=== PATIENT | male | born 1970 | race Caucasian/White ===

== ENCOUNTER → 2017-11-02 11:09 | Outpatient (REF) | payer BC, SELFPAY ==
[2017-11-02 13:27] LABS: Basophils % 0.7 % (0.1-2.0); Eosinophils # 0.2 K/mm3 (0.0-0.4); Eosinophils % 3.4 % (0.1-12.0); Hematocrit 48.2 % (42.0-52.0); Hemoglobin 15.6 g/dL (14.1-18.0); Lymphocytes # 1.2 K/mm3 (0.7-4.5); Lymphocytes % 21.3 K/mm3 (10-50); Mean Corpuscular HGB Conc 32.3 g/dL (31.8-35.4); Mean Corpuscular Hemoglobin 28.6 pg (27.0-31.2); Mean Corpuscular Volume 88.6 fl (80-94); Mean Platelet Volume 7.1 fl (7.4-10.4); Monocytes # 0.3 K/mm3 (0.1-1.0); Neutrophils # 3.8 K/mm3 (1.8-7.8); Neutrophils % 69.7 % (37.0-80.0); Platelet Count 207 K/mm3 (142-424); Red Blood Count 5.44 M/mm3 (4.60-6.20); Red Cell Distribution Width 12.2 % (11.5-17.5); White Blood Count 5.4 K/mm3 (4.8-10.8)
[2017-11-02 15:10] LABS: Alanine Aminotransferase 20 U/L (12-78); Albumin Level 4.2 gm/dL (3.4-5.0); Albumin/Globulin Ratio 1.4 (1.1-1.8); Alkaline Phosphatase 82 U/L (46-116); Anion Gap 12.8 mEq/L (5-15); Aspartate Amino Transferase 10 U/L (15-37); Bilirubin,Total 0.4 mg/dL (0.2-1.0); Blood Urea Nitrogen 10 mg/dL (7-18); Calcium 9.3 mg/dL (8.5-10.1); Carbon Dioxide 28 mmol/L (21.0-32.0); Chloride 103 mmol/L (98-107); Chol/HDL Ratio 4.2 (1-3.5); Cholesterol 148 mg/dL (140-200); Creatinine,Serum 0.87 mg/dL (0.70-1.30); Estimated Glomerular Filt Rate 94 ml/min (>60); GFR (African American) 114 ML/MIN (>60); Globulin 2.9 gm/dl (1.3-3.2); Glucose 79 mg/dL (74-106); HDL Cholesterol 35 mg/dL (27-67); LDL Cholesterol 96 mg/dL (0-130); Potassium 4.8 mmoL/L (3.5-5.1); Sodium 139 mmol/L (136-145); Thyroid Stimulating Hormone 0.91 uIU/ml (0.358-3.740); Total Protein,Serum 7.1 gm/dL (6.4-8.2); Triglycerides 85 mg/dL (30-200); VLDL Cholesterol 17 mg/dL (0-40)
== END ==
LOC: LAB 11:09
PROVIDERS: Visit Provider Emergency Medicine
DX: R53.83 Other fatigue (principal); Z79.899 Other long term (current) drug therapy
CPT/HCPCS: 80053; 80061; 84439; 84443; 85025

== ENCOUNTER 2018-05-30 13:30 | Observation (INO) ==
--- NOTE | 2018-05-30 13:34 | Emergency Department Note ---
ED Disposition Clinical Impression: Syncope and collapse Ribs, multiple fractures Qualifiers: Encounter type: initial encounter Fracture type: closed Laterality: left Qualified Code(s): S22.42XA - Multiple fractures of ribs, left side, initial encounter for closed fracture Chest pain Qualifiers: Chest pain type: unspecified Qualified Code(s): R07.9 - Chest pain, unspecified Disposition: Still a Patient Condition on Discharge: Fair - Critical Care Critical Care Time: No Attestation: On , the high probability of a clinically significant, sudden or life threatening deterioration of the following system(s) required my full and direct attention, intervention and personal management. The time I documented below is in addition to time spent performing reported procedures but includes the following listed in this critical care notation. Medical Decision Making - Torres Inquiry Pt receiving controlled substance: Yes Torres was queried for this patient: Yes Reference #:: [id number] Risks and benefits of using a controlled substance: were not discussed with pt by me (On pain medication at home) Comment: 24 rxs. 90 lortab 7.5mg on 04/28/18 Vital Signs: 05/30/18 13:31 05/30/18 13:52 05/30/18 13:59 Temperature 97.9 F Temperature Source Oral Pulse Rate [Right Brachial] 75 75 77 Respiratory Rate 17 Blood Pressure [Right Arm] 137/87 137/87 156/86 H Blood Pressure Mean [Right Arm] 103 103 109 Blood Pressure Source [Right Arm] Automatic Cuff Automatic Cuff Blood Pressure Position [Right Arm] Sitting Supine 02 Sat by Pulse Oximetry 99 99 99 Oxygen Delivery Method Nasal Cannula Nasal Cannula Oxygen Flow Rate (LPM) 2 2 05/30/18 14:01 05/30/18 14:58 05/30/18 15:00 Temperature Temperature Source Pulse Rate [Right Brachial] 75 Respiratory Rate Blood Pressure [Right Arm] 155/87 H 124/99 H 154/99 H Blood Pressure Mean [Right Arm] 109 107 117 Blood Pressure Source [Right Arm] Automatic Cuff Blood Pressure Position [Right Arm] Supine 02 Sat by Pulse Oximetry 100 Oxygen Delivery Method Oxygen Flow Rate (LPM) 05/30/18 15:35 05/30/18 16:20 05/30/18 17:25 Temperature Temperature Source Pulse Rate [Right Brachial] 77 78 78 Respiratory Rate Blood Pressure [Right Arm] 144/104 H 137/92 H 124/81 Blood Pressure Mean [Right Arm] 117 107 95 Blood Pressure Source [Right Arm] Automatic Cuff Automatic Cuff Automatic Cuff Blood Pressure Position [Right Arm] Supine Supine Sitting 02 Sat by Pulse Oximetry 99 100 98 Oxygen Delivery Method Nasal Cannula Nasal Cannula Room Air Oxygen Flow Rate (LPM) 2 2 - Lab Data Lab Results 05/30/18 13:43: WBC 10.5, RBC 4.98, Hgb 14.5, Hct 45.2, MCV 90.7, MCH 29.1, MCHC 32.0, RDW 12.4, Plt Count 232, MPV 7.1 L, Neut % (Auto) 86.4 H, Lymph % (Auto) 8.6 L, [place] % (Auto) 3.7, Eos % (Auto) 1.0, Baso % (Auto) 0.2, Neut # (Auto) 9.1 H, Lymph # (Auto) 0.9, [place] # (Auto) 0.4, Eos # (Auto) 0.1, Baso # (Auto) 0.0, Total Counted 100, Neutrophils % (Manual) 78 H, Band Neutrophils % 1.0, Lymphocytes % (Manual) 13, Atypical Lymphs % 6.0, Monocytes % (Manual) 2, Platelet Estimate Normal, RBC Morphology Normal 05/30/18 13:43: Sodium 142, Potassium 4.2, Chloride 104, Carbon Dioxide 31, Anion Gap 11.2, BUN 10, Creatinine 0.86, Estimated Creat Clear 133, Estimated GFR 95, Est GFR ( Amer) 115, Glucose 108 H, Calcium 8.9, Troponin I < 0.02 Result diagrams: 05/30/18 13:43 05/30/18 13:43 Orders (Tests/Meds): ED MEDICATIONS Generic Name Dose Route Start Last Admin Trade Name Freq PRN Reason Stop Dose Admin Hydrocodone Bitart/Acetaminophen 1 tab 05/30/18 16:49 [place] 7.5/325mg Tablet PO 06/29/18 16:48 Q6H LM Bupropion HCl 75 mg 05/30/18 21:00 Wellbutrin 75mg Tablet PO 06/29/18 20:59 BID LM Famotidine 20 mg 05/30/18 21:00 Pepcid 20mg Tablet PO 06/29/18 20:59 BID LM Morphine Sulfate 4 mg 05/30/18 16:49 Morphine 2mg/Ml Syringe IV 06/29/18 16:48 Q4HP PRN Severe Pain Non-Formulary Medication 80 mg 05/30/18 16:49 Atorvastatin Calcium [Lipitor 80mg Tablet] PO 06/29/18 16:48 QDAY LM Non-Formulary Medication 800 mg 05/30/18 21:00 Gabapentin [Neurontin 800mg Tab] PO 06/29/18 20:59 TID LM Ondansetron HCl 4 mg 05/30/18 17:16 Zofran 4mg/2ml Vial IV 06/29/18 17:15 Q6HP PRN Nausea Pantoprazole Sodium 40 mg 05/30/18 16:49 Protonix 40mg Tablet PO 06/29/18 16:48 QAM ML Prasugrel 10 mg 05/31/18 09:00 Effient 10mg Tablet PO 06/30/18 08:59 DAILY LM Sodium Chloride 10 ml 05/30/18 16:49 Saline Flush 10ml Syringe IV 06/29/18 13:58 NEEDED PRN Maintain IV Site Discontinued Medications Generic Name Dose Route Start Last Admin Trade Name Freq PRN Reason Stop Dose Admin Hydromorphone HCl 1 mg 05/30/18 16:32 05/30/18 16:48 Dilaudid 2mg/Ml Syringe IV 05/30/18 16:33 1 mg ONCE ONE Administration Iopamidol 75 ml 05/30/18 14:58 05/30/18 15:00 [id number]; 75ml Vial IV 05/30/18 14:59 75 ml ONCE ONE Administration Protocol Morphine Sulfate 4 mg 05/30/18 13:45 05/30/18 13:59 Morphine 4mg/Ml Syringe IV 05/30/18 13:46 4 mg ONCE ONE Administration Ondansetron HCl 4 mg 05/30/18 13:45 05/30/18 13:59 Zofran 4mg/2ml Vial IV 05/30/18 13:46 4 mg ONCE ONE Administration Sodium Chloride 10 ml 05/30/18 13:59 Saline Flush 10ml Syringe IV 06/29/18 13:58 NEEDED PRN Maintain IV Site Sodium Chloride 10 ml 05/30/18 14:58 05/30/18 15:00 Rad-Saline Flush 10ml Syringe IV 05/30/18 14:59 10 ml ONCE ONE Administration Sodium Chloride 50 ml 05/30/18 14:58 05/30/18 15:00 Rad-Ns 50ml Vial IV 05/30/18 14:59 50 ml ONCE ONE Administration ORDERS Category Date Time Status Pelvis XR 1-2 views [XR pelvis 1-2V] Stat Exams 05/30/18 13:36 Taken XR chest portable Stat Exams 05/30/18 13:36 Taken Troponin I Q3H Lab 05/30/18 19:45 Ordered Troponin I Q3H Lab 05/30/18 22:45 Ordered - Radiology Data #1 Image(s): Chest, Shoulder, Pelvis Image Reviewed: Yes I reviewed the patient's radiology image X-rays interpreted by Klaus Weinstein MD.: Chest: no pneumothorax or hemothorax, no visible rib fractures, normal mediastinum Pelvis: no fracture or dislocation Shoulder: No fracture or dislocation - CT Data CT Scan: Head, C-Spine, Abdomen, Pelvis, Chest, T-Spine, L-Spine Time Received: 15:[address] Reviewed: Yes: I have viewed the radiologist's interpretation Findings Narrative: Head: No acute intracranial process CTA chest: IMPRESSION: 1. Fracture of the Left Fourth and Fifth ribs. No pneumothorax no acute findings otherwise . Moderate displacement at the Left Fourth Rib Fracture. One half bone width offset with mild distraction on axial images. 2.No acute mediastinal or pulmonary findings Aorta appears normal.Pulmonary arteries unremarkable No infiltrate or pneumothorax. No pleural effusion Dictated By: Travon Zamudio Signed By: <Electronically signed by Travon Zamudio in [place]> 05/30/18 1548 Thoracic spine: IMPRESSION:......... 1. No acute findings in the thoracic spine T-spine intact and stable. Mild degenerative facet changes lower T-spine . 2. Acute fracture LEFT lateral Fourth Rib and hairline fracture lateral left Fifth Rib again noted .Old healed fractures posterior right fifth and sixth rib again noted 3 Pulmonary emphysematous changes with early bleb formation most evident towards apices. Mild apical pleural parenchymal scarring bilaterally. No acute pulmonary findings Dictated By: Travon Zamudio Signed By: <Electronically signed by Travon Zamudio in [place]> 05/30/18 1608 Abdomen/Pelvis: IMPRESSION: . Liver spleen pancreas and kidneys appear satisfactory. No posttraumatic findings at major organs There is nonspecific mild gaseous dilatation of proximal small bowel here the upper abdomen with scattered air-fluid levels here. Suspect localized ileus.... No bowel wall thickening nor mesenteric edema otherwise seen.. Distal small bowel unremarkable. No free fluid no free air in the abdomen or pelvis No subcutaneous or soft tissue abdomen contusion evident either. On the generous caliber common duct most likely reflects postcholecystectomy changes but does warrant correlation with bilirubin/ LFTs Diverticulosis most evident sigmoid colon. No diverticulitis. Appendix normal. Dictated By: Travon Zamudio Signed By: <Electronically signed by Travon Zamudio in [place]> 05/30/18 1617 Cervical Spine: IMPRESSION...... . 1.. . No acute fracture nor subluxation at Cervical Spine 2. Degenerative disc changes & spondylosis C-spine, most pronounced at the C6/7 level. Marked disc space narrowing C6/7 with. Mild to moderate posterior hypertrophic ridging yielding Borderline-Mild central canal stenosis. Well. Also mild bilateral foraminal encroachment due to spurring 3. Tonsils appear enlarged bilaterally particularly for this age patient.. Warrant clinical correlation. Dictated By: Travon Zamudio Signed By: <Electronically signed by Travon Zamudio in [place]> 05/30/18 1558 Lumbar Spine: IMPRESSION: No acute findings at the lumbar spine No acute fracture nor subluxation L-spine Developing Multilevel degenerative disc bulges & posterior element hypertrophy superimposed upon modest volume osseous spinal canal. This does yield spinal stenosis at the lumbar spine most evident at L4/5 with there is mild to moderate spinal stenosis. Suggestion of borderline-mild spinal stenosis L2/3 & L3/4. Borderline such canal stenosis L5/S1. Facet hypertrophy L-spine most evident L5/S1 L4/5. There is also some degenerative developing degenerative facet changes lower T-spine Dictated By: Travon Zamudio Signed By: <Electronically signed by Travon Zamudio in [place]> 05/30/18 1622 - ECG Data Tracing #1 EKG interpreted by Klaus Weinstein MD: Rhythm: sinus Rate: 84 [place]: normal Ectopy: none Conduction: normal ST Segment Changes: none T Wave Changes: none Q Waves: none No evidence of acute ischemia or injury Baseline artifact and wander present, but I consider the EKG adequate for accurate interpretation. - Physician Consults Physician Consulted: Rajendra Nguyen Time: 16:40 Reason -: Admission Comment/Response: Agrees to admit the patient to the hospital. We discussed the patient's clinical information, including history, exam, laboratory and radiology results and ED course. Per hospital procedure, I will write temporary bridge inpatient orders on the patient. Specific orders requested by the admitting physician: Continue home pain medication, morphine for breakthrough pain, serial cardiac enzymes Medical Decision Narrative: Prior left heart cath and stenting report: ANGIOGRAPHIC RESULTS: 1. The left main artery is a short vessel and normal 2. The left anterior descending artery is a large caliber vessel with a proximal 20% stenosis that extends proximal to the first septal sergeant missile crewman and then tapers to a 30% stenosis throughout the mid segment. Distally the vessel is widely patent. Proximally there is a small first diagonal artery which is patent followed by a medium sized 2.25 mm diagonal artery that has an ostial 40% stenosis. 3. The circumflex artery is a dominant vessel and angiographically normal 4. The right coronary artery is nondominant yet still a large vessel that has an ostial 10-20% stenosis followed by a proximal hazy 40-50% diameter stenosis and followed by an additional 50% hazy concentric stenosis immediately proximal to a large RV marginal branch. At the beginning of the angiogram KYLE II flow was present. Following stenting of the RCA, KYLE III flow was present afterward. 5. The [place] ventriculogram reveals normal 65% 6. The left ventricular end-diastolic pressure 10 mmHg IMPRESSION: 1. 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 All LAD diagonal lesions are nonflow limiting 2. Angiographically indeterminate stenosis in the proximal to mid nondominant yet still large right coronary artery which produced an initial KYLE II flow and a significant ischemic response to adenosine with an FFR index of 0.79. 3. Successful stenting of an angiographically indeterminate yet hemodynamically severe proximal to mid right coronary artery with 2 drug-eluting stents causing in angiographic improvement and flow improvement down the vessel following revascularization 4. Normal ejection fraction 5. Normal left ventricular end-diastolic pressure PLAN: 1. Effient and aspirin 2. LDL less than 70 with high dose Lipitor Crestor 3. Ongoing medical management 4. Avoidance of tobacco products 5. Aggressive risk factor modification <Electronically signed by Jensen Wray MD in [place]> 07/20/16 1458 JAMIE / ANATOLY AT 1319 AT 1433 General Adult HPI - General Chief complaint: Syncope Stated complaint: syncope with fall Time Seen by Provider: 05/30/18 13:37 - History of Present Illness HPI narrative: Patient is a poor historian. He is brought in by ambulance. He says that he was hunting in a deer stand. He began experiencing chest pain, numbness down the back of his left arm and his left leg. The next thing he knows he woke up on the ground. [place] stand was 5 feet high. He suspects that he passed out, uncertain whether it occurred before or after the fall. States the chest pain was already present prior to the fall. Walked a short distance, then had to be carried by companions to house. His neck is bothering him only from the cervical collar he says. He has chronic back pain but he says that he has incr eased back pain in his entire back, thoracic and lumbar. He says that he has had similar symptoms in the past and had to have a cardiac stent done at this facility by Dr. Wray. He said he had this done 5 years ago. Denies abdominal pain or vomiting. Denies headache. - Related Data Home Medications Medication Instructions Recorded Confirmed atorvastatin 80 mg tablet 80 mg PO QDAY 06/06/17 05/30/18 hydrocodone 7.5 mg-acetaminophen 1 tab PO Q6H 06/06/17 05/30/18 325 mg tablet pantoprazole 40 mg tablet,delayed 40 mg PO QAM 06/06/17 05/30/18 release prasugrel 10 mg tablet 10 mg PO QDAY 06/06/17 05/30/18 bupropion HCl 75 mg tablet 75 mg PO BID tab 11/02/17 05/30/18 Famotidine [Acid Mail Room Clerk] 20 mg PO BID 05/26/18 05/30/18 Gabapentin [Neurontin 800mg Tab] 800 mg PO TID 05/26/18 05/30/18 Sildenafil Citrate [Revatio] 20 mg PO DIRECTED 05/26/18 05/30/18 Previous Rx's Medication Instructions Recorded nitroglycerin 0.4 mg sublingual 0.4 mg SUBLINGUAL Q5M PRN #25 tab 11/28/17 tablet Tramadol HCl [Tramadol 50mg 50 mg PO TID PRN #9 tab 05/26/18 Tab] Allergies Allergy/AdvReac Type Severity Reaction Status Date / Time codeine [CODEINE] Allergy Mild Verified 05/03/18 09:53 meloxicam [From MOBIC] Allergy Mild Verified 05/03/18 09:53 ibuprofen [IBUPROFEN] Allergy Unknown Verified 05/03/18 09:53 [facility] History - Hepatitis A Screen Attestation statement:: This patient has been screened for Hepatitis A risk factors. I have reviewed the patient's past medical history: Yes Medical History: Reports:: Anxiety, Chronic Obstructive Pulmonary Disease (COPD), Depression, Gastroesophageal Reflux Disease(GERD), Hiatal Hernia, Hyperlipidemia, Hypertension Denies:: Diabetes Mellitus Type 1, Diabetes Mellitus Type 2 Laterality Cases: Bilateral: Tonsillectomy Other Surgeries: Yes: Hernia Repair, Other Amputation: No Fractures: No - Social History Smoking Status: Current every day smoker Tobacco Type: cigarettes # Packs/Day (cigarettes): 30 Alcohol Intake: never Substance Use Type: denies use Occupational Status: employed Housing: house Household Members: spouse - Psychiatric History Pschychiatric History:: Reports:: Anxiety, Depression Family Hx:: Diabetes, Heart Attack, Coronary Artery Disease, Thyroid Disorder, Hypertension ROS Obtained: Yes All systems reviewed & no additional complaints - Constitutional Constitutional: Denies fever(s) - Eyes Eyes: Denies change in vision - Cardiovascular Cardiovascular: Reports chest pain - Respiratory Respiratory: No dyspnea - Gastrointestinal Gastrointestingal: Denies: abdominal pain, vomiting - Musculoskeletal Musculoskeletal: Reports back pain, Reports neck pain - Neurologic Neurologic: Denies headache(s), Reports numbness, Denies weakness Physical Exam - General General appearance: other Comment: Constantly moaning. - Head Head exam: atraumatic, normocephalic - Eye Eye exam: Present: normal appearance, PERRL, EOMI - ENT ENT exam: Present: mucous membranes moist - Neck Neck exam: Present: other (cervical collar) - Chest Chest inspection: Present: normal inspection, symmetric chest wall rise. Absent: tenderness - Respiratory Respiratory exam: Present: normal lung sounds bilaterally. Absent: respiratory distress - Cardiovascular Cardiovascular exam: Present: regular rate, normal rhythm, normal heart sounds, other (hall monitor shows sinus rhythm) - Abdominal Exam Abdominal exam: Present: soft. Absent: distention, tenderness - Extremities Exam Extremities exam: Present: normal inspection, full ROM - Neurological Exam Neurological exam: Present: alert, oriented X3, CN II-XII intact. Absent: motor sensory deficit - Psychiatric Psychiatric exam: Present: anxious - Other Other exam information: His left shoulder without deformity. Complains of pain with movement. Tenderness left hip without deformity. Complains of pain with movement. Vascular status intact all 4 extremities with good pulses throughout.
[2018-05-30 14:00] LABS: Basophils % 0.2 % (0.1-2.0); Eosinophils # 0.1 K/mm3 (0.0-0.4); Hematocrit 45.2 % (42.0-52.0); Hemoglobin 14.5 g/dL (14.1-18.0); Lymphocytes # 0.9 K/mm3 (0.7-4.5); Lymphocytes % 8.6 % (10-50); Mean Corpuscular Hemoglobin 29.1 pg (27.0-31.2); Mean Corpuscular Volume 90.7 fl (80-94); Mean Platelet Volume 7.1 fl (7.4-10.4); Monocytes # 0.4 K/mm3 (0.1-1.0); Monocytes % 3.7 % (1.7-9.3); Neutrophils # 9.1 K/mm3 (1.8-7.8); Neutrophils % 86.4 % (37.0-80.0); Platelet Count 232 K/mm3 (142-424); Red Blood Count 4.98 M/mm3 (4.60-6.20); Red Cell Distribution Width 12.4 % (11.5-17.5); White Blood Count 10.5 K/mm3 (4.8-10.8)
[2018-05-30 14:12] LABS: Anion Gap 11.2 mEq/L (5-15); Blood Urea Nitrogen 10 mg/dL (7-18); Calcium 8.9 mg/dL (8.5-10.1); Carbon Dioxide 31 mmol/L (21.0-32.0); Chloride 104 mmol/L (98-107); Glucose 108 mg/dL (74-106); Potassium 4.2 mmoL/L (3.5-5.1); Sodium 142 mmol/L (136-145)
[2018-05-30 14:41] LABS: Lymphocytes % 13 % (10-50); Monocytes % 2 % (2-9); Neutrophils % 78 % (42-76); Total Cells Counted 100
[2018-05-30 14:42] LABS: RBC Morphology Normal
--- NOTE | 2018-05-30 18:03 | History & Physical Report ---
*Admission Date: 05/30/18 *Chief complaint: Chest pain and loss of consciousness *History of present illness: 48-year-old male presented to the emergency department with chest pain and an episode of syncope. Patient was in a tree stand hunting deer. He estimates the tree stand was about 5 feet off the ground. Patient developed some chest pain that is in the left lower chest that radiated down the left side of the abdomen with simultaneous onset of a burning sensation in the left shoulder and arm. Patient admits he has been having this pain since yesterday evening. However while in the tree stand with an episode of pain he ultimately lost consciousness and awoke laying on the ground. He does not know how long he was unconscious. He is clear that he was unconscious before he fell out of the tree stand. Once he became alert he tried to ambulate but because of pain in the left side of the chest he was unable to and required assistance. He was brought to the emergency department. In the ER a rather extensive workup was performed. Abnormal findings included a fourth and fifth left rib fracture. Initial labs which did include a set of cardiac enzymes were negative. EKG was performed but is currently not available for review. Patient was admitted to telemetry for further cardiac monitoring, serial cardiac enzymes, pain control. Patient has a history of coronary artery disease with stenting of the right coronary artery [place] [address] Wray. Patient tells me the symptoms he had today are not similar to what he experienced prior to his stenting in 2017. The ER record may indicate otherwise. At the time of my interview with the patient he had received several doses of morphine as well as Dilaudid and was somewhat sedated. At the time of interview he only endorsed left-sided chest pain. [facility] History I have reviewed the patient's past medical history: Yes Medical History: Reports:: Anxiety, Chronic Obstructive Pulmonary Disease (COPD), Depression, Gastroesophageal Reflux Disease(GERD), Hiatal Hernia, Hy perlipidemia, Hypertension, Myocardial Infarction Denies:: Cancer, Diabetes Mellitus Type 1, Diabetes Mellitus Type 2 Comment: Chronic back pain Laterality Cases: Bilateral: Tonsillectomy Other Surgeries: Yes: Hernia Repair, Other Amputation: No Fractures: No - *Social History Educational Level: Attended High School Smoking Status: Current every day smoker Tobacco Type: cigarettes, smokeless tobacco # Packs/Day (cigarettes): 1 #Yrs smoked (if former smoker): 15 Alcohol Intake: never Substance Use Type: denies use Occupational Status: employed Housing: house Household Members: spouse, other - Psychiatric History Expresses thoughts of harming self/others: None Suicide Plan Description: No Plan Pschychiatric History:: Reports:: Anxiety, Depression *Family Hx:: Diabetes, Heart Attack, Coronary Artery Disease, Thyroid Disorder, Hypertension Review of Systems - Review of Systems Review of systems:: pertinent systems reviewed and negative unless documented below - Constitutional Denies body ache(s), Denies chills, Denies daytime sleepiness, Denies excessive sweating, Denies fatigue, Denies fever(s) - *Cardiovascular Reports chest pain, Denies excessive sweating, Denies shortness of breath, Denies shortness of breath when lying down - *Respiratory Denies change in phlegm color, Denies chest congestion, Denies cough - *Gastrointestinal Denies abdominal pain, Denies belching, Denies bloating, Denies change in bowel habits - *Musculoskeletal Reports joint pain - *Neurologic Reports numbness, Denies headache(s), Denies weakness - Endocrine Denies excessive sweating, Denies flushing Meds Home Medications Medication Instructions Recorded Confirmed Type atorvastatin 80 mg tablet 80 mg PO QDAY 06/06/17 05/30/18 History hydrocodone 7.5 mg-acetaminophen 1 tab PO Q6H 06/06/17 05/30/18 History 325 mg tablet pantoprazole 40 mg tablet,delayed 40 mg PO QAM 06/06/17 05/30/18 History release prasugrel 10 mg tablet 10 mg PO QDAY 06/06/17 05/30/18 History bupropion HCl 75 mg tablet 75 mg PO BID tab 11/02/17 05/30/18 History nitroglycerin 0.4 mg sublingual 0.4 mg SUBLINGUAL Q5M PRN #25 tab 11/28/17 05/30/18 Rx tablet Famotidine [Acid Analysis Analyst] 20 mg PO BID 05/26/18 05/30/18 History Gabapentin [Neurontin 800mg Tab] 800 mg PO TID 05/26/18 05/30/18 History Sildenafil Citrate [Revatio] 20 mg PO DIRECTED 05/26/18 05/30/18 History Tramadol HCl [Tramadol 50mg 50 mg PO TID PRN #9 tab 05/26/18 05/30/18 Rx Tab] Allergies Allergy/AdvReac Type Severity Reaction Status Date / Time codeine [CODEINE] Allergy Mild Verified 05/03/18 09:53 meloxicam [From MOBIC] Allergy Mild Verified 05/03/18 09:53 ibuprofen [IBUPROFEN] Allergy Unknown Verified 05/03/18 09:53 Exam Vital signs and Labs for Last 24 Hours: Temp Pulse Resp BP Pulse Ox 98.6 F 85 22 146/91 H 99 05/30/18 17:48 05/30/18 17:48 05/30/18 17:48 05/30/18 17:48 05/30/18 17:48 Laboratory Results - last 24 hr 05/30/18 13:43: WBC 10.5, RBC 4.98, Hgb 14.5, Hct 45.2, MCV 90.7, MCH 29.1, MCHC 32.0, RDW 12.4, Plt Count 232, MPV 7.1 L, Neut % (Auto) 86.4 H, Lymph % (Auto) 8.6 L, [place] % (Auto) 3.7, Eos % (Auto) 1.0, Baso % (Auto) 0.2, Neut # (Auto) 9.1 H, Lymph # (Auto) 0.9, [place] # (Auto) 0.4, Eos # (Auto) 0.1, Baso # (Auto) 0.0, Total Counted 100, Neutrophils % (Manual) 78 H, Band Neutrophils % 1.0, Lymphocytes % (Manual) 13, Atypical Lymphs % 6.0, Monocytes % (Manual) 2, Platelet Estimate Normal, RBC Morphology Normal 05/30/18 13:43: Sodium 142, Potassium 4.2, Chloride 104, Carbon Dioxide 31, Anion Gap 11.2, BUN 10, Creatinine 0.86, Estimated Creat Clear 133, Estimated GFR 95, Est GFR ( Amer) 115, Glucose 108 H, Calcium 8.9, Troponin I < 0.02 I & O for Last 24 hours: Intake & Output 05/28/18 05/29/18 05/30/18 05/31/18 11:59 11:59 11:59 11:59 Intake Total 1000 / 1000 Output Total 450 / 450 Balance 550 / 550 Weight 185 lb 5 oz Narrative: Patient is laying in bed and appears uncomfortable. He is somewhat restless despite being mildly sedated. Eyes: Pupils equal round react to light. Ears: Normal external ears. Oropharynx is moist. Neck is without lymphadenopathy or carotid bruits. Lungs have faint wheezes primarily on the right. Heart has a regular rate and rhythm. Abdomen is soft. He does have some mild tenderness along the left lower costal margin. He is moving all of his extremities and has no motor or sensory deficit at this time. Skin of the chest is without bruising Assessment and Plan (1) Atypical chest pain Current visit: Yes Status: Acute Category: Medical Code(s): R07.89 - Other chest pain (2) Ribs, multiple fractures Current visit: Yes Status: Acute Qualifiers: Encounter type: initial encounter Fracture type: closed Laterality: left Qualified Code(s): S22.42XA - Multiple fractures of ribs, left side, initial encounter for closed fracture Category: Medical Code(s): S22.49XA - Multiple fractures of ribs, unspecified side, initial encounter for closed fracture (3) Syncope and collapse Current visit: Yes Status: Acute Category: Medical Code(s): R55 - Syncope and collapse (4) CAD (coronary artery disease) Current visit: No Status: Acute Category: Medical Code(s): I25.10 - Atherosclerotic heart disease of [place] coronary artery without angina pectoris (5) COPD (chronic obstructive pulmonary disease) Current visit: No Status: Acute Category: Medical Code(s): J44.9 - Chronic obstructive pulmonary disease, unspecified - Assessment and plan all Dx Assessment and Plan for all problems:: 1. Admit to telemetry with serial enzymes and echocardiogram in the morning 2. Continue home [place] dosing and morphine 4 mg every 4 hours has been ordered for breakthrough pain. 3. I am going to start Solu-Medrol and duo nebs as patient is developing some mild wheezing. 4. Continue essential home medicines
--- NOTE | 2018-05-31 07:23 | Progress Note ---
Internal Medicine - PN: Subj *Date: 05/31/18 *Time: 07:21 Interval history: Patient complains of left-sided chest pain from his rib fractures as well as pain along the left collarbone at the clavicular sternal junction. He has been medicated with intravenous morphine throughout the night. Nursing staff reports patient's been awake all night long watching television and using his smart phone. On extension service advisor patient had a brief run of what appears to either be flutter or just prominent U waves. Echocardiogram is been performed this morning Exam Vital signs and Labs for Last 24 Hours: Temp Pulse Resp BP Pulse Ox 97.8 F 79 18 134/79 96 05/31/18 04:00 05/31/18 06:08 05/31/18 04:00 05/31/18 04:00 05/31/18 06:08 Laboratory Results - last 24 hr 05/30/18 13:43: WBC 10.5, RBC 4.98, Hgb 14.5, Hct 45.2, MCV 90.7, MCH 29.1, MCHC 32.0, RDW 12.4, Plt Count 232, MPV 7.1 L, Neut % (Auto) 86.4 H, Lymph % (Auto) 8.6 L, [place] % (Auto) 3.7, Eos % (Auto) 1.0, Baso % (Auto) 0.2, Neut # (Auto) 9.1 H, Lymph # (Auto) 0.9, [place] # (Auto) 0.4, Eos # (Auto) 0.1, Baso # (Auto) 0.0, Total Counted 100, Neutrophils % (Manual) 78 H, Band Neutrophils % 1.0, Lymphocytes % (Manual) 13, Atypical Lymphs % 6.0, Monocytes % (Manual) 2, Platelet Estimate Normal, RBC Morphology Normal 05/30/18 13:43: Sodium 142, Potassium 4.2, Chloride 104, Carbon Dioxide 31, Anion Gap 11.2, BUN 10, Creatinine 0.86, Estimated Creat Clear 133, Estimated GFR 95, Est GFR ( Amer) 115, Glucose 108 H, Calcium 8.9, Troponin I < 0.02 05/30/18 19:50: Troponin I < 0.02 05/30/18 22:35: Troponin I < 0.02 I & O for Last 24 hours: Intake & Output 05/28/18 05/29/18 05/30/18 05/31/18 11:59 11:59 11:59 11:59 Intake Total 2140 / 2140 Output Total 450 / 450 Balance 1690 / 1690 Weight 185 lb 5 oz Narrative: He is awake and alert. He appears uncomfortable with any movements including deep breathing. Heart has a regular rate and rhythm. Lungs are distant but clear and I do not hear any wheezes this morning. Abdomen is soft. Muscular total exam is significant for tenderness at the left medial clavicle and sternum Assessment and Plan (1) Syncope and collapse Current visit: Yes Status: Acute Category: Medical Code(s): R55 - Syncope and collapse (2) Atypical chest pain Current visit: Yes Status: Acute Category: Medical Code(s): R07.89 - Other chest pain (3) Ribs, multiple fractures Current visit: Yes Status: Acute Qualifiers: Encounter type: initial encounter Fracture type: closed Laterality: left Qualified Code(s): S22.42XA - Multiple fractures of ribs, left side, initial encounter for closed fracture Category: Medical Code(s): S22.49XA - Multiple fractures of ribs, unspecified side, initial encounter for closed fracture (4) CAD (coronary artery disease) Current visit: No Status: Acute Category: Medical Code(s): I25.10 - Atherosclerotic heart disease of [place] coronary artery without angina pectoris (5) COPD (chronic obstructive pulmonary disease) Current visit: No Status: Acute Category: Medical Code(s): J44.9 - Chronic obstructive pulmonary disease, unspecified - Assessment and plan all Dx Assessment and Plan for all problems:: 1. Consult cardiology this morning due to the patient's syncope questionable arrhythmia. Echocardiogram is pending
--- NOTE | 2018-05-31 07:52 | Pharmacy Consult Notes ---
[facility] Pharmacy VTE Monitoring - Patient Demographics Admission date: 05/30/18 Report Date: 05/31/18 Time: 07:51 Allergies/Adverse Reactions: Patient Allergies codeine [CODEINE] Allergy (Mild, Verified 05/03/18 09:53) meloxicam [From MOBIC] Allergy (Mild, Verified 05/03/18 09:53) ibuprofen [IBUPROFEN] Allergy (Unknown, Verified 05/03/18 09:53) Height: 1.83 m Weight: 84.056 kg Patient Problems: Current Active Problems Ribs, multiple fractures (Acute) Syncope and collapse (Acute) Chest pain (Acute) Atypical chest pain (Acute) - VTE Risk Labs: VTE Related Lab Results Hgb 14.5 g/dL (14.1-18.0) 05/30/18 13:43 Hct 45.2 % (42.0-52.0) 05/30/18 13:43 Plt Count 232 K/mm3 (142-424) 05/30/18 13:43 BUN 10 mg/dL (7-18) 05/30/18 13:43 Creatinine 0.86 mg/dL (0.70-1.30) 05/30/18 13:43 Estimated Creat Clear 133 mL/min (50-200) 05/30/18 13:43 Was VTE Risk Assessment Performed: Yes VTE Score: 5 VTE Risk Level: Low Risk - Prophylaxis VTE Prophylaxis Ordered?: Yes Types of VTE Prophylaxis: TEDS Knee High Location of Applied Device: Bilateral Lower Extremeties - VTE Diagnosis Confirmed Treatment or plan recommended: Continue Current Treatment
--- NOTE | 2018-05-31 14:39 | Consult Report ---
History of Present Illness Consult date: 05/31/18 Requesting physician: Malvin Nguyen Consult reason: chest pain Chief complaint: chest pain History of present illness: This is a 48 year old white who presented to the emergency department with complaints of chest pain followed by an episode of syncope. the patient reports that he was in a tree stand while deer hunting when he had sudden onset of severe chest pain in the center of his chest. This radiated to the L arm and shoulder. He states he also had pain in the L side of his abdomen. he reports this was a burning, aching, pressure sensation. he was SOB and clammy when this occurred. this was a severe 10/10 pain and felt the same as his previous angina when he needed stents in the past. He does report that the pain also occurred the day before but did not last long and resolved with rest. Yesterday the pain was worse and lasted longer. he states he is unsure how long it really lasted. He he ultimately lost consciousness and woke up on the ground which was about 5 feet down. He called his friend for help, who ended up calling EMS. He does have fractured ribs from the fall. Today he is still complaining on the same chest pain as well as pain in the left rib area and L clavicular area from the fall. denies fever, chills, N/V/D, PND or orthopnea. [facility] History Medical History: Reports:: Anxiety, Atherosclerotic Heart Disease, Chronic Obstructive Pulmonary Disease (COPD), Depression, Gastroesophageal Reflux Disease(GERD), Hiatal Hernia, Hyperlipidemia, Hypertension, Myocardial Infarction Denies:: Cancer, Diabetes Mellitus Type 1, Diabetes Mellitus Type 2 Laterality Cases: Bilateral: Tonsillectomy Other Surgeries: Yes: Cardiac Catheterization (with stenting to RCA), Hernia R epair, Other Amputation: No Fractures: No - *Social History Educational Level: Attended High School Smoking Status: Current every day smoker Tobacco Type: cigarettes, smokeless tobacco # Packs/Day (cigarettes): 1 #Yrs smoked (if former smoker): 15 Alcohol Intake: never Substance Use Type: denies use Occupational Status: employed Housing: house Household Members: spouse, other - Psychiatric History Expresses thoughts of harming self/others: None Suicide Plan Description: No Plan Pschychiatric History:: Reports:: Anxiety, Depression *Family Hx:: Diabetes, Heart Attack, Coronary Artery Disease, Thyroid Disorder, Hypertension Meds Home Medications Medication Instructions Recorded Confirmed Type atorvastatin 80 mg tablet 80 mg PO DAILY 06/06/17 05/31/18 History hydrocodone 7.5 mg-acetaminophen 1 tab PO TIDP PRN 06/06/17 05/31/18 History 325 mg tablet pantoprazole 40 mg tablet,delayed 40 mg PO DAILY 06/06/17 05/31/18 History release prasugrel 10 mg tablet 10 mg PO DAILY 06/06/17 05/31/18 History nitroglycerin 0.4 mg sublingual 0.4 mg SUBLINGUAL Q5M PRN #25 tab 11/28/17 05/30/18 Rx tablet Famotidine [Acid Structural Test Engineer] 20 mg PO BID 05/26/18 05/30/18 History Gabapentin [Neurontin 800mg Tab] 800 mg PO TID 05/26/18 05/30/18 History Sildenafil Citrate [Revatio] 20 mg PO DIRECTED 05/26/18 05/30/18 History Tramadol HCl [Tramadol 50mg 50 mg PO TID PRN #9 tab 05/26/18 05/30/18 Rx Tab] Tizanidine HCl [Zanaflex 4mg 4 mg PO TIDP PRN 05/31/18 05/31/18 History tablet] buPROPion HCl [Bupropion HCl Sr] 100 mg PO BID 05/31/18 05/31/18 History Allergies Allergy/AdvReac Type Severity Reaction Status Date / Time codeine [CODEINE] Allergy Mild Verified 05/03/18 09:53 meloxicam [From MOBIC] Allergy Mild Verified 05/03/18 09:53 ibuprofen [IBUPROFEN] Allergy Unknown Verified 05/03/18 09:53 Review of Systems - Review of Systems Review of systems:: pertinent systems reviewed and negative unless documented below - *Cardiovascular Reports chest pain, Reports chest pain at rest, Reports chest pain with activity, Reports shortness of breath, Reports shortness of breath with activity - *Neurologic Reports numbness (left arm ), Reports other (syncope), Denies headache(s), Denies weakness Exam Vital signs and Labs for Last 24 Hours: Temp Pulse Resp BP Pulse Ox 99.8 F H 86 18 132/90 93 L 05/31/18 12:00 05/31/18 12:00 05/31/18 12:00 05/31/18 12:00 05/31/18 12:00 Laboratory Results - last 24 hr 05/30/18 13:43: Total Counted 100, Neutrophils % (Manual) 78 H, Band Neutrophils % 1.0, Lymphocytes % (Manual) 13, Atypical Lymphs % 6.0, Monocytes % (Manual) 2, Platelet Estimate Normal, RBC Morphology Normal 05/30/18 19:50: Troponin I < 0.02 05/30/18 22:35: Troponin I < 0.02 I & O for Last 24 hours: Intake & Output 05/28/18 05/29/18 05/30/18 05/31/18 23:59 23:59 23:59 23:59 Intake Total 1480 / 1480 1140 / 1140 Output Total 450 / 450 Balance 1030 / 1030 1140 / 1140 Weight 185 lb 5 oz 185 lb 5 oz Radiology Reports for the Last 24 Hours: EKG is SR with a rate of 84. Tele shows SR with a rate of 90. - Constitutional no acute distress, average body habitus - *Routine HEENT Exam Head: Present: normocephalic Eye: Present: EOMI, PERRL ENT: Present: mucous membranes moist - *Routine Neck Exam Present: supple, full ROM. Absent: JVD, lymphadenopathy - *Routine Respiratory Exam Present: CTA bilaterally - *Routine Cardiovascular Exam Present: RRR, Normal S1, Normal S2, tachycardia. Absent: murmur, gallop - *Routine Abdominal Exam Present: soft, normoactive bowel sounds. Absent: tenderness, distended, rebound - *Routine Extremities Exam Present: full ROM, pulses intact, normal capillary refill. Absent: cyanosis, clubbing, edema - *Routine Skin Exam Present: warm. Absent: cyanosis, rash - *Routine Neurological Exam Present: alert, oriented X3, CN II-XII intact, sensory deficit, motor deficit - Routine Psychiatric Exam Present: normal thought process. Absent: suicidal ideation Assessment and Plan (1) Typical angina Current visit: Yes Status: Acute Category: Medical Code(s): I20.9 - Angina pectoris, unspecified (2) CAD (coronary artery disease) Current visit: No Status: Acute Category: Medical Code(s): I25.10 - Atherosclerotic heart disease of [place] coronary artery without angina pectoris (3) Syncope and collapse Current visit: Yes Status: Acute Category: Medical Code(s): R55 - Syncope and collapse (4) Ribs, multiple fractures Current visit: Yes Status: Acute Qualifiers: Encounter type: initial encounter Fracture type: closed Laterality: left Qualified Code(s): S22.42XA - Multiple fractures of ribs, left side, initial encounter for closed fracture Category: Medical Code(s): S22.49XA - Multiple fractures of ribs, unspecified side, initial encounter for closed fracture (5) COPD (chronic obstructive pulmonary disease) Current visit: No Status: Acute Category: Medical Code(s): J44.9 - Chronic obstructive pulmonary disease, unspecified (6) HTN (hypertension) Current visit: Yes Status: Acute Category: Medical Code(s): I10 - Essential (primary) hypertension (7) HLD (hyperlipidemia) Current visit: Yes Status: Acute Category: Medical Code(s): E78.5 - Hyperlipidemia, unspecified (8) Tachycardia Current visit: Yes Status: Acute Category: Medical Code(s): R00.0 - Tachycardia, unspecified (9) Tobacco dependence Current visit: No Status: Acute Category: Medical Code(s): F17.200 - Nicotine dependence, unspecified, uncomplicated - Assessment and plan all Dx Assessment and Plan for all problems:: Plan: 1. Pt admitted with chest pain and syncope. Pt with typical angina, class IV angina. known CAD and new onset of angina. High risk for CAD progression. 2. Clinical evaluation and indication for diagnostic coronary angiography includes: Known CAD is present. New Onset Angina <= 2 months Syncope Patient is describing chest pain symptom as typical angina. Clinical risk factors of CAD, HTN, HLD and tobacco use. Medication therapy including beta blockers. 3. Will plan to proceed with LHC/Coronary angiography with R groin access. The patient has been educated on the risks, benefits and alternatives of proceeding with LHC/Coronary angiography with R groin access. The patient verbalizes understanding and is agreeable in proceeding with the procedure. 4. BP is acceptable. 5. HR too high at 90-102. Start Bisoprolol 10 mg daily for better HR control. 6. Repeat EKG today. 7. liver and lipid panel today. 8. tobacco cessation is advised and counseled. 9. echo is pending. 10. further recommendations will be made pending the patient's response to treatment. Thank you for the opportunity to help participate in the care of this patient.
--- NOTE | 2018-06-01 07:07 | Carotid Imaging Report ---
"Cerebrovascular Exam Indications: 780.2 Syncope and collapse. IMPRESSIONS 1. The bilateral vertebral arteries are patent with normal antegrade flow. 2. Study suggests less than 20% stenosis involving the right internal carotid artery and the left internal carotid artery. Carotid duplex study. Complete study and Doppler flow study including spectral analysis, color and hughes scale imaging. Height: Height: 182.9cm. Height: 72in. Weight: Weight: 83.9kg. Weight: 184.6lb. Body mass index: BMI: 25.1kg/m^2. Body surface area: BSA: 2.07m^2. Location: Bedside. Patient status: Inpatient. Tables: Arterial flow: + +--------+--------+ |Location |V sys |V ed | + +--------+--------+ |Right CCA - proximal|140cm/s |28.7cm/s| + +--------+--------+ |Right CCA - distal |112cm/s |19.7cm/s| + +--------+--------+ |Right ECA |81cm/s |--------| + +--------+--------+ |Right ICA - proximal|50.1cm/s|22.6cm/s| + +--------+--------+ |Right ICA - mid |49.1cm/s|24cm/s | + +--------+--------+ |Right ICA - distal |55.8cm/s|27.5cm/s| + +--------+--------+ |Right vertebral |43.7cm/s|--------| + +--------+--------+ |Left CCA - proximal |155cm/s |29.1cm/s| + +--------+--------+ |Left CCA - distal |112cm/s |22.8cm/s| + +--------+--------+ |Left ECA |89.9cm/s|--------| + +--------+--------+ |Left ICA - proximal |70.7cm/s|16.6cm/s| + +--------+--------+ |Left ICA - mid |55.9cm/s|24.9cm/s| + +--------+--------+ |Left ICA - distal |55cm/s |20.1cm/s| + +--------+--------+ |Left vertebral |51.6cm/s|--------| + +--------+--------+ Velocity ratios: + + + + + + | |Right, V sys|Right, V ed|Left, V sys|Left, V ed| + + + + + + |Max ICA/dist CCA|0.5 |1.4 |0.63 |1.09 | + + + + + + (Report amended ) Electronically signed by: Wero Calero [id number]"
[2018-06-01 07:41] LABS: Basophils % 0.1 % (0.1-2.0); Eosinophils % 0.1 % (0.1-12.0); Hematocrit 43.3 % (42.0-52.0); Hemoglobin 13.6 g/dL (14.1-18.0); Lymphocytes # 0.8 K/mm3 (0.7-4.5); Lymphocytes % 4.8 % (10-50); Mean Corpuscular HGB Conc 31.3 g/dL (31.8-35.4); Mean Corpuscular Hemoglobin 29.1 pg (27.0-31.2); Mean Platelet Volume 7.3 fl (7.4-10.4); Monocytes # 0.3 K/mm3 (0.1-1.0); Monocytes % 1.9 % (1.7-9.3); Neutrophils # 14.7 K/mm3 (1.8-7.8); Platelet Count 200 K/mm3 (142-424); Red Blood Count 4.65 M/mm3 (4.60-6.20); Red Cell Distribution Width 12.6 % (11.5-17.5); White Blood Count 15.8 K/mm3 (4.8-10.8)
[2018-06-01 07:48] LABS: Albumin Level 3.4 gm/dL (3.4-5.0); Bilirubin,Direct 0.1 mg/dL (0.0-0.2); Bilirubin,Indirect 0.2 mg/dL (0.0-0.9); Bilirubin,Total 0.3 mg/dL (0.2-1.0); Total Protein,Serum 6.6 gm/dL (6.4-8.2)
[2018-06-01 08:09] LABS: Calcium 8.7 mg/dL (8.5-10.1)
[2018-06-01 08:32] LABS: Lymphocytes % 6 % (10-50); Monocytes % 2 % (2-9); Neutrophils % 92 % (42-76); RBC Morphology Normal; Total Cells Counted 100
--- NOTE | 2018-06-01 11:17 | Progress Note ---
Subjective Date: 06/01/18 Time: 09:30 Principal diagnosis: chest pain Interval history: The patient was admitted with chest pain and a syncopal episode while he was deer hunting in a tree stand. The patient did sustain rib fractures and had an injury to his left clavicle area. The patient was also experiencing chest pain and angina prior to his syncopal episode. The patient was felt to be having class IV angina/typical angina. He underwent left cardiac catheterization yesterday which showed mild amount of the disease and a normal ejection fraction. Dr. Danielle recommended a carotid ultrasound which was completed yesterday and showed mild carotid artery stenosis bilaterally. Patient was also recommended to have an event monitor placed before discharge home. Today he is still complaining of soreness in the left side and the left shoulder area. He states that his chest pain is improved. He is still complaining of shortness of breath. He states he short of breath all the time with exertion. It does improve with rest. No other associated symptoms. He states that this is gone on for quite some time but attributed to his COPD. He denies any edema. No fever chills nausea vomiting diarrhea PND orthopnea. Exam Vital signs and Labs for Last 24 Hours: Temp Pulse Resp BP Pulse Ox 99.1 F 91 H 20 123/68 95 06/01/18 08:00 06/01/18 08:00 06/01/18 08:00 06/01/18 08:00 06/01/18 08:00 Laboratory Results - last 24 hr 06/01/18 07:15: WBC 15.8 H D, RBC 4.65, Hgb 13.6 L, Hct 43.3, MCV 93.0, MCH 29.1, MCHC 31.3 L, RDW 12.6, Plt Count 200, MPV 7.3 L, Neut % (Auto) 93.0 H, Lymph % (Auto) 4.8 L, [place]ley % (Auto) 1.9, Eos % (Auto) 0.1, Baso % (Auto) 0.1, Neut # (Auto) 14.7 H, Lymph # (Auto) 0.8, Donley # (Auto) 0.3, Eos # (Auto) 0.0, Baso # (Auto) 0.0, Total Counted 100, Neutrophils % (Manual) 92 H, Lymphocytes % (Manual) 6 L, Monocytes % (Manual) 2, Platelet Estimate Normal, RBC Morphology Normal 06/01/18 07:15: Sodium 140, Potassium 5.0, Chloride 105, Carbon Dioxide 28, Anion Gap 12.0, BUN 15 D, Creatinine 0.91, Estimated Creat Clear 118, Estimated GFR 89, Est GFR ( Amer) 108, Glucose 146 H, Calcium 8.7 06/01/18 07:15: Total Bilirubin 0.3, Direct Bilirubin 0.1, Indirect Bilirubin 0.2, AST 18, ALT 21, Alkaline Phosphatase 68, Total Protein 6.6, Albumin 3.4, Triglycerides 70, Cholesterol 150, LDL Cholesterol 86, VLDL Cholesterol 14, HDL Cholesterol 50, Cholesterol/HDL Ratio 3.0 I & O for Last 24 hours: Intake & Output 05/29/18 05/30/18 05/31/18 06/01/18 23:59 23:59 23:59 23:59 Intake Total 1480 / 1480 1620 / 1620 480 / 480 Output Total 450 / 450 Balance 1030 / 1030 1620 / 1620 480 / 480 Weight 185 lb 5 oz 185 lb 5 oz Radiology Reports for the Last 24 Hours: His echocardiogram preliminary report showed that the right-sided chambers were enlarged. The patient had abnormal septal wall motion. Telemetry strip shows sinus rhythm with a rate of 85. - *Routine HEENT Exam Head: Present: normocephalic, atraumatic Eye: Present: EOMI, PERRL ENT: Present: mucous membranes moist - *Routine Neck Exam Present: supple, full ROM. Absent: JVD, carotid bruit, lymphadenopathy - *Routine Respiratory Exam Present: decreased breath sounds, CTA bilaterally - *Routine Abdominal Exam Present: soft, normoactive bowel sounds. Absent: tenderness - *Routine Extremities Exam Present: full ROM, pulses intact. Absent: cyanosis, clubbing, edema - *Routine Skin Exam Present: intact, warm. Absent: rash - *Routine Neurological Exam Present: alert, oriented X3, CN II-XII intact, sensory deficit, motor deficit Progress Note: A&P (1) Typical angina Status: Resolved Current Visit: Yes (2) CAD (coronary artery disease) Status: Chronic Current Visit: No (3) Syncope and collapse Status: Acute Current Visit: Yes (4) Ribs, multiple fractures Status: Acute Current Visit: Yes (5) COPD (chronic obstructive pulmonary disease) Status: Chronic Current Visit: No (6) HTN (hypertension) Status: Chronic Current Visit: Yes (7) HLD (hyperlipidemia) Status: Chronic Current Visit: Yes (8) Tachycardia Status: Resolved Current Visit: Yes (9) Tobacco dependence Status: Chronic Current Visit: No (10) SOB (shortness of breath) Status: Acute Current Visit: Yes Assessment and Plan for All Diagnoses:: Plan: 1. The patient was admitted to the hospital with chest pain and a syncopal episode. The patient was felt to be having typical angina/class IV angina. The patient underwent left cardiac catheterization yesterday which showed mild nonocclusive coronary artery disease and patent stents. His ejection fraction was normal. 2. Given the patient's syncope a carotid ultrasound was completed and this showed mild carotid artery stenosis bilaterally. 3. The patient had a syncopal episode where he woke up on the ground after falling from a 5 foot tree stand. He did sustain some rib fractures, this is being managed per his primary care provider. 4. The patient will need to go home with a 30-day event monitor to rule out any cardiac arrhythmias. 5. The patient did have an abnormal echocardiogram which showed an enlarged right-sided chambers and an abnormal septal wall motion. CT of the chest with PE protocol is recommended. He does have shortness of breath and a history of COPD as well. 6. His coronary artery disease is stable 7. His blood pressure is well controlled. 8. His LDL goal is less than 55. His LDL is currently 86. 9. Tobacco cessation is highly advised and counseled. 10. The patient will need to follow-up in 1 week on an outpatient basis. Further recommendations will be made pending the patient's response to treatment and the results of his CT scan of his chest later today. Thank you for the opportunity to help her to spend care of this patient.
--- NOTE | 2018-06-01 12:37 | Discharge Summary ---
General - General Admission date:: 05/30/18 Discharge date: 06/01/18 HPI HPI: 48-year-old male presented to the emergency department with chest pain and an episode of syncope. Patient was in a tree stand hunting deer. He estimates the tree stand was about 5 feet off the ground. Patient developed some chest pain that is in the left lower chest that radiated down the left side of the abdomen with simultaneous onset of a burning sensation in the left shoulder and arm. Patient admits he has been having this pain since yesterday evening. However while in the tree stand with an episode of pain he ultimately lost consciousness and awoke laying on the ground. He does not know how long he was unconscious. He is clear that he was unconscious before he fell out of the tree stand. Once he became alert he tried to ambulate but because of pain in the left side of the chest he was unable to and required assistance. He was brought to the emergency department. In the ER a rather extensive workup was performed. Abnormal findings included a fourth and fifth left rib fracture. Initial labs which did include a set of cardiac enzymes were negative. EKG was performed but is currently not available for review. Patient was admitted to telemetry for further cardiac monitoring, serial cardiac enzymes, pain control. Patient has a history of coronary artery disease with stenting of the right coronary artery [place] [address] Wray. Patient tells me the symptoms he had today are not similar to what he experienced prior to his stenting in 2017. The ER record may indicate otherwise. At the time of my interview with the patient he had received several doses of morphine as well as Dilaudid and was somewhat sedated. At the time of interview he only endorsed left-sided chest pain. Hospital Course Hospital Course: ANGIOGRAPHIC RESULTS: 1. The left main artery normal 2. The left anterior descending artery 20-30% smooth diffuse mid stenosis with normal flow into the distal vessel 3. The circumflex artery smooth 20% proximal stenosis. This is a large codominant vessel 4. The right coronary artery moderate in size and codominant. Angiographically normal 5. The [place] ventriculogram reveals normal left ventricular function at 60% 6. The left ventricular end-diastolic pressure 14 IMPRESSION: 1. Mild diffuse coronary artery disease . 2. Normal left ventricular systolic function 3. Normal left ventricular end-diastolic pressure PLAN: 1. Medical management carotid doppler:1. The bilateral vertebral arteries are patent with normal antegrade flow. 2. Study suggests less than 20% stenosis involving the right internal carotid artery and the left internal carotid artery. shoulder x ray neg ct thorasic spine:IMPRESSION:......... 1. No acute findings in the thoracic spine T-spine intact and stable. Mild degenerative facet changes lower T-spine . 2. Acute fracture LEFT lateral Fourth Rib and hairline fracture lateral left Fifth Rib again noted .Old healed fractures posterior right fifth and sixth rib again noted 3 Pulmonary emphysematous changes with early bleb formation most evident towards apices. Mild apical pleural parenchymal scarring bilaterally. No acute pulmonary findings ct pe proticol:no PE Objective Vital signs: Temp Pulse Resp BP Pulse Ox 98.8 F 70 20 133/78 96 06/01/18 11:46 06/01/18 11:46 06/01/18 11:46 06/01/18 11:46 06/01/18 11:46 no acute distress - *Routine HEENT Exam Head: Present: normocephalic Eye: Present: PERRL ENT: Present: mucous membranes moist - *Routine Neck Exam Present: supple, full ROM - *Routine Respiratory Exam Present: CTA bilaterally - *Routine Cardiovascular Exam Present: RRR - *Routine Abdominal Exam Present: soft, normoactive bowel sounds. Absent: tenderness, distended - *Routine Extremities Exam Present: full ROM - Routine Back/Spine/Pelvis Exam Back/Spine: Present: full ROM - *Routine Skin Exam Present: intact - *Routine Neurological Exam Present: alert, oriented X3 - Routine Psychiatric Exam Present: normal affect Results Labs on day of discharge: Labs from last 24 hours 06/01/18 06/01/18 06/01/18 07:15 07:15 07:15 WBC 15.8 H D RBC 4.65 Hgb 13.6 L Hct 43.3 MCV 93.0 MCH 29.1 MCHC 31.3 L RDW 12.6 Plt Count 200 MPV 7.3 L Neut % (Auto) 93.0 H Lymph % (Auto) 4.8 L [place] % (Auto) 1.9 Eos % (Auto) 0.1 Baso % (Auto) 0.1 Neut # (Auto) 14.7 H Lymph # (Auto) 0.8 [place] # (Auto) 0.3 Eos # (Auto) 0.0 Baso # (Auto) 0.0 Total Counted 100 Neutrophils % (Manual) 92 H Lymphocytes % (Manual) 6 L Monocytes % (Manual) 2 Platelet Estimate Normal RBC Morphology Normal Sodium 140 Potassium 5.0 Chloride 105 Carbon Dioxide 28 Anion Gap 12.0 BUN 15 D Creatinine 0.91 Estimated Creat Clear 118 Estimated GFR 89 Est GFR ( Amer) 108 Glucose 146 H Calcium 8.7 Total Bilirubin 0.3 Direct Bilirubin 0.1 Indirect Bilirubin 0.2 AST 18 ALT 21 Alkaline Phosphatase 68 Total Protein 6.6 Albumin 3.4 Triglycerides 70 Cholesterol 150 LDL Cholesterol 86 VLDL Cholesterol 14 HDL Cholesterol 50 Cholesterol/HDL Ratio 3.0 - Additional Comments discussed with joe all orders per joe pt needs to talk to pain clinic regarding pain control DS: Diagnosis - Discharge Diagnosis (1) Typical angina Status: Resolved (2) CAD (coronary artery disease) Status: Chronic (3) Syncope and collapse Status: Acute (4) Ribs, multiple fractures Status: Acute (5) COPD (chronic obstructive pulmonary disease) Status: Chronic (6) HTN (hypertension) Status: Chronic (7) HLD (hyperlipidemia) Status: Chronic (8) Tachycardia Status: Resolved (9) Tobacco dependence Status: Chronic (10) SOB (shortness of breath) Status: Acute Discharge Plan - Patient Discharge Instructions ACTIVITY: Continue current activity DIET: continue same diet Patient Instructions: DI for Syncope in Adults (Fainting), DI for Rib Fracture, DI for Chest Pain, How to Quit Smoking, Smoking May Drag Out Fracture Healing - Follow up Plan Follow up with: Malvin Nguyen MD [Primary Care Provider] - 1 week Jensen Wray MD [Staff Physician] - 1 week Disposition: Home, Self-Alf Medications: Home Medications Medication Instructions Recorded Confirmed Type hydrocodone 7.5 mg-acetaminophen 1 tab PO TIDP PRN 06/06/17 05/31/18 History 325 mg tablet nitroglycerin 0.4 mg sublingual 0.4 mg SUBLINGUAL Q5M PRN #25 tab 11/28/17 05/30/18 Rx tablet RX: Famotidine [Acid [employer]creation [employer]ilities Supervisor] 20 mg PO BID 05/26/18 05/30/18 History RX: Gabapentin [Neurontin 800mg 800 mg PO TID 05/26/18 05/30/18 History Tab] RX: Tizanidine HCl [Zanaflex 4mg 4 mg PO BID 05/31/18 06/01/18 History tablet] RX: buPROPion HCl [Bupropion HCl 100 mg PO BID 05/31/18 05/31/18 History Sr] RX: Aspirin [Aspirin 81mg EC 81 mg PO DAILY 06/01/18 06/01/18 History Tab] RX: Aspirin [Aspirin 81mg EC 81 mg PO DAILY tablet. 06/01/18 Rx Tab] RX: Atorvastatin Calcium [Lipitor 80 mg PO HS tablet 06/01/18 Rx 40mg Tablet] RX: Bisoprolol Fumarate [Zebeta 10 mg PO DAILY tablet 06/01/18 Rx 5mg tablet] RX: Ipratropium/Albuterol Sulfate 3 ml IH QIDRT ampul.neb 06/01/18 Rx [Duoneb 3mL neb] RX: Nicotine [Nicoderm 21mg/24hr 21 mg TD DAILYP PRN patch.td24 06/01/18 Rx patch] RX: Prasugrel HCl [Effient 10mg 10 mg PO HS tablet 06/01/18 Rx tablet] RX: buPROPion HCl [Wellbutrin 75mg 75 mg PO BID tablet 06/01/18 Rx Tablet] Prescriptions/Medication Reconciliation: New RX: Aspirin [Aspirin 81mg EC Tab] 81 mg PO DAILY tablet. RX: Atorvastatin Calcium [Lipitor 40mg Tablet] 80 mg PO HS tablet RX: Bisoprolol Fumarate [Zebeta 5mg tablet] 10 mg PO DAILY tablet RX: buPROPion HCl [Wellbutrin 75mg Tablet] 75 mg PO BID tablet RX: Ipratropium/Albuterol Sulfate [Duoneb 3mL neb] 3 ml IH QIDRT ampul.neb RX: Nicotine [Nicoderm 21mg/24hr patch] 21 mg TD DAILYP PRN patch.td24 PRN Reason: Nicotine Cravings RX: Prasugrel HCl [Effient 10mg tablet] 10 mg PO HS tablet Continue hydrocodone 7.5 mg-acetaminophen 325 mg tablet 1 tab PO TIDP PRN PRN Reason: PAIN nitroglycerin 0.4 mg sublingual tablet 0.4 mg SUBLINGUAL Q5M PRN #25 tab PRN Reason: chest pain RX: Gabapentin [Neurontin 800mg Tab] 800 mg PO TID RX: Famotidine [Acid [employer]ilities Supervisor] 20 mg PO BID RX: Tizanidine HCl [Zanaflex 4mg tablet] 4 mg PO BID RX: buPROPion HCl [Bupropion HCl Sr] 100 mg PO BID RX: Aspirin [Aspirin 81mg EC Tab] 81 mg PO DAILY
--- NOTE | 2018-06-02 10:00 | Cardiology Report ---
PROCEDURE: 2-D M-mode and color Doppler study INDICATIONS FOR THE TEST: Chest pain + COPD+ Heart Murmur Tobacco Smoking+ Palpitations Fatigue Syncope+ Edema Hypertension+Diabetes Mellitus Rheumatic Fever SOB [place] Obesity Hyperlipidemia+ Family History HD Additional History STENT 2017, OLD VT, TDE PT HAS L RIB FXS UNABLE TO ROLL, FLAT ON BACK, VERY TENDER TO TOUCH PATIENT INFORMATION HEIGHT: 72 WEIGHT:185 GENDER: Male B/P:146/91 2-D/M-MODE INTERPRETATION: 2-D MEASUREMENTS OBSERVED VALUES IN CMS Right Ventricular Dimension (RVDd) 2.8 Interventricular Septum (Thickness)(IVsd) 1.5 Left Ventricular Internal Dimensions(LVIDd) 4.8 Left Ventricular Posterior Wall (Thickness)(LVPWd) 1.1 Aortic Root 3.5 Aortic Cusp Separation 2.0 Left Atrial Dimensions (LAD) 3.4 2D 1. Left atrium is mildly enlarged, left ventricle is normal size, mild concentric left ventricular hypertrophy, visually estimated ejection fraction of 55% with no regional wall motion abnormality. There is marked abnormal septal motion. 2. The right atrium and right ventricle are mildly enlarged with normal contractility. 3. The aortic valve is minimally thickened and fibrosed. 4. The mitral and tricuspid valve are grossly normal. 5. The pulmonic valve is poorly present. 6. No significant pericardial effusion noted. DOPPLER INTERROGATION: Doppler interrogation of the aortic, mitral and tricuspid valvular presence of mild mitral and tricuspid regurgitation, tricuspid regurgitation jet velocity is inadequate for calculation of the right ventricular systolic pressure, diastolic parameters are inconclusive. CONCLUSION: 1. Technically difficult study because of the patient's factor and poor acoustic windows 2. Mildly enlarged left atrium, normal left ventricular size, mild concentric left ventricular hypertrophy, visually estimated ejection fraction 55% with no regional wall motion abnormality, there is marked abnormal septal motion. 3. Mildly enlarged right atrium and right ventricle, contractility of the right ventricle is normal. 4. Mild mitral and tricuspid regurgitation, tricuspid regurgitation jet velocity is inadequate for calculation of the right ventricular systolic pressure. 5. No significant pericardial effusion.
== END 2018-06-01 13:16 | disposition home or self-care (01) ==
LOC: 2ND 13:30 → ER 13:30 → 2ND 17:36
PROVIDERS: ADMIT Internal Medicine Adolescent Medicine; ATTEND Emergency Medicine
CPT/HCPCS: 36415; 70450; 71010; 71045; 71275; 72125; 72128; 72131; 72170; 73030; 74177; 80048; 80061; 80076; 82962; 84484; 85007; 85025; 93005; 93306; 93458; 93880; 94640; 94760; 94761; 96365; 96375; 96376; 99152; 99284; C1725; C1769; G0378; J1644; J2405; Q9967

== ENCOUNTER → 2018-10-31 14:14 | Outpatient (CLI) | payer MEDICAID, SELFPAY ==
--- NOTE | 2018-10-31 14:18 | XR_ITS ---
XR chest 2V HISTORY: ITS.REASON: COPD ORDERING PHYSICIAN: Malvin Nguyen MD PATIENT AGE: 48 years COMPARISON: 05/30/2018 FINDINGS: The cardiomediastinal silhouette and pulmonary vascularity are within normal limits. The lungs are clear without infiltrates, suspicious nodules, or pleural effusions. No acute bony abnormalities. There are old right fifth and sixth rib fractures IMPRESSION: No acute finding
== END ==
PROVIDERS: PCP Emergency Medicine; Visit Provider Emergency Medicine
DX: J44.9 Chronic obstructive pulmonary disease, unspecified (principal)
CPT/HCPCS: 71046; 94060; 94640

== ENCOUNTER → 2019-01-19 17:20 | Outpatient (CLI) | payer MEDICAID, SELFPAY ==
[2019-01-19 18:34] LABS: Amphetamine/Metha Screen,Urine Negative ng/mL (<1000); Barbiturates Screen,Urine Negative ng/mL (<200); Benzodiazepines Screen,Urine Negative ng/mL (<200); Cannabinoid Screen,Urine Negative ng/mL (<50); Cocaine Screen,Urine Negative ng/mL (<300); Methadone Screen,Urine Negative ng/mL (<300); Opiate Screen,Urine Positive ng/mL (<300); Phencyclidine Screen,Urine Negative ng/mL (<25)
== END ==
PROVIDERS: Visit Provider Emergency Medicine
DX: M54.9 Dorsalgia, unspecified (principal)
CPT/HCPCS: 80305

== ENCOUNTER → 2019-03-16 13:17 | Outpatient (CLI) | payer MEDICAID, SELFPAY ==
[2019-03-16 15:06] LABS: Amphetamine/Metha Screen,Urine Negative ng/mL (<1000); Barbiturates Screen,Urine Negative ng/mL (<200); Benzodiazepines Screen,Urine Negative ng/mL (<200); Cannabinoid Screen,Urine Negative ng/mL (<50); Cocaine Screen,Urine Negative ng/mL (<300); Methadone Screen,Urine Negative ng/mL (<300); Opiate Screen,Urine Positive ng/mL (<300); Phencyclidine Screen,Urine Negative ng/mL (<25)
== END ==
PROVIDERS: Visit Provider Emergency Medicine
DX: Z79.899 Other long term (current) drug therapy (principal)
CPT/HCPCS: 80305

== ENCOUNTER → 2019-05-15 16:48 | Outpatient (CLI) | payer MEDICAID, SELFPAY ==
[2019-05-15 18:20] LABS: Amphetamine/Metha Screen,Urine Negative ng/mL (<1000); Barbiturates Screen,Urine Negative ng/mL (<200); Benzodiazepines Screen,Urine Negative ng/mL (<200); Cannabinoid Screen,Urine Negative ng/mL (<50); Cocaine Screen,Urine Negative ng/mL (<300); Methadone Screen,Urine Negative ng/mL (<300); Opiate Screen,Urine Positive ng/mL (<300); Phencyclidine Screen,Urine Negative ng/mL (<25)
== END ==
PROVIDERS: Visit Provider Emergency Medicine
DX: Z79.899 Other long term (current) drug therapy (principal)
CPT/HCPCS: 80305

== ENCOUNTER → 2019-07-13 17:22 | Outpatient (CLI) | payer MEDICAID, SELFPAY ==
[2019-07-13 18:29] LABS: Amphetamine/Metha Screen,Urine Negative ng/mL (<1000); Barbiturates Screen,Urine Negative ng/mL (<200); Benzodiazepines Screen,Urine Negative ng/mL (<200); Cannabinoid Screen,Urine Negative ng/mL (<50); Cocaine Screen,Urine Negative ng/mL (<300); Methadone Screen,Urine Negative ng/mL (<300); Opiate Screen,Urine Positive ng/mL (<300); Phencyclidine Screen,Urine Negative ng/mL (<25)
== END ==
PROVIDERS: Visit Provider Emergency Medicine
DX: Z79.899 Other long term (current) drug therapy (principal)
CPT/HCPCS: 80305

== ENCOUNTER → 2019-11-08 07:43 | Outpatient (CLI) | payer MEDICAID, SELFPAY ==
--- NOTE | 2019-11-08 07:48 | MR_ITS ---
PROCEDURE: MR LUMBAR SPINE WO CON CLINICAL INDICATION: RADICULOPATHY Bilateral low back pain, bilateral leg pain with numbness and tingling COMPARISON: No exams were available for comparison TECHNIQUE: Standard multiplanar multiecho sequences are performed without contrast. 3-D MIP and myelographic images are also rendered and reviewed FINDINGS: Normal alignment. The spinal cord ends at the L1 level. Mild multilevel lumbar spondylosis is present. T11-T12: Mild degenerative disc disease with endplate irregularity and minimal bulging disc. T12-L1: Mild endplate irregularity with mild facet and ligamentum hypertrophy with mild right lateral recess narrowing. L1-L2: Mild degenerative disc disease with endplate irregularity and minimal bulging disc with small annular fissure centrally with facet and ligamentum hypertrophy. L2-L3: Degenerate disc disease with bulging disc with facet and ligamentum hypertrophy and mild bilateral foraminal narrowing. L3-L4: Mild concentric bulging disc with facet and ligamentum hypertrophy with bilateral lateral recess and foraminal narrowing and borderline narrowing of the canal. L4-5: Degenerative disc disease with bulging disc along with facet and ligamentum hypertrophy with canal stenosis and severe bilateral lateral recess and foraminal narrowing slightly greater on the right. There is a small central disc protrusion also at this level. L5-S1: Facet and ligamentum hypertrophy with mild bilateral foraminal narrowing. No extruded herniated disc evident. IMPRESSION: There is multilevel lumbar spondylosis with multilevel degenerative disc disease and facet and ligamentum hypertrophy with bulging discs with lateral recess and foraminal narrowing. Please see above for detailed description at each level. Degenerative disc disease at L4-5 with bulging disc along with facet and ligamentum hypertrophy with canal stenosis and severe bilateral lateral recess and foraminal narrowing slightly greater on the right. There is a small central disc protrusion also at this level Dictated by: Wero Calero MD 11/09/2019 10:09 Electronically signed by Wero Calero MD in [place] 11/09/2019 10:09
== END ==
PROVIDERS: PCP Emergency Medicine; Visit Provider Anesthesiology Pain Medicine
DX: M54.16 Radiculopathy, lumbar region (principal)
CPT/HCPCS: 72148; 76376

== ENCOUNTER → 2020-05-27 06:59 | Outpatient (CLI) | payer MEDICAID, SELFPAY ==
--- NOTE | 2020-05-27 06:59 | CA_ITS ---
APPROVED REPORT Exam: Pharmacologic Technologist: Adele Boswell Ht: 6 ft 0 in Wt: 189 lbs BSA: 2.08 m2 HR: 68 bpm BP: 127/81 mmHg Indications: Chest pain, Shortness of Air Medical History Medications: Gabapentin,,,,, Albuterol,,,,, Hydrocodone-Acetaminophen,,,,, INCrUSE Ellipta,,,,, FluTICASONE-Vilanterol,,,,, Stress Test Details Test: LEXISCAN HR Resting HR: 69 bpm Max Heart Rate (APMHR): 170 bpm Max HR Achieved: 106 bpm Target HR (85% APMHR): 144 bpm % of APMHR: 62 Recovery HR: 83 bpm BP Resting BP: 127.0/81.0 mmHg Max BP: 145.0/87.0 mmHg Recovery BP: 123.0/84.0 mmHg ECG Resting ECG: Normal sinus rhythm, rightward axis Clinical Exercise duration: 04:00 min Highest Stage Achieved: Exercise capacity: 1.0 METs Stress ECG Conclusion Symptoms: Shortness of air, sharp chest pain, stomach discomfort, malaise. Arrhythmias/Ectopy: None ST-T Changes: T wave inversion in the anterior leads. Conclusion: Non-diagnostic Lexiscan stress. Myoview images reported separately. Electronically signed by : Ruben Victoria, 05/28/2020 06:07:39
--- NOTE | 2020-05-27 06:59 | NM_ITS ---
APPROVED REPORT Exam: Nuclear Stress Test Indication: Chest pain, SOB, Fatigue, HTN, CAD, Tobacco use, Family history Patient Location: Outpatient Stress Tech: Adele Boswell NH Tech:Carlita Weiss, ARRT, RT (R)(N) Ht: 6 ft 0 in Wt: 189 lbs HR: 68 bpm BP: 127/81 mmHg BSA: 2.08 m2 History: Chest pain, SOB, Fatigue, HTN, CAD, Tobacco use, Family history Procedure: Patient received a 0.4 mg of intravenous Lexiscan, resting heart rate 68 bpm, resting blood pressure 127/81 mmHg, with Lexiscan maximum heart rate achived was 103 bpm which is Less than 85 % of the maximum predicted heart rate and blood pressure was 135/88 mmHg. Electrocardiogram Resting electrocardiogram showed sinus rhythm nonspecific ST-T changes, with Lexiscan there is less than 1.[address] segment depression noted from the baseline EKG. The EKG portion of the Lexiscan is nondiagnostic. Cardiac Stress and Resting SPECT Images: Cardiac Stress and Resting SPECT images were obtained using technetium 99m Myoview 32.7 mCi stress and 10.59 mCi at rest. Gated SPECT for analysis of segmental wall motion and calculation of the ejection fraction also done. Cardiac stress and rest SPECT images show uniform myocardial activity without segmental perfusion abnormality, computer derived ejection fraction is 55% with no regional wall motion abnormality, right ventricle is mildly enlarged with normal contractility. Conclusion: 1. The EKG portion of the Lexiscan Myoview is nondiagnostic. 2. No scintigraphic evidence of reversible ischemia seen, computer derived ejection fraction is 55% with no regional wall motion abnormality, right ventricle is mildly enlarged with normal contractility. 3. Normal Lexiscan Myoview study. Electronically signed by : Ruben Victoria, 05/28/2020 06:16:01
--- NOTE | 2020-05-27 06:59 | CA_ITS ---
APPROVED REPORT Radiator Mechanic: FREDA Laterality: Bilateral Indications: left arm numbness Risk Factors Hypertension: Hyperlipidemia Smoking Doppler Spectral Velocity Analysis ECA (R) 120.40/36.60 cm/s ECA (L) 69.30/18.00 cm/s dICA (R) 71.90/29.50 cm/s dICA (L) 87.60/43.30 cm/s Otto (R) 79.60/34.70 cm/s Otto (L) 70.60/36.60 cm/s pICA (R) 66.80/30.20 cm/s pICA (L) 63.60/22.50 cm/s dCCA (R) 85.50/24.60 cm/s dCCA (L) 95.40/28.90 cm/s pCCA (R) 114.40/25.70 cm/s pCCA (L) 140.90/35.90 cm/s Vert (R) 36.60/14.10 cm/s Vert (L) 50.10/20.50 cm/s ICA/CCA 0.93 ICA/CCA 0.92 Findings Duplex evaluation demonstrates stenosis of the right proximal internal carotid artery <20% with PSV <140 cm/sec, EDV <100 cm/sec, and IC/CC Ratio <4.0. Duplex evaluation demonstrates stenosis of the left proximal internal carotid artery <20% with PSV <140 cm/sec, EDV <100 cm/sec, and IC/CC Ratio <4.0. Electronically signed by : Clark Zamudio MD 05/27/2020 19:58:49
--- NOTE | 2020-05-27 06:59 | CA_ITS ---
APPROVED REPORT EXAM: Comprehensive 2D, Doppler, and color-flow Echocardiogram Medical Records Tech: Rubia Tran CRT Ht: 6 ft 0 in Wt: 184lbs BSA: 2.06 BP: 162/90 mmHg Indications: CP, COPD, Smoker, SOB, HTN, hyperlipidemia, CAD, stent, ERIN, GERD 2D Dimensions LVOT 2.09 cm (M/F) 1.5-2.5 M-Mode Dimensions RVDd 3.17 cm (0.9-2.6) LA Diam 3.71 cm (1.9-4.0) LVDd 5.17 cm (3.5-5.7) Ao Diam 4.44 cm (2.0-3.7) LVDs 3.03 cm (3.5-5.7) IVSd 0.64 cm (0.6-1.1) PWd 0.64 cm (0.6-1.1) EF (Teich) 71.90% FS 41.40% EDV (Teich) 127.80 mL ESV (Teich) 35.90 mL LV Diastology MED E' 9.30 (< 7 cm/sec) LAT E' 13.20 (<10 cm/sec) Aortic Valve AO Peak GR. 4.60 mmHg Pulmonary Valve PV Peak Velocity 68.00 (50-150 cm/s) Tricuspid Valve TR P. Velocity 190.00 cm/s RAP Estimate 10.00 mmHg RVSP 24.40 mmHg Left Ventricle Technically difficult study because of the patient factors and poor acoustic windows. Left atrium is normal size, left ventricle is normal size, there is no concentric left ventricular hypertrophy, visually estimated ejection fraction 55% with no regional wall motion abnormality, diastolic parameters are within normal range. Right Ventricle Right atrium is normal size, right ventricle is qualitatively mildly enlarged with normal contractility. Aortic Valve Aortic valve is grossly normal, there is no aortic stenosis or aortic insufficiency. Mitral Valve Mitral valve is grossly normal, there is mild mitral regurgitation. Tricuspid Valve Tricuspid valve is grossly normal, there is mild tricuspid regurgitation, tricuspid regurgitation jet velocity is inadequate for calculation of the right ventricular systolic pressure. Pulmonic Valve Pulmonic valve is poorly visualized. Great Vessels Aortic root is normal size. Pericardium No significant pericardial effusion noted. Conclusion 1. Normal left ventricular size, preserved left ventricular systolic function, visually estimated ejection fraction 55% with no regional wall motion abnormality, diastolic parameters are within normal range. 2. Qualitatively mildly enlarged right ventricle with normal contractility. 3. Mild mitral and tricuspid regurgitation. 4. No significant pericardial effusion noted. Electronically signed by : Ruben Victoria, 05/28/2020 05:55:51
--- NOTE | 2020-05-27 08:12 | HMH.ITSHM ---
Current Home Medications as stated by this patient Syed Hoffmann or call center support representative. []LISINOPRIL HYDROCODONE GABAPENTIN ASA FLUTICASONE ALBUTEROL
== END ==
PROVIDERS: PCP Emergency Medicine; Visit Provider Urology
DX: I20.9 Angina pectoris, unspecified (principal); R06.02 Shortness of breath; E78.5 Hyperlipidemia, unspecified; I10 Essential (primary) hypertension; R20.0 Anesthesia of skin; G47.30 Sleep apnea, unspecified; R40.0 Somnolence; E78.2 Mixed hyperlipidemia; F17.200 Nicotine dependence, unspecified, uncomplicated; I65.23 Occlusion and stenosis of bilateral carotid arteries; Z95.5 Presence of coronary angioplasty implant and graft
CPT/HCPCS: 78452; 93017; 93306; 93880; A9502; G0399; J2785

== ENCOUNTER → 2020-06-23 08:36 | Outpatient (CLI) | payer MEDICAID, SELFPAY ==
[2020-06-23 09:49] LABS: Coronavirus 19 IgG Antibody Negative (Negative); Coronavirus 19 IgM Antibody Negative (Negative)
== END ==
PROVIDERS: Visit Provider Specialist
DX: G47.33 Obstructive sleep apnea (adult) (pediatric) (principal); I10 Essential (primary) hypertension; R06.83 Snoring; Z20.822 Contact with and (suspected) exposure to COVID-19
CPT/HCPCS: 36415; 86328

== ENCOUNTER → 2020-06-25 20:10 | Outpatient (CLI) | payer MEDICAID, SELFPAY | PROVIDERS: PCP Emergency Medicine; Visit Provider Specialist | DX: G47.33 Obstructive sleep apnea (adult) (pediatric) (principal); I10 Essential (primary) hypertension; R06.83 Snoring | CPT/HCPCS: 95811 ==

== ENCOUNTER 2020-06-26 21:26 | Emergency (ER) | payer MEDICAID, SELFPAY ==
[2020-06-26 21:44] VITALS: BP 114/85; PULSE 90; RESP 16; TEMP 37.3; O2SAT 96; BMI 25.6
--- NOTE | 2020-06-26 21:50 | HMH.EDGENADL ---
ED Disposition Clinical Impression: Back pain Qualifiers: Back pain location: low back pain Chronicity: chronic Back pain laterality: unspecified Sciatica presence: without sciatica Qualified Code(s): M54.5 - Low back pain; G89.29 - Other chronic pain Disposition: Left Against Medical Advice Condition on Discharge: Fair Referrals: Malvin Nguyen MD [Primary Care Provider] - - Critical Care Critical Care Time: No Attestation: On 06/26/20, the high probability of a clinically significant, sudden or life threatening deterioration of the following system(s) required my full and direct attention, intervention and personal management. The time I documented below is in addition to time spent performing reported procedures but includes the following listed in this critical care notation. Medical Decision Making - Medical Records Medical records reviewed: Yes: I reviewed the patient's medical records. - Torres Inquiry Pt receiving controlled substance: No Vital Signs: 06/26/20 21:44 Temperature 99.1 F Temperature Source Oral Pulse Rate [Right] 90 Respiratory Rate 16 Blood Pressure [Right Arm] 114/85 Blood Pressure Mean [Right Arm] 94 Blood Pressure Source [Right Arm] Automatic Cuff Blood Pressure Position [Right Arm] Sitting 02 Sat by Pulse Oximetry 96 Oxygen Delivery Method Room Air Medical Decision Narrative: This emergency department acute on chronic back pain. No trauma. No neurologic symptoms. Full range of motion of back. Differential diagnosis does include soft tissue injury muscular strain versus sprain. At this time, he does take Percocet so will be difficult to control his pain. I offered a prescription for Flexeril. After that, patient shortly got up and walked out of the emergency department without difficulty. I was unable to go over the risk of leaving prior to discharge. Assessment: Acute on chronic back pain Disposition: Left AGAINST MEDICAL ADVICE General Adult HPI - General Stated complaint: Pain in lower back Time Seen by Provider: 06/26/20 21:56 - History of Present Illness HPI narrative: Patient 50-year-old male history of chronic back pain on Percocet presenting with back pain. Patient states earlier today he had an acute exacerbation of his back pain. No history of trauma. No neurologic symptoms. No saddle anesthesia. No weakness. No urinary incontinence/retention. He has been taking his Percocet as prescribed. No decreased range of motion. - Related Data Previous Rx's Medication Instructions Recorded albuterol sulfate 90 mcg/actuation 2 puff INHALATION Q4-6H PRN #8 g 11/14/18 aerosol inhaler fluticasone furoate 100 1 inh INHALATION DAILY #60 each 07/13/19 mcg-vilanterol 25 mcg/dose inhalation powder gabapentin 800 mg tablet 800 mg PO TID #90 tab 09/05/19 hydrocodone 7.5 mg-acetaminophen 1 tab PO TID PRN #90 tab 09/05/19 325 mg tablet umeclidinium 62.5 mcg/actuation See Rx Instructions .ROUTE 04/07/20 blister powder for inhalation .COMPLEX #30 disk aspirin 81 mg tablet,delayed 81 mg PO DAILY #30 tab 05/19/20 release lisinopril 20 mg tablet 20 mg PO DAILY #90 tab 05/19/20 zolpidem 5 mg tablet 5 mg PO HS PRN #2 tab 06/04/20 Allergies Allergy/AdvReac Type Severity Reaction Status Date / Time codeine [CODEINE] Allergy Mild Verified 06/04/20 09:05 meloxicam [From MOBIC] Allergy Mild Verified 06/04/20 09:05 ibuprofen [IBUPROFEN] Allergy Unknown Verified 06/04/20 09:05 [facility] History - Hepatitis A Screen Attestation statement:: This patient has been screened for Hepatitis A risk factors. Medical History: Reports:: Anxiety, Atherosclerotic Heart Disease, Chronic Obstructive Pulmonary Disease (COPD), Coronary Artery Disease, Depression, Gastroesophageal Reflux Disease(GERD), Hiatal Hernia, Hyperlipidemia, Hypertension, Myocardial Infarction Denies:: Cancer, Diabetes Mellitus Type 1, Diabetes Mellitus Type 2 Other Medical History: Reports
[2020-06-26 21:56] VITALS: BP 000/00; PULSE 0; RESP 0; TEMP -17.7; TEMP 0; O2SAT 0
--- NOTE | 2020-06-26 21:58 | PC.NURSE ---
Pt got angry and used fowl language at physician when he wouldn't prescribe narcotics. Pt States I should have fucking never come here and stood up rapidly with no apparent pain and left swiftly.
--- NOTE | 2020-06-26 22:01 | PC.NURSE ---
Pt refused DC VS and refused to sign AMA
== END 2020-06-26 22:00 | disposition left against medical advice (07) ==
PROVIDERS: Emergency Provider Emergency Medicine; PCP Emergency Medicine
DX: M54.5 Low back pain (principal); G89.29 Other chronic pain; I25.10 Atherosclerotic heart disease of native coronary artery without angina pectoris; J44.9 Chronic obstructive pulmonary disease, unspecified; F41.8 Other specified anxiety disorders; E78.5 Hyperlipidemia, unspecified; I10 Essential (primary) hypertension; I25.2 Old myocardial infarction; F17.210 Nicotine dependence, cigarettes, uncomplicated; Z79.899 Other long term (current) drug therapy
CPT/HCPCS: 99281

== ENCOUNTER 2020-10-26 17:31 | Observation (INO) | payer MEDICAID, SELFPAY ==
[2020-10-26 17:31] VITALS: BP 136/88; PULSE 69; RESP 16; TEMP 36.8; O2SAT 98; BMI 25.7
--- NOTE | 2020-10-26 17:32 | XR_ITS ---
PROCEDURE INFORMATION: Exam: XR Chest Exam date and time: 10/26/2020 5:32 PM Age: 50 years old Clinical indication: Sternal or substernal pain and left-sided; Prior surgery; Patient HX: Mid chest pain , smoker; Additional info: Cp TECHNIQUE: Imaging protocol: XR of the chest. Views: 2 views. COMPARISON: CR [id number] XR ribs LT min 3V w CXR1V 07/19/2018 8:44 PM FINDINGS: Airway: The airways are patent. Lungs: No acute interstitial or airspace disease. Pleural spaces: There are no pleural effusions present. There is no evidence of pneumothorax. Heart/Mediastinum: Heart is of normal size and morphology. Bones/joints: No acute skeletal abnormality or aggressive osseous lesion. IMPRESSION: Negative for acute thoracic pathology.
--- NOTE | 2020-10-26 17:32 | ECG_ITS ---
APPROVED REPORT Exam: Resting ECG HR:80 bpm ECG Measurements Heart Rate 80 AXES NV 134 P 7 QRSd 94 QRS 90 QT 400 T 72 QTc 461 Conclusion Normal sinus rhythm Rightward axis Borderline ECG Electronically signed by : Christoph Bonilla, 10/27/2020 07:11:42
[2020-10-26 17:35] VITALS: BMI 25.7
--- NOTE | 2020-10-26 17:41 | PC.NURSE ---
Pt to rad.
--- NOTE | 2020-10-26 17:45 | PC.NURSE ---
Pt returned from rad.
[2020-10-26 17:47] LABS: Basophils % 0.5 % (0.1-2.0); Eosinophils # 0.1 K/mm3 (0.0-0.4); Eosinophils % 1.5 % (0.1-12.0); Hematocrit 41.5 % (42.0-52.0); Hemoglobin 14.1 g/dL (14.1-18.0); Lymphocytes # 2.1 K/mm3 (0.7-4.5); Lymphocytes % 24.3 % (10-50); Mean Corpuscular HGB Conc 33.9 g/dL (31.8-35.4); Mean Corpuscular Hemoglobin 30.1 pg (27.0-31.2); Mean Corpuscular Volume 88.9 fl (80-94); Mean Platelet Volume 7.1 fl (7.4-10.4); Monocytes # 0.3 K/mm3 (0.1-1.0); Monocytes % 3.7 % (1.7-9.3); Platelet Count 253 K/mm3 (142-424); Red Blood Count 4.67 M/mm3 (4.60-6.20); Red Cell Distribution Width 12.8 % (11.5-17.5); White Blood Count 8.6 K/mm3 (4.8-10.8)
[2020-10-26 17:58] LABS: Blood Urea Nitrogen 7 mg/dl (9-20); Calcium 8.5 mg/dl (8.4-10.2); Carbon Dioxide 31 mmol/L (22.0-30.0); Chloride 106 mmol/L (98-107); Creatinine Clearance Estimated 135 mL/min (50-200); Estimated Glomerular Filt Rate 102 ml/min (>60); GFR (African American) 124 ML/MIN (>60); Glucose 103 mg/dl (74-100); Sodium 139 mmol/L (136-145)
--- NOTE | 2020-10-26 17:58 | HMH.EDGENADL ---
ED Disposition Clinical Impression: Chest pain Qualifiers: Chest pain type: other chest pain Qualified Code(s): R07.89 - Other chest pain Syncope Qualifiers: Syncope type: unspecified Qualified Code(s): R55 - Syncope and collapse Disposition: Admitted as Observation Condition on Discharge: Fair Time of Disposition: 20:10 - Critical Care Critical Care Time: No Attestation: On 10/26/20, the high probability of a clinically significant, sudden or life threatening deterioration of the following system(s) required my full and direct attention, intervention and personal management. The time I documented below is in addition to time spent performing reported procedures but includes the following listed in this critical care notation. Medical Decision Making - Medical Records Medical records reviewed: Yes: I reviewed the patient's medical records. - Torres Inquiry Pt receiving controlled substance: No Vital Signs: 10/26/20 17:31 10/26/20 18:00 10/26/20 18:30 Temperature 98.2 F Temperature Source Oral Pulse Rate 61 Pulse Rate [Right] 69 Respiratory Rate 16 12 12 Blood Pressure 136/88 129/87 Blood Pressure [Right Arm] 136/88 Blood Pressure Mean 102 101 Blood Pressure Mean [Right Arm] 104 02 Sat by Pulse Oximetry 98 97 10/26/20 21:05 Temperature 98.1 F Temperature Source Oral Pulse Rate 67 Pulse Rate [Right] Respiratory Rate 16 Blood Pressure 129/87 Blood Pressure [Right Arm] Blood Pressure Mean Blood Pressure Mean [Right Arm] 02 Sat by Pulse Oximetry - Lab Data Lab Results 10/26/20 17:34: WBC 8.6, RBC 4.67, Hgb 14.1, Hct 41.5 L, MCV 88.9, MCH 30.1, MCHC 33.9, RDW 12.8, Plt Count 253, MPV 7.1 L, Neut % (Auto) 70.0, Lymph % (Auto) 24.3, [place] % (Auto) 3.7, Eos % (Auto) 1.5, Baso % (Auto) 0.5, Neut # (Auto) 6.0, Lymph # (Auto) 2.1, [place] # (Auto) 0.3, Eos # (Auto) 0.1, Baso # (Auto) 0.0 10/26/20 17:34: Sodium 139, Potassium 4.0, Chloride 106, Carbon Dioxide 31 H, Anion Gap 6.0, BUN 7 L, Creatinine 0.80, Estimated Creat Clear 135, Estimated GFR 102, Est GFR ( Amer) 124, Glucose 103 H, Calcium 8.5, Troponin I < 0.01 10/26/20 18:16: D-Dimer 0.39 10/26/20 18:17: Chlamy pneumoniae PCR Not detected, Adenovirus (PCR) Not detected, B. pertussis DNA (PCR) Not detected, Coronavirus OC43 (PCR) Not detected, Coronavirus HKU1 (PCR) Not detected, Coronavirus 229E (PCR) Not detected, SARS-CoV-2 (PCR) Not detected, Coronavirus NL63 (PCR) Not detected, Human Metapneumovir PCR Not detected, Influenza A (H1) PCR Not detected, Influ A (H1N1/09) PCR Not detected, Influenza A (H3) PCR Not detected, Influenza Type A (PCR) Not detected, Influenza Type B (PCR) Not detected, M. pneumoniae (PCR) Not detected, Parainfluenza 1 (PCR) Not detected, Parainfluenza 2 (PCR) Not detected, Parainfluenza 3 (PCR) Not detected, Parainfluenza 4 (PCR) Not detected, RSV (PCR) Not detected, Entero/Rhino (PCR) Not detected 10/26/20 21:00: Troponin I < 0.01 Result diagrams: 10/27/20 06:54 10/27/20 06:54 Orders (Tests/Meds): ED MEDICATIONS Generic Name Dose Route Start Last Admin Trade Name Freq PRN Reason Stop Dose Admin Acetaminophen 650 mg 10/26/20 21:02 Acetaminophen 325mg Tab PO 11/25/20 21:01 Q4HP PRN Fever or Mild Pain Sodium Chloride 1,000 mls @ 150 mls/hr 10/26/20 21:02 10/26/20 22:50 Sod Chlor 0.9% 1000ml Bag IV 11/25/20 21:01 150 mls/hr .Q6H40M LM Administration Nicotine 21 mg 10/26/20 21:02 Nicotine 21mg/24hr Patch TD 11/25/20 21:01 DAILYP PRN Nicotine Cravings Non-Formulary Medication 800 mg 10/26/20 21:02 10/26/20 22:48 Gabapentin PO 11/25/20 21:01 800 mg TID LM Administration Ondansetron HCl 4 mg 10/26/20 21:02 Ondansetron 4mg/2ml Vial IV 11/25/20 21:01 Q8HP PRN Nausea Oxycodone/Acetaminophen 1 each 10/27/20 22:11 10/26/20 22:49 Oxycodone 7.5mg W/Apap 325mg Tablet PO 11/26/20 22:10 1 each TID LM Administration Pant
[2020-10-26 18:00] VITALS: BP 136/88; PULSE 61; RESP 12; O2SAT 97
[2020-10-26 18:11] LABS: Troponin I < 0.01 ng/ml (0.00-0.034)
[2020-10-26 18:29] LABS: Adenovirus,PCR Not Detected (NotDetected); Bordetella Pertussis Not Detected (NotDetected); Chlamydophila Pneumoniae, PCR Not Detected (NotDetected); Coronavirus 19, PCR Not Detected (NotDetected); Coronavirus 229E Not Detected (NotDetected); Coronavirus NL63 Not Detected (NotDetected); Coronavirus OC43 Not Detected (NotDetected); Coronovirus HKU1,PCR Not Detected (NotDetected); Human Metapneumovirus Not Detected (NotDetected); Influenza A, PCR Not Detected (NotDetected); Influenza AH1, 2009 Not Detected (NotDetected); Influenza AH1, PCR Not Detected (NotDetected); Influenza AH3,PCR Not Detected (NotDetected); Influenza B, PCR Not Detected (NotDetected); Mycoplasma Pneumoniae, PCR Not Detected (NotDetected); Parainfluenza 1, PCR Not Detected (NotDetected); Parainfluenza 2, PCR Not Detected (NotDetected); Parainfluenza 3, PCR Not Detected (NotDetected); Parainfluenza 4, PCR Not Detected (NotDetected); Respiratory Syncytial Virus Not Detected (NotDetected); Rhinovirus/Enterovirus Not Detected (NotDetected)
[2020-10-26 18:30] VITALS: BP 129/87; RESP 12
[2020-10-26 18:38] LABS: D-Dimer 0.39 ug/mL (0.0-0.5)
[2020-10-26 21:05] VITALS: BP 129/87; PULSE 67; RESP 16; TEMP 36.7; O2SAT 97
[2020-10-26 21:08] VITALS: BP 147/80; PULSE 64; RESP 18; TEMP 36.6; O2SAT 97; BMI 25.9
--- NOTE | 2020-10-26 21:08 | PC.NURSE ---
patient up to floor via wheelchair.
[2020-10-26 21:23] VITALS: PULSE 65
[2020-10-26 22:55] LABS: Troponin I < 0.01 ng/ml (0.00-0.034)
[2020-10-27] VITALS: BP 126/61; PULSE 65; PULSE 73; RESP 20; TEMP 36.6; O2SAT 98
[2020-10-27 03:00] LABS: Troponin I < 0.01 ng/ml (0.00-0.034)
[2020-10-27 04:00] VITALS: BP 122/59; PULSE 76; PULSE 80; RESP 24; TEMP 36.5; O2SAT 97
[2020-10-27 05:00] VITALS: BMI 25.9
[2020-10-27 07:24] LABS: Basophils % 0.3 % (0.1-2.0); Eosinophils # 0.2 K/mm3 (0.0-0.4); Eosinophils % 2.4 % (0.1-12.0); Hematocrit 38.7 % (42.0-52.0); Hemoglobin 12.7 g/dL (14.1-18.0); Lymphocytes # 1.9 K/mm3 (0.7-4.5); Lymphocytes % 27.5 % (10-50); Mean Corpuscular HGB Conc 32.9 g/dL (31.8-35.4); Mean Corpuscular Hemoglobin 29.5 pg (27.0-31.2); Mean Corpuscular Volume 89.6 fl (80-94); Mean Platelet Volume 7.2 fl (7.4-10.4); Monocytes # 0.3 K/mm3 (0.1-1.0); Monocytes % 3.7 % (1.7-9.3); Neutrophils # 4.7 K/mm3 (1.8-7.8); Neutrophils % 66.1 % (37.0-80.0); Platelet Count 201 K/mm3 (142-424); Red Blood Count 4.32 M/mm3 (4.60-6.20); Red Cell Distribution Width 12.7 % (11.5-17.5); White Blood Count 7.1 K/mm3 (4.8-10.8)
[2020-10-27 07:34] LABS: Blood Urea Nitrogen 7 mg/dl (9-20); Calcium 7.7 mg/dl (8.4-10.2); Carbon Dioxide 27 mmol/L (22.0-30.0); Chloride 109 mmol/L (98-107); Creatinine Clearance Estimated 156 mL/min (50-200); Estimated Glomerular Filt Rate 119 ml/min (>60); GFR (African American) 144 ML/MIN (>60); Glucose 96 mg/dl (74-100); Sodium 139 mmol/L (136-145)
[2020-10-27 08:00] VITALS: BP 141/73; PULSE 60; PULSE 66; RESP 18; TEMP 36.6; O2SAT 98
--- NOTE | 2020-10-27 10:08 | PC.NURSE ---
PT BECAME ERRATIC REGARDING COURSE OF TREATMENT AND DEMANDED TO BE RELEASED FROM THE HOSPITAL AMA, DR ABBASI AND OTHER STAFF AT BEDSIDE AND PATIENT WAS EDUCATED REGARDING RISKS OF LEAVING AMA, PT DEMANDED TO GO AND SIGNED AMA FORM AND LEFT THE FLOOR
--- NOTE | 2020-10-27 11:31 | HMH.HPDC ---
General - General Admission date:: 10/26/20 Discharge date: 10/27/20 *Admission Date: 10/26/20 *Chief complaint: chest pain *History of present illness: 50 yr old male presnets to ed with c/o of cp. pt states he was laying in bed was the last thing he remembers, when he woke up he was laying on the floor and his states he passed out. pt states pain in left chest and radiates into shoulder. pt states he just felt funny yesterday. pt states pain is still there and feels the same as when he came into ed. pt admitted for cardiac workup and cardiology consult [facility] History I have reviewed the patient's past medical history: Yes Medical History: Reports:: Anxiety, Atherosclerotic Heart Disease, Chronic Obstructive Pulmonary Disease (COPD), Coronary Artery Disease, Depression, Gastroesophageal Reflux Disease(GERD), Hiatal Hernia, Hyperlipidemia, Hypertension, Myocardial Infarction Denies:: Cancer, Diabetes Mellitus Type 1, Diabetes Mellitus Type 2 *Have you ever received a pneumonia vaccine?: No *Have you received a flu vaccine this season?: No Other Medical History: Reports: Arthritis Laterality Cases: Bilateral: Tonsillectomy Other Surgeries: Yes: No Previous Surgery, Cardiac Catheterization, Cholecystectomy, Coronary Stent, Hernia Repair, Other Amputation: No Fractures: No - *Social History Last grade of school completed: 9th or 10th Smoking Status: Current every day smoker Tobacco Type: cigarettes # Packs/Day (cigarettes): 2 #Yrs smoked (if former smoker): 15 Alcohol Intake: never Substance Use Type: denies use *Occupational Status:: employed Housing: house Household Members: spouse, children *Travel in the last 8 weeks: None - Psychiatric History Pschychiatric History:: Reports:: Anxiety, Depression Family Hx:: Heart Attack Review of Systems - Review of Systems Review of systems:: pertinent systems reviewed and negative unless documented below - Constitutional Denies fatigue, Denies fever(s) - Eyes Denies change in vision - ENT Denies bleeding gums - *Cardiovascular Reports chest pain, Reports chest pain at rest, Reports chest pain with activity, Denies leg sores - *Respiratory Denies chest congestion, Denies wheezing - *Gastrointestinal Denies belching - *Genitourinary Denies difficulty urinating - *Musculoskeletal Denies joint pain, Denies radiating pain into limb - Integumentary/Breasts Denies bleeding lesions, Denies rash - *Neurologic Reports fainting, Denies headache(s), Denies loss of vision, Denies numbness, Denies tingling, Denies weakness - Psychiatric Denies lack of enjoyment - Endocrine Denies excessive sweating - Hematologic/Lymphatic Denies easy bruising - Allergic/Immunologic Denies itchy eyes Exam Vital signs and Labs for Last 24 Hours: Temp Pulse Resp BP Pulse Ox 97.8 F 66 18 141/73 H 98 10/27/20 08:00 10/27/20 08:00 10/27/20 08:00 10/27/20 08:00 10/27/20 08:00 Laboratory Results - last 24 hr 10/26/20 17:34: WBC 8.6, RBC 4.67, Hgb 14.1, Hct 41.5 L, MCV 88.9, MCH 30.1, MCHC 33.9, RDW 12.8, Plt Count 253, MPV 7.1 L, Neut % (Auto) 70.0, Lymph % (Auto) 24.3, [place] % (Auto) 3.7, Eos % (Auto) 1.5, Baso % (Auto) 0.5, Neut # (Auto) 6.0, Lymph # (Auto) 2.1, [place] # (Auto) 0.3, Eos # (Auto) 0.1, Baso # (Auto) 0.0 10/26/20 17:34: Sodium 139, Potassium 4.0, Chloride 106, Carbon Dioxide 31 H, Anion Gap 6.0, BUN 7 L, Creatinine 0.80, Estimated Creat Clear 135, Estimated GFR 102, Est GFR ( Amer) 124, Glucose 103 H, Calcium 8.5, Troponin I < 0.01 10/26/20 18:16: D-Dimer 0.39 10/26/20 18:17: Chlamy pneumoniae PCR Not detected, Adenovirus (PCR) Not detected, B. pertussis DNA (PCR) Not detected, Coronavirus OC43 (PCR) Not detected, Coronavirus HKU1 (PCR) Not detected, Coronavirus 229E (PCR) Not detected, SARS-CoV-2 (PCR) Not detected, Coronavirus NL63 (PCR) Not detected, Human Metapneumovir PCR Not detected, Influenza A (H1) PCR Not detected, Influ A (H1N1/09) PCR N
== END 2020-10-27 10:05 | disposition left against medical advice (07) ==
LOC: ER 17:53 → 2ND 20:09
PROVIDERS: Admitting Provider Emergency Medicine; Emergency Provider Emergency Medicine; PCP Emergency Medicine; Visit Provider Emergency Medicine
DX: R07.9 Chest pain, unspecified (principal); I25.10 Atherosclerotic heart disease of native coronary artery without angina pectoris; I10 Essential (primary) hypertension; I25.2 Old myocardial infarction; Z95.5 Presence of coronary angioplasty implant and graft; F17.210 Nicotine dependence, cigarettes, uncomplicated; R55 Syncope and collapse
CPT/HCPCS: 36415; 71046; 80048; 84484; 85025; 85378; 87581; 87633; 87798; 93005; 99284; G0378

== ENCOUNTER 2021-01-04 00:44 | Emergency (ER) | payer MEDICAID, SELFPAY ==
--- NOTE | 2021-01-04 00:59 | XR_ITS ---
PROCEDURE INFORMATION: Exam: XR Left Elbow Exam date and time: 01/04/2021 12:59 AM Age: 50 years old Clinical indication: Injury or trauma; Fall; Blunt trauma (contusions or hematomas); Injury date: Two weeks ago; Injury details: Fell onto left elbow and now pain and swelling; Additional info: Fall with swelling TECHNIQUE: Imaging protocol: XR Left elbow. Views: 3 or more views. COMPARISON: CR [id number] XR shoulder LT min 2V 05/30/2018 2:49 PM FINDINGS: Bones/joints: There is a 0.2 cm osseous structure adjacent to olecranon posteriorly, may be tiny fracture fragments. No evidence of significant joint effusion. Soft tissues: Focal soft tissue swelling over the olecranon. IMPRESSION: 0.2 cm osseous structure adjacent to olecranon posteriorly, may be tiny fracture fragments.
[2021-01-04 01:01] VITALS: BP 128/98; PULSE 76; RESP 22; TEMP 36.9; O2SAT 98; BMI 25.4
--- NOTE | 2021-01-04 01:07 | HMH.EDGENADL ---
ED Disposition Clinical Impression: Olecranon bursitis Qualifiers: Laterality: left Qualified Code(s): M70.22 - Olecranon bursitis, left elbow Otitis externa Qualifiers: Otitis externa type: unspecified type Chronicity: unspecified Laterality: left Qualified Code(s): H60.92 - Unspecified otitis externa, left ear Olecranon fracture Qualifiers: Encounter type: initial encounter Fracture type: closed Laterality: left Qualified Code(s): S52.022A - Displaced fracture of olecranon process without intraarticular extension of left ulna, initial encounter for closed fracture Disposition: Home, Self-Care Condition on Discharge: Good Additional Instructions: Follow-up with your primary care doctor as scheduled on Tuesday. Use rest, ice, elevation, compression, and ibuprofen as we discussed. Follow-up with orthopedic surgery next week. Use ofloxacin drops as prescribed. Return to the emergency department for any new or worsening symptoms. Prescriptions: Ofloxacin 10 ml OP DAILY 5 Days #50 drops Transmission Status: Pending to [facility]/pharmacy #[id number] Referrals: Malvin Nguyen MD [Primary Care Provider] - - Critical Care Critical Care Time: No Attestation: On 01/04/21, the high probability of a clinically significant, sudden or life threatening deterioration of the following system(s) required my full and direct attention, intervention and personal management. The time I documented below is in addition to time spent performing reported procedures but includes the following listed in this critical care notation. Medical Decision Making - Torres Inquiry Pt receiving controlled substance: No Vital Signs: 01/04/21 01:01 Temperature 98.4 F Temperature Source Oral Pulse Rate [Right] 76 Respiratory Rate 22 Blood Pressure [Right Arm] 128/98 H Blood Pressure Mean [Right Arm] 108 Blood Pressure Source [Right Arm] Automatic Cuff Blood Pressure Position [Right Arm] Sitting 02 Sat by Pulse Oximetry 98 Oxygen Delivery Method Room Air Medical Decision Narrative: The patient is a 50-year-old male who presents to the emergency department with left elbow swelling after a fall 2 weeks ago. Differential diagnosis includes olecranon bursitis, septic bursitis, fracture, dislocation. Given this plan to obtain x-rays and then reassess. X-ray revealed a small fracture off of the olecranon. The patient's exam is consistent with olecranon bursitis and I have no concern for infection as the area is nontender, not warm to touch, not erythematous, and the patient has no systemic infectious symptoms. He also voices concerns about his left ear. On exam he has no evidence of otitis media but does have wax. His ear was irrigated and he did have some erythema of the ear canal that was very tender so will be treated with antibiotic drops. He was encouraged to take Tylenol and ibuprofen at home. We discussed rest, ice, compression, elevation, and NSAIDs. He was given a sling and will follow up with orthopedic surgery next week. He will follow-up with his primary care doctor on Tuesday as well.. General Adult HPI - General Stated complaint: Pain and swelling in Left Elbow;fell last week Time Seen by Provider: 01/04/21 01:00 Mode of Arrival: Ambulatory Source of Information: Patient Limitations: No Limitations - History of Present Illness HPI narrative: This is a 50-year-old male who presents to the emergency department with left elbow pain. He reports about 2 weeks ago he fell coming down from his attic and landed on both of his elbows. He denies hitting his head or loss of consciousness and has no other injuries. He reports that he has since developed swelling of his left elbow and tonight was unable to sleep. He has an appointment with his primary care doctor on Tuesday. He has not been taking medication for his pain. He denies any fever, chills, nausea or vomiting or changes in p.o. intake. He has no overlying skin changes. He
[2021-01-04 03:14] VITALS: BP 132/88; PULSE 78; RESP 18; TEMP 36.9; O2SAT 97
--- NOTE | 2021-01-04 03:16 | PC.NURSE ---
Pt placed in sling and given Dr Cortezs information for f/u
== END 2021-01-04 03:16 | disposition home or self-care (01) ==
PROVIDERS: Emergency Provider Emergency Medicine; PCP Emergency Medicine
DX: S52.025A Nondisplaced fracture of olecranon process without intraarticular extension of left ulna, initial encounter for closed fracture (principal); W10.9XXA Fall (on) (from) unspecified stairs and steps, initial encounter; Y92.019 Unspecified place in single-family (private) house as the place of occurrence of the external cause; H60.92 Unspecified otitis externa, left ear; E78.5 Hyperlipidemia, unspecified; I10 Essential (primary) hypertension; J44.9 Chronic obstructive pulmonary disease, unspecified; I25.10 Atherosclerotic heart disease of native coronary artery without angina pectoris; I25.2 Old myocardial infarction; K21.9 Gastro-esophageal reflux disease without esophagitis; F17.210 Nicotine dependence, cigarettes, uncomplicated; Z79.899 Other long term (current) drug therapy
CPT/HCPCS: 73080; 99282

== ENCOUNTER → 2021-01-07 18:18 | Outpatient (CLI) | payer MEDICAID, SELFPAY ==
[2021-01-07 19:10] LABS: Amphetamine/Metha Screen,Urine Negative ng/ml (<1000)
[2021-01-07 19:11] LABS: Barbiturates Screen,Urine Negative ng/ml (<200); Benzodiazepines Screen,Urine Negative ng/ml (<200)
[2021-01-07 19:12] LABS: Cannabinoid Screen,Urine Negative ng/ml (<50)
[2021-01-07 19:13] LABS: Cocaine Screen,Urine Negative ng/ml (<300); Methadone Screen,Urine Negative ng/ml (<300)
[2021-01-07 19:14] LABS: Opiate Screen,Urine Negative ng/ml (<300)
[2021-01-07 19:15] LABS: Phencyclidine Screen,Urine Negative ng/ml (<25)
== END ==
PROVIDERS: Visit Provider Emergency Medicine
DX: Z79.899 Other long term (current) drug therapy (principal)
CPT/HCPCS: 80305

== ENCOUNTER → 2021-03-06 18:26 | Outpatient (CLI) | payer MEDICAID, SELFPAY ==
[2021-03-06 19:04] LABS: Amphetamine/Metha Screen,Urine Negative ng/ml (<1000)
[2021-03-06 19:05] LABS: Barbiturates Screen,Urine Negative ng/ml (<200)
[2021-03-06 19:06] LABS: Benzodiazepines Screen,Urine Negative ng/ml (<200); Cannabinoid Screen,Urine Positive ng/ml (<50)
[2021-03-06 19:07] LABS: Cocaine Screen,Urine Negative ng/ml (<300); Methadone Screen,Urine Negative ng/ml (<300)
[2021-03-06 19:08] LABS: Opiate Screen,Urine Positive ng/ml (<300)
[2021-03-06 19:09] LABS: Phencyclidine Screen,Urine Negative ng/ml (<25)
== END ==
PROVIDERS: Visit Provider Emergency Medicine
DX: Z79.899 Other long term (current) drug therapy (principal)
CPT/HCPCS: 80305

== ENCOUNTER → 2021-03-31 10:11 | Outpatient (CLI) | payer MEDICAID, SELFPAY ==
--- NOTE | 2021-03-31 10:11 | MR_ITS ---
PROCEDURE: MR LUMBAR SPINE WO CON CLINICAL INDICATION: back pain Low back pain, bilateral leg pain numbness and tingling COMPARISON: MR MR LUMBAR SPINE WO CON from 11/08/2019 TECHNIQUE: Standard multiplanar multiecho sequences are performed without contrast. 3-D MIP and myelographic images are also rendered and reviewed FINDINGS: Normal alignment. The spinal cord ends at the upper L1 level. T11-T12: Degenerative disc disease with mild facet and ligamentum hypertrophic change. Borderline canal stenosis. Mild left lateral recess narrowing. T12-L1: Endplate irregularity with Schmorl's node along the inferior endplate of T12 unchanged. L1-L2: Degenerative disc disease. There is a small central/right paracentral disc protrusion which has developed in the interval impinging upon the anterior right aspect of the cauda equina as well as the right L2 nerve root. Facet and ligamentum hypertrophic changes are present with moderate to severe right-sided lateral recess narrowing with canal stenosis. L2-L3: Degenerative disc disease. Bulging disc is present with a small central disc protrusion. Facet and ligamentum hypertrophy with canal stenosis and severe bilateral lateral recess narrowing right greater than left. The lateral recess narrowing facet hypertrophy and a small central disc protrusion all appears somewhat more prominent compared to the previous exam with worsening canal stenosis and right lateral recess narrowing. L3-L4: Degenerative disc disease with bulging disc with facet and ligamentum hypertrophic change with bilateral lateral recess and foraminal narrowing left greater than right not significantly changed. Schmorl's node along the superior endplate of L4 with type 1 endplate changes L4-5: Degenerative disc disease with bulging disc and small central disc protrusion with facet and ligamentum hypertrophy with severe canal stenosis, bilateral lateral recess narrowing, and bilateral foraminal narrowing right greater than left. Not significantly changed. L5-S1: Facet hypertrophic change with bilateral foraminal narrowing IMPRESSION: 1. L1-L2: Degenerative disc disease. There is a small central/right paracentral disc protrusion which has developed in the interval impinging upon the anterior right aspect of the cauda equina as well as the right L2 nerve root. Facet and ligamentum hypertrophic changes are present with moderate to severe right-sided lateral recess narrowing with canal stenosis. 2. L2-L3: Degenerative disc disease. Bulging disc is present with a small central disc protrusion. Facet and ligamentum hypertrophy with canal stenosis and severe bilateral lateral recess narrowing right greater than left. The lateral recess narrowing facet hypertrophy and a small central disc protrusion all appears somewhat more prominent compared to the previous exam with worsening canal stenosis and right lateral recess narrowing. 3. L3-L4: Degenerative disc disease with bulging disc with facet and ligamentum hypertrophic change with bilateral lateral recess and foraminal narrowing left greater than right not significantly changed. Schmorl's node along the superior endplate of L4 with type 1 endplate changes 4. The L4-5: Degenerative disc disease with bulging disc and small central disc protrusion with facet and ligamentum hypertrophy with severe canal stenosis, bilateral lateral recess narrowing, and bilateral foraminal narrowing right greater than left. Not significantly changed. Dictated by: Wero Calero MD 04/01/2021 09:21 Wero Calero MD in [place] 04/01/2021 09:21
== END ==
PROVIDERS: PCP Emergency Medicine; Visit Provider Emergency Medicine
DX: M54.9 Dorsalgia, unspecified (principal); G89.29 Other chronic pain; M54.50 Low back pain, unspecified
CPT/HCPCS: 72148; 76376

== ENCOUNTER → 2021-05-06 18:19 | Outpatient (CLI) | payer MEDICAID, SELFPAY ==
[2021-05-07 05:22] LABS: Amphetamine/Metha Screen,Urine Negative ng/ml (<1000); Barbiturates Screen,Urine Negative ng/ml (<200); Benzodiazepines Screen,Urine Negative ng/ml (<200); Cannabinoid Screen,Urine Negative ng/ml (<50); Cocaine Screen,Urine Negative ng/ml (<300); Methadone Screen,Urine Negative ng/ml (<300); Opiate Screen,Urine Positive ng/ml (<300); Phencyclidine Screen,Urine Negative ng/ml (<25)
== END ==
PROVIDERS: Visit Provider Emergency Medicine
DX: Z79.899 Other long term (current) drug therapy (principal)
CPT/HCPCS: 80305

== ENCOUNTER → 2021-07-06 16:00 | Outpatient (CLI) | payer MEDICAID, SELFPAY ==
[2021-07-06 18:22] LABS: Amphetamine/Metha Screen,Urine Negative ng/ml (<1000)
[2021-07-06 18:23] LABS: Barbiturates Screen,Urine Negative ng/ml (<200)
[2021-07-06 18:24] LABS: Benzodiazepines Screen,Urine Negative ng/ml (<200)
[2021-07-06 18:25] LABS: Cannabinoid Screen,Urine Negative ng/ml (<50)
[2021-07-06 18:26] LABS: Cocaine Screen,Urine Negative ng/ml (<300); Methadone Screen,Urine Negative ng/ml (<300)
[2021-07-06 18:27] LABS: Opiate Screen,Urine Negative ng/ml (<300)
[2021-07-06 18:28] LABS: Phencyclidine Screen,Urine Negative ng/ml (<25)
== END ==
PROVIDERS: Visit Provider Emergency Medicine
DX: Z79.899 Other long term (current) drug therapy (principal)
CPT/HCPCS: 80305

== ENCOUNTER → 2021-08-13 07:48 | Outpatient (CLI) | payer MEDICAID, SELFPAY ==
--- NOTE | 2021-08-13 07:48 | CT_ITS ---
FINAL REPORT TECHNIQUE: Thin section axial CT images were obtained through the neck after intravenous contrast administration. Coronal and sagittal reformats were also obtained. This study was performed with techniques to keep radiation doses as low as reasonably achievable (ALARA). Individualized dose reduction techniques using automated exposure control or adjustment of mA and/or kV according to the patient's size were employed. CLINICAL HISTORY: left eustacian tube dysfunction FINDINGS: The oropharynx, hypopharynx and larynx are unremarkable. There are multiple small bilateral neck lymph nodes without evidence of adenopathy. The thyroid gland is unremarkable. There is opacification of multiple left mastoid air cells. There is prominent nasopharyngeal soft tissue, left greater than right. There is low-attenuation in the left nasopharynx in the region of the torus tubarius that measures approximately 13 mm. This is of uncertain significance but a mass is not excluded. There is a retention cyst or polyp in the right maxillary sinus measuring about 19 mm. There is moderate mucosal thickening in the left maxillary sinus. There are mild degenerative changes in the cervical spine. There is emphysema in the lung apices with mild scarring. There is a small, 5 mm nodule in the right lung apex. IMPRESSION: Prominent nasopharyngeal soft tissue, left greater than right. Low-attenuation in the left nasopharynx in the region of the torus tubarius of uncertain significance but a mass is not excluded. Sinusitis as described. Reviewed, Interpreted and Dictated by Yaniv Argueta III, MD Transcribed by Mary Chiang Authenticated by Yaniv Argueta III, MD on 08/13/2021 09:27:50 AM [facility]
== END ==
PROVIDERS: PCP Emergency Medicine; Visit Provider Student in an Organized Health Care Education/Training Program
DX: H65.92 Unspecified nonsuppurative otitis media, left ear (principal)
CPT/HCPCS: 70491; Q9967

== ENCOUNTER → 2021-08-24 16:45 | Outpatient (CLI) | payer MEDICAID, SELFPAY ==
[2021-08-24 18:04] LABS: Basophils % 0.3 % (0.1-2.0); Eosinophils # 0.1 K/mm3 (0.0-0.4); Eosinophils % 1.4 % (0.1-12.0); Hematocrit 43.5 % (42.0-52.0); Hemoglobin 14.3 g/dL (14.1-18.0); Lymphocytes # 2.1 K/mm3 (0.7-4.5); Lymphocytes % 23.2 % (10-50); Mean Corpuscular HGB Conc 32.8 g/dL (31.8-35.4); Mean Corpuscular Hemoglobin 30.6 pg (27.0-31.2); Mean Corpuscular Volume 93.1 fl (80-94); Mean Platelet Volume 8.1 fl (7.4-10.4); Monocytes # 0.4 K/mm3 (0.1-1.0); Monocytes % 4.4 % (1.7-9.3); Neutrophils # 6.4 K/mm3 (1.8-7.8); Neutrophils % 70.6 % (37.0-80.0); Platelet Count 244 K/mm3 (142-424); Red Blood Count 4.68 M/mm3 (4.60-6.20); Red Cell Distribution Width 13.4 % (11.5-17.5)
[2021-08-24 18:06] LABS: Chloride 105 mmol/L (98-107); Potassium 4.3 mmoL/L (3.5-5.1); Sodium 137 mmol/L (136-145)
[2021-08-24 18:09] LABS: Anion Gap 7.3 mEq/L (5-15); Blood Urea Nitrogen 12 mg/dl (9-20); Carbon Dioxide 29 mmol/L (22.0-30.0); Estimated Glomerular Filt Rate 119 ml/min (>60); GFR (African American) 144 ML/MIN (>60)
[2021-08-24 18:10] LABS: Calcium 8.1 mg/dl (8.4-10.2); Glucose 83 mg/dl (74-100)
== END ==
PROVIDERS: PCP Emergency Medicine; Visit Provider Student in an Organized Health Care Education/Training Program
DX: Z01.812 Encounter for preprocedural laboratory examination (principal); Z11.52 Encounter for screening for COVID-19
CPT/HCPCS: 36415; 80048; 85025; C9803; U0003; U0005

== ENCOUNTER 2021-08-26 06:59 | Day surgery (SDC) | payer MEDICAID, SELFPAY ==
[2021-08-24 10:30] VITALS: BMI 24.9
[2021-08-26] VITALS (8 sets, daily range): BP systolic 122–159; BP diastolic 78–98; PULSE 72–93; RESP 16–19; TEMP 36.4–36.7; O2SAT 93–98
--- NOTE | 2021-08-26 07:29 | ECG_ITS ---
APPROVED REPORT Exam: Resting ECG HR:76 bpm ECG Measurements Heart Rate 76 AXES WI 158 P 46 QRSd 94 QRS 88 QT 380 T 69 QTc 410 Conclusion SINUS RHYTHM NORMAL ECG UNCONFIRMED REPORT Electronically signed by : Christoph Bonilla MD 08/27/2021 16:02:33
--- NOTE | 2021-08-26 08:42 | HMH.ANESCL ---
[facility] Anesthesia Checklist - Structural Data Admitted From: Home Planned Operative Procedure/s: endoscopic sinus, bmt Consent for Planned Operative Procedure(s) Verified: Yes - Additional verifications Anesthesia Reactions: No Hx Blood Transfusions: No Blood Transfusion Reaction: No - Airway Assessment C-Spine Mobility Assessed: Yes TMJ Mobility Assessed: Yes Dentition: Dentures-good fit - Neurological Assessment Level of Consciousness: Awake, Alert, Appropriate - Anesthesia Plan Anesthesia Risk discussed: Yes Anesthesia Plan: Verified ASA Class: II Anesthesia Type: General [facility] History I have reviewed the patient's past medical history: Yes Medical History: Reports:: Anxiety, Atherosclerotic Heart Disease, Chronic Obstructive Pulmonary Disease (COPD), Coronary Artery Disease, Depression, Gastroesophageal Reflux Disease(GERD), Hiatal Hernia, Hyperlipidemia, Hypertension, Myocardial Infarction Denies:: Cancer, Diabetes Mellitus Type 1, Diabetes Mellitus Type 2, Internal Pacemaker, MRSA, Seizures *Have you ever received a pneumonia vaccine?: No *Have you received a flu vaccine this season?: No Other Medical History: Reports: Arthritis. Denies: Blood Transfusion Reaction Anesthesia experience/problems:: none Laterality Cases: Bilateral: Tonsillectomy Other Surgeries: Yes: No Previous Surgery, Cardiac Catheterization, Cholecystectomy, Colonoscopy, Coronary Stent, Hernia Repair, Other. No: Pacemaker Amputation: No Fractures: Yes (R ARM) - *Social History Last grade of school completed: 9th or 10th Smoking Status: Heavy tobacco smoker Tobacco Type: cigarettes, smokeless tobacco # Packs/Day (cigarettes): 1 #Yrs smoked (if former smoker): 15 Alcohol Intake: never Substance Use Type: denies use *Occupational Status:: unemployed Housing: house Household Members: spouse, family *Travel in the last 8 weeks: None - Psychiatric History Pschychiatric History:: Reports:: Anxiety, Depression Family Hx:: Heart Attack
--- NOTE | 2021-08-26 09:54 | P.OP_ITS ---
Date of procedure: 08/26/21 Pre-op Diagnosis:: left serous chronic otitis media left nasopharyngeal mass Post-op Diagnosis:: same Procedure performed:: left myringotomy with tube insertion, nasal endoscopy, biopsy, left eustachian tube balloon dilation Surgeon:: Lucio Hooks MD INSULATION INSTALLER:: oRbert Peraza Anesthesia: GETA Estimated blood loss (mL): 5 Clinical Note:: Patient presents for above noted procedure. In clinic was found to have a left serous otitis media, and asymmetric swelling around his left ET in the setting of chronic tobacco abuse. This was also demonstrated on pre-op CT scan (left mastoid effusion, swelling around left ET). On AM of surgery patient reports his hearing is still muffled in the left ear. He, despite multiple attempts to arrange, failed to complete an audiogram pre op. 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 I discussed with him prior to surgery this morning that without a pre-op audiogram I have no way of knowing if he has additional nerve hearing loss, how much of a loss he has from the fluid, if he has pre-existing asymmetric nerve hearing loss, etc. He understands this and is adamant that he still wishes to proceed with the operation including placing the ear tube. Will continue to try and get him to obtain an audiogram post op. Operative findings:: left retracted tympanic membrane with serous effusion left nasopharyngeal swelling around ET, with mucoid cyst contents expressed on biopsy Operative note:: Patient was brought to OR, laid supine position, general anesthesia induced. Patient was prepped and draped in usual fashion. First with the left ear, patient was noted to have a retracted TM and serous effusion. Myringotomy was made in anterior inferior quadrant, effusion suctioned out, and than a Nuno tube was placed. Ciprodex otic ggt instilled into ear. Than performed the NE. No abnormalities seen in right nasal passage or nasopharynx. On the left, there was swelling posterior to the ET. This was biopsied and sent for both permanant path as well as fresh for flow. On taking the biopsies a mucoid discharged was expressed and suctioned out. Suction cautery then used for hemostasis. Finally I inserted the ET balloon catheter into the ET. It was then dilated for two minutes, then removed. Nose and mouth then suctioned out. Turned back over to anesthesia to be awoken. Condition: stable Disposition: PACU Specimens:: nasopharyngeal biopsy both fresh for flow and permanent Complications:: none
--- NOTE | 2021-08-26 09:59 | P.PN_ITS ---
[facility] Anesthesia Record Part I Intake, IV Amount: 1,000 Estimated blood loss (mL): 5 Urine output (mL): 0 Blood Pressure: 159/95 SaO2: 95 Pulse Rate: 93 Respiratory Rate: 16 Temperature: 98.1 F Patient is:: Drowsy, Stable Stable to PACU at:: 09:55
--- NOTE | 2021-08-27 06:22 | HMH.ANESII ---
[facility] Anesthesia Record Part II Discharge Time: 10:15 Destination: Home PACU nurse assessment reviewed?: Yes Patient Condition:: Good Anesthesia Complications:: None none Swallowing reflex intact?: Yes Cyanosis?: No Blood Pressure: 143/96 Pulse Rate: 75 Temperature: 98 F Mental Status: Alert & Oriented Pain level:: 0 Nausea and/or vomitting:: None Intake, IV Amount: 0
[2021-08-27 06:23] VITALS: BP 143/96; PULSE 75; TEMP 36.6
== END 2021-08-26 10:57 | disposition home or self-care (01) ==
LOC: OR 07:00
PROVIDERS: PCP Emergency Medicine; Visit Provider Student in an Organized Health Care Education/Training Program
PROC: (CPT 30520; principal; 2021-08-26 08:45)
DX: H65.22 Chronic serous otitis media, left ear (principal); R59.0 Localized enlarged lymph nodes; Z72.0 Tobacco use; F41.9 Anxiety disorder, unspecified; I25.10 Atherosclerotic heart disease of native coronary artery without angina pectoris; J44.9 Chronic obstructive pulmonary disease, unspecified; F32.A Depression, unspecified; K21.9 Gastro-esophageal reflux disease without esophagitis; E78.5 Hyperlipidemia, unspecified; I10 Essential (primary) hypertension; I25.2 Old myocardial infarction; M19.90 Unspecified osteoarthritis, unspecified site
CPT/HCPCS: 69436; 69705; 93005; J2405; J2710

== ENCOUNTER → 2021-08-31 19:06 | Outpatient (CLI) | payer MEDICAID, SELFPAY ==
[2021-08-31 18:12] LABS: Amphetamine/Metha Screen,Urine Negative ng/ml (<1000)
[2021-08-31 18:13] LABS: Barbiturates Screen,Urine Negative ng/ml (<200)
[2021-08-31 18:15] LABS: Benzodiazepines Screen,Urine Negative ng/ml (<200); Cannabinoid Screen,Urine Negative ng/ml (<50)
[2021-08-31 18:16] LABS: Cocaine Screen,Urine Negative ng/ml (<300)
[2021-08-31 18:17] LABS: Methadone Screen,Urine Negative ng/ml (<300); Opiate Screen,Urine Positive ng/ml (<300)
[2021-08-31 18:18] LABS: Phencyclidine Screen,Urine Negative ng/ml (<25)
== END ==
PROVIDERS: Visit Provider Emergency Medicine
DX: Z79.899 Other long term (current) drug therapy (principal)
CPT/HCPCS: 80305

== ENCOUNTER 2021-09-01 21:19 | Emergency (ER) | payer MEDICAID, SELFPAY ==
[2021-09-01 21:21] VITALS: BP 141/86; PULSE 86; RESP 18; TEMP 37; O2SAT 98; BMI 26.8
--- NOTE | 2021-09-01 21:45 | XR_ITS ---
PROCEDURE INFORMATION: Exam: XR Pelvis Exam date and time: 09/01/2021 9:58 PM Age: 51 years old Clinical indication: Pelvic pain; Additional info: Left hip pain TECHNIQUE: Imaging protocol: XR pelvis. Views: 1 or 2 view. COMPARISON: ABDPELW CT abdomen pelvis w con 05/30/2018 2:38 PM FINDINGS: Bones/joints: Intact. No acute fractures or dislocations identified. There are no lytic or blastic lesions. The joints are preserved. Soft tissues: Unremarkable. IMPRESSION: No acute findings.
--- NOTE | 2021-09-01 21:45 | CT_ITS ---
PROCEDURE INFORMATION: Exam: CT Lumbar Spine Without Contrast Exam date and time: 09/01/2021 9:53 PM Age: 51 years old Clinical indication: Low back pain TECHNIQUE: Imaging protocol: Computed tomography images of the lumbar spine without contrast. Radiation optimization: All CT scans at this facility use at least one of these dose optimization techniques: automated exposure control; mA and/or kV adjustment per patient size (includes targeted exams where dose is matched to clinical indication); or iterative reconstruction. COMPARISON: MR LUMBAR SPINE WO CON 03/31/2021 10:28 AM FINDINGS: Vertebrae: No acute fracture. Normal alignment. L1-L2: No significant disc protrusion. No severe spinal canal stenosis. No significant neural foraminal narrowing. L2-L3: Small central disc protrusion, facet and ligamentum hypertrophy changes superimposed on a congenitally small spinal canal, causing mild central canal narrowing. No significant neural foraminal narrowing. L3-L4: Small central disc protrusion, facet and ligamentum hypertrophy changes superimposed on a congenitally small spinal canal, causing mild central canal narrowing. L4-L5: Moderate disc protrusion, facet and ligamentum hypertrophy changes superimposed on a congenitally small spinal canal, causing moderate to severe central canal narrowing. No significant neural foraminal narrowing. L5-S1: No significant disc protrusion. No severe spinal canal stenosis. No significant neural foraminal narrowing. Soft tissues: Unremarkable. IMPRESSION: 1. No acute fractures or listhesis. 2. L2-L3 Small central disc protrusion, facet and ligamentum hypertrophy changes superimposed on a congenitally small spinal canal, causing mild central canal narrowing. 3. L3-L4 Small central disc protrusion, facet and ligamentum hypertrophy changes superimposed on a congenitally small spinal canal, causing mild central canal narrowing. 4. L4-L5 moderate disc protrusion, facet and ligamentum hypertrophy changes superimposed on a congenitally small spinal canal, causing moderate to severe central canal narrowing and bilateral foraminal narrowing. Findings are similar when compared to the prior MRI 03/31/2021.
--- NOTE | 2021-09-01 21:45 | CT_ITS ---
PROCEDURE INFORMATION: Exam: CT Thoracic Spine Without Contrast Exam date and time: 09/01/2021 9:50 PM Age: 51 years old Clinical indication: Pain in thoracic spine; Other: Woke up with back pain, no known injury TECHNIQUE: Imaging protocol: Computed tomography images of the thoracic spine without contrast. Radiation optimization: All CT scans at this facility use at least one of these dose optimization techniques: automated exposure control; mA and/or kV adjustment per patient size (includes targeted exams where dose is matched to clinical indication); or iterative reconstruction. COMPARISON: [facility] CT thoracic spine wo con 05/30/2018 2:28 PM FINDINGS: Vertebrae: No acute fracture. Normal alignment. Discs/Spinal canal/Neural foramina: No significant disc protrusion. No severe spinal canal stenosis. No significant neural foraminal narrowing. Soft tissues: Unremarkable. Lungs: Bilateral emphysematous changes. IMPRESSION: No acute findings.
--- NOTE | 2021-09-01 21:56 | PC.NURSE ---
MEDICATIONS GIVEN ORDERED. PT UPDATED WITH LENGTH OF TIME FOR MEDICATION TO WORK AND EXPECTED LENGTH OF STAY AFTER RADIOLOGY IS PERFORMED. NO ACUTE DISTRESS NOTED.
--- NOTE | 2021-09-01 22:02 | HMH.EDGENADL ---
ED Disposition Clinical Impression: Lumbar radicular pain, Foraminal stenosis of lumbar region Lumbar canal stenosis Qualifiers: Neurogenic claudication status: with neurogenic claudication Qualified Code(s): M48.062 - Spinal stenosis, lumbar region with neurogenic claudication Disposition: Home, Self-Care Condition on Discharge: Good Instructions: DI for Lumbar Radiculopathy Additional Instructions: see pcp next week Prescriptions: predniSONE [Prednisone 20mg Tab] 20 mg PO BID #10 tab Transmission Status: Pending to [facility]/pharmacy #[id number] Referrals: Malvin Nguyen MD [Primary Care Provider] - - Critical Care Critical Care Time: No Attestation: On 09/01/21, the high probability of a clinically significant, sudden or life threatening deterioration of the following system(s) required my full and direct attention, intervention and personal management. The time I documented below is in addition to time spent performing reported procedures but includes the following listed in this critical care notation. Medical Decision Making - Medical Records Medical records reviewed: Yes: I reviewed the patient's medical records. - Torres Inquiry Pt receiving controlled substance: No Vital Signs: 09/01/21 21:21 Temperature 98.6 F Temperature Source Oral Pulse Rate [Right Radial] 86 Respiratory Rate 18 Blood Pressure [Right Arm] 141/86 H Blood Pressure Mean [Right Arm] 104 Blood Pressure Source [Right Arm] Automatic Cuff Blood Pressure Position [Right Arm] Sitting 02 Sat by Pulse Oximetry 98 Oxygen Delivery Method Room Air - Lab Data Lab results reviewed: Yes: I reviewed the patient's lab results. Orders (Tests/Meds): ED MEDICATIONS Discontinued Medications Generic Name Dose Route Start Last Admin Trade Name Cara PRN Reason Stop Dose Admin Ketorolac Tromethamine 60 mg 09/01/21 21:45 09/01/21 21:47 Ketorolac 60mg/2ml Vial IM 09/01/21 21:46 60 mg ONCE ONE Administration Methylprednisolone Sodium Succinate 125 mg 09/01/21 21:45 09/01/21 21:46 Methylprednisolone Sod Succ 125mg Vial IM 09/01/21 21:46 125 mg ONCE ONE Administration ORDERS Category Date Time Status CT lumbar spine wo con Stat Cat Scan 09/01/21 21:45 Taken - CT Data CT Scan: T-Spine, L-Spine Time Received: 22:[address] Reviewed: Yes: I have viewed the radiologist's interpretation Preliminary Findings: Abnormal (see report ) Medical Decision Narrative: has finding and hx consistent with lumbar radicular pain General Adult HPI - General Chief complaint: PAIN Stated complaint: left hip and back pain Time Seen by Provider: 09/01/21 22:03 Mode of Arrival: Ambulatory Source of Information: Patient, Medical Record Limitations: No Limitations Description of Symptoms (Recalled from ER Triage Doc. by RN): Pt reports waking this morning with left hip and lower back pain. He went to work today and thought it would get better but it has not. He says pain radiates into his left leg. He denies N/V/D. Denies urinary or bowel issues. Pt denies any injury. - History of Present Illness HPI narrative: atraumatic lt hip pain with rad to lt lower leg from back x 1 day - no rash or fever Onset (ago): hour(s) Location: back Severity: moderate Quality: burning Consistency: intermittent Associated symptoms: denies other symptoms - Related Data Home Medications Medication Instructions Recorded Confirmed Azelastine HCl 1 spray INTRANASAL HS 08/24/21 08/31/21 Fluticasone Propionate 1 spray INTRANASAL BID 08/24/21 08/31/21 Lidocaine [Lidocaine 5% patch] 1 patch TOPICAL DAILY 08/24/21 08/31/21 Loratadine [Allergy Relief] 10 mg PO DAILY 08/24/21 08/31/21 Omeprazole 40 mg PO DAILY 08/24/21 08/31/21 isosorbide mononitrate 30 mg 30 mg PO tab 08/31/21 08/31/21 tablet,extended release 24 hr lisinopril 20 mg tablet 20 mg PO DAILY tab 08/31/21 08/31/21 Previous Rx's Medication Instructions Recorded ond
[2021-09-01 22:53] VITALS: BP 141/86; PULSE 86; RESP 18; TEMP 37; O2SAT 98
== END 2021-09-01 22:56 | disposition home or self-care (01) ==
PROVIDERS: Emergency Provider Emergency Medicine; PCP Emergency Medicine
DX: M54.16 Radiculopathy, lumbar region (principal); M48.062 Spinal stenosis, lumbar region with neurogenic claudication; F41.8 Other specified anxiety disorders; K21.9 Gastro-esophageal reflux disease without esophagitis; E78.5 Hyperlipidemia, unspecified; I10 Essential (primary) hypertension; J44.9 Chronic obstructive pulmonary disease, unspecified; F17.210 Nicotine dependence, cigarettes, uncomplicated; Z79.899 Other long term (current) drug therapy
CPT/HCPCS: 72128; 72131; 72170; 96372; 99284

== ENCOUNTER 2021-10-22 22:59 | Emergency (ER) | payer MEDICAID, SELFPAY ==
[2021-10-22 23:00] VITALS: BP 144/83; PULSE 84; RESP 16; TEMP 36.9; O2SAT 98; BMI 25.6
[2021-10-22 23:10] VITALS: BMI 25.6
--- NOTE | 2021-10-22 23:10 | XR_ITS ---
PROCEDURE INFORMATION: Exam: XR Right Knee Exam date and time: 10/22/2021 11:23 PM Age: 51 years old Clinical indication: Pain; Patient HX: PT states burning sensation right knee, lower leg; Additional info: Knee pain TECHNIQUE: Imaging protocol: XR Right knee. Views: 3 views. COMPARISON: No relevant prior studies available. FINDINGS: Bones/joints: There is no evidence of acute fracture. There is no evidence of joint malalignment or dislocation. Soft tissues: No focal soft tissue swelling. IMPRESSION: 1. No evidence of acute fracture. 2. No evidence of acute dislocation.
--- NOTE | 2021-10-22 23:10 | XR_ITS ---
PROCEDURE INFORMATION: Exam: XR Right Tibia and Fibula Exam date and time: 10/22/2021 11:24 PM Age: 51 years old Clinical indication: Pain; Lower leg; Patient HX: PT states burning sensation right knee/ lower leg; Additional info: Knee pain TECHNIQUE: Imaging protocol: XR Right tibia and fibula. Views: 2 views. COMPARISON: CR XR KNEE RT 3V 10/22/2021 11:23 PM FINDINGS: Bones/joints: There is no evidence of acute fracture. There is no evidence of joint malalignment or dislocation. Soft tissues: No focal soft tissue swelling. IMPRESSION: 1. No evidence of acute fracture. 2. No evidence of acute dislocation.
--- NOTE | 2021-10-23 00:42 | HMH.EDLOEX ---
ED Disposition Clinical Impression: Lower extremity pain, right Disposition: Home, Self-Care Condition on Discharge: Good Instructions: DI for Acute Pain -- Adult Additional Instructions: call pcp in am Referrals: Malvin Nguyen MD [Primary Care Provider] - - Critical Care Critical Care Time: No Attestation: On 10/22/21, the high probability of a clinically significant, sudden or life threatening deterioration of the following system(s) required my full and direct attention, intervention and personal management. The time I documented below is in addition to time spent performing reported procedures but includes the following listed in this critical care notation. Medical Decision Making - Medical Records Medical records reviewed: Yes: I reviewed the patient's medical records. - Torres Inquiry Pt receiving controlled substance: No Vital Signs: 10/22/21 23:00 Temperature 98.4 F Temperature Source Oral Pulse Rate [Left Radial] 84 Respiratory Rate 16 Blood Pressure [Right Arm] 144/83 H Blood Pressure Mean [Right Arm] 103 Blood Pressure Source [Right Arm] Automatic Cuff Blood Pressure Position [Right Arm] Sitting 02 Sat by Pulse Oximetry 98 Oxygen Delivery Method Room Air - Lab Data Lab results reviewed: Yes: I reviewed the patient's lab results. Orders (Tests/Meds): ORDERS Category Date Time Status C-Reactive Protein Stat Lab 10/23/21 00:43 Ordered Complete Blood Count Auto Diff Stat Lab 10/23/21 00:43 Ordered Comprehensive Metabolic Panel Stat Lab 10/23/21 00:43 Ordered Erythrocyte Sedimentation Rate Stat Lab 10/23/21 00:43 Ordered Free T4 (Free Thyroxine) Stat Lab 10/23/21 00:43 Ordered Procalcitonin Stat Lab 10/23/21 00:43 Ordered Thyroid Stimulating Hormone Stat Lab 10/23/21 00:43 Ordered - Radiology Data #1 Image(s): Knee, Tib/Fib Image Reviewed: Yes I have reviewed radiologist's interpretation Preliminary Findings: No Fracture Seen Medical Decision Narrative: will do venous doppler in am - doubt compartment syn and possible referred pain Lower Extremity Injury HPI - General Chief Complaint: Extremity Problem,Nontraumatic Stated Complaint: pain in right leg, knot on girard, feels hot Time Seen by Provider: 10/23/21 00:42 Mode of Arrival: Ambulatory Source of Information: Patient, Spouse, Medical Record Limitations: No Limitations Description of Symptoms (Recalled from ER Triage Doc. 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 PT REPORTS RIGHT KNEE PAIN FOR 2-3 WEEKS WITHOUT RELIEF. PT DENIES INJURY. - History of Present Illness HPI Narrative: pt with pain rt lower leg over the last days - worse with certain positions - no rash and no other c/o MD complaint: other (leg pain) Onset (ago): day(s) Type of Injury: unknown Place: home Severity: moderate Other symptoms: none - Related Data Home Medications Medication Instructions Recorded Confirmed Azelastine HCl 1 spray INTRANASAL HS 08/24/21 08/31/21 Fluticasone Propionate 1 spray INTRANASAL BID 08/24/21 08/31/21 Loratadine [Allergy Relief] 10 mg PO DAILY 08/24/21 08/31/21 Omeprazole 40 mg PO DAILY 08/24/21 08/31/21 isosorbide mononitrate 30 mg 30 mg PO tab 08/31/21 08/31/21 tablet,extended release 24 hr lisinopril 20 mg tablet 20 mg PO DAILY tab 08/31/21 08/31/21 Previous Rx's Medication Instructions Recorded ondansetron HCL [Ondansetron 4mg 4 mg PO TIDP PRN #10 tab 08/26/21 tab*] aspirin 81 mg tablet,delayed See Rx Instructions .ROUTE 08/31/21 release .COMPLEX #30 tab citalopram 20 mg tablet 20 mg PO DAILY #30 tab 08/31/21 gabapentin 800 mg tablet 800 mg PO TID #90 tab 08/31/21 oxycodone-acetaminophen 10 mg-325 1 tab PO TID PRN #90 tab 08/31/21 mg tablet predniSONE [Prednisone 20mg 20 mg PO BID #10 tab 09/01/21 Tab] tamsulosin 0.4 mg capsule See Rx Instructions .ROUTE 09/01/21 .COMPLEX #30 capsule lidocaine 5 % topical patch See Rx Instructions .ROUTE 0
[2021-10-23 00:57] LABS: Basophils # 0.2 K/mm3 (0-0.2); Eosinophils # 0.3 K/mm3 (0.0-0.4); Eosinophils % 3.3 % (0.1-12.0); Hematocrit 39.3 % (42.0-52.0); Hemoglobin 13.4 g/dL (14.1-18.0); Lymphocytes % 23.5 % (10-50); Mean Corpuscular Hemoglobin 31.1 pg (27.0-31.2); Mean Corpuscular Volume 91.4 fl (80-94); Mean Platelet Volume 7.5 fl (7.4-10.4); Monocytes # 0.4 K/mm3 (0.1-1.0); Monocytes % 4.3 % (1.7-9.3); Neutrophils # 5.6 K/mm3 (1.8-7.8); Platelet Count 232 K/mm3 (142-424); Red Cell Distribution Width 13.1 % (11.5-17.5); White Blood Count 8.3 K/mm3 (4.8-10.8)
[2021-10-23 01:00] VITALS: BP 126/83; PULSE 76; RESP 18; TEMP 36.8; O2SAT 97
[2021-10-23 01:06] LABS: Chloride 106 mmol/L (98-107); Potassium 3.6 mmoL/L (3.5-5.1); Sodium 137 mmol/L (136-145)
[2021-10-23 01:08] LABS: Alanine Aminotransferase 17 U/L (12-78); Aspartate Amino Transferase 24 U/L (17-59); Blood Urea Nitrogen 10 mg/dl (9-20); Creatinine Clearance Estimated 132 mL/min (50-200); Estimated Glomerular Filt Rate 102 ml/min (>60); GFR (African American) 123 ML/MIN (>60)
[2021-10-23 01:09] LABS: Albumin/Globulin Ratio 1.7 (1.1-1.8); Alkaline Phosphatase 69 U/L (38-126); Anion Gap 8.6 mEq/L (5-15); Bilirubin,Total 0.2 mg/dl (0.2-1.3); Calcium 8.6 mg/dl (8.4-10.2); Carbon Dioxide 26 mmol/L (22.0-30.0); Globulin 2.4 g/dL (1.3-3.2); Glucose 121 mg/dl (74-100); Total Protein,Serum 6.4 g/dl (6.3-8.2)
[2021-10-23 01:15] LABS: C-Reactive Protein 2.3 mg/L (0-4)
[2021-10-23 01:24] LABS: Erythrocyte Sedimentation Rate 11 mm/hr (0-20)
[2021-10-23 01:31] LABS: Free T4 (Free Thyroxine) 1.32 ng/dl (0.78-2.19); Procalcitonin 0.048 ng/mL (0.0-2.0)
[2021-10-23 01:42] LABS: Thyroid Stimulating Hormone 1.68 uIU/mL (0.465-4.68)
== END 2021-10-23 01:05 | disposition home or self-care (01) ==
PROVIDERS: Emergency Provider Emergency Medicine; PCP Emergency Medicine
DX: M25.561 Pain in right knee (principal); I10 Essential (primary) hypertension; I25.10 Atherosclerotic heart disease of native coronary artery without angina pectoris; I25.2 Old myocardial infarction; K21.9 Gastro-esophageal reflux disease without esophagitis; E78.5 Hyperlipidemia, unspecified; K44.9 Diaphragmatic hernia without obstruction or gangrene; G47.33 Obstructive sleep apnea (adult) (pediatric); M19.90 Unspecified osteoarthritis, unspecified site; J44.9 Chronic obstructive pulmonary disease, unspecified; F32.A Depression, unspecified; F41.9 Anxiety disorder, unspecified; F17.210 Nicotine dependence, cigarettes, uncomplicated; Z79.82 Long term (current) use of aspirin; Z79.899 Other long term (current) drug therapy; Z88.5 Allergy status to narcotic agent; Z88.6 Allergy status to analgesic agent; Z88.8 Allergy status to other drugs, medicaments and biological substances; Z82.49 Family history of ischemic heart disease and other diseases of the circulatory system
CPT/HCPCS: 73562; 73590; 80053; 84145; 84439; 84443; 85025; 85651; 86140; 99284

== ENCOUNTER → 2021-10-23 13:00 | Outpatient (CLI) | payer MEDICAID, SELFPAY ==
--- NOTE | 2021-10-23 13:03 | CA_ITS ---
FINAL REPORT CLINICAL HISTORY: PAIN/BURNING RT PROXIMAL TIB/FIB,NKI FINDINGS: DUPLEX VENOUS SONOGRAPHY OF THE RIGHT LOWER EXTREMITY Multiple transverse and longitudinal scans were performed of the femoropopliteal deep venous system, with augmentation and compression maneuvers. Normal phasic flow was noted in the visualized deep venous system. No intraluminal increased echogenicity is noted to suggest thrombus. There is normal compression and augmentation of the venous structures. No abnormal venous collaterals are seen. IMPRESSION: No evidence of deep venous thrombosis of the right lower extremity. Reviewed, Interpreted and Dictated by Tasha Pereyra MD Transcribed by Mary Chiang Authenticated by Tasha Pereyra MD on 10/23/2021 02:05:59 PM [facility]
== END ==
PROVIDERS: PCP Emergency Medicine; Visit Provider Emergency Medicine
DX: M79.661 Pain in right lower leg (principal)
CPT/HCPCS: 93971

== ENCOUNTER → 2021-10-28 15:40 | Outpatient (CLI) | payer MEDICAID, SELFPAY ==
[2021-10-28 15:50] LABS: Amphetamine/Metha Screen,Urine Negative ng/ml (<1000)
[2021-10-28 15:51] LABS: Barbiturates Screen,Urine Negative ng/ml (<200); Benzodiazepines Screen,Urine Negative ng/ml (<200)
[2021-10-28 15:52] LABS: Cannabinoid Screen,Urine Negative ng/ml (<50); Cocaine Screen,Urine Negative ng/ml (<300)
[2021-10-28 15:53] LABS: Methadone Screen,Urine Negative ng/ml (<300)
[2021-10-28 15:54] LABS: Opiate Screen,Urine Positive ng/ml (<300)
[2021-10-28 15:55] LABS: Phencyclidine Screen,Urine Negative ng/ml (<25)
[2021-10-28 16:09] LABS: Hemoglobin A1C 5.3 % (4.0-6.0)
== END ==
PROVIDERS: PCP Emergency Medicine; Visit Provider Emergency Medicine
DX: Z79.899 Other long term (current) drug therapy (principal); R73.09 Other abnormal glucose
CPT/HCPCS: 80305; 83036

== ENCOUNTER → 2021-12-23 06:21 | Outpatient (CLI) | payer MEDICAID, SELFPAY ==
[2021-12-22 18:52] LABS: Basophils % 0.6 % (0.1-2.0); Eosinophils # 0.3 K/mm3 (0.0-0.4); Eosinophils % 4.4 % (0.1-12.0); Hematocrit 39.1 % (42.0-52.0); Hemoglobin 13.4 g/dL (14.1-18.0); Lymphocytes # 1.5 K/mm3 (0.7-4.5); Lymphocytes % 24.9 % (10-50); Mean Corpuscular HGB Conc 34.2 g/dL (31.8-35.4); Mean Corpuscular Hemoglobin 30.4 pg (27.0-31.2); Mean Corpuscular Volume 88.8 fl (80-94); Mean Platelet Volume 8.1 fl (7.4-10.4); Monocytes # 0.3 K/mm3 (0.1-1.0); Monocytes % 5.4 % (1.7-9.3); Neutrophils % 64.5 % (37.0-80.0); Platelet Count 221 K/mm3 (142-424); Red Blood Count 4.41 M/mm3 (4.60-6.20); Red Cell Distribution Width 12.6 % (11.5-17.5); White Blood Count 6.2 K/mm3 (4.8-10.8)
[2021-12-22 19:10] LABS: Alanine Aminotransferase 12 U/L (12-78); Albumin Level 3.7 g/dl (3.5-5.0); Albumin/Globulin Ratio 1.6 (1.1-1.8); Alkaline Phosphatase 85 U/L (38-126); Anion Gap 9.2 mEq/L (5-15); Aspartate Amino Transferase 23 U/L (17-59); Blood Urea Nitrogen 10 mg/dl (9-20); Calcium 8.4 mg/dl (8.4-10.2); Carbon Dioxide 27 mmol/L (22.0-30.0); Chloride 106 mmol/L (98-107); Chol/HDL Ratio 4.7 (1-3.5); Cholesterol 131 mg/dl (140-200); Estimated Glomerular Filt Rate 102 ml/min (>60); GFR (African American) 123 ML/MIN (>60); Globulin 2.3 g/dL (1.3-3.2); Glucose 103 mg/dl (74-100); HDL Cholesterol 28 mg/dl (40-60); Potassium 4.2 mmoL/L (3.5-5.1); Sodium 138 mmol/L (136-145); Triglycerides 320 mg/dl (30-150); VLDL Cholesterol 64 mg/dL (0-40)
[2021-12-22 19:22] LABS: Direct LDL Cholesterol 66.48 mg/dL (100-129)
[2021-12-22 19:28] LABS: 25-OH Vitamin D, Total 21.1 ng/mL (30-100)
[2021-12-22 19:29] LABS: Free T4 (Free Thyroxine) 1.37 ng/dl (0.78-2.19)
[2021-12-22 19:35] LABS: Bilirubin,Total < 0.1 mg/dl (0.2-1.3)
[2021-12-22 19:41] LABS: Thyroid Stimulating Hormone 0.86 uIU/mL (0.465-4.68)
== END ==
PROVIDERS: PCP Emergency Medicine; Visit Provider Emergency Medicine
DX: R06.02 Shortness of breath (principal); I10 Essential (primary) hypertension; E78.5 Hyperlipidemia, unspecified; E55.9 Vitamin D deficiency, unspecified
CPT/HCPCS: 80053; 80061; 82306; 84439; 84443; 85025

== ENCOUNTER → 2022-01-13 12:57 | Outpatient (CLI) | payer MEDICAID, SELFPAY ==
--- NOTE | 2022-01-13 13:04 | MR_ITS ---
FINAL REPORT CLINICAL HISTORY: lower back pain with tingling and numbness down right leg x years no recent injury /trauma FINDINGS: Multiplanar MR imaging of the lumbar spine was performed without contrast. On the sagittal T2-weighted images, disc degeneration is seen at multiple levels. There are multiple Schmorl's nodes. Is mild rightward curvature. There is no evidence of fracture. No bony mass is identified. The conus has an unremarkable appearance. T11-12: An annular disc bulge is present. There is no significant canal stenosis or neural foraminal narrowing. T12-L1: An annular disc bulge is present. There is no significant canal stenosis or neural foraminal narrowing. L1-2: An annular disc bulge is present. There is no significant canal stenosis. There is mild right neural foraminal narrowing. L2-3: There is an annular disc bulge with facet arthropathy and vertebral osteophytes. There is a posterior midline annular tear. There is broad-based central disc protrusion. There is moderate bilateral neural foraminal narrowing. There is posterior displacement of the right L3 nerve root. L3-4: There is an annular disc bulge with facet arthropathy. There is a small central disc protrusion. There is mild bilateral neural foraminal narrowing. L4-5: There is an annular disc bulge with facet arthropathy. There is a small central disc protrusion. There is moderate bilateral neural foraminal narrowing. L5-S1: There is an annular disc bulge with facet arthropathy. There is a small central disc protrusion. IMPRESSION: Multilevel degenerative disc disease with areas of neural foraminal narrowing as described. Posterior midline annular tear at L2-3. Disc protrusion at L2-3. Reviewed, Interpreted and Dictated by Yaniv Argueta III, MD Transcribed by Christine Knott Authenticated and [facility]
== END ==
PROVIDERS: PCP Emergency Medicine; Visit Provider Emergency Medicine
DX: M54.16 Radiculopathy, lumbar region (principal)
CPT/HCPCS: 72148; 76376

== ENCOUNTER 2022-01-23 22:18 | Emergency (ER) | payer MEDICAID, SELFPAY ==
[2022-01-23 22:19] VITALS: BP 148/85; PULSE 87; RESP 19; TEMP 36.8; O2SAT 98; BMI 25.6
--- NOTE | 2022-01-23 23:11 | HMH.EDGENADL ---
Discharge Plan Disposition Patient Disposition: Home, Self-Care Chief Complaint: PAIN Prescriptions Prescriptions: New prednisone [prednisone] 20 mg tablet 20 mg PO BID Qty: 10 0RF No Action gabapentin 800 mg tablet 800 mg PO TID Qty: 90 1RF oxycodone-acetaminophen [Percocet] 10-325 mg tablet 1 tab PO TID PRN (Reason: pain) Qty: 90 0RF ondansetron HCl 4 MG tablet 4 mg PO TIDP PRN (Reason: Nausea) Qty: 10 0RF aspirin 81 MG tablet,delayed release (DR/EC) See Rx Instructions .Route .COMPLEX Rx Instructions: TAKE 1 TABLET BY MOUTH EVERY DAY FOR HEART DISEASE lisinopril 20 mg tablet See Rx Instructions .ROUTE .COMPLEX Rx Instructions: TAKE 1 TABLET BY MOUTH EVERY DAY isosorbide mononitrate 30 mg tablet extended release 24 hr 30 mg PO DAILY omeprazole 40 mg capsule,delayed release(DR/EC) See Rx Instructions .ROUTE .COMPLEX Rx Instructions: TAKE 1 TABLET BY MOUTH DAILY citalopram 20 mg tablet See Rx Instructions .ROUTE .COMPLEX Rx Instructions: TAKE 1 TABLET BY MOUTH EVERY DAY tamsulosin 0.4 mg capsule See Rx Instructions .ROUTE .COMPLEX Rx Instructions: TAKE 1 CAPSULE BY MOUTH EVERY DAY lidocaine 5 % adhesive patch,medicated See Rx Instructions .ROUTE .COMPLEX Rx Instructions: APPLY 1 PATCH TOPICALLY TO MOST PAINFUL AREA DAILY. LEAVE ON FOR UP TO 12 HOURS cholecalciferol (vitamin D3) 50 mcg (2,000 unit) capsule 50 mcg PO DAILY Referrals Follow up/Referrals: Malvin Nguyen MD [Primary Care Provider] - See instructions Clinical Impressions Clinical Impression: Lumbar radicular pain Instructions Patient Instructions: DI for Acute Pain -- Adult Discharge ED Provider: Malvin Nguyen General Adult [facility] General Chief complaint: PAIN Stated complaint: back pain down R Leg Time Seen by Provider: 01/23/22 23:11 Mode of Arrival: Family Vehicle Source of Information: Patient and Medical Record Limitations: No Limitations Description of Symptoms (Recalled from ER Triage Doc. by RN): Pt c/o increase on chronic back pain. States he has been working harder and more than usual which is causing him to take more of his percocet 10mg. He reports it is ordered as every 8 hr but is needed to take them every 3 d/t the increase pain. Pt took 1 tab 3 hrs ago without good relief. He is also taking Gabapentin as perscribed without relief. States he is supposed to get an appt with pain management but missed their call because I had to work . History of Present Illness HPI narrative: pt with acute exacerbation of ongoing back pain which is daily and interferes with adl - pt is on chronic meds - pt with recent lumbar mri which was reviewed - Onset (ago): day(s) Location: back Radiation: extremity Severity: moderate Associated symptoms: denies other symptoms Treatments prior to arrival: other (pain med) Related Data Home Medications Medication Instructions Recorded Confirmed aspirin 81 mg tablet,delayed See Rx Instructions .Route 10/23/21 01/23/22 release .COMPLEX Blood thinner cholecalciferol (vitamin D3) 50 50 mcg PO DAILY supp 01/23/22 01/23/22 mcg (2,000 unit) capsule citalopram 20 mg tablet See Rx Instructions .Route 01/23/22 01/23/22 .COMPLEX Depression isosorbide mononitrate 30 mg 30 mg PO DAILY Chest pain 01/23/22 01/23/22 tablet,extended release 24 hr lidocaine 5 % topical patch See Rx Instructions .Route 01/23/22 01/23/22 .COMPLEX pain relief lisinopril 20 mg tablet See Rx Instructions .Route 01/23/22 01/23/22 .COMPLEX High blood pressure omeprazole 40 mg capsule,delayed See Rx Instructions .Route 01/23/22 01/23/22 release .COMPLEX GERD tamsulosin 0.4 mg capsule See Rx Instructions .Route 01/23/22 01/23/22 .COMPLEX overactive bladder Previous Rx's Medication Instructions Recorded ondansetron HCl 4 mg tablet 4 mg PO TIDP PRN Nausea #10 tabs 08/26/21 gabapentin 800 mg tablet
[2022-01-23 23:43] VITALS: BP 145/82; PULSE 78; RESP 18; TEMP 36.6; O2SAT 99
== END 2022-01-23 23:45 | disposition home or self-care (01) ==
PROVIDERS: Emergency Provider Emergency Medicine; PCP Emergency Medicine
DX: M54.16 Radiculopathy, lumbar region (principal); Z79.82 Long term (current) use of aspirin; Z79.899 Other long term (current) drug therapy; Z87.438 Personal history of other diseases of male genital organs; F32.A Depression, unspecified; K21.9 Gastro-esophageal reflux disease without esophagitis; Z88.6 Allergy status to analgesic agent; G47.33 Obstructive sleep apnea (adult) (pediatric); Z72.0 Tobacco use; M79.604 Pain in right leg
CPT/HCPCS: 96372; 96374; 99284

== ENCOUNTER → 2022-02-03 09:54 | Outpatient (POV) | payer MEDICAID, SELFPAY ==
--- NOTE | 2022-02-03 10:27 | EXP.PAIN.OV ---
HPI Data of Consult Patient: new to practice Consult date: 02/03/22 Requesting Physician: Zeina Stevenson APRN Primary Care Provider: Malvin Nguyen MD Consult Narrative Reason for consult: Low back pain, right leg pain History of present illness: Mr. Hoffmann is a 51 year old male who presents today as a new patient. He is a referral from Dr. Malvin Nguyen's office. Today the patient rates his pain a 9 out of 10 and states it is all in his low back that radiates into his right leg down to his foot. He states this is a throbbing sensation that is constant and worsens with increased activity. Patient denies any specific trauma or injury to the area. 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 Patient states he was a previous patient of ours years ago and he did have injective therapy that provided some improvement of his symptoms however over time they were not as effective. Patient also stated that he did have a stimulator that did help dull his pain sensations. Patient has tried [id number] Tylenol and ibuprofen with no improvement of his symptoms. He has also tried heat and ice with no relief of his symptoms. Patient states that he occasionally will use IcyHot's however he does not notice a significant difference. Patient also states he has seen physical therapy years ago and they provided no improvement of his symptoms but aggravated them. Patient is currently prescribed gabapentin 800 mg 3 times a day and Percocet 10 mg 3 times a day by Dr. Nguyen's office. Patient denies any side effects from these medications. He states these medications are adequately helping manage his pain. His Torres is [id number]. It has been reviewed and appropriate. CC: Zeina Stevenson APRN [facility] Medical History (Updated 02/03/22 @ 10:35 by Zeina Stevenson APRN) Daytime somnolence RABIA (obstructive sleep apnea) Social History (Updated 01/23/22 @ 23:21 by Malvin Nguyen MD) Smoking Status: Current every day smoker tobacco type: cigarettes packs per day: 2 alcohol intake: never substance use type: denies use current occupational status: employed Travel in the last 8 weeks: None household members: spouse and children housing: house current occupation: [employer] current occupational exposures/hazards: No caffeine: Yes Review of Systems Review of Systems Review of systems:: pertinent systems reviewed and negative unless documented below Review of systems (narrative): Review of Systems: General: No recent weight changes, no fever, no sleep disturbances Respiratory: No cough, no shortness of air, no recurring pulmonary infections Cardiovascular/peripheral vascular: No chest pain, no palpitations, no edema, no shortness of breath Gastrointestinal: No new onset incontinence, normal bowel movements reported Genitourinary: No new onset incontinence Musculoskeletal: Low back pain, right leg pain Psychiatric: [Normal mood/affect] Neurological: [Denies weakness in extremities], [denies balance issues] Meds Home Medications and Allergies Home Medications Medication Instructions Recorded Confirmed Type ondansetron HCl 4 mg tablet 4 mg PO TIDP PRN Nausea #10 tabs 08/26/21 01/23/22 Rx aspirin 81 mg tablet,delayed See Rx Instructions .Route 10/23/21 01/23/22 History release .COMPLEX Blood thinner gabapentin 800 mg tablet 800 mg PO TID Pain #90 tabs 12/22/21 01/23/22 Rx oxycodone-acetaminophen 10 mg-325 1 tab PO TID PRN pain #90 tabs 12/22/21 01/23/22 Rx mg tablet (Percocet) cholecalciferol (vitamin D3) 50 50 mcg PO DAILY supp 01/23/22 01/23/22 History mcg (2,000 unit) capsule citalopram 20 mg tablet See Rx Instructions .Route 01/23/22 01/23/22 History .COMPLEX Depression isosorbide mononitrate 30 mg 30 mg PO DAILY Chest pain 01/23/22 01/23/22 History tablet,extended release 24 hr lidocaine 5 % topical patch See Rx Instructions .Route
[2022-02-03 10:52] VITALS: BP 144/86; PULSE 106; RESP 18; TEMP 36.1; O2SAT 96; BMI 25.6
== END ==
PROVIDERS: PCP Emergency Medicine; Visit Provider Nurse Practitioner Family
DX: M51.16 Intervertebral disc disorders with radiculopathy, lumbar region (principal); M48.061 Spinal stenosis, lumbar region without neurogenic claudication; M47.26 Other spondylosis with radiculopathy, lumbar region
CPT/HCPCS: 99202; G0463

== ENCOUNTER 2022-02-12 21:48 | Emergency (ER) | payer MEDICAID, SELFPAY ==
--- NOTE | 2022-02-12 21:43 | ECG_ITS ---
APPROVED REPORT Exam: Resting ECG HR:97 bpm ECG Measurements Heart Rate 97 AXES PA 136 P -5 QRSd 103 QRS 87 QT 321 T 48 QTc 376 Conclusion SINUS RHYTHM NORMAL ECG INTERPRETATION BASED ON A DEFAULT AGE OF 40 YEARS UNCONFIRMED REPORT Electronically signed by : Christoph Bonilla MD 02/13/2022 09:50:08
[2022-02-12 21:49] VITALS: BP 157/85; PULSE 98; RESP 22; TEMP 39.4; O2SAT 100; BMI 25.6
--- NOTE | 2022-02-12 21:52 | XR_ITS ---
PROCEDURE INFORMATION: Exam: XR Chest Exam date and time: 02/12/2022 9:54 PM Age: 51 years old Clinical indication: Pain; Chest pressure; Additional info: Cp TECHNIQUE: Imaging protocol: Radiologic exam of the chest. Views: 2 views. COMPARISON: CR XR CHEST 2V 10/26/2020 5:34 PM FINDINGS: Lungs: Mild interstitial coarsening which is unchanged. No lobar consolidation. Pleural spaces: No pneumothorax. Heart/Mediastinum: No cardiomegaly. Bones/joints: No acute fracture. IMPRESSION: No acute findings.
[2022-02-12 22:19] LABS: Basophils % 0.5 % (0.1-2.0); Eosinophils # 0.1 K/mm3 (0.0-0.4); Eosinophils % 1.3 % (0.1-12.0); Hematocrit 37.6 % (42.0-52.0); Hemoglobin 12.6 g/dL (14.1-18.0); Lymphocytes # 0.2 K/mm3 (0.7-4.5); Lymphocytes % 4.6 % (10-50); Mean Corpuscular HGB Conc 33.6 g/dL (31.8-35.4); Mean Corpuscular Hemoglobin 30.3 pg (27.0-31.2); Mean Corpuscular Volume 90.2 fl (80-94); Mean Platelet Volume 7.2 fl (7.4-10.4); Monocytes # 0.3 K/mm3 (0.1-1.0); Monocytes % 6.2 % (1.7-9.3); Neutrophils # 4.3 K/mm3 (1.8-7.8); Neutrophils % 87.3 % (37.0-80.0); Platelet Count 171 K/mm3 (142-424); Red Blood Count 4.16 M/mm3 (4.60-6.20); Red Cell Distribution Width 13.2 % (11.5-17.5)
[2022-02-12 22:21] LABS: MANUAL DIFFERENTIAL MANUAL DIFFERENTIAL (MANUAL DIFF)
[2022-02-12 22:30] VITALS: BP 131/75; PULSE 98; O2SAT 95
[2022-02-12 22:34] LABS: Anion Gap 12.2 mEq/L (5-15); Blood Urea Nitrogen 14 mg/dl (9-20); Calcium 8.2 mg/dl (8.4-10.2); Carbon Dioxide 29 mmol/L (22.0-30.0); Chloride 99 mmol/L (98-107); Creatinine Clearance Estimated 118 mL/min (50-200); Estimated Glomerular Filt Rate 89 ml/min (>60); GFR (African American) 108 ML/MIN (>60); Glucose 83 mg/dl (74-100); Potassium 4.2 mmoL/L (3.5-5.1); Sodium 136 mmol/L (136-145)
[2022-02-12 22:36] LABS: Lymphocytes % 6 % (10-50); Monocytes % 3 % (2-9); Neutrophils % 81 % (42-76); Platelet Estimate Normal; RBC Morphology Normal; Total Cells Counted 100
--- NOTE | 2022-02-12 22:40 | HMH.EDCP ---
Discharge Plan Disposition Patient Disposition: Home, Self-Care Chief Complaint: Chest Pain Prescriptions Prescriptions: No Action gabapentin 800 mg tablet 800 mg PO TID Qty: 90 1RF oxycodone-acetaminophen [Percocet] 10-325 mg tablet 1 tab PO TID PRN (Reason: pain) Qty: 90 0RF ondansetron HCl 4 MG tablet 4 mg PO TIDP PRN (Reason: Nausea) Qty: 10 0RF aspirin 81 MG tablet,delayed release (DR/EC) See Rx Instructions .Route .COMPLEX Rx Instructions: TAKE 1 TABLET BY MOUTH EVERY DAY FOR HEART DISEASE lisinopril 20 mg tablet See Rx Instructions .ROUTE .COMPLEX Rx Instructions: TAKE 1 TABLET BY MOUTH EVERY DAY isosorbide mononitrate 30 mg tablet extended release 24 hr 30 mg PO DAILY omeprazole 40 mg capsule,delayed release(DR/EC) See Rx Instructions .ROUTE .COMPLEX Rx Instructions: TAKE 1 TABLET BY MOUTH DAILY citalopram 20 mg tablet See Rx Instructions .ROUTE .COMPLEX Rx Instructions: TAKE 1 TABLET BY MOUTH EVERY DAY tamsulosin 0.4 mg capsule See Rx Instructions .ROUTE .COMPLEX Rx Instructions: TAKE 1 CAPSULE BY MOUTH EVERY DAY lidocaine 5 % adhesive patch,medicated See Rx Instructions .ROUTE .COMPLEX Rx Instructions: APPLY 1 PATCH TOPICALLY TO MOST PAINFUL AREA DAILY. LEAVE ON FOR UP TO 12 HOURS cholecalciferol (vitamin D3) 50 mcg (2,000 unit) capsule 50 mcg PO DAILY prednisone [prednisone] 20 mg tablet 20 mg PO BID Referrals Follow up/Referrals: Malvin Nguyen MD [Primary Care Provider] - See instructions Clinical Impressions Clinical Impression: COVID-19 Instructions Patient Instructions: DI for COVID-19 (Suspected or Confirmed ) Discharge ED Provider: Malvin Nguyen Chest Pain HPI General Chief Complaint: Chest Pain Stated Complaint: CP Time Seen by Provider: 02/12/22 22:41 Mode of Arrival: Ambulatory Source of Information: Patient and Medical Record Limitations: No Limitations Description of Symptoms (Recalled from ER Triage Doc. by RN): pt c/o midsternal chest pain that raidates to back and down lt arm since this morning @ 9:30 History of Present Illness HPI narrative: chest pain assoc with fever since this am complaint: chest pain Onset (ago): hour(s) EDENILSON Score for Non-Stemi Age of Patient: 50-59 years old Heart Rate: 70-89 bpm Systolic Blood Pressure: 100-119 mmHg Serum Creatinine: 0.80-1.19 mg/dl CHF [place] Class: I-No CHF Other Risk Factors: None Non-Stemi Risk Score: 100 Related Data Home Medications Medication Instructions Recorded Confirmed aspirin 81 mg tablet,delayed See Rx Instructions .Route 10/23/21 02/03/22 release .COMPLEX Blood thinner cholecalciferol (vitamin D3) 50 50 mcg PO DAILY supp 01/23/22 02/03/22 mcg (2,000 unit) capsule citalopram 20 mg tablet See Rx Instructions .Route 01/23/22 02/03/22 .COMPLEX Depression isosorbide mononitrate 30 mg 30 mg PO DAILY Chest pain 01/23/22 02/03/22 tablet,extended release 24 hr lidocaine 5 % topical patch See Rx Instructions .Route 01/23/22 02/03/22 .COMPLEX pain relief lisinopril 20 mg tablet See Rx Instructions .Route 01/23/22 02/03/22 .COMPLEX High blood pressure omeprazole 40 mg capsule,delayed See Rx Instructions .Route 01/23/22 02/03/22 release .COMPLEX GERD tamsulosin 0.4 mg capsule See Rx Instructions .Route 01/23/22 02/03/22 .COMPLEX overactive bladder prednisone 20 mg tablet 20 mg PO BID Pain 02/03/22 02/03/22 Previous Rx's Medication Instructions Recorded ondansetron HCl 4 mg tablet 4 mg PO TIDP PRN Nausea #10 tabs 08/26/21 gabapentin 800 mg tablet 800 mg PO TID Pain #90 tabs 12/22/21 oxycodone-acetaminophen 10 mg-325 1 tab PO TID PRN pain #90 tabs 12/22/21 mg tablet (Percocet) Allergies Allergy/AdvReac Type Severity Reaction Status Date / Time codeine [CODEINE] Allergy Mild Verified 12/22/21 13:15 meloxicam [From MOBIC] Allergy Mild Verified 12/22/21 13:15 ibu
[2022-02-12 22:50] LABS: Troponin I < 0.01 ng/ml (0.00-0.034)
[2022-02-12 22:56] LABS: Alanine Aminotransferase 12 U/L (12-78); Albumin Level 3.7 g/dl (3.5-5.0); Alkaline Phosphatase 72 U/L (38-126); Aspartate Amino Transferase 21 U/L (17-59); Total Protein,Serum 5.8 g/dl (6.3-8.2)
[2022-02-12 22:57] LABS: Lactic Acid 1.7 mmol/L (0.7-2.1)
[2022-02-12 22:59] LABS: Bilirubin,Total < 0.1 mg/dl (0.2-1.3)
[2022-02-12 23:00] VITALS: BP 129/73; PULSE 93; O2SAT 95
[2022-02-12 23:23] LABS: Bilirubin,Direct < 0.1 mg/dl (0.0-0.4)
[2022-02-12 23:30] VITALS: BP 111/76; PULSE 99; O2SAT 95
[2022-02-12 23:38] VITALS: BP 106/71; PULSE 94; O2SAT 100
[2022-02-13 00:30] VITALS: BP 123/76; PULSE 92; O2SAT 100
[2022-02-13 00:54] VITALS: TEMP 38.2
--- NOTE | 2022-02-13 00:59 | PC.NURSE ---
Covid swab and UA collected and sent to lab
[2022-02-13 01:08] LABS: Microscopic, Urine URINE MICROSCOPIC (MICROSCOPIC)
[2022-02-13 01:12] LABS: Appearance,Urine CLEAR (Clear); Bilirubin,Urine Negative (Negative); Blood, Urine Negative (Negative); Color,Urine YELLOW (Yellow); Glucose,Urine (UA) Negative (Negative); Ketones,Urine Negative (Negative); Leukocyte Esterase,Urine Negative (Negative); Nitrate,Urine Negative (Negative); Protein,Urine Negative (Negative)
[2022-02-13 01:16] LABS: Amorphous Sediment,Urine Trace /lpf
[2022-02-13 01:18] LABS: Influenza A, PCR Not Detected (NotDetected); Influenza B, PCR Not Detected (NotDetected)
[2022-02-13 01:46] LABS: Coronavirus 19, PCR Detected (NotDetected)
--- NOTE | 2022-02-13 01:59 | PC.NURSE ---
notified of positive covid result
[2022-02-13 02:09] VITALS: BP 121/71; PULSE 88; RESP 18; TEMP 37.5; O2SAT 99
== END 2022-02-13 02:12 | disposition home or self-care (01) ==
PROVIDERS: Emergency Provider Emergency Medicine; PCP Emergency Medicine
DX: U07.1 COVID-19 (principal); F17.210 Nicotine dependence, cigarettes, uncomplicated; R07.9 Chest pain, unspecified
CPT/HCPCS: 71046; 80048; 80076; 81001; 83605; 84484; 85007; 85025; 87040; 93005; 96374; C9803; U0003; U0005

== ENCOUNTER → 2022-02-19 07:18 | Outpatient (CLI) | payer MEDICAID, SELFPAY ==
[2022-02-19 19:01] LABS: Amphetamine/Metha Screen,Urine Negative ng/ml (<1000)
[2022-02-19 19:02] LABS: Barbiturates Screen,Urine Negative ng/ml (<200)
[2022-02-19 19:03] LABS: Benzodiazepines Screen,Urine Negative ng/ml (<200); Cannabinoid Screen,Urine Negative ng/ml (<50)
[2022-02-19 19:04] LABS: Cocaine Screen,Urine Negative ng/ml (<300); Methadone Screen,Urine Negative ng/ml (<300)
[2022-02-19 19:05] LABS: Opiate Screen,Urine Negative ng/ml (<300)
[2022-02-19 19:06] LABS: Phencyclidine Screen,Urine Negative ng/ml (<25)
== END ==
PROVIDERS: PCP Emergency Medicine; Visit Provider Emergency Medicine
DX: Z79.899 Other long term (current) drug therapy (principal)
CPT/HCPCS: 80305

== ENCOUNTER 2022-02-24 19:11 | Emergency (ER) | payer MEDICAID, SELFPAY ==
--- NOTE | 2022-02-24 19:27 | EXP.UTC ---
Discharge Plan Disposition Patient Disposition: Home, Self-Care Prescriptions Prescriptions: New prednisone [prednisone] 20 mg tablet 20 mg PO BID Qty: 10 0RF cephalexin [cephalexin] 500 mg capsule 500 mg PO TID Qty: 30 0RF No Action prednisone 20 mg tablet See Rx Instructions .Route .COMPLEX Qty: 20 0RF Rx Instructions: Take 1 tablet twice daily albuterol sulfate [Ventolin HFA] 90 mcg/actuation HFA aerosol inhaler 2 puff inhalation Q4-6H PRN (Reason: shortness of breath or wheezing) Qty: 8.5 2RF ipratropium-albuterol 0.5 mg-3 mg(2.5 mg base)/3 mL solution for nebulization 3 ml inhalation QID PRN (Reason: shortness of breath or wheezing) Qty: 180 0RF gabapentin 800 mg tablet 800 mg PO TID Qty: 90 1RF oxycodone-acetaminophen [Percocet] 10-325 mg tablet 1 tab PO TID PRN (Reason: pain) Qty: 90 0RF aspirin 81 mg tablet,delayed release (DR/EC) 81 mg PO DAILY Qty: 90 3RF tamsulosin 0.4 mg capsule See Rx Instructions .ROUTE .COMPLEX Qty: 30 2RF Dose Instruction: TAKE 1 CAPSULE BY MOUTH EVERY DAY Rx Instructions: TAKE 1 CAPSULE BY MOUTH EVERY DAY citalopram 20 mg tablet See Rx Instructions .ROUTE .COMPLEX Qty: 30 2RF Dose Instruction: TAKE 1 TABLET BY MOUTH EVERY DAY Rx Instructions: TAKE 1 TABLET BY MOUTH EVERY DAY ondansetron HCl 4 MG tablet 4 mg PO TIDP PRN (Reason: Nausea) Qty: 10 0RF lisinopril 20 mg tablet See Rx Instructions .ROUTE .COMPLEX Rx Instructions: TAKE 1 TABLET BY MOUTH EVERY DAY isosorbide mononitrate 30 mg tablet extended release 24 hr 30 mg PO DAILY omeprazole 40 mg capsule,delayed release(DR/EC) See Rx Instructions .ROUTE .COMPLEX Rx Instructions: TAKE 1 TABLET BY MOUTH DAILY lidocaine 5 % adhesive patch,medicated See Rx Instructions .ROUTE .COMPLEX Rx Instructions: APPLY 1 PATCH TOPICALLY TO MOST PAINFUL AREA DAILY. LEAVE ON FOR UP TO 12 HOURS cholecalciferol (vitamin D3) 50 mcg (2,000 unit) capsule 50 mcg PO DAILY Referrals Follow up/Referrals: Malvin Nguyen MD [Primary Care Provider] - See instructions Clinical Impressions Clinical Impression: Pharyngitis Instructions Patient Instructions: Sore Throat Discharge ED Provider: Bernardo De La Cruz [facility] [place] HPI General Chief complaint: Weakness Stated complaint: sore throat, lightheaded Time Seen by Provider: 02/24/22 19:27 History of Present Illness Provider Complaint: HE states that since earlier today he has had dizziness, light headedness, trouble getting some words to come out and a head ache. Related Data Home Medications Medication Instructions Recorded Confirmed cholecalciferol (vitamin D3) 50 50 mcg PO DAILY supp 01/23/22 02/19/22 mcg (2,000 unit) capsule isosorbide mononitrate 30 mg 30 mg PO DAILY Chest pain 01/23/22 02/19/22 tablet,extended release 24 hr lidocaine 5 % topical patch See Rx Instructions .Route 01/23/22 02/19/22 .COMPLEX pain relief lisinopril 20 mg tablet See Rx Instructions .Route 01/23/22 02/19/22 .COMPLEX High blood pressure omeprazole 40 mg capsule,delayed See Rx Instructions .Route 01/23/22 02/19/22 release .COMPLEX GERD Previous Rx's Medication Instructions Recorded ondansetron HCl 4 mg tablet 4 mg PO TIDP PRN Nausea #10 tabs 08/26/21 aspirin 81 mg tablet,delayed 81 mg PO DAILY Blood thinner #90 02/15/22 release tabs citalopram 20 mg tablet See Rx Instructions .Route 02/15/22 .COMPLEX #30 tabs tamsulosin 0.4 mg capsule See Rx Instructions .Route 02/15/22 .COMPLEX #30 caps albuterol sulfate 90 mcg/actuation 2 puff inhalation Q4-6H PRN 02/19/22 aerosol inhaler (Ventolin HFA) shortness of breath or wheezing #8.5 grams gabapentin 800 mg tablet 800 mg PO TID Pain #90 tabs 02/19/22 ipratropium 0.5 mg-albuterol 3 mg 3 ml inhalation QID PRN shortness 02/19/22 (2.5 mg base)/3 mL nebulization of breath or wheezing #180 mL soln oxycodone-maurisio
[2022-02-24 19:36] VITALS: BP 115/77; PULSE 96; RESP 18; TEMP 37.4; O2SAT 95; BMI 25.6
--- NOTE | 2022-02-24 20:22 | PC.NURSE ---
Pt sent to ED for further eval
[2022-02-24 20:50] VITALS: BP 115/77; PULSE 94; RESP 16; TEMP 37.4; O2SAT 97; BMI 25.6
[2022-02-24 21:12] LABS: Microscopic, Urine URINE MICROSCOPIC (MICROSCOPIC)
[2022-02-24 21:14] LABS: Basophils % 0.3 % (0.1-2.0); Eosinophils # 0.1 K/mm3 (0.0-0.4); Eosinophils % 0.4 % (0.1-12.0); Hemoglobin 12.8 g/dL (14.1-18.0); Lymphocytes # 0.8 K/mm3 (0.7-4.5); Lymphocytes % 6.2 % (10-50); Mean Corpuscular HGB Conc 33.8 g/dL (31.8-35.4); Mean Corpuscular Hemoglobin 30.2 pg (27.0-31.2); Mean Corpuscular Volume 89.5 fl (80-94); Mean Platelet Volume 7.5 fl (7.4-10.4); Monocytes # 0.5 K/mm3 (0.1-1.0); Monocytes % 4.2 % (1.7-9.3); Neutrophils # 11.4 K/mm3 (1.8-7.8); Neutrophils % 88.8 % (37.0-80.0); Platelet Count 367 K/mm3 (142-424); Red Blood Count 4.24 M/mm3 (4.60-6.20); Red Cell Distribution Width 13.5 % (11.5-17.5); White Blood Count 12.9 K/mm3 (4.8-10.8)
[2022-02-24 21:14] LABS: Appearance,Urine CLEAR (Clear); Bilirubin,Urine Negative (Negative); Blood, Urine Negative (Negative); Color,Urine YELLOW (Yellow); Glucose,Urine (UA) Negative (Negative); Ketones,Urine Negative (Negative); Leukocyte Esterase,Urine Negative (Negative); Nitrate,Urine Negative (Negative); PH,Urine 7.5 (5.0-8.5); Protein,Urine Negative (Negative)
[2022-02-24 21:15] LABS: Chloride 95 mmol/L (98-107); Potassium 4.3 mmoL/L (3.5-5.1); Sodium 138 mmol/L (136-145)
[2022-02-24 21:16] LABS: MANUAL DIFFERENTIAL MANUAL DIFFERENTIAL (MANUAL DIFF)
[2022-02-24 21:17] LABS: Blood Urea Nitrogen 14 mg/dl (9-20); Creatinine Clearance Estimated 151 mL/min (50-200); Estimated Glomerular Filt Rate 119 ml/min (>60); GFR (African American) 144 ML/MIN (>60)
[2022-02-24 21:18] LABS: Alanine Aminotransferase 25 U/L (12-78); Albumin/Globulin Ratio 1.6 (1.1-1.8); Alkaline Phosphatase 87 U/L (38-126); Anion Gap 11.3 mEq/L (5-15); Aspartate Amino Transferase 29 U/L (17-59); Bilirubin,Total 0.2 mg/dl (0.2-1.3); Calcium 8.3 mg/dl (8.4-10.2); Carbon Dioxide 36 mmol/L (22.0-30.0); Globulin 2.5 g/dL (1.3-3.2); Glucose 103 mg/dl (74-100); Total Protein,Serum 6.5 g/dl (6.3-8.2)
[2022-02-24 21:21] LABS: Strep Scrn Group A (Rapid) Negative (Negative)
[2022-02-24 21:24] LABS: Bacteria,Urine Trace /lpf; Squamous Epithelial Cell,Urine Occasional #/hpf (0-5)
[2022-02-24 21:26] LABS: Benzodiazepines Screen,Urine Negative ng/ml (<200)
[2022-02-24 21:27] LABS: Amphetamine/Metha Screen,Urine Negative ng/ml (<1000)
[2022-02-24 21:28] LABS: Barbiturates Screen,Urine Negative ng/ml (<200); Cannabinoid Screen,Urine Negative ng/ml (<50)
[2022-02-24 21:29] LABS: Cocaine Screen,Urine Negative ng/ml (<300); Methadone Screen,Urine Negative ng/ml (<300)
[2022-02-24 21:30] LABS: Opiate Screen,Urine Negative ng/ml (<300)
[2022-02-24 21:31] LABS: Phencyclidine Screen,Urine Negative ng/ml (<25)
[2022-02-24 21:32] LABS: Troponin I < 0.01 ng/ml (0.00-0.034)
[2022-02-24 21:52] LABS: Eosinophils % 1 % (0-3); Lymphocytes % 12 % (10-50); Monocytes % 2 % (2-9); Neutrophils % 85 % (42-76); Platelet Estimate Normal; Stomatocytes 1+; Total Cells Counted 100
[2022-02-24 22:01] VITALS: BP 143/95; PULSE 84; O2SAT 95
[2022-02-24 22:31] VITALS: BP 131/89; PULSE 82; O2SAT 95
[2022-02-24 23:00] VITALS: BP 149/101; PULSE 69; O2SAT 96
--- NOTE | 2022-02-24 23:33 | HMH.EDWEAK ---
Discharge Plan Disposition Patient Disposition: Home, Self-Care Prescriptions Prescriptions: New prednisone [prednisone] 20 mg tablet 20 mg PO BID Qty: 10 0RF cephalexin [cephalexin] 500 mg capsule 500 mg PO TID Qty: 30 0RF No Action prednisone 20 mg tablet See Rx Instructions .Route .COMPLEX Qty: 20 0RF Rx Instructions: Take 1 tablet twice daily albuterol sulfate [Ventolin HFA] 90 mcg/actuation HFA aerosol inhaler 2 puff inhalation Q4-6H PRN (Reason: shortness of breath or wheezing) Qty: 8.5 2RF ipratropium-albuterol 0.5 mg-3 mg(2.5 mg base)/3 mL solution for nebulization 3 ml inhalation QID PRN (Reason: shortness of breath or wheezing) Qty: 180 0RF gabapentin 800 mg tablet 800 mg PO TID Qty: 90 1RF oxycodone-acetaminophen [Percocet] 10-325 mg tablet 1 tab PO TID PRN (Reason: pain) Qty: 90 0RF aspirin 81 mg tablet,delayed release (DR/EC) 81 mg PO DAILY Qty: 90 3RF tamsulosin 0.4 mg capsule See Rx Instructions .ROUTE .COMPLEX Qty: 30 2RF Dose Instruction: TAKE 1 CAPSULE BY MOUTH EVERY DAY Rx Instructions: TAKE 1 CAPSULE BY MOUTH EVERY DAY citalopram 20 mg tablet See Rx Instructions .ROUTE .COMPLEX Qty: 30 2RF Dose Instruction: TAKE 1 TABLET BY MOUTH EVERY DAY Rx Instructions: TAKE 1 TABLET BY MOUTH EVERY DAY ondansetron HCl 4 MG tablet 4 mg PO TIDP PRN (Reason: Nausea) Qty: 10 0RF lisinopril 20 mg tablet See Rx Instructions .ROUTE .COMPLEX Rx Instructions: TAKE 1 TABLET BY MOUTH EVERY DAY isosorbide mononitrate 30 mg tablet extended release 24 hr 30 mg PO DAILY omeprazole 40 mg capsule,delayed release(DR/EC) See Rx Instructions .ROUTE .COMPLEX Rx Instructions: TAKE 1 TABLET BY MOUTH DAILY lidocaine 5 % adhesive patch,medicated See Rx Instructions .ROUTE .COMPLEX Rx Instructions: APPLY 1 PATCH TOPICALLY TO MOST PAINFUL AREA DAILY. LEAVE ON FOR UP TO 12 HOURS cholecalciferol (vitamin D3) 50 mcg (2,000 unit) capsule 50 mcg PO DAILY Referrals Follow up/Referrals: Malvin Nguyen MD [Primary Care Provider] - See instructions Clinical Impressions Clinical Impression: Pharyngitis Instructions Patient Instructions: Sore Throat Discharge ED Provider: Bernardo De La Cruz Weakness HPI General Chief complaint: Weakness Stated complaint: sore throat, lightheaded Time Seen by Provider: 02/24/22 19:27 Mode of Arrival: Ambulatory Source of Information: Patient and Medical Record Limitations: No Limitations Description of Symptoms (Recalled from ER Triage Doc. by RN): pt reports weakness and light headedness and sore throat History of Present Illness HPI Narrative: progressive sore throat wirh feeling weakness - no rash or cough MD Complaint: generalized weakness Onset (ago): hour(s) Duration: intermittent Location: generalized Migration: none Severity: moderate Associated symptoms: denies other symptoms Related Data Home Medications Medication Instructions Recorded Confirmed cholecalciferol (vitamin D3) 50 50 mcg PO DAILY supp 01/23/22 02/19/22 mcg (2,000 unit) capsule isosorbide mononitrate 30 mg 30 mg PO DAILY Chest pain 01/23/22 02/19/22 tablet,extended release 24 hr lidocaine 5 % topical patch See Rx Instructions .Route 01/23/22 02/19/22 .COMPLEX pain relief lisinopril 20 mg tablet See Rx Instructions .Route 01/23/22 02/19/22 .COMPLEX High blood pressure omeprazole 40 mg capsule,delayed See Rx Instructions .Route 01/23/22 02/19/22 release .COMPLEX GERD Previous Rx's Medication Instructions Recorded ondansetron HCl 4 mg tablet 4 mg PO TIDP PRN Nausea #10 tabs 08/26/21 aspirin 81 mg tablet,delayed 81 mg PO DAILY Blood thinner #90 02/15/22 release tabs citalopram 20 mg tablet See Rx Instructions .Route 02/15/22 .COMPLEX #30 tabs tamsulosin 0.4 mg capsule See Rx Instructions .Route 02/15/22 .COMPLEX #30 caps albuterol sulfate 90 mcg/actua
[2022-02-25 00:07] VITALS: BP 131/81; PULSE 86; RESP 18; TEMP 37.2; O2SAT 96
== END 2022-02-24 23:50 | disposition home or self-care (01) ==
LOC: UTC 19:24 → ER 20:18
PROVIDERS: Emergency Provider Nurse Practitioner Family; PCP Emergency Medicine
DX: J02.9 Acute pharyngitis, unspecified (principal); Z79.899 Other long term (current) drug therapy; Z88.6 Allergy status to analgesic agent; Z88.8 Allergy status to other drugs, medicaments and biological substances; I25.10 Atherosclerotic heart disease of native coronary artery without angina pectoris; G47.33 Obstructive sleep apnea (adult) (pediatric); E78.5 Hyperlipidemia, unspecified; I10 Essential (primary) hypertension; Z95.5 Presence of coronary angioplasty implant and graft; Z72.0 Tobacco use
CPT/HCPCS: 80053; 80305; 81001; 84484; 85007; 85025; 87430; 96365; 96366; 96367; 96375; 99284; J0696

== ENCOUNTER → 2022-04-19 14:45 | Outpatient (CLI) | payer MEDICAID, SELFPAY ==
[2022-04-19 20:33] LABS: Amphetamine/Metha Screen,Urine Negative ng/ml (<1000)
[2022-04-19 20:34] LABS: Barbiturates Screen,Urine Negative ng/ml (<200); Benzodiazepines Screen,Urine Negative ng/ml (<200)
[2022-04-19 20:36] LABS: Cannabinoid Screen,Urine Negative ng/ml (<50); Cocaine Screen,Urine Negative ng/ml (<300)
[2022-04-19 20:37] LABS: Methadone Screen,Urine Negative ng/ml (<300); Opiate Screen,Urine Negative ng/ml (<300)
[2022-04-19 20:38] LABS: Phencyclidine Screen,Urine Negative ng/ml (<25)
== END ==
PROVIDERS: PCP Emergency Medicine; Visit Provider Emergency Medicine
DX: Z79.899 Other long term (current) drug therapy (principal)
CPT/HCPCS: 80305

== ENCOUNTER → 2022-06-16 14:40 | Outpatient (CLI) | payer MEDICAID, SELFPAY ==
[2022-06-16 20:01] LABS: Amphetamine/Metha Screen,Urine Negative ng/ml (<1000)
[2022-06-16 20:05] LABS: Barbiturates Screen,Urine Negative ng/ml (<200); Benzodiazepines Screen,Urine Negative ng/ml (<200)
[2022-06-16 20:06] LABS: Cannabinoid Screen,Urine Negative ng/ml (<50); Cocaine Screen,Urine Negative ng/ml (<300)
[2022-06-16 20:07] LABS: Methadone Screen,Urine Negative ng/ml (<300)
[2022-06-16 20:08] LABS: Opiate Screen,Urine Positive ng/ml (<300); Phencyclidine Screen,Urine Negative ng/ml (<25)
== END ==
PROVIDERS: PCP Emergency Medicine; Visit Provider Emergency Medicine
DX: Z79.899 Other long term (current) drug therapy (principal)
CPT/HCPCS: 80305

== ENCOUNTER 2022-07-12 22:43 | Emergency (ER) | payer MEDICAID, SELFPAY ==
[2022-07-12 22:45] VITALS: BP 129/92; RESP 18; TEMP 37.1; O2SAT 100; BMI 25.6
[2022-07-12 22:55] VITALS: BMI 24.9
--- NOTE | 2022-07-12 22:55 | CT_ITS ---
PROCEDURE INFORMATION: Exam: CT Abdomen And Pelvis With Contrast Exam date and time: 07/12/2022 11:28 PM Age: 52 years old Clinical indication: Injury or trauma; Puncture; Foreign body involvement not specified; Abdominal wall; Injury details: PT states nail gun accident, pulled nail out of abdomen above belly button. C/O abd pain. Prior surgery; Surgery type: Cholecystectomy; Additional info: Nail in abd TECHNIQUE: Imaging protocol: Computed tomography of the abdomen and pelvis with contrast. Radiation optimization: All CT scans at this facility use at least one of these dose optimization techniques: automated exposure control; mA and/or kV adjustment per patient size (includes targeted exams where dose is matched to clinical indication); or iterative reconstruction. Contrast material: ISOVUE; Contrast volume: 75 ml; Contrast route: IV; Other protocol: This patient has received 3 known CTs and 0 known cardiac nuclear medicine studies in the 12 months prior to the current study. COMPARISON: ABDPELW CT abdomen pelvis w con 05/30/2018 2:38 PM FINDINGS: Liver: Normal. No mass. Gallbladder and bile ducts: The gallbladder is surgically absent. Pancreas: Normal. No ductal dilation. Spleen: Normal. No splenomegaly. Adrenal glands: Normal. No mass. Kidneys and ureters: Normal. No hydronephrosis. Stomach and bowel: Unremarkable. No obstruction. No mucosal thickening. Appendix: No evidence of appendicitis. Intraperitoneal space: Unremarkable. No free air. No significant fluid collection. Vasculature: Mild scattered atherosclerotic calcification is present. No evidence of aortic aneurysm or dissection. Lymph nodes: Unremarkable. No enlarged lymph nodes. Urinary bladder: Unremarkable as visualized. Reproductive: Unremarkable as visualized. Bones/joints: Moderate degenerative changes are noted throughout the lower spine. No acute fracture evident. Soft tissues: Unremarkable. IMPRESSION: No acute abnormality evident in the abdomen or pelvis. Chronic osseous and atherosclerotic changes noted.
[2022-07-12 23:00] VITALS: BP 121/88; PULSE 77; O2SAT 97
[2022-07-12 23:03] LABS: Basophils # 0.1 K/mm3 (0-0.2); Basophils % 1.2 % (0.1-2.0); Eosinophils # 0.4 K/mm3 (0.0-0.4); Hematocrit 40.6 % (42.0-52.0); Hemoglobin 13.3 g/dL (14.1-18.0); Mean Corpuscular HGB Conc 32.9 g/dL (31.8-35.4); Mean Corpuscular Volume 91.4 fl (80-94); Mean Platelet Volume 7.2 fl (7.4-10.4); Monocytes # 0.4 K/mm3 (0.1-1.0); Monocytes % 4.1 % (1.7-9.3); Neutrophils # 7.6 K/mm3 (1.8-7.8); Neutrophils % 71.6 % (37.0-80.0); Platelet Count 262 K/mm3 (142-424); Red Blood Count 4.44 M/mm3 (4.60-6.20); Red Cell Distribution Width 13.2 % (11.5-17.5); White Blood Count 10.7 K/mm3 (4.8-10.8)
[2022-07-12 23:08] LABS: Chloride 105 mmol/L (98-107); Potassium 4.1 mmoL/L (3.5-5.1); Sodium 137 mmol/L (136-145)
[2022-07-12 23:11] LABS: Alanine Aminotransferase 16 U/L (12-78); Albumin/Globulin Ratio 1.7 (1.1-1.8); Alkaline Phosphatase 62 U/L (38-126); Anion Gap 7.1 mEq/L (5-15); Aspartate Amino Transferase 24 U/L (17-59); Blood Urea Nitrogen 13 mg/dl (9-20); Carbon Dioxide 29 mmol/L (22.0-30.0); Creatinine Clearance Estimated 131 mL/min (50-200); Estimated Glomerular Filt Rate 102 ml/min (>60); GFR (African American) 123 ML/MIN (>60); Globulin 2.3 g/dL (1.3-3.2); Total Protein,Serum 6.3 g/dl (6.3-8.2)
[2022-07-12 23:12] LABS: Bilirubin,Total 0.1 mg/dl (0.2-1.3); Calcium 8.2 mg/dl (8.4-10.2); Glucose 106 mg/dl (74-100)
--- NOTE | 2022-07-12 23:22 | PC.NURSE ---
pt out of room to CT @ this time.
--- NOTE | 2022-07-12 23:23 | HMH.EDWNDL ---
Discharge Plan Disposition Patient Disposition: Home, Self-Care Prescriptions Prescriptions: New sulfamethoxazole-trimethoprim [Bactrim DS] 800-160 mg Tablet 1 tab PO Q12H Qty: 14 0RF cephalexin [cephalexin] 500 mg capsule 500 mg PO TID Qty: 30 0RF No Action albuterol sulfate [Ventolin HFA] 90 mcg/actuation HFA aerosol inhaler 2 puff inhalation Q4-6H PRN (Reason: shortness of breath or wheezing) Qty: 8.5 2RF gabapentin 800 mg tablet 800 mg PO TID Qty: 90 1RF oxycodone-acetaminophen [Percocet] 10-325 mg tablet 1 tab PO TID PRN (Reason: pain) Qty: 90 0RF aspirin 81 mg tablet,delayed release (DR/EC) 81 mg PO DAILY Qty: 90 3RF omeprazole 40 mg capsule,delayed release(DR/EC) See Rx Instructions .ROUTE .COMPLEX Qty: 30 4RF Rx Instructions: TAKE 1 TABLET BY MOUTH DAILY cholecalciferol (vitamin D3) 50 mcg (2,000 unit) capsule 50 mcg PO DAILY Qty: 90 0RF isosorbide mononitrate 30 mg tablet extended release 24 hr 30 mg PO DAILY lidocaine 5 % adhesive patch,medicated See Rx Instructions .ROUTE .COMPLEX PRN (Reason: Pain) Rx Instructions: APPLY 1 PATCH TOPICALLY TO MOST PAINFUL AREA DAILY. LEAVE ON FOR UP TO 12 HOURS ipratropium-albuterol 0.5 mg-3 mg(2.5 mg base)/3 mL solution for nebulization See Rx Instructions .ROUTE .COMPLEX PRN (Reason: Wheezing) Rx Instructions: INHALE 1 VIAL FOUR TIMES A DAY NEEDED FOR SHORTNESS OF BREATH OR WHEEZING amlodipine [Norvasc] 5 mg tablet 5 mg PO DAILY citalopram 20 mg tablet See Rx Instructions .ROUTE .COMPLEX Rx Instructions: TAKE 1 TABLET BY MOUTH EVERY DAY tamsulosin 0.4 mg capsule See Rx Instructions .ROUTE .COMPLEX Rx Instructions: TAKE 1 CAPSULE BY MOUTH EVERY DAY Referrals Follow up/Referrals: Malvin Nguyen MD [Primary Care Provider] - See instructions Clinical Impressions Clinical Impression: Puncture wound of abdominal wall Instructions Patient Instructions: DI for Puncture Wound Discharge ED Provider: Patrick (ED)Malvin Wound/Laceration HPI General Chief Complaint: Wound/Laceration Stated Complaint: AO 07/12@1400 shot self with nail gun stomach Time Seen by Provider: 07/12/22 23:23 Mode of Arrival: Ambulatory Source of Information: Patient and Medical Record Limitations: No Limitations Description of Symptoms (Recalled from ER Triage Doc. by RN): pt c\o abdominal pain from nail gun wound at 1400. pt states to have had a nail gun go off and a 2 1/2in nail into his abdoman above the belly button. the pt states that there is pain in the abdomen middle lower to upper a shooting burning pain History of Present Illness HPI narrative: puncture wd- nail gun into abd about 1400 and has tenderness and rt sided abd pain but no vomiting and no fever Onset (ago): hour(s) Location: abdomen Place: home Patient tetanus UTD: No Context: accidental Associated symptoms: pain Related Data Home Medications Medication Instructions Recorded Confirmed isosorbide mononitrate 30 mg 30 mg PO DAILY Chest pain 01/23/22 07/12/22 tablet,extended release 24 hr lidocaine 5 % topical patch See Rx Instructions .Route 01/23/22 07/12/22 .COMPLEX PRN Pain amlodipine 5 mg tablet (Norvasc) 5 mg PO DAILY High blood pressure 07/12/22 07/12/22 citalopram 20 mg tablet See Rx Instructions .Route 07/12/22 07/12/22 .COMPLEX Anxiety ipratropium 0.5 mg-albuterol 3 mg See Rx Instructions .Route 07/12/22 07/12/22 (2.5 mg base)/3 mL nebulization .COMPLEX PRN Wheezing soln tamsulosin 0.4 mg capsule See Rx Instructions .Route 07/12/22 07/12/22 .COMPLEX Kidney stones Previous Rx's Medication Instructions Recorded aspirin 81 mg tablet,delayed 81 mg PO DAILY Blood thinner #90 02/15/22 release tabs albuterol sulfate 90 mcg/actuation 2 puff inhalation Q4-6H PRN 02/19/22 aerosol inhaler (Ventolin HFA) shortness of breath or wheezing #8.5 grams omeprazole 40 mg capsule,
--- NOTE | 2022-07-12 23:33 | PC.NURSE ---
pt back in room @ this time.
[2022-07-12 23:42] VITALS: BP 126/85; PULSE 74; O2SAT 96
[2022-07-13] VITALS: BP 118/79; PULSE 75; O2SAT 96
[2022-07-13 00:28] VITALS: BP 129/70; PULSE 68; RESP 18; TEMP 37.1; O2SAT 98
== END 2022-07-13 01:01 | disposition home or self-care (01) ==
PROVIDERS: Emergency Provider Emergency Medicine; PCP Emergency Medicine
DX: S31.149A Puncture wound of abdominal wall with foreign body, unspecified quadrant without penetration into peritoneal cavity, initial encounter (principal); W45.0XXA Nail entering through skin, initial encounter; I25.10 Atherosclerotic heart disease of native coronary artery without angina pectoris; I10 Essential (primary) hypertension; E78.5 Hyperlipidemia, unspecified; F17.210 Nicotine dependence, cigarettes, uncomplicated; Z23 Encounter for immunization
CPT/HCPCS: 74177; 80053; 85025; 90471; 90715; 96361; 96374; 96375; 99285; J0696; Q9967

== ENCOUNTER → 2022-08-10 23:54 | Outpatient (CLI) | payer MEDICAID, SELFPAY ==
[2022-08-10 19:18] LABS: Phencyclidine Screen,Urine Negative ng/ml (<25)
[2022-08-10 19:21] LABS: Amphetamine/Metha Screen,Urine Negative ng/ml (<1000)
[2022-08-10 19:23] LABS: Barbiturates Screen,Urine Negative ng/ml (<200)
[2022-08-10 19:24] LABS: Benzodiazepines Screen,Urine Negative ng/ml (<200); Cannabinoid Screen,Urine Negative ng/ml (<50)
[2022-08-10 19:25] LABS: Cocaine Screen,Urine Negative ng/ml (<300); Opiate Screen,Urine Negative ng/ml (<300)
[2022-08-10 19:26] LABS: Methadone Screen,Urine Negative ng/ml (<300)
== END ==
PROVIDERS: PCP Emergency Medicine; Visit Provider Emergency Medicine
DX: Z79.899 Other long term (current) drug therapy (principal)
CPT/HCPCS: 80305

== ENCOUNTER 2022-08-22 13:29 | Emergency (ER) | payer MEDICAID, SELFPAY ==
[2022-08-22 13:30] VITALS: BP 133/98; PULSE 86; RESP 17; TEMP 36.8; O2SAT 97; BMI 25.3
[2022-08-22 14:00] VITALS: BP 133/98; PULSE 86; RESP 17; TEMP 36.8; O2SAT 97; BMI 25.3
--- NOTE | 2022-08-22 14:03 | EXP.UTC ---
Discharge Plan Disposition Patient Disposition: Home, Self-Care Condition: Good Prescriptions Prescriptions: New sulfamethoxazole-trimethoprim [Bactrim DS] 800-160 mg Tablet 1 tab PO BID Qty: 20 0RF cephalexin 500 mg capsule 500 mg PO QID Qty: 40 0RF mupirocin 2 % ointment 1 applic topical TID 7 Days Qty: 15 0RF No Action albuterol sulfate [Ventolin HFA] 90 mcg/actuation HFA aerosol inhaler 2 puff inhalation Q4-6H PRN (Reason: shortness of breath or wheezing) Qty: 8.5 2RF gabapentin 800 mg tablet 800 mg PO TID Qty: 90 1RF oxycodone-acetaminophen [Percocet] 10-325 mg tablet 1 tab PO TID PRN (Reason: pain) Qty: 90 0RF aspirin 81 mg tablet,delayed release (DR/EC) 81 mg PO DAILY Qty: 90 3RF omeprazole 40 mg capsule,delayed release(DR/EC) See Rx Instructions .ROUTE .COMPLEX Qty: 30 4RF Rx Instructions: TAKE 1 TABLET BY MOUTH DAILY cholecalciferol (vitamin D3) 50 mcg (2,000 unit) capsule 50 mcg PO DAILY Qty: 90 0RF isosorbide mononitrate 30 mg tablet extended release 24 hr 30 mg PO DAILY Qty: 90 3RF amlodipine 5 mg tablet See Rx Instructions .ROUTE .COMPLEX Qty: 30 2RF Dose Instruction: TAKE 1 TABLET BY MOUTH EVERY DAY Rx Instructions: TAKE 1 TABLET BY MOUTH EVERY DAY azithromycin [Zithromax Z-Marcos] 250 mg tablet See Rx Instructions PO .COMPLEX Qty: 6 0RF Rx Instructions: For 250 mg dose pack: take 500 mg today (day 1), then 250 mg for 4 days (days 2-5) PO methylprednisolone [Medrol (Marcos)] 4 mg tablets,dose pack See Rx Instructions PO PER PKG DIR Qty: 21 0RF Rx Instructions: PO PER PKG DIR tamsulosin 0.4 mg capsule See Rx Instructions .ROUTE .COMPLEX Qty: 30 2RF Dose Instruction: TAKE 1 CAPSULE BY MOUTH EVERY DAY Rx Instructions: TAKE 1 CAPSULE BY MOUTH EVERY DAY citalopram 20 mg tablet See Rx Instructions .ROUTE .COMPLEX Qty: 30 2RF Dose Instruction: TAKE 1 TABLET BY MOUTH EVERY DAY Rx Instructions: TAKE 1 TABLET BY MOUTH EVERY DAY lidocaine 5 % adhesive patch,medicated See Rx Instructions .ROUTE .COMPLEX PRN (Reason: Pain) Rx Instructions: APPLY 1 PATCH TOPICALLY TO MOST PAINFUL AREA DAILY. LEAVE ON FOR UP TO 12 HOURS ipratropium-albuterol 0.5 mg-3 mg(2.5 mg base)/3 mL solution for nebulization See Rx Instructions .ROUTE .COMPLEX PRN (Reason: Wheezing) Rx Instructions: INHALE 1 VIAL FOUR TIMES A DAY NEEDED FOR SHORTNESS OF BREATH OR WHEEZING sulfamethoxazole-trimethoprim [Bactrim DS] 800-160 mg Tablet 1 tab PO Q12H Qty: 14 0RF cephalexin [cephalexin] 500 mg capsule 500 mg PO TID Qty: 30 0RF Referrals Follow up/Referrals: Malvin Nguyen MD [Primary Care Provider] - See instructions Activity Restrictions/Add. Instructions Additional Instructions/Restrictions: Keep the wound clean and dry. Follow up with your regular doctor in 48 hours for a wound recheck. Make sure you follow up. Take the antibiotics as directed and apply the topical antibiotics as directed. Watch the wound for signs of worsening infection, such as worsening redness, drainage, swelling, etc. GO TO THE ER FOR ANY WORSENING SYMPTOMS Clinical Impressions Clinical Impression: Cutaneous abscess of right foot, Cellulitis of foot, right Stand Alone Forms Stand Alone Forms: Work/School Release Instructions Patient Instructions: Cellulitis Discharge ED Provider: Bernardo De La Cruz [facility] [place] [place] HPI General Stated complaint: right foot pain, unknown origin Mode of Arrival: Ambulatory Source of Information: Patient Limitations: Physical Limitations Time Seen by Provider: 08/22/22 14:03 History of Present Illness Provider Complaint: pt reports right foot pain x 3 days without injury. 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 pt able to ambulate independently at this time Related Data Home Medications
[2022-08-22 14:42] VITALS: BP 133/98; PULSE 86; RESP 17; TEMP 36.8; O2SAT 97
== END 2022-08-22 14:55 | disposition home or self-care (01) ==
PROVIDERS: Emergency Provider Nurse Practitioner Family; PCP Emergency Medicine
DX: L02.611 Cutaneous abscess of right foot (principal); L03.115 Cellulitis of right lower limb; B95.7 Other staphylococcus as the cause of diseases classified elsewhere; F17.210 Nicotine dependence, cigarettes, uncomplicated
CPT/HCPCS: 96372; 87070; 87077; 87186; 87205; 99212; 99214; G0463; J0696

== ENCOUNTER → 2022-08-24 10:00 | Outpatient (CLI) | payer MEDICAID, SELFPAY | PROVIDERS: PCP Emergency Medicine; Visit Provider Emergency Medicine | DX: L02.611 Cutaneous abscess of right foot (principal); L03.115 Cellulitis of right lower limb | CPT/HCPCS: 87070; 87205 ==

== ENCOUNTER 2022-09-13 12:11 | Emergency (ER) | payer MEDICAID, SELFPAY ==
[2022-09-13 12:11] VITALS: BP 132/93; PULSE 75; RESP 17; TEMP 36.8; O2SAT 98; BMI 25.6
--- NOTE | 2022-09-13 12:11 | ECG_ITS ---
APPROVED REPORT Exam: Resting ECG HR:73 bpm ECG Measurements Heart Rate 73 AXES CO 149 P -4 QRSd 107 QRS 78 QT 394 T 60 QTc 420 Conclusion SINUS RHYTHM NORMAL ECG UNCONFIRMED REPORT Electronically signed by : Christoph Bonilla MD 09/13/2022 20:29:44
--- NOTE | 2022-09-13 12:16 | CT_ITS ---
FINAL REPORT CLINICAL HISTORY: headache, dizziness COMPARISON: May 30, 2018 FINDINGS: Axial images of the head were obtained without contrast. Coronal reformatted images were also obtained.This study was performed with techniques to keep radiation doses as low as reasonably achievable (ALARA). Individualized dose reduction techniques using automated exposure control or adjustment of mA and/or kV according to the patient's size were employed. There is no evidence of intracranial hemorrhage or mass. The ventricular size is within normal limits. There is no evidence of shift of the midline structures. No abnormal extra axial fluid collection is identified. No skull abnormality is seen on the bone window images. There is mucosal thickening in multiple sinuses. IMPRESSION: No acute intracranial abnormality. Reviewed, Interpreted and Dictated by Yaniv Argueta III, MD Transcribed by Jayy Serra Authenticated and [facility]
[2022-09-13 12:17] VITALS: PULSE 84
--- NOTE | 2022-09-13 12:17 | XR_ITS ---
FINAL REPORT CLINICAL HISTORY: cp COMPARISON: 02/12/2022 FINDINGS: Two views of the chest were obtained. The heart size and pulmonary vascularity are within normal limits. The mediastinum is normal. There is bronchial wall thickening which may represent bronchitis. There is no pneumothorax. The bony thorax is intact. IMPRESSION: Bronchial wall thickening may represent bronchitis. Reviewed, Interpreted and Dictated by Yaniv Argueta III, MD Transcribed by Mary Chiang Authenticated and . [facility]
--- NOTE | 2022-09-13 12:18 | HMH.EDCP ---
Discharge Plan Disposition Patient Disposition: Home, Self-Care Condition: Good Prescriptions Prescriptions: New azithromycin [Zithromax] 250 mg tablet See Rx Instructions .ROUTE .COMPLEX Qty: 18 0RF Rx Instructions: For 250 mg dose pack: take 500 mg today (day 1), then 250 mg for 4 days (days 2-5) No Action ipratropium-albuterol 0.5 mg-3 mg(2.5 mg base)/3 mL solution for nebulization 3 ml INHALATION QID PRN (Reason: Breathing Problems) Label Comments: INHALE 1 VIAL FOUR TIMES A DAY NEEDED FOR SHORTNESS OF BREATH OR WHEEZING lisinopril 20 mg tablet 20 mg PO DAILY Label Comments: FOR HIGH BLOOD PRESSURE TAKE 1 TABLET BY MOUTH EVERY DAY isosorbide mononitrate 30 mg tablet extended release 24 hr 30 mg PO DAILY Label Comments: TAKE 1 TABLET BY MOUTH EVERY DAY FOR CHEST PAIN amlodipine 5 mg tablet 5 mg PO DAILY Label Comments: TAKE 1 TABLET BY MOUTH EVERY DAY omeprazole 40 mg capsule,delayed release(DR/EC) 40 mg PO DAILY Label Comments: TAKE 1 CAPSULE BY MOUTH EVERY DAY FOR GERD aspirin 81 mg tablet,delayed release (DR/EC) 81 mg PO DAILY Label Comments: TAKE 1 TABLET BY MOUTH EVERY DAY citalopram 20 mg tablet 20 mg PO DAILY Label Comments: TAKE 1 TABLET BY MOUTH EVERY DAY oxycodone-acetaminophen 10-325 mg tablet 1 tab PO TID Label Comments: TAKE 1 TABLET BY MOUTH THREE TIMES A DAY NEEDED FOR PAIN tamsulosin 0.4 mg capsule 0.4 mg PO PM Label Comments: TAKE 1 CAPSULE BY MOUTH EVERY DAY gabapentin 800 mg tablet 800 mg PO TID Label Comments: TAKE 1 TABLET BY MOUTH THREE TIMES A DAY FOR PAIN cholecalciferol (vitamin D3) 1,250 mcg (50,000 unit) capsule 1,250 mcg PO WEEKLY Label Comments: TAKE 1 CAPSULE BY MOUTH EVERY WEEK Referrals Follow up/Referrals: Malvin Nguyen MD [Primary Care Provider] - See instructions Activity Restrictions/Add. Instructions Additional Instructions/Restrictions: Follow up with Dr. Wray in his office tomorrow at 10am Clinical Impressions Clinical Impression: Chest pain, Bronchitis Instructions Patient Instructions: DI for Atypical Chest Pain Discharge ED Provider: Lisa Roblero Chest Pain HPI General Chief Complaint: Chest Pain Stated Complaint: CP Time Seen by Provider: 09/13/22 12:15 Mode of Arrival: Ambulatory Source of Information: Patient Limitations: No Limitations Description of Symptoms (Recalled from ER Triage Doc. by RN): 52 M presents from home after leaving work this AM c/o mid-sternal chest pain that radiates to his left shoulder blade. Patient reports history of cardiac stenting a few years ago, and he takes 81mg ASA daily for this. Patient reports feeling dizzy and light headed like he was going to pass out, but never did. NAD on arrival. Attending at bedside History of Present Illness HPI narrative: Patient is 52yo white male who is here for chest pain dull in nature and radiates to left arm while driving. Patient also had headache and dizzyness while driving but no syncope. Patient also has cough and sore throat which started this am. Patient is dull pressure on the left-sided chest radiating down his left arm. 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 MD complaint: chest pain indicative of cardiac Onset (ago): minute(s) Duration: constant Activity at onset: during rest Pain location: substernal Severity scale (1-10): 4 Quality: aching and dull Pain radiation: LUE Relieving factors: nothing Exacerbating factors: nothing Associated symptoms: dyspnea Risk Factors for CAD: Smoking Treatments prior to or on arrival for Cardiac Chest Pain: aspirin EDENILSON Score for Non-Stemi Age of Patient: 50-59 years old Heart Rate: 70-89 bpm CHF Killip Class: I-No CHF Related Data Home Medications Medication Instructions Recorded Confirmed amlodip
--- NOTE | 2022-09-13 12:35 | PC.NURSE ---
pt return from CT
[2022-09-13 12:36] LABS: Alanine Aminotransferase 19 U/L (12-78); Albumin Level 3.8 g/dl (3.5-5.0); Albumin/Globulin Ratio 1.7 (1.1-1.8); Alkaline Phosphatase 70 U/L (38-126); Anion Gap 4.6 mEq/L (5-15); Aspartate Amino Transferase 28 U/L (17-59); Basophils % 0.6 % (0.1-2.0); Bilirubin,Total 0.3 mg/dl (0.2-1.3); Blood Urea Nitrogen 11 mg/dl (9-20); Carbon Dioxide 32 mmol/L (22.0-30.0); Chloride 99 mmol/L (98-107); Creatinine Clearance Estimated 150 mL/min (50-200); Eosinophils # 0.3 K/mm3 (0.0-0.4); Eosinophils % 4.3 % (0.1-12.0); Estimated Glomerular Filt Rate 118 ml/min (>60); GFR (African American) 143 ML/MIN (>60); Globulin 2.3 g/dL (1.3-3.2); Glucose 84 mg/dl (74-100); Hematocrit 41.2 % (42.0-52.0); Hemoglobin 13.2 g/dL (14.1-18.0); Lymphocytes # 1.4 K/mm3 (0.7-4.5); Mean Corpuscular HGB Conc 32.1 g/dL (31.8-35.4); Mean Corpuscular Hemoglobin 29.7 pg (27.0-31.2); Mean Corpuscular Volume 92.3 fl (80-94); Mean Platelet Volume 7.5 fl (7.4-10.4); Monocytes # 0.3 K/mm3 (0.1-1.0); Monocytes % 4.3 % (1.7-9.3); Neutrophils # 4.7 K/mm3 (1.8-7.8); Neutrophils % 69.7 % (37.0-80.0); Platelet Count 231 K/mm3 (142-424); Potassium 3.6 mmoL/L (3.5-5.1); Red Blood Count 4.46 M/mm3 (4.60-6.20); Red Cell Distribution Width 13.4 % (11.5-17.5); Sodium 132 mmol/L (136-145); Total Protein,Serum 6.1 g/dl (6.3-8.2); White Blood Count 6.8 K/mm3 (4.8-10.8)
[2022-09-13 12:43] LABS: Activated Partial Thrombo Time 30.9 seconds (22.8-30.6); INR 0.92 (0.9-1.1)
[2022-09-13 12:49] LABS: Troponin I < 0.01 ng/ml (0.00-0.034)
--- NOTE | 2022-09-13 14:16 | PC.NURSE ---
PATIENT ASSISTED TO BATHROOM
--- NOTE | 2022-09-13 14:23 | EXP.CARD.CON ---
History of Present Illness History of Present Illness Consult date: 09/13/22 Requesting physician: Lisa Roblero Consult reason: chest pain Chief complaint: chest pain, headache, dizziness History of present illness: 52 year-old white male significant past medical history for hypertension and coronary artery disease presented to emergency department today with complaints of chest pain, dizziness, headache. Patient reports that he developed dull midsternal chest pain radiating to left arm while driving that was associated with headache and dizziness but no syncope. Patient reports has also had a generalized cough and sore throat which started this morning. Chest pain is worse with cough. Denies shortness of breath, nausea, vomiting. Upon presentation to emergency department EG shows sinus rhythm with a rate of 73 and no acute ischemic changes noted. Labs as follow: BBC 6.8, hemoglobin 13.2, sodium 132, creatinine 0.70, BUN 11, troponin was negative. Chest x-ray impression: Bronchial wall thickening may represent bronchitis. CT of head was negative for acute intracranial abnormality. Patient currently denies any chest pain reports still has headache and dizziness. [facility] Disclaimer: The information contained in this section may have been updated after the patient was seen, as this information can be updated by other users. Medical History CAD (coronary artery disease) Daytime somnolence History of left heart catheterization HLD (hyperlipidemia) HTN (hypertension) RABIA (obstructive sleep apnea) Surgical History History of surgery on arm Hx of tympanostomy tubes Stented coronary artery Social History Smoking Status: Current every day smoker tobacco type: cigarettes packs per day: 2 alcohol intake: never substance use type: denies use current occupational status: employed Travel in the last 8 weeks: None household members: spouse and children housing: house current occupation: [employer] current occupational exposures/hazards: No caffeine: Yes Review of Systems Constitutional Constitutional: Reports headache(s) ENT Ears, Nose, Mouth, and Throat: Reports dizziness and Reports headache(s) *Neurologic Neurologic: Reports dizziness and Reports headache(s) Exam Data for Last 24 hours Vital signs and Labs for Last 24 Hours: Temp Pulse Resp BP Pulse Ox 98.2 F 84 17 132/93 H 98 09/13/22 12:11 09/13/22 12:17 09/13/22 12:11 09/13/22 12:11 09/13/22 12:11 Laboratory Results - last 24 hr 09/13/22 12:18: PT 10.0 L, INR 0.92, APTT 30.9 H 09/13/22 12:18: Sodium 132 L, Potassium 3.6, Chloride 99, Carbon Dioxide 32 H, Anion Gap 4.6 L, BUN 11, Creatinine 0.70, Estimated Creat Clear 150, Estimated GFR 118, Est GFR ( Amer) 143, Glucose 84, Calcium 8.0 L, Total Bilirubin 0.3, AST 28, ALT 19, Alkaline Phosphatase 70, Troponin I < 0.01, Total Protein 6.1 L, Albumin 3.8, Globulin 2.3, Albumin/Globulin Ratio 1.7 09/13/22 12:18: WBC 6.8, RBC 4.46 L, Hgb 13.2 L, Hct 41.2 L, MCV 92.3, MCH 29.7, MCHC 32.1, RDW 13.4, Plt Count 231, MPV 7.5, Neut % (Auto) 69.7, Lymph % (Auto) 21.0, Arroyo % (Auto) 4.3, Eos % (Auto) 4.3, Baso % (Auto) 0.6, Neut # (Auto) 4.7, Lymph # (Auto) 1.4, Arroyo # (Auto) 0.3, Eos # (Auto) 0.3, Baso # (Auto) 0.0 I & O for Last 24 hours: Intake & Output 09/10/22 09/11/22 09/12/22 09/13/22 23:59 23:59 23:59 23:59 Weight 189 lb Constitutional Constitutional: no acute distress *Routine Respiratory Exam Respiratory: Present CTA bilaterally and symmetric chest movement *Routine Cardiovascular Exam Cardiovascular: Present RRR, Normal S1 and Normal S2 *Routine Abdominal Exam Abdominal: Present soft and normoactive bowel sounds; Absent tenderness *Routine Extremities Exam Extremities: Present full ROM and normal capillary refill; A
[2022-09-13 14:49] LABS: Chol/HDL Ratio 3.2 (1-3.5); Cholesterol 110 mg/dl (140-200); HDL Cholesterol 34 mg/dl (40-60); Triglycerides 133 mg/dl (30-150); VLDL Cholesterol 27 mg/dL (0-40)
[2022-09-13 15:00] LABS: Direct LDL Cholesterol 60.46 mg/dL (100-129)
[2022-09-13 15:09] LABS: T4 (Thyroxine) 9.7 ug/dl (5.53-11.0)
--- NOTE | 2022-09-13 15:16 | PC.NURSE ---
notified lab staff blood sent to lab for troponin, per ER MD wanting a 2 hr troponin, spoke with marlena
[2022-09-13 15:22] LABS: Thyroid Stimulating Hormone 0.82 uIU/mL (0.465-4.68)
[2022-09-13 15:41] LABS: Troponin I < 0.01 ng/ml (0.00-0.034)
[2022-09-13 15:46] LABS: Hemoglobin A1C 5.1 % (4.0-6.0)
[2022-09-13 16:05] VITALS: BP 138/87; PULSE 74; RESP 16; TEMP 36.8; O2SAT 97
== END 2022-09-13 16:07 | disposition home or self-care (01) ==
PROVIDERS: Emergency Provider Emergency Medicine; PCP Emergency Medicine
DX: R07.89 Other chest pain (principal); J40 Bronchitis, not specified as acute or chronic; F17.210 Nicotine dependence, cigarettes, uncomplicated
CPT/HCPCS: 70450; 71046; 80053; 80061; 83036; 84436; 84443; 84484; 85025; 85610; 85730; 93005; 99285

== ENCOUNTER → 2022-11-26 09:07 | Outpatient (CLI) | payer MEDICAID, SELFPAY ==
[2022-11-26 19:40] LABS: Alanine Aminotransferase 16 U/L (12-78); Albumin Level 3.7 g/dl (3.5-5.0); Aspartate Amino Transferase 24 U/L (17-59); Bilirubin,Total 0.3 mg/dl (0.2-1.3); Blood Urea Nitrogen 13 mg/dl (9-20); Calcium 8.5 mg/dl (8.4-10.2); Carbon Dioxide 29 mmol/L (22.0-30.0); Chloride 102 mmol/L (98-107); Estimated Glomerular Filt Rate 118 ml/min (>60); GFR (African American) 143 ML/MIN (>60); Glucose 104 mg/dl (74-100); Sodium 140 mmol/L (136-145)
[2022-11-26 19:41] LABS: Albumin/Globulin Ratio 1.6 (1.1-1.8); Alkaline Phosphatase 78 U/L (38-126); Globulin 2.3 g/dL (1.3-3.2)
[2022-11-26 19:55] LABS: Free T4 (Free Thyroxine) 1.17 ng/dl (0.78-2.19)
[2022-11-26 20:09] LABS: Thyroid Stimulating Hormone 1.21 uIU/mL (0.465-4.68)
[2022-12-03 17:13] LABS: Free Testosterone (Direct) 1.9 pg/mL (7.2-24.0); Testosterone, Total, LC/MS 289.3 ng/dL (264.0-916.0)
== END ==
PROVIDERS: PCP Emergency Medicine; Visit Provider Emergency Medicine
DX: R53.83 Other fatigue (principal)
CPT/HCPCS: 80053; 84439; 84443

== ENCOUNTER 2022-12-28 00:01 | Emergency (ER) | payer MEDICAID, SELFPAY ==
[2022-12-28 00:11] VITALS: BP 109/72; PULSE 71; RESP 15; TEMP 36.6; O2SAT 98; BMI 25.3
--- NOTE | 2022-12-28 00:24 | HMH.EDGENADL ---
Discharge Plan Disposition Patient Disposition: Home, Self-Care Condition: Good Prescriptions Prescriptions: No Action gabapentin 800 mg tablet 800 mg PO TID Qty: 90 1RF tramadol 50 mg tablet 50 mg PO BID Qty: 60 0RF oxycodone-acetaminophen 10-325 mg tablet 1 tab PO TID Qty: 90 0RF ranolazine 500 mg tablet extended release 12 hr 500 mg PO BID Qty: 60 3RF rosuvastatin [Crestor] 10 mg tablet 10 mg PO DAILY Qty: 30 3RF tamsulosin 0.4 mg capsule See Rx Instructions .ROUTE .COMPLEX Qty: 30 2RF Dose Instruction: TAKE 1 CAPSULE BY MOUTH EVERY DAY Rx Instructions: TAKE 1 CAPSULE BY MOUTH EVERY DAY citalopram [Celexa] 40 mg tablet 40 mg PO DAILY Qty: 30 2RF aspirin 81 mg tablet,delayed release (DR/EC) 81 mg PO DAILY Patient Comments: TAKE 1 TABLET BY MOUTH EVERY DAY Referrals Follow up/Referrals: Malvin Nguyen MD [Primary Care Provider] - See instructions Activity Restrictions/Add. Instructions Additional Instructions/Restrictions: Please follow-up with your primary care provider. Please return to the emergency department if you develop any new or worsening symptoms or become concerned for your health. Please take antibiotics as prescribed for skin infection. Please keep wound clean, dry, covered. Please wash daily with soap and water. Okay to use topical antibiotic ointment. Clinical Impressions Clinical Impression: Abscess, Cellulitis Instructions Patient Instructions: DI for Skin Abscess Discharge ED Provider: Viraj Cerda Adult HPI General Chief complaint: Skin/Abscess/Foreign Body Stated complaint: Right little toe red,swollen and painful Time Seen by Provider: 12/28/22 00:12 Mode of Arrival: Family Vehicle Source of Information: Patient Limitations: No Limitations Description of Symptoms (Recalled from ER Triage Doc. by RN): 52 yo male presents with CC of subcutaneous abscess at base of 4th digit of his right foot. Patient states he had it occur previously, and pcp did an I & D in the office. Was placed on atb's. H/O gout, COPD, cardiac issues. Denies diabetes. Afebrile. History of Present Illness HPI narrative: 52-year-old male history of noncemented diabetes, COPD, gout presents with localized pain, swelling, redness to the right foot at the interspace between the fourth and fifth toe. He reports that he has had a similar abscess here in the past. Reports that it was drained and he was given antibiotics with total resolution. He reports that he is having some pain up his foot. He denies any chronic pain or issues in this area. Reports he has not had any purulent drainage as yet. Related Data Home Medications Medication Instructions Recorded Confirmed aspirin 81 mg tablet,delayed 81 mg PO DAILY [facility] 09/13/22 11/26/22 release Previous Rx's Medication Instructions Recorded tamsulosin 0.4 mg capsule See Rx Instructions .Route 11/02/22 .COMPLEX #30 caps ranolazine 500 mg tablet,extended 500 mg PO BID #60 tabs 11/25/22 release,12 hr rosuvastatin 10 mg tablet (Crestor) 10 mg PO DAILY #30 tabs 11/25/22 gabapentin 800 mg tablet 800 mg PO TID Chronic Pain #90 tabs 11/26/22 oxycodone-acetaminophen 10 mg-325 1 tab PO TID Chronic Pain #90 tabs 11/26/22 mg tablet tramadol 50 mg tablet 50 mg PO BID #60 tabs 11/26/22 citalopram 40 mg tablet (Celexa) 40 mg PO DAILY #30 tabs 12/16/22 Allergies Allergy/AdvReac Type Severity Reaction Status Date / Time codeine [CODEINE] Allergy Mild Verified 11/26/22 14:56 meloxicam [From MOBIC] Allergy Mild Verified 11/26/22 14:56 ibuprofen [IBUPROFEN] Allergy Unknown Verified 11/26/22 14:56 [facility] Disclaimer: The information contained in this section may have been updated after the patient was seen, as this information can be updated by other users. Medical History (Updated 12/28/22 @ 00:43 by Viraj Cerda MD) Angina pectoris CAD (coronary artery disease)
[2022-12-28 00:47] VITALS: BP 125/80; PULSE 92; RESP 17; TEMP 36.6; O2SAT 100
== END 2022-12-28 00:45 | disposition home or self-care (01) ==
PROVIDERS: Emergency Provider Emergency Medicine; PCP Emergency Medicine
DX: L02.611 Cutaneous abscess of right foot (principal); L03.115 Cellulitis of right lower limb; I25.118 Atherosclerotic heart disease of native coronary artery with other forms of angina pectoris; I10 Essential (primary) hypertension; E78.5 Hyperlipidemia, unspecified; J44.9 Chronic obstructive pulmonary disease, unspecified; G47.33 Obstructive sleep apnea (adult) (pediatric); F17.210 Nicotine dependence, cigarettes, uncomplicated
CPT/HCPCS: 10060; 87070; 87077; 87186; 87205; 96372; 99283

== ENCOUNTER → 2023-01-13 16:34 | Outpatient (CLI) | payer MEDICAID, SELFPAY ==
[2023-01-13 13:07] LABS: Amphetamine/Metha Screen,Urine Negative ng/ml (<1000)
[2023-01-13 13:08] LABS: Barbiturates Screen,Urine Negative ng/ml (<200)
[2023-01-13 13:09] LABS: Benzodiazepines Screen,Urine Negative ng/ml (<200); Cannabinoid Screen,Urine Negative ng/ml (<50)
[2023-01-13 13:10] LABS: Cocaine Screen,Urine Negative ng/ml (<300)
[2023-01-13 13:11] LABS: Methadone Screen,Urine Negative ng/ml (<300); Opiate Screen,Urine Positive ng/ml (<300)
[2023-01-13 13:12] LABS: Phencyclidine Screen,Urine Negative ng/ml (<25)
== END ==
PROVIDERS: PCP Emergency Medicine; Visit Provider Emergency Medicine
DX: Z79.899 Other long term (current) drug therapy (principal)
CPT/HCPCS: 80305

== ENCOUNTER → 2023-03-11 23:07 | Outpatient (CLI) | payer MEDICAID, SELFPAY ==
[2023-03-11 18:41] LABS: Amphetamine/Metha Screen,Urine Negative ng/ml (<1000)
[2023-03-11 18:42] LABS: Barbiturates Screen,Urine Negative ng/ml (<200)
[2023-03-11 18:47] LABS: Benzodiazepines Screen,Urine Negative ng/ml (<200); Cannabinoid Screen,Urine Negative ng/ml (<50)
[2023-03-11 18:48] LABS: Cocaine Screen,Urine Negative ng/ml (<300)
[2023-03-11 18:49] LABS: Methadone Screen,Urine Negative ng/ml (<300); Phencyclidine Screen,Urine Negative ng/ml (<25)
[2023-03-11 18:50] LABS: Opiate Screen,Urine Negative ng/ml (<300)
== END ==
PROVIDERS: PCP Emergency Medicine; Visit Provider Emergency Medicine
DX: Z79.899 Other long term (current) drug therapy (principal)
CPT/HCPCS: 80305

== ENCOUNTER → 2023-05-09 23:13 | Outpatient (CLI) | payer MEDICAID, SELFPAY ==
[2023-05-09 19:16] LABS: Basophils % 0.6 % (0.1-2.0); Eosinophils # 0.3 K/mm3 (0.0-0.4); Eosinophils % 3.6 % (0.1-12.0); Hematocrit 42.5 % (42.0-52.0); Hemoglobin 14.7 g/dL (14.1-18.0); Lymphocytes # 1.5 K/mm3 (0.7-4.5); Lymphocytes % 20.6 % (10-50); Mean Corpuscular HGB Conc 34.5 g/dL (31.8-35.4); Mean Corpuscular Hemoglobin 31.8 pg (27.0-31.2); Mean Corpuscular Volume 92.1 fl (80-94); Mean Platelet Volume 8.8 fl (7.4-10.4); Monocytes # 0.4 K/mm3 (0.1-1.0); Monocytes % 5.1 % (1.7-9.3); Neutrophils # 5.2 K/mm3 (1.8-7.8); Platelet Count 236 K/mm3 (142-424); Red Blood Count 4.61 M/mm3 (4.60-6.20); Red Cell Distribution Width 13.4 % (11.5-17.5); White Blood Count 7.4 K/mm3 (4.8-10.8)
[2023-05-09 19:38] LABS: 25-OH Vitamin D, Total 26.8 ng/mL (30-100)
[2023-05-09 19:52] LABS: Prostate Specific Ag Screen 0.5 ng/ml (0.0-4.0)
[2023-05-09 21:29] LABS: Microalbumin/Creatinine Ratio 4.1
[2023-05-09 21:32] LABS: Amphetamine/Metha Screen,Urine Negative ng/ml (<1000)
[2023-05-09 21:33] LABS: Barbiturates Screen,Urine Negative ng/ml (<200); Benzodiazepines Screen,Urine Negative ng/ml (<200)
[2023-05-09 21:34] LABS: Cannabinoid Screen,Urine Negative ng/ml (<50)
[2023-05-09 21:35] LABS: Cocaine Screen,Urine Negative ng/ml (<300); Methadone Screen,Urine Negative ng/ml (<300)
[2023-05-09 21:36] LABS: Opiate Screen,Urine Positive ng/ml (<300); Phencyclidine Screen,Urine Negative ng/ml (<25)
[2023-05-09 21:41] LABS: Creatinine,Urine Random 143 mg/dL (Not Estab.)
== END ==
LOC: LAB.DROPOF 23:13
PROVIDERS: PCP Internal Medicine; Visit Provider Internal Medicine
DX: E55.9 Vitamin D deficiency, unspecified (principal); E78.5 Hyperlipidemia, unspecified; Z79.899 Other long term (current) drug therapy; Z68.24 Body mass index [BMI] 24.0-24.9, adult
CPT/HCPCS: 80305; 82043; 82306; 82570; 85025; G0103

== ENCOUNTER 2023-06-03 18:37 | Emergency (ER) | payer MEDICAID, SELFPAY ==
[2023-06-03 18:37] VITALS: BP 117/79; PULSE 93; RESP 18; TEMP 36.7; O2SAT 98; BMI 25.6
--- NOTE | 2023-06-03 19:51 | CT_ITS ---
PROCEDURE INFORMATION: Exam: CT Abdomen And Pelvis Without Contrast Exam date and time: 06/03/2023 8:28 PM Age: 53 years old Clinical indication: Other: Right flank pain; Additional info: R flank pain, dysuria TECHNIQUE: Imaging protocol: Computed tomography of the abdomen and pelvis without contrast. Total images: 292 Radiation optimization: All CT scans at this facility use at least one of these dose optimization techniques: automated exposure control; mA and/or kV adjustment per patient size (includes targeted exams where dose is matched to clinical indication); or iterative reconstruction. COMPARISON: CT ABDOMEN PELVIS W CON 07/12/2022 11:28 PM FINDINGS: Lungs: Linear scarring right middle lobe. Lung bases are otherwise clear. Heart: Normal heart size. Coronary arteries: Coronary artery calcifications. Liver: Lobulated hepatic contour from prominent diaphragmatic insertion sheaths. Otherwise, unremarkable liver. Gallbladder and bile ducts: Status post cholecystectomy. Mild biliary ductal dilatation likely from post cholecystectomy ectasia. No calcified choledocholithiasis. Pancreas: Normal. No ductal dilation. Spleen: Normal. No splenomegaly. Adrenal glands: Stable 9 mm low-attenuation right adrenal nodule/adenoma. Kidneys and ureters: Interval subtle right perinephric edema. No hydronephrosis or nephrolithiasis. No discrete renal mass. No ureteral stones or dilatation. Stomach and bowel: Unremarkable stomach and duodenum. No ileus or bowel obstruction. Fecalization of small bowel content flying chronic stasis. Moderate colonic stool burden. Moderate diverticulosis of the descending and sigmoid colon. Generalized mild wall thickening of the sigmoid and proximal descending colon without surrounding inflammation. Unremarkable rectum. Appendix: Normal appendix. Intraperitoneal space: Unremarkable. No free air. No significant fluid collection. Vasculature: Mildly atherosclerotic abdominal aorta without aneurysm. Lymph nodes: Benign fat containing bilateral inguinal and femoral lymph nodes. Urinary bladder: Minor bladder wall thickening. No bladder stones. Reproductive: Nonenlarged prostate. Bones/joints: Broad-based thoracolumbar dextrocurvature. Moderate degenerative changes lumbar spine. Mild degenerative changes thoracic spine with multilevel endplate Schmorl's nodes. No acute osseous abnormality. Soft tissues: Unremarkable. IMPRESSION: 1. Acute subtle right perinephric edema. Differential includes: Sequela of recently passed calculus versus ascending urinary tract infection such as acute pyelitis/pyelonephritis. 2. No hydronephrosis or nephrolithiasis 3. Minor bladder wall thickening may reflect cystitis. 4. Moderate colonic diverticulosis. 5. Generalized mild wall thickening of the sigmoid and proximal descending colon likely from under distention versus chronic muscle hypertrophy. Could consider early diverticulitis. Doubt neoplasm given length of involvement. 6. Additional chronic and incidental findings.
[2023-06-03 19:53] LABS: Microscopic, Urine URINE MICROSCOPIC (MICROSCOPIC)
--- NOTE | 2023-06-03 19:54 | ED_ITS ---
Discharge Plan Disposition Patient Disposition: Home, Self-Care Condition: Good Prescriptions Prescriptions: No Action citalopram 40 mg tablet 40 mg PO DAILY lisinopril 20 mg tablet 20 mg PO albuterol sulfate [Ventolin HFA] 90 mcg/actuation HFA aerosol inhaler 2 puff inhalation Q4-6H PRN (Reason: shortness of breath or wheezing) Qty: 8.5 3RF Trelegy Ellipta 100-62.5-25 mcg blister with device 1 inh inhalation DAILY Qty: 60 2RF isosorbide mononitrate 30 mg tablet extended release 24 hr 30 mg PO Patient Comments: TAKE 1 TABLET BY MOUTH EVERY DAY FOR CHEST PAIN tramadol 50 mg tablet 50 mg PO BID Qty: 60 0RF tamsulosin 0.4 mg capsule See Rx Instructions .ROUTE .COMPLEX Qty: 30 2RF Dose Instruction: TAKE 1 CAPSULE BY MOUTH EVERY DAY Rx Instructions: TAKE 1 CAPSULE BY MOUTH EVERY DAY amlodipine 5 mg tablet See Rx Instructions .ROUTE .COMPLEX Qty: 30 2RF Dose Instruction: TAKE 1 TABLET BY MOUTH EVERY DAY Rx Instructions: TAKE 1 TABLET BY MOUTH EVERY DAY omeprazole 40 mg capsule,delayed release(DR/EC) See Rx Instructions .ROUTE .COMPLEX Qty: 30 4RF Dose Instruction: TAKE 1 CAPSULE BY MOUTH EVERY DAY FOR GERD Rx Instructions: TAKE 1 CAPSULE BY MOUTH EVERY DAY FOR GERD ranolazine 500 mg tablet extended release 12 hr 500 mg PO BID Qty: 60 3RF rosuvastatin [Crestor] 10 mg tablet 10 mg PO DAILY Qty: 30 3RF aspirin 81 mg tablet,delayed release (DR/EC) 81 mg PO DAILY Qty: 90 3RF oxycodone-acetaminophen 10-325 mg tablet 1 tab PO TID 30 Days Qty: 90 0RF gabapentin 800 mg tablet 800 mg PO TID 30 Days Qty: 90 0RF Referrals Follow up/Referrals: Lui Shafer DO [Primary Care Provider] - See instructions Activity Restrictions/Add. Instructions Additional Instructions/Restrictions: It appears that you have passed a kidney stone based off your imaging. I would expect that your symptoms resolve over the next 48 hours. Please return with any new or worsening symptoms Clinical Impressions Clinical Impression: Kidney stone on right side Discharge ED Provider: Lon Carvajal Adult [facility] General Chief complaint: PAIN Stated complaint: right side pain Time Seen by Provider: 06/03/23 19:53 Mode of Arrival: Ambulatory Source of Information: Patient Limitations: No Limitations Description of Symptoms (Recalled from ER Triage Doc. by RN): Complaint of pain in the right flank area for 1 week. States it just keeps getting worse. Complaint of burning with urination. History of Present Illness HPI narrative: Patient describes 3 days of flank pain, intermittent, nonradiating, with associ ated dysuria. No known history of urolithiasis. No previous therapies. Symptoms are exacerbated by postural changes. No midline back pain although patient does have chronic back issues. Pain does not radiate down his leg. No fevers or chills. No recreational drug use. Has not had similar symptoms before. No nausea or vomiting. Symptoms were gradual in onset. Related Data Home Medications Medication Instructions Recorded Confirmed isosorbide mononitrate 30 mg 30 mg PO 01/13/23 05/09/23 tablet,extended release 24 hr citalopram 40 mg tablet 40 mg PO DAILY 03/11/23 05/09/23 lisinopril 20 mg tablet 20 mg PO 03/11/23 05/09/23 Previous Rx's Medication Instructions Recorded tramadol 50 mg tablet 50 mg PO BID #60 tabs 01/13/23 amlodipine 5 mg tablet See Rx Instructions .Route 02/01/23 .COMPLEX #30 tabs omeprazole 40 mg capsule,delayed See Rx Instructions .Route 02/01/23 release .COMPLEX #30 caps tamsulosin 0.4 mg capsule See Rx Instructions .Route 02/01/23 .COMPLEX #30 caps ranolazine 500 mg tablet,extended 500 mg PO BID #60 tabs 03/08/23 release,12 hr rosuvastatin 10 mg tablet (Crestor) 10 mg PO DAILY #30 tabs 03/08/23 albuterol sulfate 90 mcg/actuation 2 puff inhalation Q4-6H PRN 03/11/23 aerosol inhaler (Ventolin HFA) shortness of breath or wheezing #8.5 grams fluticasone fur. 100 mcg-umeclid 1 inh inhalation DAILY #60 ea 03/11/23 62.5 mcg-vilant 25 mcg inhalat.powder (Trelegy Ellipta) aspirin 81 mg tablet,delayed 81 mg PO DAILY [facility] #90 03/21/23 release tabs gabapentin 800 mg tablet 800 mg PO TID Chronic Pain 30 days 05/13/23 #90 tabs oxycodone-acetaminophen 10 mg-325 1 tab PO TID Chronic Pain 30 days 05/13/23 mg tablet #90 tabs Allergies Allergy/AdvReac Type Severity Reaction Status Date / Time codeine [CODEINE] Allergy Mild Verified 05/09/23 09:45 meloxicam [From MOBIC] Allergy Mild Verified 05/09/23 09:45 ibuprofen [IBUPROFEN] Allergy Unknown Verified 05/09/23 09:45 [facility] Disclaimer: The information contained in this section may have been updated after the patient was seen, as this information can be updated by other users. Medical History Angina pectoris CAD (coronary artery disease) Daytime somnolence History of left heart catheterization HLD (hyperlipidemia) HTN (hypertension) Low testosterone RABIA (obstructive sleep apnea) Surgical History History of surgery on arm RIGHT Hx of tympanostomy tubes LEFT Stented coronary artery Social History Smoking Status: Current every day smoker tobacco type: cigarettes packs per day: 2 alcohol intake: never substance use type: denies use current occupational status: employed Travel in the last 8 weeks: None household members: spouse and children housing: house current occupation: [employer] current occupational exposures/hazards: No caffeine: Yes ROS Obtained: Yes Systems reviewed as appropriate & no additional complaints except as documented As per HPI Physical Exam General General appearance: alert and in no apparent distress Head Head exam: atraumatic and normocephalic Eye Eye exam: Present normal appearance Neck Neck exam: Present normal inspection Chest Chest inspection: Present normal inspection and symmetric chest wall rise Respiratory Respiratory exam: Present normal lung sounds bilaterally; Absent respiratory distress Cardiovascular Cardiovascular exam: Present regular rate and normal rhythm Abdominal Exam Abdominal exam: Present soft and other (Right CVA tenderness to palpation, no midline tenderness) Neurological Exam Neurological exam: Present alert and oriented X3 Psychiatric Psychiatric exam: Present normal affect and normal mood Skin Skin exam: Present warm and dry Medical Decision Making Medical Records Medical records reviewed: Yes I reviewed the patient's medical records. Torres Inquiry Pt receiving controlled substance: No Vital Signs: 06/03/23 18:37 06/03/23 22:00 Temperature 98.0 F 98 F Temperature Source Oral Oral Pulse Rate 77 Pulse Rate [Radial] 93 H Respiratory Rate 18 16 Blood Pressure 119/78 Blood Pressure [Right Arm] 117/79 Blood Pressure Mean [Right Arm] 91 Blood Pressure Source [Right Arm] Automatic Cuff Blood Pressure Position [Right Arm] Sitting 02 Sat by Pulse Oximetry 98 Oxygen Delivery Method Room Air Lab Data Lab Results 06/03/23 19:43: WBC 8.1, RBC 4.70, Hgb 15.2, Hct 44.3, MCV 94.2 H, MCH 32.3 H, MCHC 34.3, RDW 13.5, Plt Count 253, MPV 7.7, Neut % (Auto) 63.1, Lymph % (Auto) 28.0, [place] % (Auto) 4.8, Eos % (Auto) 3.3, Baso % (Auto) 0.8, Neut # (Auto) 5.1, Lymph # (Auto) 2.3, [place] # (Auto) 0.4, Eos # (Auto) 0.3, Baso # (Auto) 0.1, Sodium 138, Potassium 3.8, Chloride 101, Carbon Dioxide 28, Anion Gap 12.8, BUN 12, Creatinine 0.90, Estimated Creat Clear 115, Estimated GFR 88, Est GFR ( Amer) 107, Glucose 82, Calcium 8.4, Total Bilirubin 0.3, AST 33, ALT 19, Alkaline Phosphatase 72, Total Protein 6.9, Albumin 4.2, Globulin 2.7, Albumin/Globulin Ratio 1.6 06/03/23 19:46: Urine Color Yellow, Urine Appearance Clear, Urine pH 6.5, Ur Specific [place] <= 1.005, Urine Protein Negative, Urine Glucose (UA) Negative, Urine Ketones Negative, Urine Blood Negative, Urine Nitrate Negative, Urine Bilirubin Negative, Urine Urobilinogen 0.2, Ur Leukocyte Esterase Negative, Urine RBC None, Urine WBC None, Ur Squamous Epith Cells Occasional, Urine Bacteria None 06/03/23 19:43 06/03/23 19:43 Orders (Tests/Meds): ED MEDICATIONS Discontinued Medications Generic Name Dose Route Start Last Admin Trade Name Freq PRN Reason Stop Dose Admin Ketorolac Tromethamine 15 mg 06/03/23 19:54 06/03/23 20:08 Ketorolac 30mg/Ml Vial IV 06/03/23 19:55 15 mg ONCE ONE Administration Morphine Sulfate 4 mg 06/03/23 19:54 06/03/23 20:08 Morphine 4mg/Ml Syringe IV 06/03/23 19:55 4 mg ONCE ONE Administration Ondansetron HCl 4 mg 06/03/23 19:54 06/03/23 20:08 Ondansetron 4mg/2ml Vial IV 06/03/23 19:55 4 mg ONCE ONE Administration ORDERS Category Date Time Status CT abdomen pelvis wo con Stat Cat Scan 06/03/23 19:51 Completed Complete Blood Count Auto Diff Stat Lab 06/03/23 19:43 Completed Comprehensive Metabolic Panel Stat Lab 06/03/23 19:43 Completed UA [Urinalysis and Microscopic] Stat Lab 06/03/23 19:46 Completed Medical Decision Narrative: Patient with history and exam per above presenting for evaluation of right- sided flank pain Diagnoses considered include cystitis, pyelonephritis, urolithiasis, hydro nephrosis, aortic aneurysm, sciatica, among others ED workup and treatment included: ED MEDICATIONS Discontinued Medications Generic Name Dose Route Start Last Admin Trade Name Freq PRN Reason Stop Dose Admin Ketorolac Tromethamine 15 mg 06/03/23 19:54 06/03/23 20:08 Ketorolac 30mg/Ml Vial IV 06/03/23 19:55 15 mg ONCE ONE Administration Morphine Sulfate 4 mg 06/03/23 19:54 06/03/23 20:08 Morphine 4mg/Ml Syringe IV 06/03/23 19:55 4 mg ONCE ONE Administration Ondansetron HCl 4 mg 06/03/23 19:54 06/03/23 20:08 Ondansetron 4mg/2ml Vial IV 06/03/23 19:55 4 mg ONCE ONE Administration ORDERS Category Date Time Status CT abdomen pelvis wo con Stat Cat Scan 06/03/23 19:51 Completed Complete Blood Count Auto Diff Stat Lab 06/03/23 19:43 Completed Comprehensive Metabolic Panel Stat Lab 06/03/23 19:43 Completed UA [Urinalysis and Microscopic] Stat Lab 06/03/23 19:46 Completed Labs were independently interpreted by me, significant for no acute findings Imaging was independently visualized and interpreted by me, significant for evidence to suggest recently passed urolith Symptoms at this time are thought to be most consistent with urolithiasis I discussed my clinical impression with patient and answered all questions. At this time, given reassuring workup and exam, I discussed that I have a low index of suspicion for any acute pathology necessitating inpatient management. Specific return precautions were given, with understanding and agreement. Patient will follow up with primary care provider as needed. Critical Care Critical Care Time Critical Care Time: No
[2023-06-03 20:01] LABS: Appearance,Urine CLEAR (Clear); Bilirubin,Urine Negative (Negative); Blood, Urine Negative (Negative); Color,Urine YELLOW (Yellow); Glucose,Urine (UA) Negative (Negative); Ketones,Urine Negative (Negative); Leukocyte Esterase,Urine Negative (Negative); Nitrate,Urine Negative (Negative); PH,Urine 6.5 (5.0-8.5); Protein,Urine Negative (Negative); Specific Gravity, Urine <= 1.005 (1.005-1.030); Urobilinogen,Urine 0.2 EU/dl (0.2)
[2023-06-03 20:02] LABS: Basophils # 0.1 K/mm3 (0-0.2); Basophils % 0.8 % (0.1-2.0); Chloride 101 mmol/L (98-107); Eosinophils # 0.3 K/mm3 (0.0-0.4); Eosinophils % 3.3 % (0.1-12.0); Hematocrit 44.3 % (42.0-52.0); Hemoglobin 15.2 g/dL (14.1-18.0); Lymphocytes # 2.3 K/mm3 (0.7-4.5); Mean Corpuscular HGB Conc 34.3 g/dL (31.8-35.4); Mean Corpuscular Hemoglobin 32.3 pg (27.0-31.2); Mean Corpuscular Volume 94.2 fl (80-94); Mean Platelet Volume 7.7 fl (7.4-10.4); Monocytes # 0.4 K/mm3 (0.1-1.0); Monocytes % 4.8 % (1.7-9.3); Neutrophils # 5.1 K/mm3 (1.8-7.8); Neutrophils % 63.1 % (37.0-80.0); Platelet Count 253 K/mm3 (142-424); Potassium 3.8 mmoL/L (3.5-5.1); Red Cell Distribution Width 13.5 % (11.5-17.5); Sodium 138 mmol/L (136-145); White Blood Count 8.1 K/mm3 (4.8-10.8)
[2023-06-03 20:04] LABS: Blood Urea Nitrogen 12 mg/dl (9-20); Creatinine Clearance Estimated 115 mL/min (50-200); Estimated Glomerular Filt Rate 88 ml/min (>60); GFR (African American) 107 ML/MIN (>60)
[2023-06-03 20:05] LABS: Alanine Aminotransferase 19 U/L (12-78); Albumin Level 4.2 g/dl (3.5-5.0); Albumin/Globulin Ratio 1.6 (1.1-1.8); Alkaline Phosphatase 72 U/L (38-126); Anion Gap 12.8 mEq/L (5-15); Aspartate Amino Transferase 33 U/L (17-59); Bilirubin,Total 0.3 mg/dl (0.2-1.3); Calcium 8.4 mg/dl (8.4-10.2); Carbon Dioxide 28 mmol/L (22.0-30.0); Globulin 2.7 g/dL (1.3-3.2); Glucose 82 mg/dl (74-100); Total Protein,Serum 6.9 g/dl (6.3-8.2)
[2023-06-03] MEDS: ONDANSETRON 4MG/2ML VIAL 4 MG IV (20:08)
[2023-06-03] MEDS: KETOROLAC 30MG/ML VIAL 15 MG IV (20:08)
[2023-06-03] MEDS: MORPHINE 4MG/ML SYRINGE 4 MG IV (20:08)
[2023-06-03 20:23] LABS: Squamous Epithelial Cell,Urine Occasional #/hpf (0-5)
--- NOTE | 2023-06-03 20:32 | PC.NURSE ---
back from CT scan at this time
[2023-06-03 22:00] VITALS: BP 119/78; PULSE 77; RESP 16; TEMP 36.6; O2SAT 99
== END 2023-06-03 22:01 | disposition home or self-care (01) ==
PROVIDERS: Emergency Provider Emergency Medicine; PCP Internal Medicine
DX: R10.9 Unspecified abdominal pain (principal); N20.0 Calculus of kidney; R30.0 Dysuria; I25.118 Atherosclerotic heart disease of native coronary artery with other forms of angina pectoris; E78.5 Hyperlipidemia, unspecified; I10 Essential (primary) hypertension; G47.33 Obstructive sleep apnea (adult) (pediatric); F17.210 Nicotine dependence, cigarettes, uncomplicated
CPT/HCPCS: 74176; 80053; 81001; 85025; 96374; 96375; 99285; J2405

== ENCOUNTER 2023-06-06 23:45 | Outpatient (CLI) | payer MEDICAID, SELFPAY ==
[2023-06-06 22:16] LABS: Amphetamine/Metha Screen,Urine Negative ng/ml (<1000); Barbiturates Screen,Urine Negative ng/ml (<200); Cannabinoid Screen,Urine Negative ng/ml (<50); Cocaine Screen,Urine Negative ng/ml (<300); Methadone Screen,Urine Negative ng/ml (<300); Opiate Screen,Urine Positive ng/ml (<300); Phencyclidine Screen,Urine Negative ng/ml (<25)
[2023-06-06 22:29] LABS: Benzodiazepines Screen,Urine Negative ng/ml (<200)
== END 2023-06-06 23:59 ==
LOC: LAB.DROPOF 23:46
PROVIDERS: PCP Internal Medicine; Visit Provider Internal Medicine
DX: Z79.899 Other long term (current) drug therapy (principal)
CPT/HCPCS: 80307

== ENCOUNTER → 2023-06-22 13:48 | Outpatient (POV) | payer MEDICAID, SELFPAY ==
--- NOTE | 2023-06-22 14:06 | EXP.PAIN.OV ---
HPI Data of Consult Patient: known to practice within the last 3 years Consult date: 06/22/23 Requesting Physician: Zeina Stevenson APRN Primary Care Provider: Lui Shafer DO Consult Narrative Reason for consult: Low back pain, bilateral hip pain, bilateral leg pain History of present illness: Mr. Hoffmann is a 53 year old male who presents today as a new patient. He is a referral from Lui Alaniz's office. Today he rates his pain a 10 out of 10. Patient states his pain is all in his low back, bilateral hips and legs. Patient does state he was a previous patient to our office approximately 2 years or so ago. Patient does state these are the same issues that we did treat him for in the past. He does describe his pain as an aching, throbbing sensation with numbness and tingling and occasional sharp shooting pains. Patient does state the pain interferes with his ability perform activities of daily living such as cooking and cleaning. Patient has had [id number] medications such as Tylenol and ibuprofen along with heat and ice and topicals with no additional relief. Patient denies any prior back surgery. He states he has had injections in the past and they did not provide any additional improvement. He also states that we did try a spinal cord stimulator trial with no additional relief. Patient states he has tried physical therapy however this did not make any additional improvement.Patient does have a history of kidney stones, COPD and coronary artery disease. Patient is currently managed with Percocet 10 mg 3 times a day and gabapentin 800 mg 3 times a day from his primary care provider. His Torres has been reviewed and is appropriate. CC: Zeina Stevenson APRN [facility] Disclaimer: The information contained in this section may have been updated after the patient was seen, as this information can be updated by other users. Medical History Angina pectoris CAD (coronary artery disease) Daytime somnolence History of left heart catheterization HLD (hyperlipidemia) HTN (hypertension) Low testosterone RABIA (obstructive sleep apnea) Surgical History History of surgery on arm RIGHT Hx of tympanostomy tubes LEFT Stented coronary artery Family History (Updated 06/22/23 @ 14:33 by Vivian Dunlap RN) Other Unknown family medical history Social History (Updated 06/22/23 @ 14:34 by Vivian Dunlap RN) Smoking Status: Current every day smoker tobacco type: cigarettes packs per day: 2 alcohol intake: never substance use type: denies use current occupational status: employed Travel in the last 8 weeks: None household members: spouse and children housing: house current occupation: [employer] current occupational exposures/hazards: No caffeine: Yes Review of Systems Review of Systems Review of systems:: pertinent systems reviewed and negative unless documented below Review of systems (narrative): Review of Systems: General: No recent weight changes, no fever, no sleep disturbances Respiratory: No cough, no shortness of air, no recurring pulmonary infections Cardiovascular/peripheral vascular: No chest pain, no palpitations, no edema, no shortness of breath Gastrointestinal: No new onset incontinence, normal bowel movements reported Genitourinary: No new onset incontinence Musculoskeletal: Low back pain, bilateral hip pain, bilateral leg pain Psychiatric: [Normal mood/affect] Neurological: [Denies weakness in extremities], [denies balance issues] Meds Home Medications and Allergies Home Medications Medication Instructions Recorded Confirmed Type amlodipine 5 mg tablet See Rx Instructions .Route 02/01/23 06/06/23 Rx .COMPLEX #30 tabs omeprazole 40 mg capsule,delayed See Rx Instructions .Route 02/01/23 06/06/23 Rx release .COMPLEX #30 caps ranolazine 500 mg tablet,extended 500 mg PO BID #60 tabs 03/08/23 06/06/23 Rx release,12 hr rosuvastatin 10 mg tablet (Crestor) 10 mg PO DAILY #30 tabs 03/08/23 06/06/23 Rx albuterol sulfate 90 mcg/actuation 2 puff inhalation Q4-6H PRN 03/11/23 06/06/23 Rx aerosol inhaler (Ventolin HFA) shortness of breath or wheezing #8.5 grams citalopram 40 mg tablet 40 mg PO DAILY 03/11/23 06/06/23 History fluticasone fur. 100 mcg-umeclid 1 inh inhalation DAILY #60 ea 03/11/23 06/06/23 Rx 62.5 mcg-vilant 25 mcg inhalat.powder (Trelegy Ellipta) lisinopril 20 mg tablet 20 mg PO 03/11/23 06/06/23 History aspirin 81 mg tablet,delayed 81 mg PO DAILY Heart health #90 03/21/23 06/06/23 Rx release tabs gabapentin 800 mg tablet 800 mg PO TID Chronic Pain 30 days 06/06/23 06/06/23 Rx #90 tabs isosorbide mononitrate 30 mg See Rx Instructions .Route 06/06/23 06/06/23 Rx tablet,extended release 24 hr .COMPLEX #90 tabs oxycodone-acetaminophen 10 mg-325 1 tab PO TID Chronic Pain 30 days 06/06/23 06/06/23 Rx mg tablet #90 tabs tamsulosin 0.4 mg capsule 0.8 mg PO DAILY 30 days #60 caps 06/06/23 06/06/23 Rx New Prescriptions to Start Prescriptions: Allergies Allergy/AdvReac Type Severity Reaction Status Date / Time codeine [CODEINE] Allergy Mild Verified 06/06/23 13:05 meloxicam [From MOBIC] Allergy Mild Verified 06/06/23 13:05 ibuprofen [IBUPROFEN] Allergy Unknown Verified 06/06/23 13:05 Objective Narrative: Physical Exam: General: Alert and oriented x3, no acute distress, pleasant and cooperative Lungs: Respirations even and unlabored, symmetrical chest expansion Eyes: PERRL Musculoskeletal: Flexion and extension of lumbar [spine] somewhat guarded secondary to pain, [antalgic gait noted] Neurological: Speech clear, no gross sensory deficit Additional findings Additional findings: PROCEDURE INFORMATION: Exam: CT Abdomen And Pelvis Without Contrast Exam date and time: 06/03/2023 8:28 PM Age: 53 years old Clinical indication: Other: Right flank pain; Additional info: R flank pain, dysuria TECHNIQUE: Imaging protocol: Computed tomography of the abdomen and pelvis without contrast. Total images: 292 Radiation optimization: All CT scans at this facility use at least one of these dose optimization techniques: automated exposure control; mA and/or kV adjustment per patient size (includes targeted exams where dose is matched to clinical indication); or iterative reconstruction. COMPARISON: CT ABDOMEN PELVIS W CON 07/12/2022 11:28 PM FINDINGS: Lungs: Linear scarring right middle lobe. Lung bases are otherwise clear. Heart: Normal heart size. Coronary arteries: Coronary artery calcifications. Liver: Lobulated hepatic contour from prominent diaphragmatic insertion sheaths. Otherwise, unremarkable liver. Gallbladder and bile ducts: Status post cholecystectomy. Mild biliary ductal dilatation likely from post cholecystectomy ectasia. No calcified choledocholithiasis. Pancreas: Normal. No ductal dilation. Spleen: Normal. No splenomegaly. Adrenal glands: Stable 9 mm low-attenuation right adrenal nodule/adenoma. Kidneys and ureters: Interval subtle right perinephric edema. No hydronephrosis or nephrolithiasis. No discrete renal mass. No ureteral stones or dilatation. Stomach and bowel: Unremarkable stomach and duodenum. No ileus or bowel obstruction. Fecalization of small bowel content flying chronic stasis. Moderate colonic stool burden. Moderate diverticulosis of the descending and sigmoid colon. Generalized mild wall thickening of the sigmoid and proximal descending colon without surrounding inflammation. Unremarkable rectum. Appendix: Normal appendix. Intraperitoneal space: Unremarkable. No free air. No significant fluid collection. Vasculature: Mildly atherosclerotic abdominal aorta without aneurysm. Lymph nodes: Benign fat containing bilateral inguinal and femoral lymph nodes. Urinary bladder: Minor bladder wall thickening. No bladder stones. Reproductive: Nonenlarged prostate. Bones/joints: Broad-based thoracolumbar dextrocurvature. Moderate degenerative changes lumbar spine. Mild degenerative changes thoracic spine with multilevel endplate Schmorl's nodes. No acute osseous abnormality. Soft tissues: Unremarkable. IMPRESSION: 1. Acute subtle right perinephric edema. Differential includes: Sequela of recently passed calculus versus ascending urinary tract infection such as acute pyelitis/pyelonephritis. 2. No hydronephrosis or nephrolithiasis 3. Minor bladder wall thickening may reflect cystitis. 4. Moderate colonic diverticulosis. 5. Generalized mild wall thickening of the sigmoid and proximal descending colon likely from under distention versus chronic muscle hypertrophy. Could consider early diverticulitis. Doubt neoplasm given length of involvement. 6. Additional chronic and incidental findings. L REPORT CLINICAL HISTORY: lower back pain with tingling and numbness down right leg x years no recent injury /trauma FINDINGS: Multiplanar MR imaging of the lumbar spine was performed without contrast. On the sagittal T2-weighted images, disc degeneration is seen at multiple levels. There are multiple Schmorl's nodes. Is mild rightward curvature. There is no evidence of fracture. No bony mass is identified. The conus has an unremarkable appearance. T11-12: An annular disc bulge is present. There is no significant canal stenosis or neural foraminal narrowing. T12-L1: An annular disc bulge is present. There is no significant canal stenosis or neural foraminal narrowing. L1-2: An annular disc bulge is present. There is no significant canal stenosis. There is mild right neural foraminal narrowing. L2-3: There is an annular disc bulge with facet arthropathy and vertebral osteophytes. There is a posterior midline annular tear. There is broad-based central disc protrusion. There is moderate bilateral neural foraminal narrowing. There is posterior displacement of the right L3 nerve root. L3-4: There is an annular disc bulge with facet arthropathy. There is a small central disc protrusion. There is mild bilateral neural foraminal narrowing. L4-5: There is an annular disc bulge with facet arthropathy. There is a small central disc protrusion. There is moderate bilateral neural foraminal narrowing. L5-S1: There is an annular disc bulge with facet arthropathy. There is a small central disc protrusion. IMPRESSION: Multilevel degenerative disc disease with areas of neural foraminal narrowing as described. Posterior midline annular tear at L2-3. Disc protrusion at L2-3. Reviewed, Interpreted and Dictated by Yaniv Argueta III, MD Transcribed by Christine Knott Authenticated and [facility] Assessment and Plan *Assessment and plan (1) Lumbar canal stenosis: Status: Acute Qualifiers: Neurogenic claudication status: with neurogenic claudication Qualified Code(s): M48.062 - Spinal stenosis, lumbar region with neurogenic claudication Category: Medical Code(s): M48.061 - Spinal stenosis, lumbar region without neurogenic claudication (2) Degenerative disc disease, lumbar: Status: Acute Category: Medical Code(s): M51.36 - Other intervertebral disc degeneration, lumbar region (3) Lumbar radiculopathy: Status: Acute Category: Medical Code(s): M54.16 - Radiculopathy, lumbar region (4) Facet arthropathy: Status: Acute Category: Medical Code(s): M47.819 - Spondylosis without myelopathy or radiculopathy, site unspecified Plan Patient continues to experience significant pain in his low back and legs with limited range of motion of his lumbar spine. I have discussed with the patient that he may benefit from a lumbar epidural at the L2-3 level where he does have arthritis, bone spurs, disc bulging, annular tear, disc protrusion and moderate narrowing along with a displaced L3 nerve roots. Risk and benefits were discussed with the patient and he would like to proceed forward with this plan of care. Patient is not on any blood thinners. I will also discussed with the patient that he may benefit from an intrathecal pain pump trial in the future. Educational handouts were given during today's visit. We will follow-up with this at future visits. I have also discussed with the patient due to the extent of his MRI findings that I do think it would be beneficial for referral to neurosurgery to review possible options with their office. At this time the patient would like to wait and we will discuss this at his upcoming visit. Patient will be scheduled for a LESI L2-L3 under fluoroscopy. Patient has been instructed to contact the clinic with any concerns before the next appointment. Dr. Art has reviewed this note and agrees with this plan of care. This note was dictated using voice recognition software and make contain errors or omissions.
[2023-06-22 14:33] VITALS: BP 133/89; PULSE 89; RESP 18; O2SAT 96; BMI 25.6
== END ==
LOC: SC.PAIN 13:49
PROVIDERS: PCP Internal Medicine; Visit Provider Nurse Practitioner Family
DX: M48.062 Spinal stenosis, lumbar region with neurogenic claudication (principal); M51.16 Intervertebral disc disorders with radiculopathy, lumbar region; M47.819 Spondylosis without myelopathy or radiculopathy, site unspecified
CPT/HCPCS: 99202; 99212; G0463

== ENCOUNTER → 2023-07-20 13:44 | Outpatient (POV) | payer MEDICAID, SELFPAY ==
[2023-07-20 14:28] VITALS: BP 120/74; PULSE 87; RESP 20; BMI 24.1
--- NOTE | 2023-07-20 14:42 | EXP.PAIN.SOA ---
[facility] Pain Management SOAP Note Subjective:: Patient is a pleasant 53-year-old male who presents today for insurance denial of lumbar injection. We are currently treating the patient for degenerative disc disease of lumbar spine with lumbar radiculopathy symptoms, bilateral hip pain. Today he rates his pain a 9 out of 10. Patient denies any new trauma or injury. He states he continues to have low back pain with radiating symptoms into his lower extremities. He does describe this as an aching, throbbing sensation with numbness and tingling into his legs. He does state the pain is constant and interfering with his ability perform activities of daily living such as cooking and cleaning. Patient has not had any injections since 2014 and states he does not remember even then if he got relief or not due to it almost being 10 years. Patient still would like to proceed forward with a lumbar epidural. He has tried and failed conservative treatment such as oral medications, heat and ice, topicals, physical therapy and at home stretching exercise for longer than 6 weeks. Patient is currently managed with Percocet 10 mg 3 times a day and gabapentin 800 mg 3 times a day from his primary care provider. His Torres has been reviewed and is appropriate. Review of Systems: General: No recent weight changes, no fever, no sleep disturbances Respiratory: No cough, no shortness of air, no recurring pulmonary infections Cardiovascular/peripheral vascular: No chest pain, no palpitations, no edema, no shortness of breath Gastrointestinal: No new onset incontinence, normal bowel movements reported Genitourinary: No new onset incontinence Musculoskeletal: Low back pain, bilateral leg pain Psychiatric: [Normal mood/affect] Neurological: [Denies weakness in extremities], [denies balance issues] Objective:: Physical Exam: General: Alert and oriented x3, no acute distress, pleasant and cooperative Lungs: Respirations even and unlabored, symmetrical chest expansion Eyes: PERRL Musculoskeletal: Flexion and extension of lumbar [spine] somewhat guarded secondary to pain, [antalgic gait noted] positive bilateral leg raise Neurological: Speech clear, no gross sensory deficit Assessment:: Degenerative disc disease of lumbar spine with lumbar radiculopathy symptoms, bilateral hip pain Plan:: Patient continues to experience significant pain in his low back and legs with limited range of motion and positive bilateral leg braces. Patient was denied his lumbar epidural due to not being able to provide detail on percentage improvement with his last epidural. Patient has not had any lumbar epidurals since 2014 and is unable to determine whether or not it helped his pain nearly 10 years ago. Patient has had updated imaging done in 2021 that did show significant findings of multilevel disc bulge, facet arthropathy, osteophytes, protruding disc with resulting nerve root impingement and moderate narrowing most notable at the L2-L3 level. I have discussed again that I do believe he would benefit from these epidural injection. Risk and benefits were discussed with the patient and he would like to proceed forward with this plan of care. Patient has tried and failed conservative therapy such as oral medication, heat and ice, topicals, physical therapy, at home stretching exercise for longer than 6 weeks. We will resubmit for the lumbar epidural steroid injection L2-L3 under fluoroscopy. Patient has been instructed to contact the clinic with any concerns before the next appointment. Dr. Art has reviewed this note and agrees with this plan of care. This note was dictated using voice recognition software and make contain errors or omissions. [facility] Disclaimer: The information contained in this section may have been updated after the patient was seen, as this information can be updated by other users. Medical History Angina pectoris CAD (coronary artery disease) Daytime somnolence History of left heart catheterization HLD (hyperlipidemia) HTN (hypertension) Low testosterone RABIA (obstructive sleep apnea) Will need to follow-up with this at his next visit. Surgical History History of surgery on arm RIGHT Hx of tympanostomy tubes LEFT Stented coronary artery Family History Other Unknown family medical history Social History Smoking Status: Current every day smoker tobacco type: cigarettes packs per day: 2 alcohol intake: never substance use type: denies use current occupational status: employed Travel in the last 8 weeks: None household members: spouse and children housing: house current occupation: [employer] current occupational exposures/hazards: No caffeine: Yes
== END ==
LOC: SC.PAIN 13:44
PROVIDERS: PCP Internal Medicine; Visit Provider Nurse Practitioner Family
DX: M51.16 Intervertebral disc disorders with radiculopathy, lumbar region (principal); M25.551 Pain in right hip; M25.552 Pain in left hip
CPT/HCPCS: 99212; G0463

== ENCOUNTER 2023-09-07 10:25 | Outpatient (CLI) | payer MEDICAID, SELFPAY ==
[2023-09-07 18:54] LABS: Chol/HDL Ratio 4.9 (1-3.5); Cholesterol 165 mg/dl (140-200); HDL Cholesterol 34 mg/dl (40-60); Triglycerides 80 mg/dl (30-150); VLDL Cholesterol 16 mg/dL (0-40)
[2023-09-07 19:06] LABS: Direct LDL Cholesterol 105.32 mg/dL (100-129)
== END 2023-09-07 23:59 ==
LOC: LAB.DROPOF 09-08 10:26
PROVIDERS: PCP Internal Medicine; Visit Provider Internal Medicine
DX: E78.5 Hyperlipidemia, unspecified (principal)
CPT/HCPCS: 80061

== ENCOUNTER 2024-01-14 16:13 | Emergency (ER) | payer MEDICAID, SELFPAY ==
[2024-01-14 16:30] VITALS: BP 132/80; PULSE 74; RESP 20; TEMP 36.7; O2SAT 99; BMI 22.2
[2024-01-14 16:48] LABS: Apearance,Urine Cloudy (Clear); Color,Urine Amber (Yellow); Specific Gravity, Urine 1.025 (1.005-1.030)
[2024-01-14 16:49] LABS: Bilirubin,Urine 1+ (Negative); Blood, Urine Negative (Negative); Glucose,Urine (UA) Negative (Negative); Ketones,Urine Negative (Negative); Protein,Urine 1+ (Negative)
[2024-01-14 16:50] LABS: UTC Leukocyte Esterase,Urine Negative (Negative); UTC Nitrate,Urine Negative (Negative); Urobilinogen,Urine 4 EU/dl (0.2)
--- NOTE | 2024-01-14 16:50 | EXP.UTC ---
Discharge Plan Disposition Patient Disposition: Home, Self-Care Condition: Good Prescriptions Prescriptions: No Action albuterol sulfate [Ventolin HFA] 90 mcg/actuation HFA aerosol inhaler 2 puff inhalation Q4-6H PRN (Reason: shortness of breath or wheezing) Qty: 8.5 3RF Trelegy Ellipta 100-62.5-25 mcg blister with device 1 inh inhalation DAILY Qty: 60 2RF rosuvastatin 20 mg tablet 20 mg PO DAILY Qty: 30 2RF oxycodone-acetaminophen 10-325 mg tablet 1 tab PO TID 28 Days Qty: 84 0RF oxycodone-acetaminophen 10-325 mg tablet 1 tab PO TID PRN (Reason: pain) 28 Days Qty: 84 0RF oxycodone-acetaminophen 10-325 mg tablet 1 tab PO TID PRN (Reason: pain) 28 Days Qty: 84 0RF finasteride 5 mg tablet 5 mg PO DAILY Qty: 30 2RF amlodipine 5 mg tablet See Rx Instructions .ROUTE .COMPLEX Qty: 30 2RF Dose Instruction: TAKE 1 TABLET BY MOUTH EVERY DAY Rx Instructions: TAKE 1 TABLET BY MOUTH EVERY DAY aspirin 81 mg tablet,delayed release (DR/EC) 81 mg PO DAILY Qty: 90 3RF isosorbide mononitrate 30 mg tablet extended release 24 hr See Rx Instructions .ROUTE .COMPLEX Qty: 90 4RF Dose Instruction: TAKE 1 TABLET BY MOUTH ONCE DAILY FOR CHEST PAIN Rx Instructions: TAKE 1 TABLET BY MOUTH ONCE DAILY FOR CHEST PAIN ranolazine 500 mg tablet extended release 12 hr See Rx Instructions .ROUTE .COMPLEX Qty: 180 3RF Dose Instruction: TAKE 1 TABLET BY MOUTH TWICE DAILY Rx Instructions: TAKE 1 TABLET BY MOUTH TWICE DAILY omeprazole 40 mg capsule,delayed release(DR/EC) See Rx Instructions .ROUTE .COMPLEX Qty: 90 3RF Dose Instruction: TAKE 1 CAPSULE BY MOUTH ONCE DAILY FOR GERD Rx Instructions: TAKE 1 CAPSULE BY MOUTH ONCE DAILY FOR GERD lisinopril 20 mg tablet See Rx Instructions .ROUTE .COMPLEX Qty: 90 3RF Dose Instruction: TAKE 1 TABLET BY MOUTH ONCE DAILY Rx Instructions: TAKE 1 TABLET BY MOUTH ONCE DAILY tamsulosin 0.4 mg capsule See Rx Instructions .ROUTE .COMPLEX Qty: 60 2RF Dose Instruction: TAKE 2 CAPSULES BY MOUTH EVERY DAY Rx Instructions: TAKE 2 CAPSULES BY MOUTH EVERY DAY gabapentin 800 mg tablet 800 mg PO TID 30 Days Qty: 90 2RF fluoxetine 40 mg capsule See Rx Instructions .ROUTE .COMPLEX Qty: 30 3RF Dose Instruction: TAKE 1 CAPSULE BY MOUTH EVERY DAY Rx Instructions: TAKE 1 CAPSULE BY MOUTH EVERY DAY Referrals Follow up/Referrals: Lui Shafer DO [Primary Care Provider] - See instructions Activity Restrictions/Add. Instructions Additional Instructions/Restrictions: FOLLOW UP WITH PCP ON TUESDAY IF NO IMPROVEMENT OR WORSENING RETURN Clinical Impressions Clinical Impression: Ingrown left big toenail Instructions Patient Instructions: DI for Infected Ingrown Toenail, DI for Ingrown Toenail Print Language Print Language: Vietnamese Discharge ED Provider: Alfonso ([facility] [place] HPI General Stated complaint: cough,fever,headache Mode of Arrival: Ambulatory Source of Information: Patient Limitations: No Limitations Time Seen by Provider: 01/14/24 16:50 Description of Symptoms (Recalled from Triage Doc. by RN): PATIENT C/O FEVER, DIARRHEA, WEAKNESS, COUGH, INGROWN TOENAIL, AND POSSIBLE KIDNEY INFECTION HEENT Symptoms (Recalled from RN notes): Yes Resp Symptoms (Recalled from RN notes): Yes Skin Symptoms (Recalled from RN notes): Yes MS Symptoms (Recalled from RN notes): No Functional Status (Recalled from RN notes): WNL History of Present Illness Provider Complaint: 53 YR OLD FEMALE PRESENTS FOR C/O FEVER, DIARRHEA, WEAKNESS, COUGH, INGROWN TOENAIL, AND POSSIBLE KIDNEY INFECTION Related Data Previous Rx's ?Medication ?Instructions ?Recorded amlodipine 5 mg tablet See Rx Instructions .Route 02/01/23 .COMPLEX #30 tabs albuterol sulfate 90 mcg/actuation 2 puff inhalation Q4-6H PRN 03/11/23 aerosol inhaler (Ventolin HFA) shortness of breath or wheezing #8.5 grams fluticasone fur. 100 mcg-umeclid 1 inh inhalation DAILY #60 ea 03/11/23 62.5 mcg-vilant 25 mcg inhalat.powder (Trelegy Ellipta) aspirin 81 mg tablet,delayed 81 mg PO DAILY Heart health #90 03/21/23 release tabs isosorbide mononitrate 30 mg See Rx Instructions .Route 06/06/23 tablet,extended release 24 hr .COMPLEX #90 tabs omeprazole 40 mg capsule,delayed See Rx Instructions .Route 06/29/23 release .COMPLEX #90 caps ranolazine 500 mg tablet,extended See Rx Instructions .Route 06/29/23 release,12 hr .COMPLEX #180 tabs lisinopril 20 mg tablet See Rx Instructions .Route 08/22/23 .COMPLEX #90 tabs tamsulosin 0.4 mg capsule See Rx Instructions .Route 08/30/23 .COMPLEX #60 caps finasteride 5 mg tablet 5 mg PO DAILY #30 tabs 11/30/23 oxycodone-acetaminophen 10 mg-325 1 tab PO TID Chronic Pain 28 days 11/30/23 mg tablet #84 tabs oxycodone-acetaminophen 10 mg-325 1 tab PO TID PRN pain 28 days #84 11/30/23 mg tablet tabs oxycodone-acetaminophen 10 mg-325 1 tab PO TID PRN pain 28 days #84 11/30/23 mg tablet tabs rosuvastatin 20 mg tablet 20 mg PO DAILY #30 tabs 11/30/23 gabapentin 800 mg tablet 800 mg PO TID Chronic Pain 30 days 12/06/23 #90 tabs fluoxetine 40 mg capsule See Rx Instructions .Route 01/02/24 .COMPLEX #30 caps Allergies Allergy/AdvReac Type Severity Reaction Status Date / Time codeine [CODEINE] Allergy Mild Verified 11/30/23 13:26 meloxicam [From MOBIC] Allergy Mild Verified 11/30/23 13:26 ibuprofen [IBUPROFEN] Allergy Unknown Verified 11/30/23 13:26 Worker's Comp Is this a Worker's Comp case?: No [facility] Disclaimer: The information contained in this section may have been updated after the patient was seen, as this information can be updated by other users. Medical History , [employer]) Low testosterone Angina pectoris History of left heart catheterization CAD (coronary artery disease) HTN (hypertension) HLD (hyperlipidemia) RABIA (obstructive sleep apnea) Daytime somnolence Surgical History , [employer]) Stented coronary artery Hx of tympanostomy tubes History of surgery on arm Family History , [employer]) Unknown family medical history Social History , GABRIELE) Smoking Status: Current every day smoker tobacco type: cigarettes packs per day: 2 alcohol intake: never substance use type: denies use current occupational status: employed Travel in the last 8 weeks: None household members: spouse and children housing: house current occupation: [employer] current occupational exposures/hazards: No caffeine: Yes ROS Obtained: Yes All systems reviewed & no additional complaints except as documented Constitutional Constitutional: Reports system reviewed and no additional complaints, except as documented, Reports as per HPI, Reports fatigue and Reports fever(s) Eyes Eyes: Reports system reviewed and no additional complaints, except as documented ENT Ears, Nose, Mouth, and Throat: Reports system reviewed and no additional complaints, except as documented, Reports as per HPI and Reports nasal congestion Cardiovascular Cardiovascular: Reports system reviewed and no additional complaints, except as documented Respiratory Respiratory: Reports system reviewed and no additional complaints, except as documented, Reports as per HPI, Reports chest congestion, Reports cough and Reports non-productive cough Gastrointestinal Gastrointestingal: Reports system reviewed and no additional complaints, except as documented, as per HPI and diarrhea Musculoskeletal Musculoskeletal: Reports system reviewed and no additional complaints, except as documented and Reports as per HPI Integumentary/Breasts Skin/Breast: Reports system reviewed and no additional complaints, except as documented, Reports as per HPI, Reports wounds and Reports other (LEFT GREAT TOE INFECTION) Endocrine Endocrine: Reports system reviewed and no additional complaints, except as documented and Reports fatigue Hematologic/Lymphatic Henatologic/Lymphatic: Reports system reviewed and no additional complaints, except as documented Allergic/Immunologic Allergic/Immunologic: Reports system reviewed and no additional complaints, except as documented Physical Exam General General appearance: alert and in no apparent distress Head Head exam: atraumatic Eye Eye exam: Present normal appearance and PERRL ENT ENT exam: Present normal exam, normal oropharynx, mucous membranes moist and TM's normal bilaterally Respiratory Respiratory exam: Present normal lung sounds bilaterally Cardiovascular Cardiovascular exam: Present regular rate and normal rhythm Abdominal Exam Abdominal exam: Present soft and normal bowel sounds Extremities Exam Extremities exam: Present normal inspection and full ROM Neurological Exam Neurological exam: Present alert, oriented X3 and CN II-XII intact Skin Skin exam: Present warm and other (LEFT GREAT TOENAIL INGROWN, REDNESS AND DRAINAGE NOTED) Medical Decision Making Medical Records Medical records reviewed: Yes I reviewed the patient's medical records. Torres Inquiry Pt receiving controlled substance: No Torres was queried for this patient: No Vital Signs: 01/14/24 16:30 Temperature 98.0 F Temperature Source Oral Pulse Rate [Left Brachial] 74 Respiratory Rate 20 Blood Pressure [Left Arm] 132/80 Blood Pressure Mean [Left Arm] 97 Blood Pressure Source [Left Arm] Automatic Cuff Blood Pressure Position [Left Arm] Sitting 02 Sat by Pulse Oximetry 99 Oxygen Delivery Method Room Air Lab Data Lab results reviewed: Yes I reviewed the patient's lab results. Medical Decision Narrative: PT STATES HE DOES NOT WANT TO GO TO ED
[2024-01-14 17:04] VITALS: BP 132/80; PULSE 74; RESP 20; TEMP 36.7; O2SAT 99
== END 2024-01-14 17:18 | disposition home or self-care (01) ==
PROVIDERS: Emergency Provider Nurse Practitioner Family; PCP Internal Medicine
DX: L60.0 Ingrowing nail (principal); R50.9 Fever, unspecified; R19.7 Diarrhea, unspecified; R05.9 Cough, unspecified; R53.1 Weakness
CPT/HCPCS: 81003; 99212; 99214; G0463

== ENCOUNTER 2024-01-27 08:47 | Outpatient (CLI) | payer MEDICAID, SELFPAY ==
[2024-01-27 18:46] LABS: Basophils % 0.4 % (0.1-2.0); Eosinophils # 0.2 K/mm3 (0.0-0.4); Eosinophils % 2.6 % (0.1-12.0); Hematocrit 45.2 % (42.0-52.0); Hemoglobin 14.3 g/dL (14.1-18.0); Lymphocytes # 1.2 K/mm3 (0.7-4.5); Lymphocytes % 14.7 % (10-50); Mean Corpuscular HGB Conc 31.7 g/dL (31.8-35.4); Mean Corpuscular Hemoglobin 30.4 pg (27.0-31.2); Mean Corpuscular Volume 95.9 fl (80-94); Monocytes # 0.3 K/mm3 (0.1-1.0); Monocytes % 3.5 % (1.7-9.3); Neutrophils # 6.6 K/mm3 (1.8-7.8); Neutrophils % 78.9 % (37.0-80.0); Platelet Count 389 K/mm3 (142-424); Red Blood Count 4.71 M/mm3 (4.60-6.20); Red Cell Distribution Width 13.5 % (11.5-17.5); White Blood Count 8.4 K/mm3 (4.8-10.8)
[2024-01-27 19:20] LABS: Alanine Aminotransferase 19 U/L (12-78); Albumin Level 3.9 g/dl (3.5-5.0); Albumin/Globulin Ratio 1.3 (1.1-1.8); Alkaline Phosphatase 83 U/L (38-126); Anion Gap 8.6 mEq/L (5-15); Aspartate Amino Transferase 24 U/L (17-59); Bilirubin,Total 0.6 mg/dl (0.2-1.3); Blood Urea Nitrogen 15 mg/dl (9-20); Carbon Dioxide 26 mmol/L (22.0-30.0); Chloride 108 mmol/L (98-107); Estimated Glomerular Filt Rate 118 ml/min (>60); GFR (African American) 143 ML/MIN (>60); Globulin 2.9 g/dL (1.3-3.2); Glucose 94 mg/dl (74-100); Potassium 4.6 mmoL/L (3.5-5.1); Sodium 138 mmol/L (136-145); Total Protein,Serum 6.8 g/dl (6.3-8.2)
[2024-01-27 19:27] LABS: Free Thyroxine Index 4.3 ug/dL (5.93-13.13); Triiodothryronine (T3) Uptake 39 % (23.5-40.5)
[2024-01-27 19:40] LABS: Thyroid Stimulating Hormone 1.22 uIU/mL (0.465-4.68)
[2024-01-27 20:04] LABS: Vitamin B12 757 pg/mL (239-931)
[2024-01-27 21:22] LABS: 25-OH Vitamin D, Total 20.1 ng/mL (30-100)
[2024-02-01 16:54] LABS: Testosterone,Free 4.9 pg/mL (7.2-24.0)
== END 2024-01-27 23:59 | disposition home or self-care (01) ==
LOC: LAB.DROPOF 01-30 08:47
PROVIDERS: PCP Family Medicine; Visit Provider Family Medicine
DX: R53.83 Other fatigue (principal); Z00.00 Encounter for general adult medical examination without abnormal findings
CPT/HCPCS: 80050; 80053; 82306; 82607; 84402; 84436; 84443; 84479; 85025

== ENCOUNTER 2024-04-29 14:14 | Emergency (ER) | payer MEDICAID, SELFPAY ==
[2024-04-29] VITALS (12 sets, daily range): BP systolic 107–139; BP diastolic 68–85; PULSE 82–93; RESP 13–24; TEMP 36.9; O2SAT 94–99; BMI 25.2
--- NOTE | 2024-04-29 14:15 | ECG_ITS ---
APPROVED REPORT Exam: Resting ECG HR:88 bpm ECG Measurements Heart Rate 88 AXES DC 148 P 37 QRSd 104 QRS 85 QT 370 T 62 QTc 416 Conclusion SINUS RHYTHM MINIMAL ST DEPRESSION [0.025+ mV ST DEPRESSION] BORDERLINE ECG Isolated ST segment abnormality in lead III, no reciprocal changes, no STEMI Electronically signed by : VISHNU CAMARENA, 05/01/2024 06:32:36
--- NOTE | 2024-04-29 14:21 | XR_ITS ---
PROCEDURE INFORMATION: Exam: XR Chest Exam date and time: 04/29/2024 2:28 PM Age: 54 years old Clinical indication: Shortness of breath; Additional info: SOA cp TECHNIQUE: Imaging protocol: Radiologic exam of the chest. Views: 1 view. COMPARISON: CR XR CHEST 2V 09/13/2022 12:22 PM FINDINGS: Lungs: Patchy opacities in the right hemithorax may represent atelectasis or pneumonia.. Pleural spaces: Unremarkable. No pleural effusion. No pneumothorax. Heart/Mediastinum: Unremarkable. No cardiomegaly. Bones/joints: Unremarkable. IMPRESSION: Patchy opacities in the right hemithorax may represent atelectasis or pneumonia..
[2024-04-29 14:29] LABS: VBG Base Excess -0.4 mmol/L (-2.4-2.3); VBG HCO3 24.2 mmol/L (23-30); VBG Oxygen Saturation 87.7 % (50-70); VBG PCO2 39.3 mmol/L (35-51); VBG PH 7.41 mmol/L (7.31-7.41); VBG PO2 50.5 mmol/L (28-40); VBG Total CO2 25.4 mmol/L (23-27)
[2024-04-29] MEDS: IPRATROPIUM/ALBUTEROL 3 ML NEB 9 ML IH (14:30)
[2024-04-29] MEDS: ASPIRIN 81MG CHEWABLE TABLET 324 MG PO (14:30)
[2024-04-29] MEDS: METHYLPREDNISOLONE SOD SUCC 125MG VIAL 125 MG IV (14:30)
[2024-04-29 14:34] LABS: Lactate Venous 2.2 mmol/L (0.4-2.0)
[2024-04-29 14:40] LABS: Basophils # 0.1 K/mm3 (0-0.2); Basophils % 0.5 % (0.1-2.0); Eosinophils # 0.1 K/mm3 (0.0-0.4); Eosinophils % 0.7 % (0.1-12.0); Hemoglobin 12.6 g/dL (14.1-18.0); Lymphocytes % 7.3 % (10-50); Mean Corpuscular HGB Conc 33.1 g/dL (31.8-35.4); Mean Corpuscular Hemoglobin 30.3 pg (27.0-31.2); Mean Corpuscular Volume 91.5 fl (80-94); Mean Platelet Volume 7.7 fl (7.4-10.4); Monocytes # 0.6 K/mm3 (0.1-1.0); Monocytes % 4.2 % (1.7-9.3); Neutrophils # 12.1 K/mm3 (1.8-7.8); Neutrophils % 87.3 % (37.0-80.0); Platelet Count 190 K/mm3 (142-424); Red Blood Count 4.15 M/mm3 (4.60-6.20); Red Cell Distribution Width 13.9 % (11.5-17.5); White Blood Count 13.9 K/mm3 (4.8-10.8)
[2024-04-29 14:46] LABS: Albumin Level 3.6 g/dl (3.5-5.0); Chloride 107 mmol/L (98-107)
[2024-04-29 14:47] LABS: Potassium 3.9 mmoL/L (3.5-5.1); Sodium 138 mmol/L (136-145)
[2024-04-29 14:48] LABS: Activated Partial Thrombo Time 29.2 seconds (22.8-30.6); INR 0.97 (0.9-1.1); Prothrombin Time 10.9 seconds (10.1-12.5)
--- NOTE | 2024-04-29 14:48 | [facility].EDCP ---
Discharge Plan Disposition Patient Disposition: Home, Self-Care Condition: Good Prescriptions Prescriptions: New amoxicillin-pot clavulanate 875-125 mg tablet 1 tab PO BID Qty: 20 0RF azithromycin 500 mg tablet 500 mg PO DAILY 4 Days Qty: 4 0RF prednisone 20 mg tablet 40 mg PO BID 4 Days Qty: 16 0RF No Action albuterol sulfate [Ventolin HFA] 90 mcg/actuation HFA aerosol inhaler 2 puff inhalation Q4-6H PRN (Reason: shortness of breath or wheezing) Qty: 8.5 3RF Trelegy Ellipta 100-62.5-25 mcg blister with device 1 inh inhalation DAILY Qty: 60 2RF gabapentin 800 mg tablet 800 mg PO TID 30 Days Qty: 90 2RF oxycodone-acetaminophen 10-325 mg tablet 1 tab PO TID PRN (Reason: Chronic Pain) 30 Days Qty: 90 0RF oxycodone-acetaminophen 10-325 mg tablet 1 tab PO TID PRN (Reason: pain) Qty: 90 0RF cholecalciferol (vitamin D3) 250 mcg (10,000 unit) capsule 250 mcg PO DAILY 90 Days Qty: 90 2RF sulfamethoxazole-trimethoprim [Bactrim DS] 800-160 mg tablet 1 tab PO BID 14 Days Qty: 28 0RF mupirocin 2 % ointment 1 applic topical BID 14 Days Qty: 15 0RF rosuvastatin 10 mg tablet 10 mg PO citalopram 40 mg tablet 40 mg PO cetirizine [All Day Allergy (cetirizine)] 10 mg tablet 10 mg PO DAILY Qty: 90 2RF amlodipine 5 mg tablet See Rx Instructions .ROUTE .COMPLEX Qty: 30 2RF Dose Instruction: TAKE 1 TABLET BY MOUTH EVERY DAY Rx Instructions: TAKE 1 TABLET BY MOUTH EVERY DAY aspirin 81 mg tablet,delayed release (DR/EC) 81 mg PO DAILY Qty: 90 3RF isosorbide mononitrate 30 mg tablet extended release 24 hr See Rx Instructions .ROUTE .COMPLEX Qty: 90 4RF Dose Instruction: TAKE 1 TABLET BY MOUTH ONCE DAILY FOR CHEST PAIN Rx Instructions: TAKE 1 TABLET BY MOUTH ONCE DAILY FOR CHEST PAIN ranolazine 500 mg tablet extended release 12 hr See Rx Instructions .ROUTE .COMPLEX Qty: 180 3RF Dose Instruction: TAKE 1 TABLET BY MOUTH TWICE DAILY Rx Instructions: TAKE 1 TABLET BY MOUTH TWICE DAILY omeprazole 40 mg capsule,delayed release(DR/EC) See Rx Instructions .ROUTE .COMPLEX Qty: 90 3RF Dose Instruction: TAKE 1 CAPSULE BY MOUTH ONCE DAILY FOR GERD Rx Instructions: TAKE 1 CAPSULE BY MOUTH ONCE DAILY FOR GERD lisinopril 20 mg tablet See Rx Instructions .ROUTE .COMPLEX Qty: 90 3RF Dose Instruction: TAKE 1 TABLET BY MOUTH ONCE DAILY Rx Instructions: TAKE 1 TABLET BY MOUTH ONCE DAILY tamsulosin 0.4 mg capsule See Rx Instructions .ROUTE .COMPLEX Qty: 60 2RF Dose Instruction: TAKE 2 CAPSULES BY MOUTH EVERY DAY Rx Instructions: TAKE 2 CAPSULES BY MOUTH EVERY DAY fluoxetine 40 mg capsule See Rx Instructions .ROUTE .COMPLEX Qty: 30 3RF Dose Instruction: TAKE 1 CAPSULE BY MOUTH EVERY DAY Rx Instructions: TAKE 1 CAPSULE BY MOUTH EVERY DAY finasteride 5 mg tablet See Rx Instructions .ROUTE .COMPLEX Qty: 30 2RF Dose Instruction: TAKE 1 TABLET(5 mg) orally daily Rx Instructions: TAKE 1 TABLET(5 mg) orally daily peg 3350-electrolytes [Golytely] 236-22.74-6.74 -5.86 gram recon soln 240 ml PO Q10M Qty: 4000 0RF Rx Instructions: at 6pm day before surgery take first dose. After mixing prep as directed, drink half of the gallon by drinking 8 ounces, or 1 cup, every 15 mins until half is remaining. refrigerate the remaining and continue clear liquids till midnight. 5-6 hours before exam, take the second dosage, 8oz every 15 mins till gone. Referrals Follow up/Referrals: Provider,Referral, MD [Primary Care Provider] - See instructions Activity Restrictions/Add. Instructions Additional Instructions/Restrictions: You were evaluated in the emergency department today. You were diagnosed with pneumonia as well as COPD exacerbation. We are prescribing you 2 antibiotics and a steroid. Please complete the full course as prescribed. Please use your inhalers at home. Follow-up closely with your primary care provider. Return to the emergency department for new or worsening symptoms. Clinical Impressions Clinical Impression: Pneumonia, Acute exacerbation of chronic obstructive pulmonary disease Stand Alone Forms Stand Alone Forms: Work/School Release Instructions Patient Instructions: DI for Chronic Obstructive Pulmonary Disease, DI for Pneumonia -- Adult Print Language Print Language: Irish Discharge ED Provider: Zeina Sylvester HPI <Rey Vásquez MD - Last Filed: 04/29/24 14:55> General Chief Complaint: Chest Pain Stated Complaint: chest pain Time Seen by Provider: 04/29/24 14:18 Mode of Arrival: Wheelchair Source of Information: Patient Limitations: No Limitations Description of Symptoms (Recalled from ER Triage Doc. by RN): Reports increased shortness of breath and lower heart pain since yesterday. History of Present Illness HPI narrative: Please note that above description of symptoms, in this electronic medical record under categorization of recalled from ER triage doctor by RN are reflective of an initial nursing assessment, however, is not reflective of my full history and physical exam that was personally taken and clarified. Consequentially, this preceding description of symptoms, which may include the patient's categorized chief complaint in the EMR, do not reflect my personal clinical impression, and the ultimate description of history of present illness and patient stated complaints should be deferred to this section of the note. Unless stated otherwise or congruent with this section of the note, additional signs, symptoms, or incongruence should be interpreted as inaccurate with my clinical impression. Related Data Home Medications ?Medication ?Instructions ?Recorded ?Confirmed citalopram 40 mg tablet 40 mg PO 01/27/24 02/28/24 rosuvastatin 10 mg tablet 10 mg PO 01/27/24 02/28/24 Previous Rx's ?Medication ?Instructions ?Recorded amlodipine 5 mg tablet See Rx Instructions .Route 02/01/23 .COMPLEX #30 tabs albuterol sulfate 90 mcg/actuation 2 puff inhalation Q4-6H PRN 03/11/23 aerosol inhaler (Ventolin HFA) shortness of breath or wheezing #8.5 grams fluticasone fur. 100 mcg-umeclid 1 inh inhalation DAILY #60 ea 03/11/23 62.5 mcg-vilant 25 mcg inhalat.powder (Trelegy Ellipta) aspirin 81 mg tablet,delayed 81 mg PO DAILY [facility] health #90 03/21/23 release tabs isosorbide mononitrate 30 mg See Rx Instructions .Route 06/06/23 tablet,extended release 24 hr .COMPLEX #90 tabs omeprazole 40 mg capsule,delayed See Rx Instructions .Route 06/29/23 release .COMPLEX #90 caps ranolazine 500 mg tablet,extended See Rx Instructions .Route 06/29/23 release,12 hr .COMPLEX #180 tabs lisinopril 20 mg tablet See Rx Instructions .Route 08/22/23 .COMPLEX #90 tabs tamsulosin 0.4 mg capsule See Rx Instructions .Route 08/30/23 .COMPLEX #60 caps fluoxetine 40 mg capsule See Rx Instructions .Route 01/02/24 .COMPLEX #30 caps cetirizine 10 mg tablet (All Day 10 mg PO DAILY #90 tabs 01/27/24 Allergy (cetirizine)) finasteride 5 mg tablet See Rx Instructions .Route 02/20/24 .COMPLEX #30 tabs mupirocin 2 % topical ointment 1 applic topical BID infection 14 02/20/24 days #15 grams sulfamethoxazole 800 1 tab PO BID infection 14 days #28 02/20/24 mg-trimethoprim 160 mg tablet tabs (Bactrim DS) cholecalciferol (vitamin D3) 250 250 mcg PO DAILY 90 days #90 caps 02/28/24 mcg (10,000 unit) capsule gabapentin 800 mg tablet 800 mg PO TID Chronic Pain 30 days 02/28/24 #90 tabs oxycodone-acetaminophen 10 mg-325 1 tab PO TID PRN Chronic Pain 30 02/28/24 mg tablet days #90 tabs oxycodone-acetaminophen 10 mg-325 1 tab PO TID PRN pain #90 tabs 02/28/24 mg tablet peg 3350-electrolytes 236 240 ml PO Q10M colonscopy #4,000 mL 03/09/24 gram-22.74 gram-6.74 gram-5.86 gram solution (Golytely) amoxicillin 875 mg-potassium 1 tab PO BID #20 tabs 04/29/24 clavulanate 125 mg tablet azithromycin 500 mg tablet 500 mg PO DAILY 4 days #4 tabs 04/29/24 prednisone 20 mg tablet 40 mg (2 x 20 mg) PO BID 4 days 04/29/24 #16 tabs Allergies Allergy/AdvReac Type Severity Reaction Status Date / Time codeine (CODEINE) Allergy Mild Verified 02/28/24 08:55 meloxicam (From MOBIC) Allergy Mild Verified 02/28/24 08:55 ibuprofen (IBUPROFEN) Allergy Unknown Verified 02/28/24 08:55 [facility] <Rey Vásquez MD - Last Filed: 04/29/24 14:55> [facility] Disclaimer: The information contained in this section may have been updated after the patient was seen, as this information can be updated by other users. Medical History (Updated 04/29/24 @ 16:56 by Zeina Sylvester DO) Colon cancer screening Low testosterone Angina pectoris History of left heart catheterization CAD (coronary artery disease) HTN (hypertension) HLD (hyperlipidemia) RABIA (obstructive sleep apnea) Daytime somnolence Surgical History Stented coronary artery Hx of tympanostomy tubes History of surgery on arm Family History Other Unknown family medical history Social History Smoking Status: Current every day smoker tobacco type: cigarettes packs per day: 2 alcohol intake: never substance use type: denies use current occupational status: employed household members: spouse and children housing: house current occupation: [employer] current occupational exposures/hazards: No caffeine: Yes Other Medical History Have you received the Flu Vaccine for this season: No Have you received the Pneumonia Vaccine: No <Rey Vásquez MD - Last Filed: 04/29/24 14:55> ROS Obtained: Yes All systems reviewed & no additional complaints except as documented Physical Exam <Rey Vásquez MD - Last Filed: 04/29/24 14:55> General General appearance: alert and in distress (Mild respiratory distress) Neck Neck exam: Present trachea midline Chest Chest inspection: Present normal inspection and symmetric chest wall rise Respiratory Respiratory exam: Present respiratory distress, wheezes (Diffuse bilateral expiratory), accessory muscle use and prolonged expiratory phase; Absent stridor Cardiovascular Cardiovascular exam: Present regular rate, normal rhythm and other (Pulses equal and symmetric in upper and lower extremities) Extremities Exam Extremities exam: Absent edema Neurological Exam Neurological exam: Present alert, oriented X3, CN II-XII intact and normal gait; Absent motor sensory deficit Skin Skin exam: Present warm and dry; Absent cyanosis, diaphoresis or pallor HEART Score <Rey Vásquez MD - Last Filed: 04/29/24 14:55> HEART Score HEART Score assessment performed?: No Critical Care <Rey Vásquez MD - Last Filed: 04/29/24 14:55> Critical Care Time Critical Care Time: No Medical Decision Making <Rey Vásquez MD - Last Filed: 04/29/24 14:55> Medical Records Medical records reviewed: Yes I reviewed the patient's medical records. Torres Inquiry Pt receiving controlled substance: No Torres was queried for this patient: No Vital Signs Vital Signs: 04/29/24 14:15 04/29/24 14:22 04/29/24 14:30 Temperature Temperature Source Pulse Rate 85 87 Pulse Rate [Radial] 93 H Respiratory Rate 24 Blood Pressure Blood Pressure [Right Arm] 139/85 Blood Pressure Mean [Right Arm] 103 Blood Pressure Source Blood Pressure Source [Right Arm] Automatic Cuff Blood Pressure Position [Right Arm] Sitting 02 Sat by Pulse Oximetry 95 97 96 Oxygen Delivery Method Room Air 04/29/24 14:42 04/29/24 14:45 04/29/24 15:00 Temperature Temperature Source Pulse Rate 87 84 84 Pulse Rate [Radial] Respiratory Rate 15 19 14 Blood Pressure 120/75 107/72 L Blood Pressure [Right Arm] Blood Pressure Mean [Right Arm] Blood Pressure Source Blood Pressure Source [Right Arm] Blood Pressure Position [Right Arm] 02 Sat by Pulse Oximetry 99 98 98 Oxygen Delivery Method 04/29/24 15:15 04/29/24 15:30 04/29/24 15:45 Temperature Temperature Source Pulse Rate 85 84 82 Pulse Rate [Radial] Respiratory Rate 13 17 13 Blood Pressure 117/68 Blood Pressure [Right Arm] Blood Pressure Mean [Right Arm] Blood Pressure Source Blood Pressure Source [Right Arm] Blood Pressure Position [Right Arm] 02 Sat by Pulse Oximetry 95 96 95 Oxygen Delivery Method 04/29/24 16:00 04/29/24 16:30 04/29/24 17:12 Temperature 98.4 F Temperature Source Oral Pulse Rate 87 85 90 Pulse Rate [Radial] Respiratory Rate 19 15 20 Blood Pressure 107/73 L 115/70 124/70 Blood Pressure [Right Arm] Blood Pressure Mean [Right Arm] Blood Pressure Source Automatic Cuff Blood Pressure Source [Right Arm] Blood Pressure Position [Right Arm] 02 Sat by Pulse Oximetry 96 94 L Oxygen Delivery Method Room Air Lab Data Labs: Lab Results 04/29/24 14:21: WBC 13.9 H, RBC 4.15 L, Hgb 12.6 L, Hct 38.0 L, MCV 91.5, MCH 30.3, MCHC 33.1, RDW 13.9, Plt Count 190, MPV 7.7, Neut % (Auto) 87.3 H, Lymph % (Auto) 7.3 L, [place] % (Auto) 4.2, Eos % (Auto) 0.7, Baso % (Auto) 0.5, Neut # (Auto) 12.1 H, Lymph # (Auto) 1.0, [place] # (Auto) 0.6, Eos # (Auto) 0.1, Baso # (Auto) 0.1, Total Counted 100, Neutrophils % (Manual) 79 H, Lymphocytes % (Manual) 15, Monocytes % (Manual) 5, Eosinophils % (Manual) 1, Platelet Estimate Normal, RBC Morphology Normal, PT 10.9, INR 0.97, APTT 29.2, Sodium 138, Potassium 3.9, Chloride 107, Carbon Dioxide 24, Anion Gap 10.9, BUN 12, Creatinine 0.60 L, Estimated Creat Clear 168, Estimated GFR 140, Est GFR ( Amer) 170, Glucose 152 H, Calcium 8.4, Total Bilirubin 0.8, AST 37, ALT 18, Alkaline Phosphatase 51, Troponin I < 0.01, NT-Pro-B Natriuret Pep 303 H, Total Protein 6.0 L, Albumin 3.6, Globulin 2.4, Albumin/Globulin Ratio 1.5 04/29/24 14:22: VBG pH 7.41, VBG pCO2 39.3, VBG pO2 50.5 H, VBG HCO3 24.2, VBG Total CO2 25.4, VBG O2 Saturation 87.7 H, VBG Base Excess -0.4, VBG Lactic Acid 2.2 H 04/29/24 14:24: HIV 1&2 Antibody Rapid Nonreactive 04/29/24 14:21 04/29/24 14:21 Response Orders (Tests/Meds): ED MEDICATIONS Discontinued Medications Generic Name Dose Route Start Last Admin Trade Name Freq PRN Reason Stop Dose Admin Albuterol/Ipratropium 9 ml 04/29/24 14:20 04/29/24 14:30 Ipratropium/Albuterol 3 Ml Neb IH 04/29/24 14:21 9 ml ONCE ONE Administration Albuterol/Ipratropium 3 ml 04/29/24 16:27 04/29/24 17:15 Ipratropium/Albuterol 3 Ml Neb IH 04/29/24 16:28 3 ml ONCE ONE Administration Aspirin 324 mg 04/29/24 14:20 04/29/24 14:30 Aspirin 81mg Chewable Tablet PO 04/29/24 14:21 324 mg ONCE ONE Administration Azithromycin 500 mg 04/29/24 14:53 04/29/24 15:24 Azithromycin 250mg Tablet PO 04/29/24 14:54 500 mg ONCE ONE Administration Ceftriaxone Sodium 2 gm/ 100 mls @ 200 mls/hr 04/29/24 14:53 04/29/24 15:21 Sodium Chloride IV 04/29/24 15:22 200 mls/hr ONCE ONE Administration Methylprednisolone Sodium Succinate 125 mg 04/29/24 14:20 04/29/24 14:30 Methylprednisolone Sod Succ 125mg Vial IV 04/29/24 14:21 125 mg ONCE ONE Administration ORDERS Category Date Time Status XR chest portable Stat Exams 04/29/24 14:21 Completed Complete Blood Count Auto Diff Stat Lab 04/29/24 14:21 Completed Comprehensive Metabolic Panel Stat Lab 04/29/24 14:21 Completed HIV (1&2) Antibody Rapid Stat Lab 04/29/24 14:24 Completed Hep C Ab with Reflex to RNA Stat Lab 04/29/24 14:24 Received NT Pro Brain Natriuretic Pep. Stat Lab 04/29/24 14:21 Completed PT INR [Prothrombin Time INR] Stat Lab 04/29/24 14:21 Completed PTT [Activated Partial Thrombo Time] Stat Lab 04/29/24 14:21 Completed Troponin I Stat Lab 04/29/24 14:21 Completed Blood Culture Stat Micro 04/29/24 15:16 Received Venous Blood Gas Stat RT 04/29/24 14:22 Completed MDM Narrative Medical Decision Narrative: 54-year-old male with history of hypertension, hyperlipidemia, still smoking not on home oxygen presenting with shortness of breath. Patient states that he has been feeling short of breath for 2 to 3 days at this point. Cough is newly productive of greenish-yellow sputum. Has had subjective fevers and chills, no objective temperatures were measured. States that last night, 04/28, started having chest pain that was left-sided, radiates to his left shoulder, left side of his neck and down his left arm. No associated numbness, tingling, or weakness. No syncope, neurologic deficits otherwise. Chest pain is mild in intensity, more of a pressure/ache. History obtained the patient. On arrival, patient appears to be in mild respiratory distress. Lungs with bilateral expiratory wheezes heard throughout expiratory cycle. Patient breathing through pursed lips, prolonged expiratory phase and mildly tachypneic. Cardiac exam without murmurs gallops or rubs. No lower extremity edema. Pulses equal and symmetric in upper and lower extremities. Neurologically intact including cranial nerve, motor and sensory exams. Differential occludes ACS, [place], COPD exacerbation, pneumonia, bronchitis, PE, among others. Patient was given aspirin, DuoNebs, Solu-Medrol. Placed on continuous pulse oximetry and cardiac monitoring with initial blood pressure 139/85, pulse rate 93, O2 sat 95% on room air. EKG independently interpreted and patient in sinus rhythm with less than [address] depressions in V2 through V5 with no reciprocal change. WA 148, QRS 104, QTc 416, normal axis. Independent interpretation of workup with leukocytosis. VBG with pH normal at 7.41, CO2 39, oxygen 50, lactate 2.2. Chest x-ray independently interpreted, patient appears to have right-sided consolidative airspace disease. Azithromycin and ceftriaxone were administered. Prior to reevaluation and disposition, care handed off to oncoming physician. [employer]field Operations Specialist disclaimer Much of this encounter note is an electronic forming process line worker spoken language to printed text. Electronic forming process line worker of the spoken language may permit errors. Although I have reviewed the note, some errors may still exist. <Zeina Sylvester, DO - Last Filed: 04/29/24 23:22> Vital Signs Vital Signs: 04/29/24 14:15 04/29/24 14:22 04/29/24 14:30 Temperature Temperature Source Pulse Rate 85 87 Pulse Rate [Radial] 93 H Respiratory Rate 24 Blood Pressure Blood Pressure [Right Arm] 139/85 Blood Pressure Mean [Right Arm] 103 Blood Pressure Source Blood Pressure Source [Right Arm] Automatic Cuff Blood Pressure Position [Right Arm] Sitting 02 Sat by Pulse Oximetry 95 97 96 Oxygen Delivery Method Room Air 04/29/24 14:42 04/29/24 14:45 04/29/24 15:00 Temperature Temperature Source Pulse Rate 87 84 84 Pulse Rate [Radial] Respiratory Rate 15 19 14 Blood Pressure 120/75 107/72 L Blood Pressure [Right Arm] Blood Pressure Mean [Right Arm] Blood Pressure Source Blood Pressure Source [Right Arm] Blood Pressure Position [Right Arm] 02 Sat by Pulse Oximetry 99 98 98 Oxygen Delivery Method 04/29/24 15:15 04/29/24 15:30 04/29/24 15:45 Temperature Temperature Source Pulse Rate 85 84 82 Pulse Rate [Radial] Respiratory Rate 13 17 13 Blood Pressure 117/68 Blood Pressure [Right Arm] Blood Pressure Mean [Right Arm] Blood Pressure Source Blood Pressure Source [Right Arm] Blood Pressure Position [Right Arm] 02 Sat by Pulse Oximetry 95 96 95 Oxygen Delivery Method 04/29/24 16:00 04/29/24 16:30 04/29/24 17:12 Temperature 98.4 F Temperature Source Oral Pulse Rate 87 85 90 Pulse Rate [Radial] Respiratory Rate 19 15 20 Blood Pressure 107/73 L 115/70 124/70 Blood Pressure [Right Arm] Blood Pressure Mean [Right Arm] Blood Pressure Source Automatic Cuff Blood Pressure Source [Right Arm] Blood Pressure Position [Right Arm] 02 Sat by Pulse Oximetry 96 94 L Oxygen Delivery Method Room Air Lab Data Labs: Lab Results 04/29/24 14:21: WBC 13.9 H, RBC 4.15 L, Hgb 12.6 L, Hct 38.0 L, MCV 91.5, MCH 30.3, MCHC 33.1, RDW 13.9, Plt Count 190, MPV 7.7, Neut % (Auto) 87.3 H, Lymph % (Auto) 7.3 L, [place] % (Auto) 4.2, Eos % (Auto) 0.7, Baso % (Auto) 0.5, Neut # (Auto) 12.1 H, Lymph # (Auto) 1.0, [place] # (Auto) 0.6, Eos # (Auto) 0.1, Baso # (Auto) 0.1, Total Counted 100, Neutrophils % (Manual) 79 H, Lymphocytes % (Manual) 15, Monocytes % (Manual) 5, Eosinophils % (Manual) 1, Platelet Estimate Normal, RBC Morphology Normal, PT 10.9, INR 0.97, APTT 29.2, Sodium 138, Potassium 3.9, Chloride 107, Carbon Dioxide 24, Anion Gap 10.9, BUN 12, Creatinine 0.60 L, Estimated Creat Clear 168, Estimated GFR 140, Est GFR ( Amer) 170, Glucose 152 H, Calcium 8.4, Total Bilirubin 0.8, AST 37, ALT 18, Alkaline Phosphatase 51, Troponin I < 0.01, NT-Pro-B Natriuret Pep 303 H, Total Protein 6.0 L, Albumin 3.6, Globulin 2.4, Albumin/Globulin Ratio 1.5 04/29/24 14:22: VBG pH 7.41, VBG pCO2 39.3, VBG pO2 50.5 H, VBG HCO3 24.2, VBG Total CO2 25.4, VBG O2 Saturation 87.7 H, VBG Base Excess -0.4, VBG Lactic Acid 2.2 H 04/29/24 14:24: HIV 1&2 Antibody Rapid Nonreactive Response Orders (Tests/Meds): ED MEDICATIONS Discontinued Medications Generic Name Dose Route Start Last Admin Trade Name Freq PRN Reason Stop Dose Admin Albuterol/Ipratropium 9 ml 04/29/24 14:20 04/29/24 14:30 Ipratropium/Albuterol 3 Ml [facility] 04/29/24 14:21 9 ml ONCE ONE Administration Albuterol/Ipratropium 3 ml 04/29/24 16:27 04/29/24 17:15 Ipratropium/Albuterol 3 Ml [facility] 04/29/24 16:28 3 ml ONCE ONE Administration Aspirin 324 mg 04/29/24 14:20 04/29/24 14:30 Aspirin 81mg Chewable Tablet PO 04/29/24 14:21 324 mg ONCE ONE Administration Azithromycin 500 mg 04/29/24 14:53 04/29/24 15:24 Azithromycin 250mg Tablet PO 04/29/24 14:54 500 mg ONCE ONE Administration Ceftriaxone Sodium 2 gm/ 100 mls @ 200 mls/hr 04/29/24 14:53 04/29/24 15:21 Sodium Chloride IV 04/29/24 15:22 200 mls/hr ONCE ONE Administration Methylprednisolone Sodium Succinate 125 mg 04/29/24 14:20 04/29/24 14:30 Methylprednisolone Sod Succ 125mg Vial IV 04/29/24 14:21 125 mg ONCE ONE Administration ORDERS Category Date Time Status XR chest portable Stat Exams 04/29/24 14:21 Completed Complete Blood Count Auto Diff Stat Lab 04/29/24 14:21 Completed Comprehensive Metabolic Panel Stat Lab 04/29/24 14:21 Completed HIV (1&2) Antibody Rapid Stat Lab 04/29/24 14:24 Completed Hep C Ab with Reflex to RNA Stat Lab 04/29/24 14:24 Received NT Pro Brain Natriuretic Pep. Stat Lab 04/29/24 14:21 Completed PT INR [Prothrombin Time INR] Stat Lab 04/29/24 14:21 Completed PTT [Activated Partial Thrombo Time] Stat Lab 04/29/24 14:21 Completed Troponin I Stat Lab 04/29/24 14:21 Completed Blood Culture Stat Micro 04/29/24 15:16 Received Venous Blood Gas Stat RT 04/29/24 14:22 Completed MDM Narrative Medical Decision Narrative: 54-year-old male with history of hypertension, hyperlipidemia, still smoking not on home oxygen presenting with shortness of breath. Patient states that he has been feeling short of breath for 2 to 3 days at this point. Cough is newly productive of greenish-yellow sputum. Has had subjective fevers and chills, no objective temperatures were measured. States that last night, 04/28, started having chest pain that was left-sided, radiates to his left shoulder, left side of his neck and down his left arm. No associated numbness, tingling, or weakness. No syncope, neurologic deficits otherwise. Chest pain is mild in intensity, more of a pressure/ache. History obtained the patient. On arrival, patient appears to be in mild respiratory distress. Lungs with bilateral expiratory wheezes heard throughout expiratory cycle. Patient breathing through pursed lips, prolonged expiratory phase and mildly tachypneic. Cardiac exam without murmurs gallops or rubs. No lower extremity edema. Pulses equal and symmetric in upper and lower extremities. Neurologically intact including cranial nerve, motor and sensory exams. Differential occludes ACS, [place], COPD exacerbation, pneumonia, bronchitis, PE, among others. Patient was given aspirin, DuoNebs, Solu-Medrol. Placed on continuous pulse oximetry and cardiac monitoring with initial blood pressure 139/85, pulse rate 93, O2 sat 95% on room air. EKG independently interpreted and patient in sinus rhythm with less than [address] depressions in V2 through V5 with no reciprocal change. WA 148, QRS 104, QTc 416, normal axis. Independent interpretation of workup with leukocytosis. VBG with pH normal at 7.41, CO2 39, oxygen 50, lactate 2.2. Chest x-ray independently interpreted, patient appears to have right-sided consolidative airspace disease. Azithromycin and ceftriaxone were administered. Prior to reevaluation and disposition, care handed off to oncoming physician. [employer] Operations Specialist disclaimer Much of this encounter note is an electronic forming process line worker spoken language to printed text. Electronic forming process line worker of the spoken language may permit errors. Although I have reviewed the note, some errors may still exist. DO Higinio: On my assessment of the patient, he is lying in bed in no acute distress and states that he is feeling a lot better. He has normal vital signs on cardiac telemetry with no significant increased work of breathing. Oxygen is normal on room air. Patient does have a leukocytosis and mildly elevated lactic acid with pneumonia on imaging. Vitals are normal. I considered admission for IV antibiotics pending blood cultures and for continued monitoring, however patient states that he would like to try to go home. Given this, we will discharge him home on oral Augmentin, azithromycin, prednisone. He has inhalers at home. He was discharged with very strict return precautions, instructions for close outpatient follow-up, and instructions for supportive management.
[2024-04-29 14:49] LABS: Alanine Aminotransferase 18 U/L (12-78); Anion Gap 10.9 mEq/L (5-15); Aspartate Amino Transferase 37 U/L (17-59); Blood Urea Nitrogen 12 mg/dl (9-20); Carbon Dioxide 24 mmol/L (22.0-30.0); Creatinine Clearance Estimated 168 mL/min (50-200); Estimated Glomerular Filt Rate 140 ml/min (>60); GFR (African American) 170 ML/MIN (>60); MANUAL DIFFERENTIAL MANUAL DIFFERENTIAL (MANUAL DIFF)
[2024-04-29 14:50] LABS: Albumin/Globulin Ratio 1.5 (1.1-1.8); Alkaline Phosphatase 51 U/L (38-126); Bilirubin,Total 0.8 mg/dl (0.2-1.3); Calcium 8.4 mg/dl (8.4-10.2); Globulin 2.4 g/dL (1.3-3.2); Glucose 152 mg/dl (74-100)
[2024-04-29 14:59] LABS: NT Pro Brain Natriuretic Pep. 303 pg/mL (0-125)
[2024-04-29 15:07] LABS: HIV (1&2) Antibody Rapid NONREACTIVE (NONREACTIVE)
[2024-04-29 15:09] LABS: Troponin I < 0.01 ng/ml (0.00-0.034)
[2024-04-29] MEDS: CEFTRIAXONE SODIUM 2 GM in 0.9 % SODIUM CHLORIDE 100 ML IV (15:21)
--- NOTE | 2024-04-29 15:21 | PC.NURSE ---
collected blood culture per nursing sepsis protocol prior to abx administration
[2024-04-29] MEDS: AZITHROMYCIN 250MG TABLET 500 MG PO (15:24)
[2024-04-29] MEDS: IPRATROPIUM/ALBUTEROL 3 ML NEB IH (17:15)
[2024-04-29 17:23] LABS: Eosinophils % 1 % (0-3); Lymphocytes % 15 % (10-50); Monocytes % 5 % (2-9); Neutrophils % 79 % (42-76); Total Cells Counted 100
[2024-04-29 17:24] LABS: Platelet Estimate Normal; RBC Morphology Normal
[2024-04-29 18:33] LABS: Reflex Lactic Add Lactic Reflex
[2024-05-01 05:11] LABS: HCV Ab Non Reactive (Non Reactive)
== END 2024-04-29 17:30 | disposition home or self-care (01) ==
PROVIDERS: Emergency Medicine; Emergency Provider Emergency Medicine
DX: J44.1 Chronic obstructive pulmonary disease with (acute) exacerbation (principal); J18.9 Pneumonia, unspecified organism; R07.9 Chest pain, unspecified; R06.02 Shortness of breath; R05.9 Cough, unspecified; R50.9 Fever, unspecified; Z72.0 Tobacco use
CPT/HCPCS: 71045; 80053; 82803; 83880; 84484; 85007; 85025; 85027; 85610; 85730; 86803; 87040; 87389; 93005; 96365; 96374; 99284; J0696; J2919; J7620

== ENCOUNTER 2024-05-31 09:00 | Outpatient (CLI) | payer MEDICAID, SELFPAY ==
[2024-05-31 19:00] LABS: Hemoglobin A1C 4.9 % (4.0-6.0)
[2024-05-31 19:17] LABS: Alanine Aminotransferase 19 U/L (12-78); Albumin Level 3.8 g/dl (3.5-5.0); Albumin/Globulin Ratio 1.7 (1.1-1.8); Alkaline Phosphatase 83 U/L (38-126); Anion Gap 10.5 mEq/L (5-15); Aspartate Amino Transferase 27 U/L (17-59); Bilirubin,Total 0.4 mg/dl (0.2-1.3); Blood Urea Nitrogen 12 mg/dl (9-20); Calcium 9.2 mg/dl (8.4-10.2); Carbon Dioxide 28 mmol/L (22.0-30.0); Chloride 102 mmol/L (98-107); Chol/HDL Ratio 3.2 (1-3.5); Cholesterol 151 mg/dl (140-200); Estimated Glomerular Filt Rate 88 ml/min (>60); GFR (African American) 106 ML/MIN (>60); Globulin 2.2 g/dL (1.3-3.2); Glucose 88 mg/dl (74-100); HDL Cholesterol 47 mg/dl (40-60); Potassium 4.5 mmoL/L (3.5-5.1); Sodium 136 mmol/L (136-145); Triglycerides 81 mg/dl (30-150); VLDL Cholesterol 16 mg/dL (0-40)
[2024-05-31 19:28] LABS: Direct LDL Cholesterol 88.81 mg/dL (100-129)
== END 2024-05-31 23:59 | disposition home or self-care (01) ==
LOC: LAB.DROPOF 06-02 08:21
PROVIDERS: PCP Internal Medicine; Visit Provider Internal Medicine
DX: E55.9 Vitamin D deficiency, unspecified (principal); R73.9 Hyperglycemia, unspecified; E78.5 Hyperlipidemia, unspecified; I10 Essential (primary) hypertension; F17.210 Nicotine dependence, cigarettes, uncomplicated
CPT/HCPCS: 80053; 80061; 82306; 83036

== ENCOUNTER 2024-06-22 19:05 | Emergency (ER) | payer MEDICAID, SELFPAY ==
[2024-06-22 20:47] VITALS: BP 132/84; PULSE 78; RESP 16; TEMP 36.8; O2SAT 99; BMI 52.0
--- NOTE | 2024-06-22 21:45 | [facility].EDGENADL ---
Discharge Plan Disposition Patient Disposition: Home, Self-Care Condition: Good Prescriptions Prescriptions: New methocarbamol 750 mg tablet 750 mg PO Q8H PRN (Reason: pain) Qty: 20 0RF No Action albuterol sulfate [Ventolin HFA] 90 mcg/actuation HFA aerosol inhaler 2 puff inhalation Q4-6H PRN (Reason: shortness of breath or wheezing) Qty: 8.5 3RF Trelegy Ellipta 100-62.5-25 mcg blister with device 1 inh inhalation DAILY Qty: 60 2RF cholecalciferol (vitamin D3) 250 mcg (10,000 unit) capsule 250 mcg PO DAILY 90 Days Qty: 90 2RF sulfamethoxazole-trimethoprim [Bactrim DS] 800-160 mg tablet 1 tab PO BID 14 Days Qty: 28 0RF mupirocin 2 % ointment 1 applic topical BID 14 Days Qty: 15 0RF rosuvastatin 10 mg tablet 10 mg PO citalopram 40 mg tablet 40 mg PO cetirizine [All Day Allergy (cetirizine)] 10 mg tablet 10 mg PO DAILY Qty: 90 2RF oxycodone-acetaminophen 10-325 mg tablet 1 tab PO TID PRN (Reason: Chronic Pain) 30 Days Qty: 90 0RF oxycodone-acetaminophen 10-325 mg tablet 1 tab PO TID PRN (Reason: pain) Qty: 90 0RF gabapentin 800 mg tablet 800 mg PO TID 30 Days Qty: 90 2RF amlodipine 5 mg tablet See Rx Instructions .ROUTE .COMPLEX Qty: 30 2RF Dose Instruction: TAKE 1 TABLET BY MOUTH EVERY DAY Rx Instructions: TAKE 1 TABLET BY MOUTH EVERY DAY aspirin 81 mg tablet,delayed release (DR/EC) 81 mg PO DAILY Qty: 90 3RF isosorbide mononitrate 30 mg tablet extended release 24 hr See Rx Instructions .ROUTE .COMPLEX Qty: 90 4RF Dose Instruction: TAKE 1 TABLET BY MOUTH ONCE DAILY FOR CHEST PAIN Rx Instructions: TAKE 1 TABLET BY MOUTH ONCE DAILY FOR CHEST PAIN ranolazine 500 mg tablet extended release 12 hr See Rx Instructions .ROUTE .COMPLEX Qty: 180 3RF Dose Instruction: TAKE 1 TABLET BY MOUTH TWICE DAILY Rx Instructions: TAKE 1 TABLET BY MOUTH TWICE DAILY omeprazole 40 mg capsule,delayed release(DR/EC) See Rx Instructions .ROUTE .COMPLEX Qty: 90 3RF Dose Instruction: TAKE 1 CAPSULE BY MOUTH ONCE DAILY FOR GERD Rx Instructions: TAKE 1 CAPSULE BY MOUTH ONCE DAILY FOR GERD lisinopril 20 mg tablet See Rx Instructions .ROUTE .COMPLEX Qty: 90 3RF Dose Instruction: TAKE 1 TABLET BY MOUTH ONCE DAILY Rx Instructions: TAKE 1 TABLET BY MOUTH ONCE DAILY tamsulosin 0.4 mg capsule See Rx Instructions .ROUTE .COMPLEX Qty: 60 2RF Dose Instruction: TAKE 2 CAPSULES BY MOUTH EVERY DAY Rx Instructions: TAKE 2 CAPSULES BY MOUTH EVERY DAY fluoxetine 40 mg capsule See Rx Instructions .ROUTE .COMPLEX Qty: 30 3RF Dose Instruction: TAKE 1 CAPSULE BY MOUTH EVERY DAY Rx Instructions: TAKE 1 CAPSULE BY MOUTH EVERY DAY peg 3350-electrolytes [Golytely] 236-22.74-6.74 -5.86 gram recon soln 240 ml PO Q10M Qty: 4000 0RF Rx Instructions: at 6pm day before surgery take first dose. After mixing prep as directed, drink half of the gallon by drinking 8 ounces, or 1 cup, every 15 mins until half is remaining. refrigerate the remaining and continue clear liquids till midnight. 5-6 hours before exam, take the second dosage, 8oz every 15 mins till gone. finasteride 5 mg tablet See Rx Instructions .ROUTE .COMPLEX Qty: 30 2RF Dose Instruction: TAKE 1 TABLET(5 mg) orally daily Rx Instructions: TAKE 1 TABLET(5 mg) orally daily amoxicillin-pot clavulanate 875-125 mg tablet 1 tab PO BID Qty: 20 0RF azithromycin 500 mg tablet 500 mg PO DAILY 4 Days Qty: 4 0RF prednisone 20 mg tablet 40 mg PO BID 4 Days Qty: 16 0RF Referrals Follow up/Referrals: Lui Shafer DO [Primary Care Provider] - See instructions Activity Restrictions/Add. Instructions Additional Instructions/Restrictions: You were evaluated in the emergency department today. Please follow-up closely with your primary care provider for further assessment. business support your prescription for Robaxin and to take as needed for pain. You may also take Tylenol for 4 to 6 hours and try [id number] lidocaine patches. Return to the emergency department for new or worsening symptoms Clinical Impressions Clinical Impression: Low back pain Stand Alone Forms Stand Alone Forms: Work/School Release Instructions Patient Instructions: DI for Low Back Pain Print Language Print Language: Citizen Of [place] Discharge ED Provider: Zeina Sylvester General Adult HPI General Chief complaint: Back Pain/Injury Stated complaint: back pain Time Seen by Provider: 06/22/24 21:23 Mode of Arrival: Ambulatory Source of Information: Patient Limitations: Back pain Description of Symptoms (Recalled from ER Triage Doc. by RN): 2-3 weeks back pain worsening. Patient taking Percocet for pain but has not been helping. Experiencing bilateral leg pain and weakness. Patient states he has chronic back pain. History of Present Illness HPI narrative: This patient is a 54-year-old male with a history of hypertension, hyperlipidemia, RABIA, and CAD presenting to the emergency department for evaluation with concern for acute on chronic flare of low back pain. He states that he chronically deals with low back pain but it has been worse over the last couple of weeks. He is been taking Percocet at home without good improvement. He states that he is having pain shooting down both of his legs and his legs are intermittently weak, however they are not weak at this time. No recent falls or injuries. No abdominal pain. He denies any saddle anesthesia, urinary incontinence, urinary retention, fevers, unintentional weight loss, history of malignancy, or other alarm concerns. Related Data Home Medications ?Medication ?Instructions ?Recorded ?Confirmed citalopram 40 mg tablet 40 mg PO 01/27/24 05/31/24 rosuvastatin 10 mg tablet 10 mg PO 01/27/24 05/31/24 Previous Rx's ?Medication ?Instructions ?Recorded amlodipine 5 mg tablet See Rx Instructions .Route 02/01/23 .COMPLEX #30 tabs albuterol sulfate 90 mcg/actuation 2 puff inhalation Q4-6H PRN 03/11/23 aerosol inhaler (Ventolin HFA) shortness of breath or wheezing #8.5 grams fluticasone fur. 100 mcg-umeclid 1 inh inhalation DAILY #60 ea 03/11/23 62.5 mcg-vilant 25 mcg inhalat.powder (Trelegy Ellipta) aspirin 81 mg tablet,delayed 81 mg PO DAILY Heart health #90 03/21/23 release tabs isosorbide mononitrate 30 mg See Rx Instructions .Route 06/06/23 tablet,extended release 24 hr .COMPLEX #90 tabs omeprazole 40 mg capsule,delayed See Rx Instructions .Route 06/29/23 release .COMPLEX #90 caps ranolazine 500 mg tablet,extended See Rx Instructions .Route 06/29/23 release,12 hr .COMPLEX #180 tabs lisinopril 20 mg tablet See Rx Instructions .Route 08/22/23 .COMPLEX #90 tabs tamsulosin 0.4 mg capsule See Rx Instructions .Route 08/30/23 .COMPLEX #60 caps fluoxetine 40 mg capsule See Rx Instructions .Route 01/02/24 .COMPLEX #30 caps cetirizine 10 mg tablet (All Day 10 mg PO DAILY #90 tabs 01/27/24 Allergy (cetirizine)) mupirocin 2 % topical ointment 1 applic topical BID infection 14 02/20/24 days #15 grams sulfamethoxazole 800 1 tab PO BID infection 14 days #28 02/20/24 mg-trimethoprim 160 mg tablet tabs (Bactrim DS) cholecalciferol (vitamin D3) 250 250 mcg PO DAILY 90 days #90 caps 02/28/24 mcg (10,000 unit) capsule peg 3350-electrolytes 236 240 ml PO Q10M colonscopy #4,000 mL 03/09/24 gram-22.74 gram-6.74 gram-5.86 gram solution (Golytely) amoxicillin 875 mg-potassium 1 tab PO BID #20 tabs 04/29/24 clavulanate 125 mg tablet azithromycin 500 mg tablet 500 mg PO DAILY 4 days #4 tabs 04/29/24 prednisone 20 mg tablet 40 mg (2 x 20 mg) PO BID 4 days 04/29/24 #16 tabs gabapentin 800 mg tablet 800 mg PO TID 30 days #90 tabs 05/31/24 oxycodone-acetaminophen 10 mg-325 1 tab PO TID PRN Chronic Pain 30 05/31/24 mg tablet days #90 tabs oxycodone-acetaminophen 10 mg-325 1 tab PO TID PRN pain #90 tabs 05/31/24 mg tablet finasteride 5 mg tablet See Rx Instructions .Route 06/20/24 .COMPLEX #30 tabs methocarbamol 750 mg tablet 750 mg PO Q8H PRN pain #20 tabs 06/22/24 Allergies Allergy/AdvReac Type Severity Reaction Status Date / Time codeine (CODEINE) Allergy Mild Verified 02/28/24 08:55 meloxicam (From MOBIC) Allergy Mild Verified 02/28/24 08:55 ibuprofen (IBUPROFEN) Allergy Unknown Verified 02/28/24 08:[address] [facility] Disclaimer: The information contained in this section may have been updated after the patient was seen, as this information can be updated by other users. Medical History Colon cancer screening Low testosterone Angina pectoris History of left heart catheterization CAD (coronary artery disease) HTN (hypertension) HLD (hyperlipidemia) RABIA (obstructive sleep apnea) Daytime somnolence Surgical History Stented coronary artery Hx of tympanostomy tubes History of surgery on arm Family History Other Unknown family medical history Social History Smoking Status: Current every day smoker tobacco type: cigarettes packs per day: 2 alcohol intake: never substance use type: denies use current occupational status: employed Travel in the last 8 weeks: None household members: spouse and children housing: house current occupation: [email or web address] current occupational exposures/hazards: No caffeine: Yes Have you lived/traveled outside [place] in past 30 days?: No Contact w/someone who lives/traveled outside US past 30 days?: No Exposure to someone with infectious disease in past 14 days?: No Do you have a fever (greater than 100.4 F or 38 C)?: No Have you tested positive for COVID-19: No Exposed to someone with COVID-19 in past 14 days?: No Do you have a sore throat?: No Do you have a cough?: No Do you have any weakness?: No Do you have any diarrhea?: No Are you experiencing any unusual bleeding?: No Do you have any muscle aches/pain?: No Do you have any abdominal pain?: No Are you experiencing loss of taste or smell?: No Other Medical History Have you received the Flu Vaccine for this season: No Have you received the Pneumonia Vaccine: No ROS Obtained: Yes All systems reviewed & no additional complaints except as documented Physical Exam General General appearance: alert and in no apparent distress Head Head exam: atraumatic and normocephalic Eye Eye exam: Present normal appearance, PERRL and EOMI ENT ENT exam: Present normal exam, normal oropharynx, mucous membranes moist and normal external ear exam Neck Neck exam: Present normal inspection, full ROM and trachea midline; Absent tenderness Chest Chest inspection: Present normal inspection and symmetric chest wall rise; Absent tenderness Respiratory Respiratory exam: Present normal lung sounds bilaterally; Absent respiratory distress, wheezes, stridor or accessory muscle use Cardiovascular Cardiovascular exam: Present regular rate and normal rhythm Abdominal Exam Abdominal exam: Present soft; Absent distention, tenderness or guarding Extremities Exam Extremities exam: Present normal inspection, full ROM and normal capillary refill; Absent tenderness or edema Back Exam Back exam: Present full ROM, tenderness (bilateral lower lumbar paraspinal tenderness with no midline TTP), muscle spasm and paraspinal tenderness; Absent vertebral tenderness Comment: Pain with movement/ROM Neurological Exam Neurological exam: Present alert, oriented X3, CN II-XII intact and normal gait; Absent motor sensory deficit Psychiatric Psychiatric exam: Present normal affect and normal mood Skin Skin exam: Present warm and dry Medical Decision Making Medical Records Medical records reviewed: Yes I reviewed the patient's medical records. Screening: Per USPSTF and CDC recommendations, given the prevalence of disease in our region, it is our hospital?s policy to screen for HIV and viral Hepatitis for all patients aged 18 and over and those with ongoing risk factors. Torres Inquiry Pt receiving controlled substance: No Vital Signs: 06/22/24 20:47 06/22/24 22:29 Temperature 98.3 F 98.2 F Temperature Source Oral Oral Pulse Rate 78 Pulse Rate [Left Radial] 78 Respiratory Rate 16 16 Blood Pressure 132/84 Blood Pressure [Right Arm] 132/84 Blood Pressure Mean [Right Arm] 100 Blood Pressure Source Automatic Cuff Blood Pressure Source [Right Arm] Automatic Cuff Blood Pressure Position Sitting 02 Sat by Pulse Oximetry 99 Oxygen Delivery Method Room Air Room Air Lab Data Lab results reviewed: Yes I reviewed the patient's lab results. Orders (Tests/Meds): ED MEDICATIONS Discontinued Medications Generic Name Dose Route Start Last Admin Trade Name Freq PRN Reason Stop Dose Admin Acetaminophen 1,000 mg 06/22/24 21:37 06/22/24 21:48 Acetaminophen 500mg Tab PO 06/22/24 21:38 1,000 mg ONCE ONE Administration Dexamethasone Sodium Phosphate 10 mg 06/22/24 21:37 06/22/24 21:48 Dexamethasone 4mg/Ml 1ml Vial IM 06/22/24 21:38 10 mg ONCE ONE Administration Gabapentin 300 mg 06/22/24 21:37 06/22/24 21:48 Gabapentin 300mg Capsule PO 06/22/24 21:38 300 mg ONCE ONE Administration Lidocaine 1 each 06/22/24 21:37 06/22/24 21:48 Lidocaine 5% Transdermal Patch TP 06/22/24 21:38 1 each ONCE ONE Administration Methocarbamol 500 mg 06/22/24 21:38 06/22/24 21:48 Methocarbamol 500mg Tablet PO 06/22/24 21:39 500 mg ONCE ONE Administration Medical Decision Narrative: In summary, this patient is a 54-year-old male presenting to the Emergency Department for evaluation of acute on chronic low back pain. Differential diagnoses considered include but are not limited to musculoskeletal strain/sprain, fracture, spinal cord compression, disc herniation. Ruling out the most morbid conditions drove assessment. It should be noted patient's history includes hypertension, hyperlipidemia, CAD, tobacco dependence which may or may not be at goal therapy. This complicates all aspects of care by increasing patient's risk for morbidity. I reviewed patient's past medical records and noted evaluations by PCP for CAD and prior ED evaluation for COPD exacerbation. On exam, the patient is well-appearing. He is neurologically intact in his lower extremities and is ambulatory. He has no alarm symptoms concerning for cauda equina syndrome, so I do not feel that emergent MRI is indicated. Based on symptoms that are worse with movement and paraspinal muscles that are tender to palpation, I feel he likely has musculoskeletal strain. I considered obtaining CT scan of the lumbar spine without IV contrast to further assess, however given lack of traumatic injury or alarm findings of back pain, I do not feel that this is indicated as it would likely not change management coordinator. He is agreeable with this and states that he came in because he wanted a pain shot. Patient was given IM dexamethasone, oral Tylenol, Robaxin, gabapentin, and topical Lidoderm patch. After this, he had good improvement in his pain. I feel he is appropriate for discharge home with instructions for supportive management and prescription for Robaxin. He was given instructions for very close follow-up with his primary care provider and strict return precautions. Critical Care Critical Care Time Critical Care Time: No
[2024-06-22] MEDS: GABAPENTIN 300MG CAPSULE 300 MG PO (21:48)
[2024-06-22] MEDS: DEXAMETHASONE 4MG/ML 1ML VIAL 10 MG IM (21:48)
[2024-06-22] MEDS: ACETAMINOPHEN 500MG TAB 1000 MG PO (21:48)
[2024-06-22] MEDS: LIDOCAINE 5% TRANSDERMAL PATCH 1 EACH TP (21:48)
[2024-06-22] MEDS: METHOCARBAMOL 500MG TABLET 500 MG PO (21:48)
[2024-06-22 22:29] VITALS: BP 132/84; PULSE 78; RESP 16; TEMP 36.8; O2SAT 98
== END 2024-06-22 22:34 | disposition home or self-care (01) ==
PROVIDERS: Emergency Provider Emergency Medicine; PCP Internal Medicine
DX: M54.50 Low back pain, unspecified (principal); G89.29 Other chronic pain; M79.604 Pain in right leg; M79.605 Pain in left leg; F17.210 Nicotine dependence, cigarettes, uncomplicated
CPT/HCPCS: 96372; 99283; J1100

== ENCOUNTER 2024-07-23 21:05 | Emergency (ER) | payer MEDICAID, SELFPAY ==
[2024-07-23 21:19] VITALS: BP 135/96; PULSE 85; RESP 18; TEMP 36.8; O2SAT 99; BMI 24.3
[2024-07-23 21:37] LABS: Microscopic, Urine URINE MICROSCOPIC (MICROSCOPIC)
--- NOTE | 2024-07-23 21:42 | CT_ITS ---
PROCEDURE INFORMATION: Exam: CT Abdomen And Pelvis Without Contrast Exam date and time: 07/23/2024 10:06 PM Age: 54 years old Clinical indication: Other: Low back pain, L flank pain TECHNIQUE: Imaging protocol: Computed tomography of the abdomen and pelvis without contrast. Radiation optimization: All CT scans at this facility use at least one of these dose optimization techniques: automated exposure control; mA and/or kV adjustment per patient size (includes targeted exams where dose is matched to clinical indication); or iterative reconstruction. COMPARISON: CT ABDOMEN PELVIS WO CON 06/03/2023 8:28 PM FINDINGS: Liver: There are no focal liver lesions present. Gallbladder and biliary ducts: There has been a cholecystectomy. Pancreas: The pancreas is normal. Spleen: The spleen is normal. Adrenal glands: No adrenal mass is identified. Kidneys and ureters: There is right renal pelviectasis. The ureters are normal caliber bilaterally. Stomach and bowel: Ingested material is seen in the stomach. No intrinsic gastric abnormality identified. Diverticulosis coli is noted, with no inflammatory changes to indicate diverticulitis. There is no evidence of intestinal perforation or obstruction. Appendix: A normal appendix is identified. Intraperitoneal space: There is no free intraperitoneal air visualized. Vasculature: There is no evidence of an abdominal aortic aneurysm. Lymph nodes: No pathologically enlarged lymph nodes identified. Urinary bladder: The bladder is normal. Reproductive: Unremarkable as visualized. Bones/joints: Spinal degenerative changes. Soft tissues: Unremarkable. Other findings: No focal inflammatory process is identified. IMPRESSION: 1. Diverticulosis coli. 2. Retained fecal material colon. 3. No bowel obstruction, free air or focal inflammatory process identified.
--- NOTE | 2024-07-23 21:42 | CT_ITS ---
PROCEDURE INFORMATION: Exam: CT Lumbar Spine Without Contrast Exam date and time: 07/23/2024 10:09 PM Age: 54 years old Clinical indication: Other: Low back pain, L flank pain TECHNIQUE: Imaging protocol: Computed tomography of the lumbar spine without contrast. Radiation optimization: All CT scans at this facility use at least one of these dose optimization techniques: automated exposure control; mA and/or kV adjustment per patient size (includes targeted exams where dose is matched to clinical indication); or iterative reconstruction. COMPARISON: MR LUMBAR SPINE WO CON 01/13/2022 1:09 PM FINDINGS: Bones/joints: No anterior wedging deformity. No acute lucent fracture visualized. Mild right convexity of the lumbar spine. Multiple Schmorl's nodes, most prominent at the superior L4 endplate, are age indeterminate. No severe central canal or neural foraminal stenosis demonstrated by CT. Soft tissues: Unremarkable. IMPRESSION: No acute lumbar spinal injury demonstrated by CT.
[2024-07-23 21:47] LABS: Appearance,Urine CLEAR (Clear); Bilirubin,Urine Negative (Negative); Blood, Urine Negative (Negative); Color,Urine YELLOW (Yellow); Glucose,Urine (UA) Negative (Negative); Ketones,Urine Negative (Negative); Leukocyte Esterase,Urine Negative (Negative); Nitrate,Urine Negative (Negative); Protein,Urine Negative (Negative); Urobilinogen,Urine 0.2 EU/dl (0.2)
--- NOTE | 2024-07-23 21:47 | ED_ITS ---
Discharge Plan Disposition Patient Disposition: Home, Self-Care Condition: Good Prescriptions Prescriptions: No Action albuterol sulfate [Ventolin HFA] 90 mcg/actuation HFA aerosol inhaler 2 puff inhalation Q4-6H PRN (Reason: shortness of breath or wheezing) Qty: 8.5 3RF Trelegy Ellipta 100-62.5-25 mcg blister with device 1 inh inhalation DAILY Qty: 60 2RF mupirocin 2 % ointment 1 applic topical BID 14 Days Qty: 15 0RF rosuvastatin 10 mg tablet 10 mg PO DAILY citalopram 40 mg tablet 40 mg PO cetirizine [All Day Allergy (cetirizine)] 10 mg tablet 10 mg PO DAILY Qty: 90 2RF oxycodone-acetaminophen 10-325 mg tablet 1 tab PO TID PRN (Reason: pain) Qty: 90 0RF gabapentin 800 mg tablet 800 mg PO TID 30 Days Qty: 90 2RF amlodipine 5 mg tablet See Rx Instructions .ROUTE .COMPLEX Qty: 30 2RF Dose Instruction: TAKE 1 TABLET BY MOUTH EVERY DAY Rx Instructions: TAKE 1 TABLET BY MOUTH EVERY DAY aspirin 81 mg tablet,delayed release (DR/EC) 81 mg PO DAILY Qty: 90 3RF isosorbide mononitrate 30 mg tablet extended release 24 hr See Rx Instructions .ROUTE .COMPLEX Qty: 90 4RF Dose Instruction: TAKE 1 TABLET BY MOUTH ONCE DAILY FOR CHEST PAIN Rx Instructions: TAKE 1 TABLET BY MOUTH ONCE DAILY FOR CHEST PAIN ranolazine 500 mg tablet extended release 12 hr See Rx Instructions .ROUTE .COMPLEX Qty: 180 3RF Dose Instruction: TAKE 1 TABLET BY MOUTH TWICE DAILY Rx Instructions: TAKE 1 TABLET BY MOUTH TWICE DAILY omeprazole 40 mg capsule,delayed release(DR/EC) See Rx Instructions .ROUTE .COMPLEX Qty: 90 3RF Dose Instruction: TAKE 1 CAPSULE BY MOUTH ONCE DAILY FOR GERD Rx Instructions: TAKE 1 CAPSULE BY MOUTH ONCE DAILY FOR GERD lisinopril 20 mg tablet See Rx Instructions .ROUTE .COMPLEX Qty: 90 3RF Dose Instruction: TAKE 1 TABLET BY MOUTH ONCE DAILY Rx Instructions: TAKE 1 TABLET BY MOUTH ONCE DAILY fluoxetine 40 mg capsule See Rx Instructions .ROUTE .COMPLEX Qty: 30 3RF Dose Instruction: TAKE 1 CAPSULE BY MOUTH EVERY DAY Rx Instructions: TAKE 1 CAPSULE BY MOUTH EVERY DAY finasteride 5 mg tablet See Rx Instructions .ROUTE .COMPLEX Qty: 30 2RF Dose Instruction: TAKE 1 TABLET(5 mg) orally daily Rx Instructions: TAKE 1 TABLET(5 mg) orally daily oxycodone-acetaminophen 10-325 mg tablet 1 tab PO TID PRN (Reason: Chronic Pain) 30 Days Qty: 90 0RF cholecalciferol (vitamin D3) 125 mcg (5,000 unit) capsule See Rx Instructions .ROUTE .COMPLEX Qty: 30 11RF Dose Instruction: TAKE 1 CAPSULE ORALLY DAILY FOR 90 DAYS Rx Instructions: TAKE 1 CAPSULE ORALLY DAILY FOR 90 DAYS prednisone 20 mg tablet 40 mg PO BID 4 Days Qty: 16 0RF methocarbamol 750 mg tablet 750 mg PO Q8H PRN (Reason: pain) Qty: 20 0RF Referrals Follow up/Referrals: Lui Shafer DO [Primary Care Provider] - See instructions Lui Jolley MD [Staff Physician] - See instructions (frequent urination, urgency, no UTI, reassuring ER workup) Activity Restrictions/Add. Instructions Additional Instructions/Restrictions: Your evaluated in the ER and are appropriate for discharge at this time. Continue all home medications as previously prescribed. Call your primary care doctor and make an appointment for immediate reevaluation, they may want to refer you to physical therapy for further management of your back pain. Also call the urology office and make an appointment with them for reevaluation of your urinary complaints. Return to the ER with new, worsening, or otherwise concerning symptoms. Clinical Impressions Clinical Impression: Low back pain, Urinary frequency Instructions Patient Instructions: DI for Low Back Pain Print Language Print Language: Frisian Discharge ED Provider: Zeina Sylvester General Adult HPI <Zeina Sylvester DO - Last Filed: 07/23/24 23:33> General Chief complaint: Back Pain/Injury Stated complaint: painful,frequency with urination,lower back pain Time Seen by Provider: 07/23/24 21:34 Mode of Arrival: Ambulatory Source of Information: Patient Limitations: No Limitations Description of Symptoms (Recalled from ER Triage Doc. by RN): Pt presents with c/o left sided flank pain that started this AM, pt states he has been having urinary frequency and urgency History of Present Illness HPI narrative: This patient is a 54-year-old male with a history of chronic back issues, hypertension, hyperlipidemia, CAD presenting to the emergency department for evaluation with concern for left-sided flank/low back pain. Patient states that the pain radiates down his left leg. He states that he has chronic back issues, but he is worried something is wrong with his kidneys because he has had urinary frequency and urgency. He denies any saddle anesthesia, incontinence, retention, or inability to walk. He is still able to walk, just has some pain in his left leg with walking. No recent falls or injuries. No fevers, vomiting, or other concerns. Related Data Home Medications ?Medication ?Instructions ?Recorded ?Confirmed citalopram 40 mg tablet 40 mg PO 01/27/24 05/31/24 rosuvastatin 10 mg tablet 10 mg PO DAILY 01/27/24 05/31/24 Previous Rx's ?Medication ?Instructions ?Recorded amlodipine 5 mg tablet See Rx Instructions .Route 02/01/23 .COMPLEX #30 tabs albuterol sulfate 90 mcg/actuation 2 puff inhalation Q4-6H PRN 03/11/23 aerosol inhaler (Ventolin HFA) shortness of breath or wheezing #8.5 grams fluticasone fur. 100 mcg-umeclid 1 inh inhalation DAILY #60 ea 03/11/23 62.5 mcg-vilant 25 mcg inhalat.powder (Trelegy Ellipta) aspirin 81 mg tablet,delayed 81 mg PO DAILY Heart health #90 03/21/23 release tabs isosorbide mononitrate 30 mg See Rx Instructions .Route 06/06/23 tablet,extended release 24 hr .COMPLEX #90 tabs omeprazole 40 mg capsule,delayed See Rx Instructions .Route 06/29/23 release .COMPLEX #90 caps ranolazine 500 mg tablet,extended See Rx Instructions .Route 06/29/23 release,12 hr .COMPLEX #180 tabs lisinopril 20 mg tablet See Rx Instructions .Route 08/22/23 .COMPLEX #90 tabs fluoxetine 40 mg capsule See Rx Instructions .Route 01/02/24 .COMPLEX #30 caps cetirizine 10 mg tablet (All Day 10 mg PO DAILY #90 tabs 01/27/24 Allergy (cetirizine)) mupirocin 2 % topical ointment 1 applic topical BID infection 14 02/20/24 days #15 grams prednisone 20 mg tablet 40 mg (2 x 20 mg) PO BID 4 days 04/29/24 #16 tabs gabapentin 800 mg tablet 800 mg PO TID 30 days #90 tabs 05/31/24 oxycodone-acetaminophen 10 mg-325 1 tab PO TID PRN pain #90 tabs 05/31/24 mg tablet finasteride 5 mg tablet See Rx Instructions .Route 06/20/24 .COMPLEX #30 tabs methocarbamol 750 mg tablet 750 mg PO Q8H PRN pain #20 tabs 06/22/24 oxycodone-acetaminophen 10 mg-325 1 tab PO TID PRN Chronic Pain 30 07/02/24 mg tablet days #90 tabs cholecalciferol (vitamin D3) 125 See Rx Instructions .Route 07/06/24 mcg (5,000 unit) capsule .COMPLEX #30 caps Allergies Allergy/AdvReac Type Severity Reaction Status Date / Time codeine (CODEINE) Allergy Mild Anaphylaxis Verified 07/23/24 22:34 meloxicam (From MOBIC) Allergy Mild Anaphylaxis Verified 07/23/24 22:34 ibuprofen (IBUPROFEN) Allergy Unknown Anaphylaxis Verified 07/23/24 22:34 PFS <Zeina Sylvester DO - Last Filed: 07/23/24 23:33> [facility] Disclaimer: The information contained in this section may have been updated after the patient was seen, as this information can be updated by other users. Medical History Colon cancer screening Low testosterone Angina pectoris History of left heart catheterization CAD (coronary artery disease) HTN (hypertension) HLD (hyperlipidemia) RABIA (obstructive sleep apnea) Daytime somnolence Surgical History Stented coronary artery Hx of tympanostomy tubes History of surgery on arm Family History Other Unknown family medical history Social History Smoking Status: Current every day smoker tobacco type: cigarettes packs per day: 2 alcohol intake: never substance use type: denies use current occupational status: employed Travel in the last 8 weeks: None household members: spouse and children housing: house current occupation: [employer] current occupational exposures/hazards: No caffeine: Yes Have you lived/traveled outside [place] in past 30 days?: No Contact w/someone who lives/traveled outside [place] past 30 days?: No Exposure to someone with infectious disease in past 14 days?: No Do you have a fever (greater than 100.4 F or 38 C)?: No Have you tested positive for COVID-19: No Exposed to someone with COVID-19 in past 14 days?: No Do you have a sore throat?: No Do you have a cough?: No Do you have any weakness?: No Do you have any diarrhea?: No Are you experiencing any unusual bleeding?: No Do you have any muscle aches/pain?: Yes Do you have any abdominal pain?: No Are you experiencing loss of taste or smell?: No Other Medical History Have you received the Flu Vaccine for this season: No Have you received the Pneumonia Vaccine: No <Zeina Sylvester DO - Last Filed: 07/23/24 23:33> ROS Obtained: Yes All systems reviewed & no additional complaints except as documented Physical Exam <Zeina Sylvester DO - Last Filed: 07/23/24 23:33> General General appearance: alert and in no apparent distress Head Head exam: atraumatic and normocephalic Eye Eye exam: Present normal appearance, PERRL and EOMI ENT ENT exam: Present normal exam, normal oropharynx, mucous membranes moist and normal external ear exam Neck Neck exam: Present normal inspection, full ROM and trachea midline; Absent tenderness Chest Chest inspection: Present normal inspection and symmetric chest wall rise; Absent tenderness Respiratory Respiratory exam: Present normal lung sounds bilaterally; Absent respiratory distress, wheezes, stridor or accessory muscle use Cardiovascular Cardiovascular exam: Present regular rate and normal rhythm Abdominal Exam Abdominal exam: Present soft; Absent distention, tenderness or guarding Extremities Exam Extremities exam: Present normal inspection, full ROM and normal capillary refill; Absent tenderness or edema Back Exam Back exam: Present tenderness Back 1 view image: 2 1. Tenderness to palpation, CVA tenderness Neurological Exam Neurological exam: Present alert, oriented X3, CN II-XII intact and normal gait; Absent motor sensory deficit Psychiatric Psychiatric exam: Present normal affect and normal mood Skin Skin exam: Present warm and dry Medical Decision Making <Zeina Sylvester DO - Last Filed: 07/23/24 23:33> Medical Records Medical records reviewed: Yes I reviewed the patient's medical records. Screening: Per USPSTF and CDC recommendations, given the prevalence of disease in our region, it is our hospital?s policy to screen for HIV and viral Hepatitis for all patients aged 18 and over and those with ongoing risk factors. Torres Inquiry Pt receiving controlled substance: No Vital Signs: 07/23/24 21:19 Temperature 98.3 F Temperature Source Oral Pulse Rate [Right] 85 Respiratory Rate 18 Blood Pressure [Right Arm] 135/96 H Blood Pressure Mean [Right Arm] 109 Blood Pressure Source [Right Arm] Automatic Cuff Blood Pressure Position [Right Arm] Sitting 02 Sat by Pulse Oximetry 99 Oxygen Delivery Method Room Air Lab Data Lab results reviewed: Yes I reviewed the patient's lab results. Lab Results 07/23/24 21:30: Urine Color Yellow, Urine Appearance Clear, Urine pH 8.0, Ur Specific [place] 1.020, Urine Protein Negative, Urine Glucose (UA) Negative, Urine Ketones Negative, Urine Blood Negative, Urine Nitrate Negative, Urine Bilirubin Negative, Urine Urobilinogen 0.2, Ur Leukocyte Esterase Negative, Urine WBC None, Ur Squamous Epith Cells Occasional, Urine Bacteria Trace 07/23/24 21:54: WBC 8.8, RBC 4.15 L, Hgb 12.5 L, Hct 37.4 L, MCV 90.1, MCH 30.1, MCHC 33.4, RDW 13.4, Plt Count 213, MPV 9.3, Neut % (Auto) 61.4, Lymph % (Auto) 25.8, [place] % (Auto) 8.6, Eos % (Auto) 3.4, Baso % (Auto) 0.5, Neut # (Auto) 5.4, Lymph # (Auto) 2.3, [place] # (Auto) 0.8, Eos # (Auto) 0.3, Baso # (Auto) 0.0, Sodium 137, Potassium 4.2, Chloride 102, Carbon Dioxide 32 H, Anion Gap 7.2, BUN 10, Creatinine 0.90, Estimated Creat Clear 108, Estimated GFR 88, Est GFR ( Amer) 106, Glucose 125 H, Calcium 9.3, Total Bilirubin 0.3, AST 36, ALT 25, Alkaline Phosphatase 64, Total Protein 6.5, Albumin 4.2, Globulin 2.3, Albumin/Globulin Ratio 1.8, Lipase 141 07/23/24 21:54 07/23/24 21:54 Orders (Tests/Meds): ED MEDICATIONS Discontinued Medications Generic Name Dose Route Start Last Admin Trade Name Cara PRN Reason Stop Dose Admin Acetaminophen 1,000 mg 07/23/24 21:42 07/23/24 21:55 Acetaminophen 1,000mg/100ml Vial IV 07/23/24 21:43 1,000 mg ONCE ONE Administration Lactated Ringer's 1,000 mls @ 999 mls/hr 07/23/24 21:42 07/23/24 21:55 Lactated Ringer's 1000 Ml Bag IV 07/23/24 22:42 999 mls/hr .Q1H1M ONE Administration Lidocaine 1 each 07/23/24 21:42 07/23/24 21:55 Lidocaine 5% Transdermal Patch TP 07/23/24 21:43 1 each ONCE ONE Administration Methocarbamol 1,000 mg 07/23/24 22:58 07/23/24 23:00 Methocarbamol 500mg Tablet PO 07/23/24 22:59 1,000 mg ONCE ONE Administration ORDERS Category Date Time Status CT abdomen pelvis wo con Stat Cat Scan 07/23/24 21:[address] lumbar spine wo con Stat Cat Scan 07/23/24 21:42 Completed CBC w/Auto Diff [Complete Blood Count Auto Diff] Stat Lab 07/23/24 21:54 Completed CMP [Comprehensive Metabolic Panel] Stat Lab 07/23/24 21:54 Completed Lipase Stat Lab 07/23/24 21:54 Completed Urinalysis and Microscopic Stat Lab 07/23/24 21:30 Completed Medical Decision Narrative: In summary, this patient is a 54-year-old male presenting to the Emergency Department for evaluation of low back pain, left flank pain, pain radiating down his left leg. Differential diagnoses considered include but are not limited to musculoskeletal strain/sprain, disc herniation, cauda equina syndrome, spinal cord compression, pyelonephritis, ureterolithiasis. Ruling out the most morbid conditions drove assessment. It should be noted patient's history includes chronic back pain, hypertension, hyperlipidemia, CAD which may or may not be at goal therapy. This complicates all aspects of care by increasing patient's risk for morbidity. I reviewed patient's past medical records and noted evaluation by myself here 06/18/2024 with concern for low back pain. After reassuring history and exam, he was discharged without imaging.. On exam, the patient is sitting upright in no acute distress. He is neurologically intact in his lower extremities without a lot of findings concerning for cauda equina syndrome or spinal cord compression. I feel he likely has left-sided low back pain with sciatica. He is also having some urinary symptoms. He is afebrile and nontoxic-appearing. Workup included CBC, CMP, urinalysis, CT abdomen pelvis without IV contrast, CT lumbar spine. he was given IV acetaminophen and topical Lidoderm patch for symptomatic improvement of pain. Labs were obtained that demonstrated reassuring CBC, reassuring chemistry, no significant hematuria. On reassessment, patient had no improvement after administration of IV acetaminophen, Lidoderm patch. He was then given oral Robaxin.. Patient care signed out to the oncoming provider, Dr. Zheng, pending CT reads and postvoid residual. <Farrah Zheng MD - Last Filed: 07/23/24 23:46> Vital Signs: 07/23/24 21:19 Temperature 98.3 F Temperature Source Oral Pulse Rate [Right] 85 Respiratory Rate 18 Blood Pressure [Right Arm] 135/96 H Blood Pressure Mean [Right Arm] 109 Blood Pressure Source [Right Arm] Automatic Cuff Blood Pressure Position [Right Arm] Sitting 02 Sat by Pulse Oximetry 99 Oxygen Delivery Method Room Air Lab Data Lab Results 07/23/24 21:30: Urine Color Yellow, Urine Appearance Clear, Urine pH 8.0, Ur Specific [place] 1.020, Urine Protein Negative, Urine Glucose (UA) Negative, Urine Ketones Negative, Urine Blood Negative, Urine Nitrate Negative, Urine Bilirubin Negative, Urine Urobilinogen 0.2, Ur Leukocyte Esterase Negative, Urine WBC None, Ur Squamous Epith Cells Occasional, Urine Bacteria Trace 07/23/24 21:54: WBC 8.8, RBC 4.15 L, Hgb 12.5 L, Hct 37.4 L, MCV 90.1, MCH 30.1, MCHC 33.4, RDW 13.4, Plt Count 213, MPV 9.3, Neut % (Auto) 61.4, Lymph % (Auto) 25.8, [place] % (Auto) 8.6, Eos % (Auto) 3.4, Baso % (Auto) 0.5, Neut # (Auto) 5.4, Lymph # (Auto) 2.3, [place] # (Auto) 0.8, Eos # (Auto) 0.3, Baso # (Auto) 0.0, Sodium 137, Potassium 4.2, Chloride 102, Carbon Dioxide 32 H, Anion Gap 7.2, BUN 10, Creatinine 0.90, Estimated Creat Clear 108, Estimated GFR 88, Est GFR ( Amer) 106, Glucose 125 H, Calcium 9.3, Total Bilirubin 0.3, AST 36, ALT 25, Alkaline Phosphatase 64, Total Protein 6.5, Albumin 4.2, Globulin 2.3, Albumin/Globulin Ratio 1.8, Lipase 141 Orders (Tests/Meds): ED MEDICATIONS Discontinued Medications Generic Name Dose Route Start Last Admin Trade Name Freq PRN Reason Stop Dose Admin Acetaminophen 1,000 mg 07/23/24 21:42 07/23/24 21:55 Acetaminophen 1,000mg/100ml Vial IV 07/23/24 21:43 1,000 mg ONCE ONE Administration Lactated Ringer's 1,000 mls @ 999 mls/hr 07/23/24 21:42 07/23/24 21:55 Lactated Ringer's 1000 Ml Bag IV 07/23/24 22:42 999 mls/hr .Q1H1M ONE Administration Lidocaine 1 each 07/23/24 21:42 07/23/24 21:55 Lidocaine 5% Transdermal Patch TP 07/23/24 21:43 1 each ONCE ONE Administration Methocarbamol 1,000 mg 07/23/24 22:58 07/23/24 23:00 Methocarbamol 500mg Tablet PO 07/23/24 22:59 1,000 mg ONCE ONE Administration ORDERS Category Date Time Status CT abdomen pelvis wo con Stat Cat Scan 07/23/24 21:[address] lumbar spine wo con Stat Cat Scan 07/23/24 21:42 Completed CBC w/Auto Diff [Complete Blood Count Auto Diff] Stat Lab 07/23/24 21:54 Completed CMP [Comprehensive Metabolic Panel] Stat Lab 07/23/24 21:54 Completed Lipase Stat Lab 07/23/24 21:54 Completed Urinalysis and Microscopic Stat Lab 07/23/24 21:30 Completed Medical Decision Narrative: In summary, this patient is a 54-year-old male presenting to the Emergency Department for evaluation of low back pain, left flank pain, pain radiating down his left leg. Differential diagnoses considered include but are not limited to musculoskeletal strain/sprain, disc herniation, cauda equina syndrome, spinal cord compression, pyelonephritis, ureterolithiasis. Ruling out the most morbid conditions drove assessment. It should be noted patient's history includes chronic back pain, hypertension, hyperlipidemia, CAD which may or may not be at goal therapy. This complicates all aspects of care by increasing patient's risk for morbidity. I reviewed patient's past medical records and noted evaluation by myself here 06/18/2024 with concern for low back pain. After reassuring history and exam, he was discharged without imaging.. On exam, the patient is sitting upright in no acute distress. He is neurologically intact in his lower extremities without a lot of findings concerning for cauda equina syndrome or spinal cord compression. I feel he likely has left-sided low back pain with sciatica. He is also having some urinary symptoms. He is afebrile and nontoxic-appearing. Workup included CBC, CMP, urinalysis, CT abdomen pelvis without IV contrast, CT lumbar spine. he was given IV acetaminophen and topical Lidoderm patch for symptomatic improvement of pain. Labs were obtained that demonstrated reassuring CBC, reassuring chemistry, no significant hematuria. On reassessment, patient had no improvement after administration of IV acetaminophen, Lidoderm patch. He was then given oral Robaxin.. Patient care signed out to the oncoming provider, Dr. Zheng, pending CT reads and postvoid residual. Zheng: Upon my assumption of care patient is stable. Exam is reassuring against acute pathology, no evidence of cauda equina such as saddle anesthesia, paralysis, postvoid residuals pending. I agree with Dr. Sylvester assessment and plan. He is requesting additional pain medications but just received the oral Robaxin. Additional medications are not being administered at this time since I personally interpreted his CTs and do not appreciate acute intra-abdominal or lumbar spine pathology. He also already takes controlled substances including gabapentin and has received multimodal pain control in the ER. CTs resulted without acute abnormality in the lumbar spine or abdomen. Patient is Schmorl's nodes in the spine but there are no associated fracture or malalignment, no severe canal and neural for aminal stenosis. Patient does have diverticulosis as well as right renal pelviectasis, however there is no obvious etiology for his complaints today. Postvoid residual 0 mL. He is fully emptying his bladder which is further reassurance against cauda equina. I reviewed labs which are also reassuring, no kidney dysfunction, no UTI, I do not believe patient requires further workup or intervention in the ER at this time. I explained his results to him, he is frustrated that he is not receiving additional pain medication but I explained it is important for him to continue all of his home medications including his previously prescribed gabapentin, methocarbamol, and to follow-up closely with his PCP for his back pain. Additionally given his urinary complaints, I recommended follow-up with urology and placed a referral to Dr. Jolley for this purpose. He has ambulated multiple times to the restroom as well as around the ER and I believe he is appropriate for discharge at this time given reassuring workup. Patient was given instructions on symptomatic management, follow up instructions, and return precautions for the emergency department. Patient indicated understanding and was discharged in stable condition. He ambulated independently out of the ER without difficulty. Critical Care <Zeina Sylvester, DO - Last Filed: 07/23/24 23:33> Critical Care Time Critical Care Time: No
[2024-07-23] MEDS: ACETAMINOPHEN 1,000MG/100ML VIAL 1000 MG IV (21:55)
[2024-07-23] MEDS: LIDOCAINE 5% TRANSDERMAL PATCH 1 EACH TP (21:55)
[2024-07-23] MEDS: LACTATED RINGERS 1000ML 1,000 ML 999 ML IV (21:55)
[2024-07-23 21:57] LABS: Bacteria,Urine Trace /lpf; Squamous Epithelial Cell,Urine Occasional #/hpf (0-5)
[2024-07-23 22:20] LABS: Alanine Aminotransferase 25 U/L (12-78); Albumin Level 4.2 g/dl (3.5-5.0); Albumin/Globulin Ratio 1.8 (1.1-1.8); Alkaline Phosphatase 64 U/L (38-126); Anion Gap 7.2 mEq/L (5-15); Aspartate Amino Transferase 36 U/L (17-59); Bilirubin,Total 0.3 mg/dl (0.2-1.3); Blood Urea Nitrogen 10 mg/dl (9-20); Calcium 9.3 mg/dl (8.4-10.2); Carbon Dioxide 32 mmol/L (22.0-30.0); Chloride 102 mmol/L (98-107); Creatinine Clearance Estimated 108 mL/min (50-200); Estimated Glomerular Filt Rate 88 ml/min (>60); GFR (African American) 106 ML/MIN (>60); Globulin 2.3 g/dL (1.3-3.2); Glucose 125 mg/dl (74-100); Potassium 4.2 mmoL/L (3.5-5.1); Sodium 137 mmol/L (136-145); Total Protein,Serum 6.5 g/dl (6.3-8.2)
[2024-07-23 22:42] LABS: Basophils % 0.5 % (0.1-2.0); Eosinophils # 0.3 K/mm3 (0.0-0.4); Eosinophils % 3.4 % (0.1-12.0); Hematocrit 37.4 % (42.0-52.0); Hemoglobin 12.5 g/dL (14.1-18.0); Lymphocytes # 2.3 K/mm3 (0.7-4.5); Lymphocytes % 25.8 % (10-50); Mean Corpuscular HGB Conc 33.4 g/dL (31.8-35.4); Mean Corpuscular Hemoglobin 30.1 pg (27.0-31.2); Mean Corpuscular Volume 90.1 fl (80-94); Mean Platelet Volume 9.3 fl (7.4-10.4); Monocytes # 0.8 K/mm3 (0.1-1.0); Monocytes % 8.6 % (1.7-9.3); Neutrophils # 5.4 K/mm3 (1.8-7.8); Neutrophils % 61.4 % (37.0-80.0); Platelet Count 213 K/mm3 (142-424); Red Blood Count 4.15 M/mm3 (4.60-6.20); Red Cell Distribution Width 13.4 % (11.5-17.5); White Blood Count 8.8 K/mm3 (4.8-10.8)
[2024-07-23 22:54] LABS: Lipase 141 U/L (23-300)
[2024-07-23] MEDS: METHOCARBAMOL 500MG TABLET 1000 MG PO (23:00)
[2024-07-23 23:44] VITALS: BP 140/76; PULSE 87; RESP 20; TEMP 36.6; O2SAT 97
== END 2024-07-23 23:47 | disposition home or self-care (01) ==
PROVIDERS: Emergency Provider Emergency Medicine; PCP Internal Medicine
DX: M54.50 Low back pain, unspecified (principal); R35.0 Frequency of micturition; R30.9 Painful micturition, unspecified; R39.15 Urgency of urination; R10.9 Unspecified abdominal pain; F17.210 Nicotine dependence, cigarettes, uncomplicated
CPT/HCPCS: 72131; 74176; 80053; 81001; 83690; 85025; 96361; 96374; 99284; J0131; J7120

== ENCOUNTER 2024-09-10 10:57 | Outpatient (POV) | payer MEDICAID, SELFPAY ==
--- NOTE | 2024-09-10 11:10 | A.OFFVIS_ITS ---
[facility] Disclaimer: The information contained in this section may have been updated after the patient was seen, as this information can be updated by other users. Medical History (Updated 09/10/24 @ 11:14 by Zeina Stevenson APRN) Depression Cigarette smoker Colon cancer screening Low testosterone Angina pectoris History of left heart catheterization CAD (coronary artery disease) HTN (hypertension) HLD (hyperlipidemia) RABIA (obstructive sleep apnea) Daytime somnolence Surgical History Stented coronary artery Hx of tympanostomy tubes History of surgery on arm Family History Other Unknown family medical history Social History (Updated 08/28/24 @ 10:28 by Christoph Aguilar MD) Smoking Status: Current every day smoker tobacco type: cigarettes packs per day: 2 smoking status start date: 1984 alcohol intake: never substance use type: denies use current occupational status: employed Travel in the last 8 weeks: None household members: spouse and children housing: house current occupation: [employer] current occupational exposures/hazards: No caffeine: Yes PM Subjective & Objective Subjective Subjective:: Patient is a pleasant 54-year-old male who presents today for worsening pain that does come from his low back and radiates down primarily the left entire leg with numbness and tingling. He does state that he does still have it on the right however it is not to the severity of the left at this point. He states the pain is constant and does interfere with his ability perform activities of daily living such as cooking and cleaning. Patient has continued his oral medications, heat and ice, physical therapy, at home stretching exercise for longer than 6 weeks that was physician guided. Patient has been getting Percocet and gabapentin from his PCP. Today he states that he has had male multiple providers in his primary care office. He states he is not really sure what is going on. His Torres has been reviewed. Review of Systems: General: No recent weight changes, no fever, no sleep disturbances Respiratory: No cough, no shortness of air, no recurring pulmonary infections Cardiovascular/peripheral vascular: No chest pain, no palpitations, no edema, no shortness of breath Gastrointestinal: No new onset incontinence, normal bowel movements reported Genitourinary: No new onset incontinence Musculoskeletal: Chronic low back pain, severe left leg numbness tingling Psychiatric: [Normal mood/affect] Neurological: [Denies weakness in extremities], [denies balance issues] Pain at rest (0-10 scale): 9 Objective Objective:: Physical Exam: General: Alert and oriented x3, no acute distress, pleasant and cooperative Lungs: Respirations even and unlabored, symmetrical chest expansion Eyes: PERRL Musculoskeletal: Flexion and extension of lumbar [spine] somewhat guarded secondary to pain, [antalgic gait noted] positive leg raise Neurological: Speech clear, no gross sensory deficit Has patient had previous pain injection?: No Conservative treatment options previously tried: Home exercise plan Length of treatment: Longer than 12 weeks Meds Home Medications and Allergies Home Medications ?Medication ?Instructions ?Recorded ?Confirmed ?Type amlodipine 5 mg tablet See Rx Instructions .Route 02/01/23 08/28/24 Rx .COMPLEX #30 tabs albuterol sulfate 90 mcg/actuation 2 puff inhalation Q4-6H PRN 03/11/23 08/28/24 Rx aerosol inhaler (Ventolin HFA) shortness of breath or wheezing #8.5 grams fluticasone fur. 100 mcg-umeclid 1 inh inhalation DAILY #60 ea 03/11/23 08/28/24 Rx 62.5 mcg-vilant 25 mcg inhalat.powder (Trelegy Ellipta) aspirin 81 mg tablet,delayed 81 mg PO DAILY Heart health #90 03/21/23 08/28/24 Rx release tabs isosorbide mononitrate 30 mg See Rx Instructions .Route 06/06/23 08/28/24 Rx tablet,extended release 24 hr .COMPLEX #90 tabs omeprazole 40 mg capsule,delayed See Rx Instructions .Route 06/29/23 08/28/24 Rx release .COMPLEX #90 caps lisinopril 20 mg tablet See Rx Instructions .Route 08/22/23 08/28/24 Rx .COMPLEX #90 tabs fluoxetine 40 mg capsule See Rx Instructions .Route 01/02/24 08/28/24 Rx .COMPLEX #30 caps cetirizine 10 mg tablet (All Day 10 mg PO DAILY #90 tabs 01/27/24 08/28/24 Rx Allergy (cetirizine)) citalopram 40 mg tablet 40 mg PO 01/27/24 08/28/24 History cholecalciferol (vitamin D3) 125 See Rx Instructions .Route 07/06/24 08/28/24 Rx mcg (5,000 unit) capsule .COMPLEX #30 caps finasteride 5 mg tablet See Rx Instructions .Route 08/20/24 08/28/24 Rx .COMPLEX #90 tabs tamsulosin 0.4 mg capsule 0.4 mg PO DAILY #30 caps 08/28/24 08/28/24 Rx triamcinolone acetonide 0.5 % 1 applic topical TID #15 grams 08/28/24 08/28/24 Rx topical cream New Prescriptions to Start Prescriptions: Allergies Allergy/AdvReac Type Severity Reaction Status Date / Time codeine (CODEINE) Allergy Mild Anaphylaxis Verified 08/28/24 08:55 meloxicam (From MOBIC) Allergy Mild Anaphylaxis Verified 08/28/24 08:55 ibuprofen (IBUPROFEN) Allergy Unknown Anaphylaxis Verified 08/28/24 08:55 Assessment and Plan *Assessment and plan (1) Degenerative disc disease: Status: Acute Category: Medical (2) Lumbar radicular pain: Status: Acute Category: Medical Code(s): M54.16 - Radiculopathy, lumbar region (3) Lumbar canal stenosis: Status: Acute Qualifiers: Neurogenic claudication status: with neurogenic claudication Qualified Code(s): M48.062 - Spinal stenosis, lumbar region with neurogenic claudication Category: Medical Code(s): M48.061 - Spinal stenosis, lumbar region without neurogenic claudication (4) Facet arthropathy: Status: Acute Category: Medical Code(s): M47.819 - Spondylosis without myelopathy or radiculopathy, site unspecified Plan Patient is experiencing worsening pain in his low back with numbness and tingling into her lower extremities. Patient did have limited range of motion of his lumbar spine with a positive leg raise. I did discuss with patient that I do believe they would benefit from a lumbar epidural steroid injection. Risk and benefits were discussed with patient and the patient would like to proceed forward with this plan of care. Patient is not on any blood thinners. Patient has tried and failed conservative therapy including continued at home stretching exercise for longer than 12 weeks that was physician guided. Patient did complete physical therapy with no additional improvements in the past. Patient has had this pain for years and it is progressively worsened. Patient has not had any lumbar epidurals since 2014. Those injections were done at a different office and he does state that they did improve his overall symptoms. We will schedule the patient for an LESI L4-L5 under fluoroscopy. I will also order the patient a compounded cream. Patient has been instructed to contact the clinic with any concerns before the next appointment. Dr. Art has reviewed this note and agrees with this plan of care. This note was dictated using voice recognition software and make contain errors or omissions. All injections are used with Lidocaine, Bupivacaine and Depo Medrol. Occasionally urine drug screen is needed to verify patient's compliance with our office pain contract. This is ordered based off specific treatments related to chronic pain with the potential to abuse certain medications.
[2024-09-10 11:51] VITALS: BP 130/73; PULSE 71; RESP 14; O2SAT 97; BMI 24.1
== END 2024-09-10 23:59 | disposition home or self-care (01) ==
LOC: SC.PAIN 10:58
PROVIDERS: PCP Family Medicine; Visit Provider Nurse Practitioner Family
DX: M54.16 Radiculopathy, lumbar region (principal); M48.062 Spinal stenosis, lumbar region with neurogenic claudication; M47.819 Spondylosis without myelopathy or radiculopathy, site unspecified; F17.210 Nicotine dependence, cigarettes, uncomplicated; Z73.89 Other problems related to life management difficulty
CPT/HCPCS: 99212; G0463

== ENCOUNTER 2024-12-19 22:15 | Emergency (ER) | payer MEDICAID, SELFPAY ==
--- NOTE | 2024-12-19 22:14 | ECG_ITS ---
APPROVED REPORT Exam: Resting ECG HR:65 bpm ECG Measurements Heart Rate 65 AXES MO 158 P 33 QRSd 114 QRS 83 QT 410 T 67 QTc 421 Conclusion Normal sinus rhythm without acute ST or T wave changes concerning for ischemia Electronically signed by : Hanna Morgan, 12/20/2024 00:51:05
[2024-12-19 22:16] VITALS: BP 151/103; PULSE 66; RESP 20; TEMP 37.1; O2SAT 99; BMI 25.3
--- OUTSIDE RECORDS SUMMARY | 2024-12-19 22:29 | XMS_ITS | Data Portability ---
Author Organization [facility], [facility] Address [address] [place] [address] Care Team Providers Care [employer] Superintendent Name Role Phone MARK ABBASI Primary Care Provider MARK ABBASI Referring Provider Assessment Encounter Date Assessment Date Assessment LastModified by Organization Details LastModified Time 07/04/2020 07/04/2020 Mr. Hoffmann is a 50-year-old male. His visit is conducted today via telephone due to the current pandemic. This patient has chronic low back pain. There is radiating symptoms into the hips and lower extremities typically to the knee level. The patient states about 2 weeks ago, he bent over to pick something up. He had an acute low back pain exacerbation. The pain was bad enough that he went to the local emergency room. He states they did not do much in the ER and told him there was nothing for them to do, so the patient left. He is still having pain and stiffness in the lumbar region. He continues to get benefit from the current medications without side effect. Since last visit, he did have a sleep study, and he will now have a CPAP machine. He continues to work full-time. Lumbar CT scan 05/30/2018 noted mild to moderate L4-5 spinal stenosis due to ligamentum flavum hypertrophy and facet hypertrophy. Lumbar MRI 11/09/2019 noted multilevel lumbar spondylosis with facet and ligamentum flavum hypertrophy resulting in spinal canal stenosis and severe bilateral lateral recess stenosis at L4-5. There is no comment as to the thickness of the ligamentum flavum. For his chronic pain, he is currently prescribed Percocet and gabapentin which he tolerates. The updated Torres report is reviewed today and is appropriate. The urine drug screen confirmation report from May 08, 2020 is appropriately positive for oxycodone only. I am unable to perform a UDS today. This patient continues to have low back pain with symptoms extending into both lower extremities. Last week, he had an acute pain exacerbation in the low back after picking something up from the floor. He went to the emergency room, but he said they did not do anything so he left. For this acute low back pain exacerbation, I will prescribe a Medrol Dosepak that he may take as per instructions until completed. He continues to work full-time. I will continue the current medications as prescribed. He denies any side effect to the current medications, specifically he reports no issues with constipation. The medications allow him to perform his activities of daily living including working full-time. He may continue gabapentin 800 mg 1 p.o. 3 times daily and Percocet 7.5/325 mg 1 p.o. 3 times daily. This results in a morphine equivalent dose of 34. I will reassess him in 30 days. His ORT score is 0, but his risk assessment level is now high with previous inappropriate UDS confirmation. He previously treated with Dr. Chang but was discharged due to inability to present for a pill count. 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 Approximate call time was 15 minutes. Patient is an established patient with their informed consent to treat signed and on file. Patient was verbally authenticated based on the demographic information in the patient s file. The patient was given choice of telephonic visit or office visit; the patient chose telephone visit due to COVID-19 state of emergency. This visit is being conducted via telephone in accordance to all applicable laws and regulations. [email or web address] Not available 07/04/2020 16:04:03 08/06/2020 08/06/2020 Mr. Hoffmann is a 50-year-old male. He presents to clinic today for office visit follow-up and for medication refill. This patient has chronic low back pain. The pain affects the lumbar region with symptoms radiating into the hips and lower extremities typically to the knee level. The Medrol Dosepak prescribed last visit did help with his acute pain exacerbation, but the symptoms are beginning to increase. The patient wants to move forward with the lumbar epidural injection that the physician recommended at the initial visit. He continues to get benefit from the current medications without side effect. He reports he is only using the gabapentin twice per day. No general health changes are reported today. He has a past medical history relevant for coronary artery disease with previous stent placement. 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 Jensen Wray. He is currently on aspirin. He also has sleep apnea with use of a CPAP machine. He continues to work full-time. Lumbar CT scan 05/30/2018 noted mild to moderate L4-5 spinal stenosis due to ligamentum flavum hypertrophy and facet hypertrophy. Lumbar MRI 11/09/2019 noted multilevel lumbar spondylosis with facet and ligamentum flavum hypertrophy resulting in spinal canal stenosis and severe bilateral lateral recess stenosis at L4-5. There is no comment as to the thickness of the ligamentum flavum. For his chronic pain, he is currently prescribed Percocet and gabapentin which he tolerates. The updated Torres report is reviewed today and is appropriate. The urine drug screen performed in clinic today shows positive for oxycodone. The results are reviewed and discussed with the patient today. The last dose of Percocet and gabapentin was today. I will send the specimen to the lab to confirm Percocet and gabapentin. This patient continues to have low back pain with symptoms extending into both lower extremities. The Medrol Dosepak was given last visit to help with his acute pain exacerbation. That helped temporarily, but the symptoms are increasing again. At the initial visit, for his low back and leg symptoms, the physician recommended therapeutic lumbar epidural interlaminar L4-5 level with epidurogram. For a variety of reasons, the patient was not able to get the injection, but now he wants to move forward. He is currently on low-dose aspirin for secondary prophylaxis. I advised the patient we will need to obtain cardiac clearance from his house furnishings supervisor for him to be able to temporarily hold aspirin 4 days prior to the epidural injection. He may resume the aspirin 24 hours following the injection. The patient understands. Therefore, pending insurance approval and cardiac clearance, he will then return to clinic with a driver recruiter for the recommended procedure. I will continue the current medications. He denies side effect to the current medications. The medications allow him to perform his activities of daily living. He continues to work full-time. He may continue gabapentin 800 mg 1 p.o. 3 times daily and Percocet 7.5/325 mg 1 p.o. 3 times daily. This results in a morphine equivalent dose of 34. I will reassess him in 30 days. His ORT score is 0, but his risk assessment level is now high with previous inappropriate UDS confirmation. He previously treated with Dr. Chang but was discharged due to inability to present for a pill count. 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 [email or web address] Not available 08/06/2020 16:03:18 09/05/2020 09/05/2020 Mr. Hoffmann is a 50-year-old male. He presents to clinic today for office visit follow-up and for medication refill. This patient has chronic low back pain. The pain affects the lumbar region with symptoms radiating into the hips and lower extremities typically to the knee level. This continues to be problematic. The lumbar epidural injection ordered last visit was approved, but thus far has not been scheduled. He was given cardiac clearance to temporarily stop aspirin by his house furnishings supervisor. He continues to get benefit from the current medications without side effect. No general health changes are reported today. He has a past medical history relevant for coronary artery disease with previous stent placement. 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 Jensen Wray. He is currently on aspirin. He also has sleep apnea with use of a CPAP machine. He continues to work full-time. Lumbar CT scan 05/30/2018 noted mild to moderate L4-5 spinal stenosis due to ligamentum flavum hypertrophy and facet hypertrophy. Lumbar MRI 11/09/2019 noted multilevel lumbar spondylosis with facet and ligamentum flavum hypertrophy resulting in spinal canal stenosis and severe bilateral lateral recess stenosis at L4-5. There is no comment as to the thickness of the ligamentum flavum. For his chronic pain, he is currently prescribed Percocet and gabapentin which he tolerates. The updated Torres report is reviewed today and is appropriate. The urine drug screen confirmation report from August 06, 2020 is appropriately positive for oxycodone and gabapentin. The urine drug screen performed in clinic today is appropriately positive for oxycodone. The results are reviewed and discussed with the patient today. I will not send for confirmation today. Based on the patients urine confirmation (LCMS) results, the patient's overall risk level will remain the same. I would consider the patient to be High risk based on these new results. In response to the patient's risk level and urine confirmation I plan to not change the patient's opioid prescription. This patient continues to have low back pain with symptoms extending into both lower extremities. At last visit, he was recommended therapeutic lumbar epidural interlaminar L4-5 level with epidurogram. This has been approved but not yet scheduled. His house furnishings supervisor did provide cardiac clearance for him to temporarily hold aspirin 4 days prior to the epidural injection. He may resume the aspirin 24 hours following the injection. The patient will be scheduled for the procedure while in clinic today. I will continue the current medications. He denies side effect to the current medications. The medications allow him to perform his activities of daily living. He continues to work full-time. He may continue gabapentin 800 mg 1 p.o. 3 times daily and Percocet 7.5/325 mg 1 p.o. 3 times daily. This results in a morphine equivalent dose of 34. I will reassess him in 30 days. His ORT score is 0, but his risk assessment level is now high with previous inappropriate UDS confirmation. He previously treated with Dr. Chang but was discharged due to inability to present for a pill count. 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 [email or web address] Not available 09/05/2020 17:07:31 10/01/2020 10/01/2020 Mr. Hoffmann is a 50-year-old male. He presents to clinic today for office visit follow-up and for medication refill. This patient has chronic pain affecting multiple areas. The primary pain complaint is chronic low back pain. The pain affects the lumbar region with symptoms radiating into the hips and lower extremities typically to the knee level. The patient states he canceled the therapeutic lumbar epidural injection because of his work schedule. He also has chronic multiple joint pain complaints. With the recent rainy weather, he notes increase in joint pain and stiffness. He continues to get therapeutic benefit with current medications without side effect. No general health changes are reported today. He has a past medical history relevant for coronary artery disease with previous stent placement. 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 Jensen Wray. He is currently on aspirin. He also has sleep apnea with use of a CPAP machine. He continues to work full-time. Lumbar CT scan 05/30/2018 noted mild to moderate L4-5 spinal stenosis due to ligamentum flavum hypertrophy and facet hypertrophy. Lumbar MRI 11/09/2019 noted multilevel lumbar spondylosis with facet and ligamentum flavum hypertrophy resulting in spinal canal stenosis and severe bilateral lateral recess stenosis at L4-5. There is no comment as to the thickness of the ligamentum flavum. For his chronic pain, he is currently prescribed Percocet and gabapentin which he tolerates. The updated Torres report is reviewed today and is appropriate. The urine drug screen performed in clinic today is positive for oxycodone. The results are reviewed and discussed with the patient today. The last dose of Percocet was today, and the last dose of gabapentin was yesterday. Given the high risk assessment level, I will send to confirm all categories. This patient continues to have chronic pain affecting multiple areas. The primary complaint continues to be low back pain with symptoms extending into both lower extremities. He canceled the scheduled epidural injection due to his work schedule. He may reschedule that at his convenience. The pain level varies daily depending on the activity level. I will continue the current medications. He denies side effect to the current medications. The medications allow him to perform his activities of daily living. He continues to work full-time. He may continue gabapentin 800 mg 1 p.o. 3 times daily and Percocet 7.5/325 mg 1 p.o. 3 times daily. This results in a morphine equivalent dose of 34. I will reassess him in 30 days. His ORT score is 0, but his risk assessment level is now high with previous inappropriate UDS confirmation. He previously treated with Dr. Chang but was discharged due to inability to present for a pill count. 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 [email or web address] Not available 10/01/2020 09:30:03 11/05/2020 11/05/2020 Mr. Hoffmann is a 50-year-old male. He presents to clinic today for office visit follow-up and for medication refill. This patient has chronic pain affecting multiple areas. He has chronic low back pain. The pain affects the lumbar region with symptoms radiating into the hips and lower extremities typically to the knee level. He also has chronic multiple joint pain complaints. These chronic pain complaints are stable without significant change in the last 1 month. He continues to get therapeutic benefit with current medications without side effect. No general health changes are reported today. He has a past medical history relevant for coronary artery disease with previous stent placement. 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 Jensen Wray. He is currently on aspirin. He also has sleep apnea with use of a CPAP machine. He continues to work full-time. Lumbar CT scan 05/30/2018 noted mild to moderate L4-5 spinal stenosis due to ligamentum flavum hypertrophy and facet hypertrophy. Lumbar MRI 11/09/2019 noted multilevel lumbar spondylosis with facet and ligamentum flavum hypertrophy resulting in spinal canal stenosis and severe bilateral lateral recess stenosis at L4-5. There is no comment as to the thickness of the ligamentum flavum. For his chronic pain, he is currently prescribed Percocet and gabapentin which he tolerates. The updated Torres report is reviewed today and is appropriate. The urine drug screen confirmation report from October 01, 2020 is appropriately positive for oxycodone and gabapentin. However, it is inappropriately positive for hydrocodone and fentanyl. The patient has no explanation for this. Based on the patients urine confirmation (LCMS) results, the patient's overall risk level will remain the same. I would consider the patient to be High risk based on these new results. In response to the patient's risk level and urine confirmation I plan to decrease the patient's opioid prescription. This patient continues to have chronic pain affecting multiple areas. For his chronic pain complaints he has been prescribed Percocet and gabapentin. The urine drug screen confirmation report from last office visit was appropriately positive for oxycodone and gabapentin. However, it was inappropriately positive for hydrocodone and fentanyl not prescribed. That was his second inappropriate urine drug screen confirmation report. He previously had a UDS confirmation report positive for hydrocodone not prescribed on January 02, 2020. He was discharged from his previous pain clinic for not presenting for a pill count. The last UDS confirmation report was discussed with the physician. The recommendation was to taper him from his medications and discharge him from the practice. I tried to contact the patient by phone to advise him of this, but I was unable to reach him. Again, the patient has no explanation for these findings. The physician will permit a tapering dose of both medications to prevent withdrawal. Beginning today, he may be prescribed Percocet 5/325 mg 1 p.o. 3 times daily for 1 week, then he will decrease to 1 p.o. twice daily for 1 week, and then he will decrease to 1 p.o. daily for 1 week. After that, Percocet is discontinued. For the gabapentin, he will begin 400 mg 1 p.o. 3 times daily for 1 week. Then, he will decrease to 1 p.o. twice daily for 1 week. Then, he will decrease to 1 p.o. daily for 1 week. Thereafter, gabapentin is discontinued. I provided him typed instructions on the tapering schedule, and he understands these instructions. I did advise him if he has any problems in doing this, specifically if he has any issue of withdrawal, he needs to call 911 or go to the closest emergency room to be evaluated. This patient is being formally discharged from our practice due to multiple violation of the controlled substance agreement. He understands why. I have advised him to see his primary care physician as soon as possible to discuss managing his pain going forward. His ORT score is 0, but his risk assessment level is high with previous inappropriate UDS confirmations. He previously treated with Dr. Chang but was discharged due to inability to present for a pill count. 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 Not available 11/05/2020 12:46:14 Plan of Treatment Reminders Order Date Submit Date Provider Last Modified By Organization Details Last Modified Time Details Appointments None recorded. Lab drug screen, urine 2020 021 [email or web address] [place], [facility] [address], [place], [address], 12:36:29 unlisted lab - confirm high risk patient 2020 021 [facility], [facility], [address] [place] [address], [place], [address], 14:03:49 drug screen, urine 2020 021 [place], [facility] [address], [place], [address], 17:08:01 drug screen, urine 2020 021 [id number] [place], [facility] [address], [place], [address], 16:05:47 unlisted lab - confirm gabapentin 2020 021 [email or web address] [id number] [facility], [facility], [address] [place], [address], 15:11:15 unlisted lab - confirm appropriat e oxycodone 2020 021 [email or web address] [id number], [facility], [address] [place], [address], 15:11:15 Referral None recorded. Procedures epidural steroid injection, lumbar interlamin ar (PROC) 2020 021 [email or web address] Not available 09:02:07 Surgeries None recorded. Imaging None recorded. Medication Orders gabapentin 400 mg capsule 2020 021 [id number], [address] [place], [address], 10:45:47 Percocet 5 mg-325 mg tablet 2020 021 [facility], [address] [place], [address], 11:21:55 gabapentin 800 mg tablet 2020 021 [id number] [facility], [address] [place], [address], 12:36:13 Percocet 7.5 mg-325 mg tablet 2020 021 [facility], [address] [place], [address], 11:53:49 gabapentin 800 mg tablet 2020 021 [email or web address] [facility], [address] [place], [address], 17:05:26 Percocet 7.5 mg-325 mg tablet 2020 021 ANTONIO [facility], [address] [place], [address], 16:41:57 gabapentin 800 mg tablet 2020 021 [id number] [facility], [address] [place], [address], 15:59:33 Percocet 7.5 mg-325 mg tablet 2020 021 INTERFACE [facility], [address] [place], [address], 14:40:52 gabapentin 800 mg tablet 2020 021 [email or web address] [facility], [address] [place], [address], 16:04:08 Percocet 7.5 mg-325 mg tablet 2020 021 [facility], [address] [place], [address], 16:06:39 methylpred nisolone 4 mg tablets in a dose pack 2020 021 [email or web address] [facility], [address] [place], [address], 14:00:45 Patient TargetsNo targets recorded. Patient Instructions Encounter Date Encounter Id Patient Instructions Last Modified By Organization Details Last Modified Time 08/06/2020 [id number] cardiac clearance* - Obtain cardiac clearance from his house furnishings supervisor Dr. Jensen Wray to temporarily hold aspirin 4 days prior to the lumbar epidural; he may resume the aspirin 24 hours following the injection. [email or web address] Not available 08/29/2020 11:58:18 Reason for Referral None Reported. Results Created Date Observation Date Name Description Value Unit Range Abnormal Flag Note LastModifiedBy Organization Detail LastModifiedTime 08/07/1908/06/2020 drug scree n, urine THC: negati ve Not Available [facility] [address], [place], [address], 08/06/2020 14:00:29 08/07/19 21 08/06/2020 drug scree n, urine Buprenorphin e: negati ve Not Available [facility] [address], [place], [address], 08/06/2020 14:00:29 08/07/19 21 08/06/2020 drug scree n, urine TCA: negati ve Not Available [facility] [address], [place], [address], 08/06/2020 14:00:29 08/07/19 21 08/06/2020 drug scree n, urine Barbiturates : negati ve Not Available [facility] [address], [place], [address], 08/06/2020 14:00:29 08/07/19 21 08/06/2020 drug scree n, urine Benzodiazepi serjio: negati ve Not Available [facility] [address], [place], [address], 08/06/2020 14:00:29 08/07/19 21 08/06/2020 drug scree n, urine Methadone: negati ve Not Available [facility] [address], [place], [address], 08/06/2020 14:00:29 08/07/19 21 08/06/2020 drug scree n, urine Amphetamines : negati ve Not Available [facility] [address], [place], [address], 08/06/2020 14:00:29 08/07/19 21 08/06/2020 drug scree n, urine Morphine/Opi ates: negati ve Not Available [facility] [address], [place], [address], 08/06/2020 14:00:29 08/07/19 21 08/06/2020 drug scree n, urine Oxycodone: positi ve Not Available [facility] [address], [place], [address], 08/06/2020 14:00:29 08/07/19 21 08/06/2020 drug scree n, urine MDMA: negati ve Not Available [facility] [address], [place], [address], 08/06/2020 14:00:29 08/07/19 21 08/06/2020 drug scree n, urine Cocaine: negati ve Not Available [facility] [address], [place], [address], 08/06/2020 14:00:29 08/07/19 21 08/06/2020 drug scree n, urine Methamphetam ine: negati ve Not Available [facility] [address], [place], [address], 08/06/2020 14:00:29 09/06/19 21 09/05/2020 drug scree n, urine THC: negati ve Not Available [facility] [address], [place], [address], 09/05/2020 15:44:29 09/06/19 21 09/05/2020 drug scree n, urine Buprenorphin e: negati ve Not Available [facility] [address], [place], [address], 09/05/2020 15:44:29 09/06/19 21 09/05/2020 drug scree n, urine TCA: negati ve Not Available [facility] [address], [place], [address], 09/05/2020 15:44:29 09/06/19 21 09/05/2020 drug scree n, urine Barbiturates : negati ve Not Available [place] [address], [place], [address], 09/05/2020 15:44:29 09/06/19 21 09/05/2020 drug scree n, urine Benzodiazepi serjio: negati ve Not Available [facility] [address], [place], [address], 09/05/2020 15:44:29 09/06/19 21 09/05/2020 drug scree n, urine Methadone: negati ve Not Available [address], [place], [address], 09/05/2020 15:44:29 09/06/19 21 09/05/2020 drug scree n, urine Amphetamines : negati ve Not Available [address], [place], [address], 09/05/2020 15:44:29 09/06/19 21 09/05/2020 drug scree n, urine Morphine/Opi ates: negati ve Not Available [address], [place], [address], 09/05/2020 15:44:29 09/06/19 21 09/05/2020 drug scree n, urine Oxycodone: positi ve Not Available [place] [address] [facility] [address], [place], [address], 09/05/2020 15:44:29 09/06/19 21 09/05/2020 drug scree n, urine MDMA: negati ve Not Available [address], [place], [address], 09/05/2020 15:44:29 09/06/19 21 09/05/2020 drug scree n, urine Cocaine: negati ve Not Available [place] [address], [place], [address], 09/05/2020 15:44:29 09/06/19 21 09/05/2020 drug scree n, urine Methamphetam ine: negati ve Not Available [place] [address] [facility] [address], [place], [address], 09/05/2020 15:44:29 10/02/19 21 10/01/2020 drug scree n, urine THC: negati ve Not Available [address], [place], [address], 10/01/2020 08:49:41 10/02/19 21 10/01/2020 drug scree n, urine Buprenorphin e: negati ve Not Available [place] [address], [place], [address], 10/01/2020 08:49:41 10/02/19 21 10/01/2020 drug scree n, urine TCA: negati ve Not Available [place] [address], [place], [address], 10/01/2020 08:49:41 10/02/19 21 10/01/2020 drug scree n, urine Barbiturates : negati ve Not Available [place] [address], [place], [address], 10/01/2020 08:49:41 10/02/19 21 10/01/2020 drug scree n, urine Benzodiazepi serjio: negati ve Not Available [place] [address], [place], [address], 10/01/2020 08:49:41 10/02/19 21 10/01/2020 drug scree n, urine Methadone: negati ve Not Available [place] [address], [place], [address], 10/01/2020 08:49:41 10/02/19 21 10/01/2020 drug scree n, urine Amphetamines : negati ve Not Available [place] [address] [facility] [facility] [address], [place], [address], 10/01/2020 08:49:41 10/02/1910/01/2020 drug scree n, urine Morphine/Opi ates: negati ve Not Available [place] [address] [facility] [facility] [address], [place], [address], 10/01/2020 08:49:41 10/02/1910/01/2020 drug scree n, urine Oxycodone: positi ve Not Available [address], [place], [address], 10/01/2020 08:49:41 10/02/1910/01/2020 drug scree n, urine MDMA: negati ve Not Available [address], [place], [address], 10/01/2020 08:49:41 10/02/1910/01/2020 drug scree n, urine Cocaine: negati ve Not Available [address], [place], [address], 10/01/2020 08:49:41 10/02/1910/01/2020 drug scree n, urine Methamphetam ine: negati ve Not Available [place] [address], [place], [address], 10/01/2020 08:49:41 Result Notes None recorded. Problems Name Problem SNOMED Code Status Onset Date Resolution Date Notes Provider Name and Address Organization Details Recorded Time Low back pain 863717037 Completed 201906/06/2020 GIFTY Ban[address] [place], [address] , [facility] 1 15:07:34 Lumbar radiculopa thy 681689311 Active 2019 GIFTY [address] [place], [address] , [facility] 0 15:54:03 Lumbar spondylosi s 600633077 Active 2019 GIFTY [address] [place], [address] , [facility] 0 15:54:04 Degenerati on of lumbar interverte bral disc 32816289 Active 2019 GIFTY [address] [place], [address] , [facility] 0 15:54:06 Long-term drug therapy Active 2020 GIFTY [address] [place], [address] , [facility] 1 09:30:12 Problem Notes None recorded. Procedures Surgical History Date Name Laterality Status Provider Name and Address Organization Details Recorded Time 09/16/19 21 Lumbar GIOVANNI: Interlaminar cancelled Tessa Lewis [facility] 09/15/2020 08:18:15 Hernia Repair completed Terese Arguelles [facility] 10/29/2019 15:59:59 Imaging Results None recorded. Procedure Notes None recorded. Medical Equipment None Reported. Allergies Allergen ID Allergen Name Allergen Category Reaction Reaction Severity Criticality Documentation Date Start Date Code Code System Note Provider Name and Address Organization Details Recorded Time 660585 tramadol medicatio n rash Not available Not available 10/29/2019 28434 [facility] 0 15:59:20 705122 ibuprofen medicatio n nausea Not available Not available 10/29/2019 5640 RxNorm Terese mason [place] [facility] 0 15:59:20 Medications Name Sig Start Date Stop Date Status Note LastModified by Organization Details LastModified Time lidocaine-p r cre 10/28 completed Not Available Not Available Not Available prednisone 10 mg tablet 10/28 completed Not Available Not Available Not Available meloxicam 15 mg tablet 10/28 completed Not Available Not Available Not Available lisinopril 20 mg tablet TAKE 1 TABLET BY MOUTH EVERY DAY active Not Available Not Available No t Available gabapentin 400 mg capsule 1 po tid X 1 week, 1 po bid X 1 week, 1 po daily X 1 week, then D/C active Not Available Not Available No t Available sulfamethox azole 800 mg-trimetho prim 160 mg tablet 10/28 completed Not Available Not Available Not Available aspirin 81 mg tablet,guillermo yed release Take 1 tablet every day by oral route. active Not Available Not Available No t Available oxycodone-a cetaminophe n 5 mg-325 mg tablet 1 po tid X 1 week, 1 po bid X 1 week, 1 po daily X 1 week, then D/C active Not Available Not Available No t Available methocarbam ol 750 mg tablet 10/28 completed Not Available Not Available Not Available gabapentin 800 mg tablet Take 1 tablet 3 times a day by oral route as directed for 30 days. active Not Available Not Available No t Available benzonatate 100 mg capsule 10/28 completed Not Available Not Available Not Available hydrocodone 7.5 mg-acetamin ophen 325 mg tablet 01/15 completed Not Available Not Available Not Available cephalexin 500 mg capsule 07/04 completed Not Available Not Available Not Available oseltamivir 75 mg capsule 10/28 completed Not Available Not Available Not Available promethazin e 25 mg tablet 10/28 completed Not Available Not Available Not Available zolpidem 5 mg tablet active Not Available Not Available No t Available levofloxaci n 500 mg tablet active Not Available Not Available Not Available oxycodone-a cetaminophe n 7.5 mg-325 mg tablet Take 1 tablet 3 times a day by oral route as directed for 30 days. active Not Available Not Available No t Available methylpredn isolone 4 mg tablets in a dose pack TAKE 6 TABLETS ON DAY 1 DIRECTED ON PACKAGE AND DECREASE BY 1 TAB EACH DAY FOR A TOTAL OF 6 DAYS 08/06 completed Not Available Not Available Not Available albuterol sulfate HFA 90 mcg/actuati on aerosol inhaler 10/28 completed Not Available Not Available Not Available oxycodone 5 mg tablet 10/28 completed Not Available Not Available Not Available Incruse Ellipta 62.5 mcg/actuati on powder for inhalation INHALE ONE PUFF DAILY FOR BREATHING PROBLEMS active Not Available Not Available No t Available Vitals Date Recorded Body height Body mass index (BMI) Body weight Pain severity - 0-10 verbal numeric rating [Score] - Reported Provider Name and Address Organization Details Last Updated DateTime 07/04/2020 185.42 cm 24.9 kg/m2 26806.96 g 10 Madalyn Chiang [facility] 07/04/2020 15:16:36 Date Recorded Body height Body mass index (BMI) Body weight Pain severity - 0-10 verbal numeric rating [Score] - Reported Provider Name and Address Organization Details Last Updated DateTime 08/06/2020 185.42 cm 24.9 kg/m2 24017.96 g 9 Madalyn Chiang [facility] 08/06/2020 14:08:37 Date Recorded Body height Body mass index (BMI) Body weight Pain severity - 0-10 verbal numeric rating [Score] - Reported Provider Name and Address Organization Details Last Updated DateTime 09/05/2020 185.42 cm 24.9 kg/m2 66745.96 g 8 Madalyn Chiang [facility] 09/05/2020 15:55:56 Date Recorded Body height Body mass index (BMI) Body weight Pain severity - 0-10 verbal numeric rating [Score] - Reported Provider Name and Address Organization Details Last Updated DateTime 10/01/2020 185.42 cm 24.9 kg/m2 76958.96 g 10 Madalyn Chiang [facility] 10/01/2020 08:51:49 Date Recorded Body height Body mass index (BMI) Body weight Pain severity - 0-10 verbal numeric rating [Score] - Reported Provider Name and Address Organization Details Last Updated DateTime 11/05/2020 185.42 cm 24.9 kg/m2 21530.96 g 9 Madalyn Chiang [facility] 11/05/2020 10:10:34 Social History Question Answer Notes LastModified by Organizat ion Details LastModified Time Tobacco Smoking Status Current Every Day Smoker Terese Arguelles [facility] 10/29/2019 15:59:55 What Is Your Level Of Caffeine Consumption? None [email or web address] Information not available 10/29/2019 How Much Tobacco Do You Chew? 2-4/day [email or web address] Information not available 10/29/2019 Are You Deaf Or Do You Have Serious Difficulty Hearing? No [email or web address] Information not available 10/29/2019 Which Illicit Or Recreational Drugs Have You Used? None [email or web address] Information not available 01/16/2020 Education 9 [email or web address] Information no t available 01/16/2020 Hard Of Hearing Or Deaf In One Or Both Ears? No [email or web address] Information not available 10/29/2019 Prescription Drug Abuse No [email or web address] Information not available 01/16/2020 Disability No [email or web address] Information no t available 01/16/2020 History Of Sexual Abuse No Information not available 01/16/2020 Marital Status [email or web address] Informati on not available 10/29/2019 What Was The Date Of Your Most Recent Tobacco Screening? 11/05/2020 [email or web address] Information not available 11/05/2020 At What Age Did You Start Smoking Tobacco? 16 [email or web address] Information not available 10/29/2019 How Much Tobacco Do You Smoke? 2 PPW [email or web address] Information not available 10/29/2019 General Stress Level Medium [email or web address] Information not available 10/29/2019 On What Date Was Tobacco Cessation Counseling Provided? 11/05/2020 [email or web address] Information not available 11/05/2020 How Many Years Have You Smoked Tobacco? 30 [email or web address] Information not available 10/29/2019 Do You Have Difficulty Walking Or Climbing Stairs? No [email or web address] Information not available 10/29/2019 Sex: Unknown Functional Status Question Answer Note LastModified by Organizat ion Details LastModified Time What is your level of alcohol consumption? None [email or web address] Information not available 10/29/2019 Do you or have you ever used smokeless tobacco? Never used smokeless tobacco [email or web address] Information not available 01/16/2020 Are you able to walk? YESWOREST [email or web address] Information not available 10/29/2019 Do you have difficulty doing errands alone? 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 No [email or web address] Information not available 10/29/2019 Do you or have you ever used e-cigarettes or vape? Never used electronic cigarettes [email or web address] Information not available 01/16/2020 What is your exercise level? Occasional [email or web address] Information not available 10/29/2019 Mental Status Question Answer Note LastModified by Organization D etails LastModified Time Do you have difficulty concentrating, remembering or making decisions? No [email or web address] Information no t available 10/29/2019 Family History Nothing Reported. Medical History Condition Response Bipolar Disease N Coronary Artery Disease N Gout N Seizure Disorder N Atrial Fibrillation N Thyroid Disease N Head Trauma/Injury N Hernia N Depression N COPD N Anxiety Disorder N Acid Reflux (GERD) N Cancer N Stroke N Skin Disorder N High Cholesterol N Liver Disease N Rheumatoid Arthritis N Headaches N Fibromyalgia N Kidney Disease N Autoimmune Disease N Osteoarthritis N Neurosurgery N DVT N Peptic Ulcer Disease N Anemia N Heart Attack ([place]) N Diabetes N Cardiomyopathy N Bleeding Disorder N CHF N AIDS/HIV N Inflammatory Bowel Disease N Dementia N Asthma N Substance Abuse N Sleep Apnea N Hepatitis N Heart Disease N Pulmonary Embolism N Chronic Low Back Pain Y Hypertension N Osteoporosis N Past Encounters Encounter ID Performer Location Encounter Start Date Encounter Closed Date Diagnosis/Indication Diagnosis SNOMED-CT Code Diagnosis ICD10 Code Diagnosis Note [id number] Jason Joyce MD [address],[facility] [address] [place] [address] 10/29/2019 15:48:00 10/29/2019 16:45:24 Low back pain 297399827 M54.5 Interverte bral disc disorder 97974034 M51.27 Long-term drug therapy 806232922 Z79.899 The urine sample is being sent for quantitati ve LCMS analysis of illicit drugs (Cocaine, Methamphet amine, Heroin, Fentanyl, THC, Synthetic Cannabinoi ds, Kratom, MDMA, PCP, and Synthetic Stimulants , Opiates (Codeine, Hydrocodon e, Hydromorph one, and Morphine), Oxycodone, Oxymorphon e, Methadone, Synthetic Opioids (Tramadol, Tapentadol , and Buprenorph ine), Benzodiaze pines (Alprazola m, Clonazepam , Lorazepam, Diazepam, Nordazepam , Oxazepam, and Temazepam) , Gabapentin , Pregabalin , Muscle Relaxants (Carisopro dol, Cyclobenza gertrudis, and Meprobamat e), Ketamine, Naloxone, and Amphetamin e, as this patient is being prescribed opioid medication s for the first time at this practice. The purpose of this analysis is to confirm the patients stated medication usage and to establish baseline medication and metabolite quantities , and to evaluate for use of medication s that are not prescribed or reported by the patient. Lumbar radiculopathy 128 824344 M54.16 [id number] Jason Joyce MD [place] [address] [place] [address] 12/17/2019 13:51:45 12/17/2019 15:22:02 Low back pain 571432671 M54.5 Lumbar radiculopathy 128 266065 M54.16 Interverte bral disc disorder 43469665 M51.27 Long-term drug therapy 875440491 Z79.899 The preliminar y [place] urine drug screen is appropriat e for the class of medication (s) that the patient is being prescribed and based on their risk stratifica tion I will not send this sample for further quantitati ve LCMS testing. Spinal laron nosis of lumbar region 00706346 M48.061 [id number] Jason Joyce MD [place] [address] [place] [address] 01/16/2020 15:00:47 01/16/2020 15:39:40 Degeneration of lumbar intervertebral disc 86200687 M51.36 Lumbar spondylosis 09315 0009 M47.896 Lumbar radiculopathy 128 199623 M54.16 Use of the medication does allow the patient to perform the activities of daily living and function without being in severe pain. Long-term drug therapy 215915751 Z79.899 The preliminar y urine drug screen is appropriat e for the class of medication s that the patient is being prescribed and based on their stratifica tion I will not send this sample for further quantitati ve LCMS testing. [id number] Jason Joyce MD [place] [address] [place] [address] 02/15/2020 15:48:05 02/15/2020 16:12:00 Degeneration of lumbar intervertebral disc 72931379 M51.36 Lumbar spondylosis 98794 0009 M47.896 Lumbar radiculopathy 128 183039 M54.16 Use of the medication does allow the patient to perform the activities of daily living and function without being in severe pain. Long-term drug therapy 038191476 Z79.899 The preliminar y urine drug screen is appropriat e for the class of medication s that the patient is being prescribed and based on their stratifica tion I will not send this sample for further quantitati ve LCMS testing. [id number] Ramses Bermeo MD [place] [address] [place] [address] 03/03/2020 14:43:37 03/03/2020 15:06:02 Degeneration of lumbar intervertebral disc 20158766 M51.36 Lumbar spondylosis 00516 0009 M47.896 Lumbar radiculopathy 128 548980 M54.16 Use of the medication does allow the patient to perform the activities of daily living and function without being in severe pain. Long-term drug therapy 450009378 Z79.899 Send for LCMS confirmati on of Oxycodone and Oxymorphon e to confirm the quantitati ve levels of these drugs that the patient is prescribed . Send for LCMS confirmati on of Opiates (Codeine, Hydrocodon e, Hydromorph one, Morphine, and Heroin) as these are frequently used and/or abused pain medication s amongst chronic pain patients in our community. Send for LCMS confirmati on of Synthetic Opioids (Fentanyl, Methadone, Tramadol, Tapentadol , and Buprenorph ine) as these drugs will not be detected in Opiate [place] testing and these are also frequently used and/or abused pain medication s in our community. Send for LCMS confirmati on of Gabapentin to confirm the quantitati ve level of this drug and its metabolite as it will not be detected in [place] testing and the patient is currently prescribed Gabapentin . [id number] MD Quan [place] [address] [place] [address] 04/03/2020 15:45:23 04/03/2020 16:18:07 Degeneration of lumbar intervertebral disc 52245877 M51.36 Lumbar spondylosis 37375 0009 M47.896 Lumbar radiculopathy 128 M54.16 Use of the medication does allow the patient to perform the activities of daily living and function without being in severe pain. Long-term drug therapy 871310718 Z79.899 Send for LCMS confirmati on of Oxycodone and Oxymorphon e to confirm the quantitati ve levels of these drugs that the patient is prescribed . Send for LCMS confirmati on of Opiates (Codeine, Hydrocodon e, Hydromorph one, Morphine, and Heroin) as these are frequently used and/or abused pain medication s amongst chronic pain patients in our community. Send for LCMS confirmati on of Synthetic Opioids (Fentanyl, Methadone, Tramadol, Tapentadol , and Buprenorph ine) as these drugs will not be detected in Opiate [place] testing and these are also frequently used and/or abused pain medication s in our community. [id number] Jason Joyce MD [place] [address] [place] [address] 05/08/2020 15:24:56 05/08/2020 15:52:11 Long-term drug therapy 784529080 Z79.899 Send for LCMS confirmati on of Oxycodone and Oxymorphon e to confirm the quantitati ve levels of these drugs that the patient is prescribed . Send for LCMS confirmati on of Opiates (Codeine, Hydrocodon e, Hydromorph one, Morphine, and Heroin) as these are frequently used and/or abused pain medication s amongst chronic pain patients in our community. Send for LCMS confirmati on of Synthetic Opioids (Fentanyl, Methadone, Tramadol, Tapentadol , and Buprenorph ine) as these drugs will not be detected in Opiate [place] testing and these are also frequently used and/or abused pain medication s in our community. Degenerati on of lumbar intervertebral disc 75476769 M51.36 Lumbar spondylosis 96058 0009 M47.896 Lumbar radiculopathy 128 M54.16 Use of the medication does allow the patient to perform the activities of daily living and function without being in severe pain. [id number] Jason Joyce MD [place] [address] [place] [address] 06/06/2020 14:36:47 06/06/2020 15:11:36 Degeneration of lumbar intervertebral disc 31808061 M51.36 Lumbar spondylosis 07368 0009 M47.896 Lumbar radiculopathy 128 726216 M54.16 Use of the medication does allow the patient to perform the activities of daily living and function without being in severe pain. Long-term drug therapy 104045328 Z79.399 [id number] Jason Joyce MD [place] [address] [place] [address] 07/04/2020 14:51:21 07/04/2020 16:47:48 Degeneration of lumbar intervertebral disc 02899418 M51.36 Lumbar spondylosis 34862 0009 M47.896 Lumbar radiculopathy 128 974210 M54.16 Use of the medication does allow the patient to perform the activities of daily living and function without being in severe pain. Long-term drug therapy 299162552 Z79.098 [id number] Jason Joyce MD [place] [address] [place] [address] 08/06/2020 13:42:28 08/06/2020 14:33:24 Lumbar radiculopathy 199641730 M54.16 Use of the medication does allow the patient to perform the activities of daily living and function without being in severe pain. The recommende d procedure is discussed with the patient in detail. Questions related to the procedure are answered. The patient is provided the patient education handout. Degenerati on of lumbar intervertebral disc 71062298 M51.36 Lumbar spondylosis 92343 0009 M47.896 Long-term drug therapy 329487416 Z79.899 Send for LCMS confirmati on of Oxycodone and Oxymorphon e to confirm the quantitati ve levels of these drugs that the patient is prescribed . Send for LCMS confirmati on of Opiates (Codeine, Hydrocodon e, Hydromorph one, Morphine, and Heroin) as these are frequently used and/or abused pain medication s amongst chronic pain patients in our community. Send for LCMS confirmati on of Synthetic Opioids (Fentanyl, Methadone, Tramadol, Tapentadol , and Buprenorph ine) as these drugs will not be detected in Opiate [place] testing and these are also frequently used and/or abused pain medication s in our community. Send for LCMS confirmati on of Gabapentin to confirm the quantitati ve level of this drug and its metabolite as it will not be detected in [place] testing and the patient is currently prescribed Gabapentin . [id number] Jason Joyce MD [place] [address],[facility] [address] [place] [address] 09/05/2020 15:20:57 09/05/2020 16:29:15 Long-term drug therapy 978496966 Z79.899 The patient was advised that the purpose of this urine drug screen is to monitor for compliance and to assist in risk stratifica tion. The results of this preliminar y screening test was discussed with the patient.Th e preliminar y urine drug screen is appropriat e for the class of medication s that the patient is being prescribed and based on their stratifica tion I will not send this sample for further quantitati ve LCMS testing. Lumbar radiculopathy 128 370073 M54.16 Use of the medication does allow the patient to perform the activities of daily living and function without being in severe pain. Degenerati on of lumbar intervertebral disc 79596192 M51.36 Lumbar spondylosis 39181 0009 M47.371 [id number] Jason Joyce MD [place] [address] [place] [address] 10/01/2020 08:47:23 10/01/2020 09:15:49 Lumbar radiculopathy 251130128 M54.16 Use of the medication does allow the patient to perform the activities of daily living and function without being in severe pain. Degenerati on of lumbar intervertebral disc 12843420 M51.36 Lumbar spondylosis 83725 0009 M47.896 Long-term drug therapy 155933569 Z79.899 The patient was advised that the purpose of this urine drug screen is to monitor for compliance and to assist in risk stratifica tion. The results of this preliminar y screening test was discussed with the patient.Th is patient has a history one or more of the following risk factors that make them higher risk for drug abuse: family history of alcohol, illicit, or prescripti on drug abuse, personal history of alcohol, illicit, or prescripti on drug abuse, psychiatri c illness (including depression /anxiety), history of sexual abuse, age less than 45, lower socioecono farzana status, stressful family dynamics, and/or poor psychosoci al support. Send for LCMS testing for Cocaine, Methamphet amines, Heroin, Fentanyl, Marijuana, and Synthetic Cannabinoi ds as these are commonly abused illicit drugs in our community. I am also ordering LCMS testing for Codeine, Hydrocodon e, Hydromorph one, Morphine, Oxycodone, Oxymorphon e, Methadone, Tapentadol , Tramadol, and Buprenorph ine as these are prescripti on opiates/op ioids that are commonly abused. Send for LCMS testing for Kratom, Dextrometh orphan, Benzodiaze pines (Alprazola m, Clonazepam , Lorazepam, Diazepam, Nordazepam , Oxazepam, and Temazepam) , and Synthetic stimulants (Bath Salts) as these are legal drugs that are frequently abused in our community. [id number] Jason Joyce MD [address] ,[facility] [address] [place] [address] 11/05/2020 09:50:56 11/05/2020 10:28:41 Lumbar radiculopathy 019237128 M54.16 Degenerati on of lumbar intervertebral disc [id number] M51.36 Lumbar spondylosis 99948 0009 M47.896 Long-term drug therapy [id number] Z79.899 Health Concerns Section Related Observation LastModified by Organization Detai ls LastModified Time None Recorded Concern Status LastModified by Organization Details LastModified Time None Recorded Advance Directives Directive None Recorded Payers Insurance Date Sequence Insurance Name Policy Number Policy Mercer Covered Member ID Mercer Member ID Guarantor Name 11/27/2024 1 [facility] Q$[id number] Syed Hoffmann [id number] Syed Hoffmann Notes Date Note Type Note Provider Name and Address Organization Details Recorded Time 07/04/2020 text/html Follow-up (meds & injections)Reported by PatientHPIFor improvement, patient reportspain is getting worse.. For pain scores, patient reportsaverage pain- 9/10,current pain- 10/10, andworst pain- 10/10. For recent injections, patient reportsnone. For current analgesics, patient reportsopioids- oxycodone,other adjunct medications- gabapentin, andreported pain relief- 20% for 2 hours(last dose of percocet was this morning around 8:30-9am. pharmacy verified.). For adverse reactions, patient reportsno nausea.,no vomiting.,no constipation.,no itching.,no sedation., andno respiratory depression.. For functional assessment/disability index, patient reportsliving independently.,able to bathe/groom without assistance.,able to complete pharmacognosist.,walking without assistance.,working., andexercising.. Low back painReported by PatientHPIFor associated symptoms, patient reportstingling (left hip)but reportsno weakness,no numbness,no swelling,no popping/clicking,no bowel incontinence,no urinary retention,no urinary incontinence, andno perineal paresthesia/anesthesi a. For onset, patient reportsdate of onset: (1989). For location, patient reportsbuttock: __(bilateral hip pain). For duration, patient reportsvaries throughout the day. For context, patient reportsstarted without cause. For quality, patient reportsthrobbing,chidi p, andworsening(shooting ). For pain intensity, patient reportssevere,current pain level: 10/10,average pain level: 9/10, andworst pain level: 10/10. For alleviating factors, patient reportsheat,opioids, andneuropathic medications. For aggravating factors, patient reportsstanding,walki ng,lifting,twisting,b ending/squatting,gett ing out of bed,standing from a seated position, andcold weather. For functional assessment of adls, patient reportsliving independently.,able to bathe/groom without assistance.,able to complete pharmacognosist without much difficulty.,walking without assistance or significant difficulty,working without restriction.,exercisi ng on a regular basis., andparticipating in recreation on a regular basis.. For prior imaging, patient reportsmri (11/08/2019 lumbar mri at [facility]). For lumbar surgery, patient reportsnone(patient denies consulting with neurosurgery.). For interventional treatment history, patient reportslumbar rfa: no relief(patient states he seen dr. page in [place] who performed medial branch blocks and rhizotomy without benefit. patient states he also had a scs trail at this clinic without benefit.). For medications history, patient reportsnsaids: (meloxicam (not effective)),muscle relaxants: (methocarbamol (not effective)),neuropath ics: (gabapentin (minimal)), andopioid pain medications: (norco (minimal) patient has been on this medication for 15 years.). For prior pain management, patient reportsyes:(dr. page). For physical therapy, (patient has not attended physical therapy in sometime. patient states it caused increased pain so he discontinued.).ROS as noted in the HPI Patient states he did go to ER at [facility] but ended up leaving. Patient also reports he had sleep study done at [facility] since last visit. Patient states he has f/u with sleep specialist on 07/10/2020 to be fitted for CPaP. Patient denies recent imaging, surgeries, or hospital stays since last visit. Patient states his back pain has been worse because he pulled his back last week while working. GIFTY Banuelos [address] [place] [address], [phone], [facility] 07/04/2020 16:26:35 08/06/2020 text/html Low back painRep orted by PatientHPIFor associated symptoms, patient reportstingling (left hip)but reportsno weakness,no numbness,no swelling,no popping/clicking,no bowel incontinence,no urinary retention,no urinary incontinence, andno perineal paresthesia/anesthesi a. For onset, patient reportsdate of onset: (1989). For location, patient reportsbuttock: __(bilateral hip pain). For duration, patient reportsvaries throughout the day. For context, patient reportsstarted without cause. For quality, patient reportsthrobbing,chidi p, andworsening(shooting ). For pain intensity, patient reportssevere,current pain level: 9/10,average pain level: 9/10, andworst pain level: 10/10. For alleviating factors, patient reportsheat,opioids, andneuropathic medications. For aggravating factors, patient reportsstanding,walki ng,lifting,twisting,b ending/squatting,gett ing out of bed,standing from a seated position, andcold weather. For functional assessment of adls, patient reportsliving independently.,able to bathe/groom without assistance.,able to complete pharmacognosist without much difficulty.,walking without assistance or significant difficulty,working without restriction.,exercisi ng on a regular basis., andparticipating in recreation on a regular basis.. For prior imaging, patient reportsmri (11/08/2019 lumbar mri at [facility]). For lumbar surgery, patient reportsnone(patient denies consulting with neurosurgery.). For interventional treatment history, patient reportslumbar rfa: no relief(patient states he seen dr. page in [place] who performed medial branch blocks and rhizotomy without benefit. patient states he also had a scs trail at this clinic without benefit.). For medications history, patient reportsnsaids: (meloxicam (not effective)),muscle relaxants: (methocarbamol (not effective)),neuropath ics: (gabapentin (minimal)), andopioid pain medications: (norco (minimal) patient has been on this medication for 15 years.). For prior pain management, patient reportsyes:(dr. page). For physical therapy, (patient has not attended physical therapy in sometime. patient states it caused increased pain so he discontinued.). Follow-up (meds & injections)Reported by PatientHPIFor improvement, patient reportspain is the same as compared to last visit.. For pain scores, patient reportsaverage pain- 9/10,current pain- 9/10, andworst pain- 10/10. For recent injections, patient reportsnone. For current analgesics, patient reportsopioids- oxycodone,other adjunct medications- gabapentin, andreported pain relief- 20% for 2 hours(last dose of percocet was this afternoon around noon. pharmacy verified.). For adverse reactions, patient reportsno nausea.,no vomiting.,no constipation.,no itching.,no sedation., andno respiratory depression.. For functional assessment/disability index, patient reportsliving independently.,able to bathe/groom without assistance.,able to complete pharmacognosist.,walking without assistance.,working., andexercising..ROS as noted in the HPI The patient has had no recent hospitalization, ER visits, specialist appointments (neurology, orthopedics, surgery), or updated imaging since their last visit. Patient reports Medrol Dosepak was effective. Patient would like to discuss scheduling injections. GIFTY Banuelos [address] [place] [address], [phone], [facility] 08/06/2020 16:06:03 09/05/2020 text/html Follow-up (meds & injections)Reported by PatientHPIFor improvement, patient reportspain is the same as compared to last visit.. For pain scores, patient reportsaverage pain- 9/10,current pain- 8/10, andworst pain- 10/10. For recent injections, patient reportsnone. For current analgesics, patient reportsopioids- oxycodone,other adjunct medications- gabapentin, andreported pain relief- 20% for 2 hours(last dose of percocet was this afternoon around 1pm. pharmacy verified.). For adverse reactions, patient reportsno nausea.,no vomiting.,no constipation.,no itching.,no sedation., andno respiratory depression.. For functional assessment/disability index, patient reportsliving independently.,able to bathe/groom without assistance.,able to complete pharmacognosist.,walking without assistance.,working., andexercising.. Low back painReported by PatientHPIFor associated symptoms, patient reportstingling (left hip)but reportsno weakness,no numbness,no swelling,no popping/clicking,no bowel incontinence,no urinary retention,no urinary incontinence, andno perineal paresthesia/anesthesi a. For onset, patient reportsdate of onset: (1989). For location, patient reportsbuttock: __(bilateral hip pain). For duration, patient reportsvaries throughout the day. For context, patient reportsstarted without cause. For quality, patient reportsthrobbing,chidi p, andworsening(shooting ). For pain intensity, patient reportssevere,current pain level: 8/10,average pain level: 9/10, andworst pain level: 10/10. For alleviating factors, patient reportsheat,opioids, andneuropathic medications. For aggravating factors, patient reportsstanding,walki ng,lifting,twisting,b ending/squatting,gett ing out of bed,standing from a seated position, andcold weather. For functional assessment of adls, patient reportsliving independently.,able to bathe/groom without assistance.,able to complete pharmacognosist without much difficulty.,walking without assistance or significant difficulty,working without restriction.,exercisi ng on a regular basis., andparticipating in recreation on a regular basis.. For prior imaging, patient reportsmri (11/08/2019 lumbar mri at [facility]). For lumbar surgery, patient reportsnone(patient denies consulting with neurosurgery.). For interventional treatment history, patient reportslumbar rfa: no relief(patient states he seen dr. page in [place] who performed medial branch blocks and rhizotomy without benefit. patient states he also had a scs trail at this clinic without benefit.). For medications history, patient reportsnsaids: (meloxicam (not effective)),muscle relaxants: (methocarbamol (not effective)),neuropath ics: (gabapentin (minimal)), andopioid pain medications: (norco (minimal) patient has been on this medication for 15 years.). For prior pain management, patient reportsyes:(dr. page). For physical therapy, (patient has not attended physical therapy in sometime. patient states it caused increased pain so he discontinued.).ROS as noted in the HPI The patient has had no recent hospitalization, ER visits, specialist appointments (neurology, orthopedics, surgery), or updated imaging since their last visit. Patient has been approved for epidural that was ordered at last visit, PA is valid until 09/21/2020, patient would like to get this scheduled today. GIFTY Banuelos [address] [place] [address], [phone], [facility] 09/05/2020 17:08:06 10/01/2020 text/html Low back painRep orted by PatientHPIFor associated symptoms, patient reportstingling (left hip)but reportsno weakness,no numbness,no swelling,no popping/clicking,no bowel incontinence,no urinary retention,no urinary incontinence, andno perineal paresthesia/anesthesi a. For onset, patient reportsdate of onset: (1989). For location, patient reportsbuttock: __(bilateral hip pain). For duration, patient reportsvaries throughout the day. For context, patient reportsstarted without cause. For quality, patient reportsthrobbing,chidi p, andworsening(shooting ). For pain intensity, patient reportssevere,current pain level: 10/10,average pain level: 9/10, andworst pain level: 10/10. For alleviating factors, patient reportsheat,opioids, andneuropathic medications. For aggravating factors, patient reportsstanding,walki ng,lifting,twisting,b ending/squatting,gett ing out of bed,standing from a seated position, andcold weather. For functional assessment of adls, patient reportsliving independently.,able to bathe/groom without assistance.,able to complete pharmacognosist without much difficulty.,walking without assistance or significant difficulty,working without restriction.,exercisi ng on a regular basis., andparticipating in recreation on a regular basis.. For prior imaging, patient reportsmri (11/08/2019 lumbar mri at [facility]). For lumbar surgery, patient reportsnone(patient denies consulting with neurosurgery.). For interventional treatment history, patient reportslumbar rfa: no relief(patient states he seen dr. page in [place] who performed medial branch blocks and rhizotomy without benefit. patient states he also had a scs trail at this clinic without benefit.). For medications history, patient reportsnsaids: (meloxicam (not effective)),muscle relaxants: (methocarbamol (not effective)),neuropath ics: (gabapentin (minimal)), andopioid pain medications: (norco (minimal) patient has been on this medication for 15 years.). For prior pain management, patient reportsyes:(dr. page). For physical therapy, (patient has not attended physical therapy in sometime. patient states it caused increased pain so he discontinued.). Follow-up (meds & injections)Reported by PatientHPIFor improvement, patient reportspain is getting worse. (due to weather). For pain scores, patient reportsaverage pain- 9/10,current pain- 10/10, andworst pain- 10/10. For recent injections, patient reportsnone. For current analgesics, patient reportsopioids- oxycodone,other adjunct medications- gabapentin, andreported pain relief- 20% for 2 hours(last dose of percocet was this morning around 7:30am. pharmacy verified.). For adverse reactions, patient reportsno nausea.,no vomiting.,no constipation.,no itching.,no sedation., andno respiratory depression.. For functional assessment/disability index, patient reportsliving independently.,able to bathe/groom without assistance.,able to complete pharmacognosist.,walking without assistance.,working., andexercising..ROS as noted in the HPI The patient has had no recent hospitalization, ER visits, specialist appointments (neurology, orthopedics, surgery), or updated imaging since their last visit. Patient states he had to cancel his injection due to leaving for work. Patient states his pain is worse due to weather. Patient continues to take Aspirin daily. GIFTY Banuelos [address] [place] [address], [phone], [facility] 10/01/2020 12:36:40 11/05/2020 text/html Follow-up (meds & injections)Reported by PatientHPIFor improvement, patient reportspain is getting worse. (due to weather). For pain scores, patient reportsaverage pain- 9/10,current pain- 9/10, andworst pain- 10/10. For recent injections, patient reportsnone. For current analgesics, patient reportsopioids- oxycodone,other adjunct medications- gabapentin, andreported pain relief- 20% for 2 hours(last dose of percocet was this morning around 7:30am. pharmacy verified.). For adverse reactions, patient reportsno nausea.,no vomiting.,no constipation.,no itching.,no sedation., andno respiratory depression.. For functional assessment/disability index, patient reportsliving independently.,able to bathe/groom without assistance.,able to complete pharmacognosist.,walking without assistance.,working., andexercising.. Low back painReported by PatientHPIFor associated symptoms, patient reportstingling (left hip)but reportsno weakness,no numbness,no swelling,no popping/clicking,no bowel incontinence,no urinary retention,no urinary incontinence, andno perineal paresthesia/anesthesi a. For onset, patient reportsdate of onset: (1989). For location, patient reportsbuttock: __(bilateral hip pain). For duration, patient reportsvaries throughout the day. For context, patient reportsstarted without cause. For quality, patient reportsthrobbing,chidi p, andworsening(shooting ). For pain intensity, patient reportssevere,current pain level: 9/10,average pain level: 9/10, andworst pain level: 10/10. For alleviating factors, patient reportsheat,opioids, andneuropathic medications. For aggravating factors, patient reportsstanding,walki ng,lifting,twisting,b ending/squatting,gett ing out of bed,standing from a seated position, andcold weather. For functional assessment of adls, patient reportsliving independently.,able to bathe/groom without assistance.,able to complete pharmacognosist without much difficulty.,walking without assistance or significant difficulty,working without restriction.,exercisi ng on a regular basis., andparticipating in recreation on a regular basis.. For prior imaging, patient reportsmri (11/08/2019 lumbar mri at [facility]). For lumbar surgery, patient reportsnone(patient denies consulting with neurosurgery.). For interventional treatment history, patient reportslumbar rfa: no relief(patient states he seen dr. page in [place] who performed medial branch blocks and rhizotomy without benefit. patient states he also had a scs trail at this clinic without benefit.). For medications history, patient reportsnsaids: (meloxicam (not effective)),muscle relaxants: (methocarbamol (not effective)),neuropath ics: (gabapentin (minimal)), andopioid pain medications: (norco (minimal) patient has been on this medication for 15 years.). For prior pain management, patient reportsyes:(dr. bux). For physical therapy, (patient has not attended physical therapy in sometime. patient states it caused increased pain so he discontinued.).ROS as noted in the HPI The patient has had no recent hospitalization, ER visits, specialist appointments (neurology, orthopedics, surgery), or updated imaging since their last visit. Patient states his pain is worse due to weather. Patient continues to take Aspirin daily. GIFTY Banuelos [address] [place] [address], [phone], [facility] 11/05/2020 12:46:22
--- OUTSIDE RECORDS SUMMARY | 2024-12-19 22:29 | XMS_ITS | Clinical Summary ---
Author Organization Healthcare Address [address] [id number] Care Team Providers Care Heavy Equipment Service Technician Name Role Phone IsakMatthew coy DO Primary Care Provider [phone] Allergies Active Allergy Reactions Criticality Noted Date Comments Acetaminophen Hives Medium 05/30/2012 Codeine Hives Medium 03/27/2017 Ibuprofen Other - please docum ent in the comment field Low 01/14/2021 Meloxicam Other - please docum ent in the comment field Low 01/14/2021 Medications No known medications Active Problems No known active problems Immunizations Immunization Administration Dates Next Due Tdap 11/25/2018 Family History Medical History Relation Name Comments Heart disease Father Cancer Other 1 Diabetes Other 2 Heart disease Other 3 Relation Name Status Comments Father Other 1 Other 2 Other 3 Social History Tobacco Use Types Packs/Day Years Used Date Smoking Tobacco: Every Day Smokeless Tobacco: Never Alcohol Use Standard Drinks/Week Comments Never 0 (1 standard drink = 0.6 oz pur e alcohol) Sex and Gender Information Value Date Recorded Sex Assigned at Not on file Legal Sex Male 7:41 PM EDT Gender Identity Not on file Sexual Orientation Not on file Last Filed Vital Signs Vital Sign Reading Time Taken Comments Blood Pressure 107/73 01/15/2021 2:05 AM EDT Pulse 71 01/15/2021 2:05 AM EDT Temperature 36.9 C (98.4 F) 01/15/2021 2:05 AM EDT Respiratory Rate 15 01/15/2021 2:05 AM EDT Oxygen Saturation 98% 01/15/2021 2:05 AM EDT Inhaled Oxygen Concentration - - Weight 85.7 kg (189 lb) 01/14/2021 8:38 PM EDT Height 182.9 cm (6') 01/14/2021 8:38 PM EDT Body Mass Index 25.63 01/14/2021 8:38 PM EDT Plan of Treatment Health Maintenance Due Date Last Done Comments [facility]-Depression Screening 1970 [facility]-/Child/Adol SDOH Screenings 1970 [facility]- SDOH Screenings 1988 [facility]-Adult SDOH Screenings 1988 [facility]-Hepatitis B Vaccines (1 of 3 - 19+ 3-dose series) 1989 CT Colonography 2015 Colonoscopy 2015 FIT-DNA 2015 FIT 2015 FOBT 2015 Sigmoidoscopy 2015 [facility]-Colorectal Cancer Screening 2015 [facility]-Pneumococcal Vaccine: 50 + Years (1 of 1 - PCV) 2020 [facility]-Zoster Vaccines (1 of 2) 2020 [id number] Vaccine (1 - 20 24-25 season) 2024 [facility]-Influenza Vaccine (#1) 2025 [facility]-DTaP,Tdap,and Td Vaccine s (2 - Td or Tdap) 11/25/2028 11/25/2018 HPV Vaccines Aged Out No longer eligi ble based on patient's age to complete this topic [facility]-HIB Vaccines Aged Out No longer e ligible based on patient's age to complete this topic [facility]-Hepatitis A Vaccines Aged Out No longer eligible based on patient's age to complete this topic [facility]-IPV Vaccines Aged Out No longer e ligible based on patient's age to complete this topic [facility]-Rotavirus Vaccines Aged Out No lo nger eligible based on patient's age to complete this topic Insurance [facility] MEDICAID Care Teams Heavy Equipment Service Technician Relationship Specialty Start Date End Date Matthew Parisi DO [address] [place], [place] [id number] PCP - General 10/10/20
--- OUTSIDE RECORDS SUMMARY | 2024-12-19 22:29 | XMS_ITS | Clinical Summary ---
[facility] Organization [facility] Address [address] [place] [address] Care Team Providers Care Soa Integration Developer Name Role Phone Malvin Nguyen MD Primary Care Provider [phone] Allergies Active Allergy Reactions Criticality Noted Date Comments Codeine Hives Medium 05/30/2019 Ibuprofen GI Intolerance Low 05/30/2019 Medications gabapentin (NEURONTIN) 800 MG tablet 05/15/2019 Active HYDROcodone-maurisio taminophen (NORCO) 7.5-325 MG per tablet 05/15/2019 Activ e predniSONE (DELTASONE) 10 MG tablet 6//4/3/2 As directed PO 21 tablet 05/30/2019 Active albuterol sulfate HFA 108 (90 Base) MCG/ACT inhaler 1-2 puffs q 4-6 hours prn for SOB or wheeze 1 inhaler 05/30/2019 Active Social History Tobacco Use Types Packs/Day Years Used Date Smoking Tobacco: Never Assessed Abuse Screen Answer Date Recorded Unsafe at Home or Work/School Not on file Feels Threatened by Someone? Not on file 02/2023 Does Anyone Keep You from Co ntacting Others or Doint Things Outside the Home? Not on file 03/08/2023 Physical Sign of Abuse Present Not on file 1 Housing Stability Answer Date Recorded Current Living Arrangements Not on file 02/27 Potentially Unsafe Housing Conditions Not on sam e 03/08/2023 Family and Community Support Answer Jordan e Recorded Help with Day-to-Day Activities Not on file 03/08/2023 Lonely or Isolated Not on file 03/08/2023 Employment Answer Date Recorded Do you want help finding or keeping work or a rafa b? Not on file 03/08/2023 Disabilities Answer Date Recorded Concentrating, Remembering, or Making Decisions Difficulty Not on file 03/08/2023 Doing Errands Independently Difficulty Not on fi le 03/08/2023 Education Answer Date Recorded Help with school or training? Not on file Preferred Language Not on file 03/08/2023 Sex and Gender Information Value Date Recorded Sex Assigned at Not on file Legal Sex Male 1:44 PM EDT Gender Identity Not on file Sexual Orientation Not on file Last Filed Vital Signs Vital Sign Reading Time Taken Comments Blood Pressure 130/84 05/30/2019 6:39 PM EST Pulse - - Temperature 37.9 C (100.2 F) 05/30/2019 6:39 PM EST Respiratory Rate 19 05/30/2019 6:39 PM EST Oxygen Saturation 96% 05/30/2019 6:39 PM EST Inhaled Oxygen Concentration - - Weight 82.6 kg (182 lb) 05/30/2019 6:39 PM EST Height 182.9 cm (6') 05/30/2019 6:39 PM EST Body Mass Index 24.68 05/30/2019 6:39 PM EST Plan of Treatment Health Maintenance Due Date Last Done Comments COLOGUARD 2015 COLON CANCER SCREENING 5 YEAR SIGMOIDOSCOPY 2015 COLONOSCOPY 2015 COL[address] CANCER SCREENING 2015 CT COLONOGRAPHY 2015 FECAL OCCULT BLOOD TEST 2015 FIT Testing (1 year) 2015 ANNUAL PHYSICAL 05/30/2019 HEPATITIS C SCREENING 05/30/2019 Pneumococcal Vaccine 50+ (1 of 1 - PCV) 2020 ZOSTER VACCINE (1 of 2) 2020 COVID-19 Vaccine (1 - 2023- season) 2024 INFLUENZA VACCINE 02/27/2025 TDAP/TD VACCINES (2 - Td or Tdap) 11/25/2028 019 Insurance [employer] Care Teams Soa Integration Developer Relationship Specialty Start Date End Date Malvin Nguyen MD PCP - General Emergency Medicine 05/30/19
--- NOTE | 2024-12-19 22:36 | XR_ITS ---
PROCEDURE INFORMATION: Exam: XR Chest Exam date and time: 12/19/2024 10:40 PM Age: 54 years old Clinical indication: Pain; Chest pressure; Additional info: Chest pain TECHNIQUE: Imaging protocol: Radiologic exam of the chest. Views: 1 view. COMPARISON: CR XR CHEST PORTABLE 04/29/2024 2:28 PM FINDINGS: Lungs: Unremarkable. No consolidation. Pleural spaces: Unremarkable. No pleural effusion. No pneumothorax. Heart/Mediastinum: Unremarkable. No cardiomegaly. Bones/joints: Unremarkable. IMPRESSION: No acute findings.
--- NOTE | 2024-12-19 22:38 | PC.NURSE ---
Respiratory contacted regarding the need for VBG that was sent to the lab
[2024-12-19 22:41] LABS: Hematocrit 40.4 % (42.0-52.0); Hemoglobin 13.8 g/dL (14.1-18.0); Immature Granulocytes % 0.2 %; Mean Corpuscular HGB Conc 34.2 g/dL (31.8-35.4); Mean Corpuscular Hemoglobin 30.7 pg (27.0-31.2); Mean Corpuscular Volume 89.8 fl (80-94); Nucleated Red Blood Cells % 0 %; Platelet Count 225 K/mm3 (142-424); Red Blood Count 4.50 M/mm3 (4.60-6.20); Red Cell Distribution Width-SD 40.3 fL; White Blood Count 6.2 K/mm3 (4.8-10.8)
[2024-12-19 22:48] LABS: Alanine Aminotransferase 16 U/L (12-78); Albumin Level 4.1 g/dl (3.5-5.0); Albumin/Globulin Ratio 1.9 (1.1-1.8); Alkaline Phosphatase 59 U/L (38-126); Anion Gap 7.5 mEq/L (5-15); Aspartate Amino Transferase 29 U/L (17-59); Bilirubin,Total 0.6 mg/dl (0.2-1.3); Blood Urea Nitrogen 11 mg/dl (9-20); Calcium 9.2 mg/dl (8.4-10.2); Carbon Dioxide 28 mmol/L (22.0-30.0); Chloride 104 mmol/L (98-107); Creatinine Clearance Estimated 113 mL/min (50-200); Creatinine,Serum 0.90 mg/dl (0.66-1.25); Estimated Glomerular Filt Rate 88 ml/min (>60); GFR (African American) 106 ML/MIN (>60); Globulin 2.2 g/dL (1.3-3.2); Glucose 113 mg/dl (74-100); Potassium 3.5 mmoL/L (3.5-5.1); Sodium 136 mmol/L (136-145); Total Protein,Serum 6.3 g/dl (6.3-8.2)
[2024-12-19 22:49] LABS: VBG PCO2 43.0 mmol/L (35-51); VBG PH 7.38 mmol/L (7.31-7.41); VBG PO2 56.6 mmol/L (28-40)
[2024-12-19 22:50] LABS: VBG HCO3 24.6 mmol/L (23-30)
[2024-12-19 22:51] LABS: Lactate Venous 1.4 mmol/L (0.4-2.0)
[2024-12-19 22:53] LABS: D-Dimer 0.56 ug/mL (0.0-0.5)
--- NOTE | 2024-12-19 22:55 | HMH.EDGENADL ---
Discharge Plan Disposition Patient Disposition: Home, Self-Care Condition: Good Prescriptions Prescriptions: No Action albuterol sulfate [Ventolin HFA] 90 mcg/actuation HFA aerosol inhaler 2 puff inhalation Q4-6H PRN (Reason: shortness of breath or wheezing) Qty: 8.5 3RF Trelegy Ellipta 100-62.5-25 mcg blister with device 1 inh inhalation DAILY Qty: 60 2RF citalopram 40 mg tablet 40 mg PO DAILY cetirizine [All Day Allergy (cetirizine)] 10 mg tablet 10 mg PO DAILY Qty: 90 2RF triamcinolone acetonide 0.5 % cream 1 applic topical TID Qty: 15 1RF amlodipine 5 mg tablet See Rx Instructions .ROUTE .COMPLEX Qty: 30 2RF Dose Instruction: TAKE 1 TABLET BY MOUTH EVERY DAY Rx Instructions: TAKE 1 TABLET BY MOUTH EVERY DAY aspirin 81 mg tablet,delayed release (DR/EC) 81 mg PO DAILY Qty: 90 3RF isosorbide mononitrate 30 mg tablet extended release 24 hr See Rx Instructions .ROUTE .COMPLEX Qty: 90 4RF Dose Instruction: TAKE 1 TABLET BY MOUTH ONCE DAILY FOR CHEST PAIN Rx Instructions: TAKE 1 TABLET BY MOUTH ONCE DAILY FOR CHEST PAIN omeprazole 40 mg capsule,delayed release(DR/EC) See Rx Instructions .ROUTE .COMPLEX Qty: 90 3RF Dose Instruction: TAKE 1 CAPSULE BY MOUTH ONCE DAILY FOR GERD Rx Instructions: TAKE 1 CAPSULE BY MOUTH ONCE DAILY FOR GERD lisinopril 20 mg tablet See Rx Instructions .ROUTE .COMPLEX Qty: 90 3RF Dose Instruction: TAKE 1 TABLET BY MOUTH ONCE DAILY Rx Instructions: TAKE 1 TABLET BY MOUTH ONCE DAILY fluoxetine 40 mg capsule See Rx Instructions .ROUTE .COMPLEX Qty: 30 3RF Dose Instruction: TAKE 1 CAPSULE BY MOUTH EVERY DAY Rx Instructions: TAKE 1 CAPSULE BY MOUTH EVERY DAY cholecalciferol (vitamin D3) 125 mcg (5,000 unit) capsule See Rx Instructions .ROUTE .COMPLEX Qty: 30 11RF Dose Instruction: TAKE 1 CAPSULE ORALLY DAILY FOR 90 DAYS Rx Instructions: TAKE 1 CAPSULE ORALLY DAILY FOR 90 DAYS finasteride 5 mg tablet See Rx Instructions .ROUTE .COMPLEX Qty: 90 0RF Dose Instruction: TAKE 1 TABLET(5 mg) orally daily Rx Instructions: TAKE 1 TABLET(5 mg) orally daily tamsulosin 0.4 mg capsule 0.4 mg PO DAILY Qty: 30 2RF Referrals Follow up/Referrals: Provider,Referral, [Primary Care Provider, Medical] - See instructions Activity Restrictions/Add. Instructions Additional Instructions/Restrictions: Please follow-up with your primary care provider. Please return to the emergency department if you develop any new or worsening symptoms or become concerned for your health. Clinical Impressions Clinical Impression: Fatigue, Congestion of upper respiratory tract Print Language Print Language: Tajik Discharge ED Provider: Viraj Cerda General Adult HPI General Chief complaint: Chest Pain Stated complaint: chest pain Time Seen by Provider: 12/19/24 22:55 Mode of Arrival: Ambulatory Source of Information: Patient Description of Symptoms (Recalled from ER Triage Doc. by RN): Pt presents with c/o midsternal chest pain that began earlier today and has gradually worsened throughout the day with increase SOA that is normally chronic in nature, Pt reports associated productive cough with yellow sputum. Pt reports cardic HX years ao with stents placed. History of Present Illness HPI narrative: 54-year-old male with history COPD and coronary artery disease presents for fatigue. He reports that over the last 3 days he has been more weak than normal, he has had nasal congestion with some yellowish phlegm while coughing. He had some shortness of breath and some intermittent chest pain. Despite the stated chief complaint, patient reports to me that he did not have chest pain when he arrived and he does not have chest pain now. He did have some chest pain earlier today. He is worried he could have pneumonia. Related Data Home Medications ?Medication ?Instructions ?Recorded ?Confirmed citalopram 40 mg tablet 40 mg PO DAILY 01/27/24 09/10/24 Previous Rx's ?Medication ?Instructions ?Recorded amlodipine 5 mg tablet See Rx Instructions .Route 02/01/23 .COMPLEX #30 tabs albuterol sulfate 90 mcg/actuation 2 puff inhalation Q4-6H PRN 03/11/23 aerosol inhaler (Ventolin HFA) shortness of breath or wheezing #8.5 grams fluticasone fur. 100 mcg-umeclid 1 inh inhalation DAILY #60 ea 03/11/23 62.5 mcg-vilant 25 mcg inhalat.powder (Trelegy Ellipta) aspirin 81 mg tablet,delayed 81 mg PO DAILY Heart health #90 03/21/23 release tabs isosorbide mononitrate 30 mg See Rx Instructions .Route 06/06/23 tablet,extended release 24 hr .COMPLEX #90 tabs omeprazole 40 mg capsule,delayed See Rx Instructions .Route 06/29/23 release .COMPLEX #90 caps lisinopril 20 mg tablet See Rx Instructions .Route 08/22/23 .COMPLEX #90 tabs fluoxetine 40 mg capsule See Rx Instructions .Route 01/02/24 .COMPLEX #30 caps cetirizine 10 mg tablet (All Day 10 mg PO DAILY #90 tabs 01/27/24 Allergy (cetirizine)) cholecalciferol (vitamin D3) 125 See Rx Instructions .Route 07/06/24 mcg (5,000 unit) capsule .COMPLEX #30 caps finasteride 5 mg tablet See Rx Instructions .Route 08/20/24 .COMPLEX #90 tabs triamcinolone acetonide 0.5 % 1 applic topical TID #15 grams 08/28/24 topical cream tamsulosin 0.4 mg capsule 0.4 mg PO DAILY #30 caps 11/20/24 Allergies Allergy/AdvReac Type Severity Reaction Status Date / Time codeine (CODEINE) Allergy Mild Anaphylaxis Verified 08/28/24 08:55 meloxicam (From MOBIC) Allergy Mild Anaphylaxis Verified 08/28/24 08:55 ibuprofen (IBUPROFEN) Allergy Unknown Anaphylaxis Verified 08/28/24 08:55 [facility] Disclaimer: The information contained in this section may have been updated after the patient was seen, as this information can be updated by other users. Medical History (Updated 12/19/24 @ 23:12 by Viraj Cerda MD) Depression Cigarette smoker Colon cancer screening Low testosterone Angina pectoris History of left heart catheterization CAD (coronary artery disease) HTN (hypertension) HLD (hyperlipidemia) RABIA (obstructive sleep apnea) Daytime somnolence Surgical History Stented coronary artery Hx of tympanostomy tubes History of surgery on arm Family History Other Unknown family medical history Social History Smoking Status: Current every day smoker tobacco type: cigarettes packs per day: 2 smoking status start date: 1984 alcohol intake: never substance use type: denies use current occupational status: other Travel in the last 8 weeks?: None household members: spouse and children housing: house current occupation: [employer] current occupational exposures/hazards: No caffeine: Yes Have you lived/traveled outside US in past 30 days?: No Contact w/someone who lives/traveled outside US past 30 days?: No Exposure to someone with infectious disease in past 14 days?: No Do you have a fever (greater than 100.4 F or 38 C)?: No Have you tested positive for COVID-19?: No Exposed to someone with COVID-19 in past 14 days?: No Do you have a sore throat?: No Do you have a cough?: No Do you have any weakness?: No Do you have any diarrhea?: No Are you experiencing any unusual bleeding?: No Do you have any muscle aches/pain?: No Do you have any abdominal pain?: No Are you experiencing loss of taste or smell?: No Other Medical History Have you received the Flu Vaccine for this season: No Have you received the Pneumonia Vaccine: No ROS Obtained: Yes All systems reviewed & no additional complaints except as documented Physical Exam General General appearance: alert and in no apparent distress Head Head exam: atraumatic and normocephalic Eye Eye exam: Present normal appearance, PERRL and EOMI ENT ENT exam: Present normal oropharynx and normal external ear exam Neck Neck exam: Present normal inspection and full ROM Chest Chest inspection: Present normal inspection and symmetric chest wall rise; Absent tenderness Respiratory Respiratory exam: Present normal lung sounds bilaterally; Absent respiratory distress Cardiovascular Cardiovascular exam: Present regular rate and normal rhythm Abdominal Exam Abdominal exam: Present soft; Absent distention, tenderness or guarding Extremities Exam Extremities exam: Present normal inspection; Absent edema or joint swelling Back Exam Back exam: Present normal inspection; Absent tenderness Neurological Exam Neurological exam: Present alert and oriented X3; Absent motor sensory deficit Psychiatric Psychiatric exam: Present normal affect and normal mood Skin Skin exam: Present warm, dry and normal color Lymphatic Lymphatic Findings: no adenopathy Medical Decision Making Medical Records Medical records reviewed: Yes I reviewed the patient's medical records. Screening: Per USPSTF and CDC recommendations, given the prevalence of disease in our region, it is our hospital?s policy to screen for HIV and viral Hepatitis for all patients aged 18 and over and those with ongoing risk factors. Torres Inquiry Pt receiving controlled substance: No Torres was queried for this patient: No Vital Signs: 12/19/24 22:16 12/19/24 23:21 Temperature 98.8 F 97.9 F Temperature Source Oral Oral Pulse Rate 69 Pulse Rate [Radial] 66 Respiratory Rate 20 16 Blood Pressure 133/88 Blood Pressure [Right Arm] 151/103 H Blood Pressure Mean [Right Arm] 119 Blood Pressure Source Automatic Cuff Blood Pressure Position Supine Blood Pressure Position [Right Arm] Sitting 02 Sat by Pulse Oximetry 99 Oxygen Delivery Method Room Air Room Air Lab Data Lab results reviewed: Yes I reviewed the patient's lab results. Lab Results 12/19/24 22:26: WBC 6.2, RBC 4.50 L, Hgb 13.8 L, Hct 40.4 L, MCV 89.8, MCH 30.7, MCHC 34.2, RDW 12.2, Plt Count 225, MPV 9.0, Neut % (Auto) 60.8, Lymph % (Auto) 28.4, Hooker % (Auto) 8.0, Eos % (Auto) 2.1, Baso % (Auto) 0.5, Neut # (Auto) 3.8, Lymph # (Auto) 1.8, Hooker # (Auto) 0.5, Eos # (Auto) 0.1, Baso # (Auto) 0.0, D-Dimer 0.56 H, Sodium 136, Potassium 3.5, Chloride 104, Carbon Dioxide 28, Anion Gap 7.5, BUN 11, Creatinine 0.90, Estimated Creat Clear 113, Estimated GFR 88, Est GFR ( Amer) 106, Glucose 113 H, Calcium 9.2, Magnesium 1.8, Total Bilirubin 0.6, AST 29, ALT 16, Alkaline Phosphatase 59, Troponin I < 0.01, Total Protein 6.3, Albumin 4.1, Globulin 2.2, Albumin/Globulin Ratio 1.9 H 12/19/24 22:35: VBG pH 7.38, VBG pCO2 43.0, VBG pO2 56.6 H, VBG HCO3 24.6, VBG Total CO2 26.0, VBG O2 Saturation 89.9 H, VBG Base Excess -0.6, VBG Lactic Acid 1.4 12/19/24 22:26 12/19/24 22:26 Orders (Tests/Meds): ED MEDICATIONS Discontinued Medications Generic Name Dose Route Start Last Admin Trade Name Freq PRN Reason Stop Dose Admin Nitroglycerin 0.4 mg 12/19/24 22:35 Nitroglycerin 0.4mg Sl Tablet SL 12/20/24 22:36 [id number] PRN Chest Pain ORDERS Category Date Time Status XR chest portable Stat Exams 12/19/24 22:36 Completed Complete Blood Count Auto Diff Stat Lab 12/19/24 22:26 Completed Comprehensive Metabolic Panel Stat Lab 12/19/24 22:26 Completed D-Dimer Stat Lab 12/19/24 22:26 Completed MAG [Magnesium] Stat Lab 12/19/24 22:26 Completed Troponin I Stat Lab 12/19/24 22:26 Completed Venous Blood Gas Stat RT 12/19/24 22:35 Completed ECG Data Tracing #1: I reviewed this ECG and interpreted as documented below: Sinus rhythm, rate of 65, no ST changes or T wave changes, no evidence of arrhythmia. ECG initial impression date: 12/19/24 ECG initial impression time: 22:14 HEART Score History (anamnesis): Slightly suspicious ECG: Normal Age: 45-65 years Risk factors: Atherosclerosis history Troponin: </= normal limit HEART Score: 3 Medical Decision Narrative: 54-year-old male with history of COPD and coronary artery disease presents for a couple of days of worsening fatigue and congestion with intermittent shortness of breath and chest pain. No active chest pain on arrival or during ED stay. History was obtained via interactive discussion with patient. On arrival, patient is [afebrile, hemodynamically stable, satting appropriately, alert, oriented x4, GCS 15], moving all extremities spontaneously. Full physical exam performed and significant for no significant physical exam abnormalities, clear lungs bilaterally, no significant lower extremity edema. Patient does have nasal congestion on exam. Differential includes but is not limited to URI, pneumonia, ACS, PE. Workup initiated including CBC CMP troponin D-dimer chest x-ray EKG. On re-evaluation, patient continues to be chest pain-free, has normal vital signs. Laboratory workup independently interpreted by me and significant for negative D-dimer by years criteria. Negative initial troponin, no significant laboratory abnormalities. Imaging independently interpreted by me and significant for clear lungs bilaterally without focal opacity. See radiology read for full review of final results. EKG independently interpreted by me and significant for normal sinus rhythm. Repeat troponin was considered, but deemed unnecessary due to no chest pain at this time, history consistent with URI.. Given patient history, exam and workup, patient's presentation most likely represents URI. No evidence of cardiac pathology or bacterial pathology at this time. These findings were discussed with patient and he was discharged in stable condition with return precautions. Procedures Risk/Benefits of Procedure(s) Were Explained: Yes Critical Care Critical Care Time Critical Care Time: No
[2024-12-19 23:01] LABS: Troponin I < 0.01 ng/ml (0.00-0.034)
[2024-12-19 23:21] VITALS: BP 133/88; PULSE 69; RESP 16; TEMP 36.6; O2SAT 98
[2024-12-19 23:27] LABS: Magnesium 1.8 mg/dl (1.6-2.3)
== END 2024-12-19 23:23 | disposition home or self-care (01) ==
PROVIDERS: Student in an Organized Health Care Education/Training Program; Emergency Provider Emergency Medicine
DX: R07.89 Other chest pain (principal); R53.83 Other fatigue; J39.8 Other specified diseases of upper respiratory tract; E78.5 Hyperlipidemia, unspecified; I10 Essential (primary) hypertension; F17.210 Nicotine dependence, cigarettes, uncomplicated
CPT/HCPCS: 71045; 80053; 82803; 83735; 84484; 85025; 85378; 93005; 99285

== ENCOUNTER 2025-02-27 15:53 | Outpatient (CLI) | payer MEDICAID, SELFPAY ==
[2025-02-27 22:16] LABS: Hematocrit 38.1 % (42.0-52.0); Hemoglobin 12.8 g/dL (14.1-18.0); Immature Granulocytes % 0.3 %; Mean Corpuscular HGB Conc 33.6 g/dL (31.8-35.4); Mean Corpuscular Hemoglobin 30.9 pg (27.0-31.2); Mean Corpuscular Volume 92.0 fl (80-94); Nucleated Red Blood Cells % 0 %; Platelet Count 219 K/mm3 (142-424); Red Blood Count 4.14 M/mm3 (4.60-6.20); Red Cell Distribution Width-SD 40.6 fL; White Blood Count 6.2 K/mm3 (4.8-10.8)
[2025-02-27 22:44] LABS: Cholesterol 152 mg/dl (140-200); HDL Cholesterol 39 mg/dl (40-60); Triglycerides 237 mg/dl (30-150)
[2025-02-27 23:03] LABS: Free T4 (Free Thyroxine) 1.41 ng/dl (0.78-2.19)
[2025-02-27 23:14] LABS: Thyroid Stimulating Hormone 1.35 uIU/mL (0.465-4.68)
--- OUTSIDE RECORDS SUMMARY | 2025-02-28 11:41 | XMS_ITS | Clinical Summary ---
Author Organization Healthcare Address [address] [id number] Care Team Providers Care Cloud Engagement Partner Name Role Phone IsakMatthew coy DO Primary Care Provider [phone] Allergies Active Allergy Reactions Criticality Noted Date [...] Date Last Done Comments [facility]-Depression Screening 1970 [facility]-Infant/Child/Adol SDOH Screenings 1970 [facility]- SDOH Screenings 1988 [facility]-Adult SDOH Screenings 1988 [facility]-Hepatitis B Vaccines (1 of 3 - 19+ 3-dose series) 1989 CT Colonography 2015 Colonoscopy 2015 FIT-DNA 2015 FIT 2015 FOBT 2015 Sigmoidoscopy 2015 [facility]-Colorectal Cancer Screening 2015 [facility]-Pneumococcal Vaccine: 50 + Years (1 of 1 - PCV) 2020 [facility]-Zoster Vaccines (1 of 2) 2020 [id number] Vaccine (1 - 20 24-25 season) 2025 [facility]-Influenza Vaccine (#1) 2025 [facility]-DTaP,Tdap,and Td Vaccine [...] patient's age to complete this topic Insurance [facility] MEDICAID Care Teams Cloud Engagement Partner Relationship Specialty Start Date End Date Matthew Parisi DO [address] [place], [place] [id number] PCP - General 10/10/20
--- OUTSIDE RECORDS SUMMARY | 2025-02-28 11:41 | XMS_ITS | Clinical Summary ---
[facility] Address [address] [place] [address] Care Team Providers Care Hospitality Intern Name Role Phone Malvin Nguyen MD Primary Care Provider Allergies Active Allergy Reactions Criticality Noted Date [...] 2020 ZOSTER VACCINE (1 of 2) 2020 INFLUENZA VACCINE 12/28/2024 TDAP/TD VACCINES (2 - Td or Tdap) 11/25/2028 019 Insurance MEDICAID Care Teams Hospitality Intern Relationship Specialty Start Date End Date Malvin Nguyen MD PCP - General Emergency Medicine 05/30/19
== END 2025-02-27 23:59 ==
LOC: LAB.DROPOF 02-28 11:39
PROVIDERS: PCP Student in an Organized Health Care Education/Training Program; Visit Provider Student in an Organized Health Care Education/Training Program
DX: E78.5 Hyperlipidemia, unspecified (principal); R00.2 Palpitations; F41.9 Anxiety disorder, unspecified; G47.33 Obstructive sleep apnea (adult) (pediatric)
CPT/HCPCS: 80061; 84439; 84443; 85025

== ENCOUNTER 2025-05-07 19:51 | Emergency (ER) | payer MEDICAID, SELFPAY ==
[2025-05-07 19:52] VITALS: BP 135/94; PULSE 89; RESP 16; TEMP 36.9; O2SAT 98; BMI 25.2
--- NOTE | 2025-05-07 20:02 | XR_ITS ---
PROCEDURE INFORMATION: Exam: XR Chest Exam date and time: 05/07/2025 8:46 PM Age: 55 years old Clinical indication: Pain; Chest pressure; Additional info: Cp SOA TECHNIQUE: Imaging protocol: Radiologic exam of the chest. Views: 1 view. COMPARISON: CR XR CHEST PORTABLE 12/19/2024 10:40 PM FINDINGS: Lungs: Unremarkable. No consolidation. Pleural spaces: Unremarkable. No pleural effusion. No pneumothorax. Heart/Mediastinum: Unremarkable. No cardiomegaly. Bones/joints: Unremarkable. IMPRESSION: No acute findings.
--- NOTE | 2025-05-07 20:03 | ED_ITS ---
<Statement entered by Hanna Morgan DO - 05/08/25 00:19> I was consulted by the PORSHA, and we discussed the complexity of problems being addressed. I approve the treatment and management plan for this patient's care in the emergency department, thus performing a substantial portion of the medical decision making. Hanna Morgan DO Discharge Plan Disposition Patient Disposition: Left Against Medical Advice Prescriptions Prescriptions: No Action fluticasone furoate-vilanterol [Breo Ellipta] 100-25 mcg/dose blister with device 1 inh inhalation DAILY Qty: 60 3RF isosorbide mononitrate 30 mg tablet extended release 24 hr 30 mg PO DAILY Qty: 90 4RF amlodipine 5 mg tablet 5 mg PO DAILY Qty: 30 3RF aspirin [Adult Low Dose Aspirin] 81 mg tablet,delayed release (DR/EC) 81 mg PO DAILY Qty: 30 3RF albuterol sulfate [Ventolin HFA] 90 mcg/actuation HFA aerosol inhaler 2 puff inhalation Q4-6H PRN (Reason: shortness of breath or wheezing) Qty: 8.5 3RF cetirizine 10 mg tablet See Rx Instructions .ROUTE .COMPLEX Qty: 90 2RF Dose Instruction: take 1 tablet(10 mg) orally daily Rx Instructions: take 1 tablet(10 mg) orally daily rosuvastatin 10 mg tablet 10 mg PO DAILY Qty: 30 3RF tamsulosin 0.4 mg capsule See Rx Instructions .ROUTE .COMPLEX Qty: 30 0RF Dose Instruction: TAKE 1 Capsule(0.4 mg) orally daily Rx Instructions: TAKE 1 Capsule(0.4 mg) orally daily ranolazine 500 mg tablet extended release 12 hr 500 mg PO BID Qty: 60 2RF lidocaine [Aspercreme (lidocaine)] 4 % adhesive patch,medicated 1 patch topical DAILY PRN (Reason: pain) Qty: 30 0RF finasteride 5 mg tablet See Rx Instructions .ROUTE .COMPLEX Qty: 90 0RF Dose Instruction: TAKE 1 TABLET(5 mg) orally daily Rx Instructions: TAKE 1 TABLET(5 mg) orally daily Referrals Follow up/Referrals: Patel Calloway DO [Primary Care Provider, Family Practice] - See instructions Activity Restrictions/Add. Instructions Additional Instructions/Restrictions: Return to the ED for worsening of condition Clinical Impressions Clinical Impression: Chest pain Instructions Patient Instructions: DI for Chest Pain Print Language Print Language: German Discharge ED Provider: Hanna Morgan General Chief Complaint: Chest Pain Stated Complaint: chest Time Seen by Provider: 05/07/25 20:03 Mode of Arrival: Ambulatory Source of Information: Patient Description of Symptoms (Recalled from ER Triage Doc. by RN): patient presents tot he ED for chest pain that started this am. patient stated that the pain doesnt radiate but he has right arm numbness and tingling. patient also endorses soreness all over . patient has history of COPD. History of Present Illness HPI narrative: patient is a 55-year-old male PMHx COPD, current tobacco use, HTN, HLD who presented to the ED for complaints of chest pain and shortness of breath. Patient states he developed the symptoms prior to arrival, he had 4 red bull energy drinks today which he states is normal for him. Related Data Previous Rx's ?Medication ?Instructions ?Recorded fluticasone furoate 100 1 inh inhalation DAILY #60 e a 02/27/25 mcg-vilanterol 25 mcg/dose inhalation powder (Breo Ellipta) isosorbide mononitrate 30 mg 30 mg PO DAILY #90 tabs 1 tablet,extended release 24 hr lidocaine 4 % topical patch 1 patch topical DAILY PRN pain #30 04/01/25 (Aspercreme (lidocaine)) ea finasteride 5 mg tablet See Rx Instructions .Route 1 06/03/24 .COMPLEX #90 tabs albuterol sulfate 90 mcg/actuation 2 puff inhalation Q 4-6H PRN 04/29/25 aerosol inhaler (Ventolin HFA) shortness of breath or wheezing #8.5 grams amlodipine 5 mg tablet 5 mg PO DAILY #30 tabs 04/29 aspirin 81 mg tablet,delayed 81 mg PO DAILY heart #30 tabs 04/29/25 release (Adult Low Dose Aspirin) cetirizine 10 mg tablet See Rx Instructions .Route 1 06/30/24 .COMPLEX #90 tabs ranolazine 500 mg tablet,extended 500 mg PO BID #60 ta bs 04/29/25 release,12 hr rosuvastatin 10 mg tablet 10 mg PO DAILY Heart disease #30 04/29/25 tabs tamsulosin 0.4 mg capsule See Rx Instructions .Route 1 06/30/24 .COMPLEX #30 caps Allergies Allergy/AdvReac Type Severity Reaction Status Date / Time codeine (CODEINE) Allergy Mild Anaphylaxis Verified 04/29/25 15:58 meloxicam (From MOBIC) Allergy Mild Anaphylaxis Verified 04/29/25 15:58 ibuprofen (IBUPROFEN) Allergy Unknown Anaphylaxis Verified 04/29/25 15:58 [facility] Disclaimer: The information contained in this section may have been updated after the patient was seen, as this information can be updated by other users. Medical History Acute exacerbation of chronic obstructive pulmonary disease Elevated blood sugar Fatigue Low back pain Depression Cigarette smoker greater than 60 pack years Colon cancer screening Low testosterone Angina pectoris History of left heart catheterization CAD (coronary artery disease) HTN (hypertension) HLD (hyperlipidemia) RABIA (obstructive sleep apnea) Daytime somnolence Surgical History Stented coronary artery Hx of tympanostomy tubes LEFT History of surgery on arm RIGHT Family History Other Unknown family medical history Social History Smoking Status: Current every day smoker tobacco type: cigarettes packs per day: 2 smoking status start date: 1984 alcohol intake: never substance use type: denies use current occupational status: other Travel in the last 8 weeks?: None household members: spouse and children housing: house current occupation: [employer] current occupational exposures/hazards: No caffeine: Yes Have you lived/traveled outside [place] in past 30 days?: No Contact w/someone who lives/traveled outside [place] past 30 days?: No Exposure to someone with infectious disease in past 14 days?: No Do you have a fever (greater than 100.4 F or 38 C)?: No Have you tested positive for COVID-19?: No Exposed to someone with COVID-19 in past 14 days?: No Do you have a sore throat?: No Do you have a cough?: No Do you have any weakness?: No Do you have any diarrhea?: No Are you experiencing any unusual bleeding?: No Do you have any muscle aches/pain?: No Do you have any abdominal pain?: No Are you experiencing loss of taste or smell?: No Other Medical History Have you received the Flu Vaccine for this season: No Have you received the Pneumonia Vaccine: No ROS Obtained: Yes Systems reviewed as appropriate & no additional complaints except as documented Physical Exam General General appearance: alert Head Head exam: atraumatic Respiratory Respiratory exam: Present normal lung sounds bilaterally Cardiovascular Cardiovascular exam: Present regular rate Abdominal Exam Abdominal exam: Present soft; Absent tenderness Neurological Exam Neurological exam: Present alert and oriented X3 Skin Skin exam: Present warm and dry HEART Score HEART Score HEART Score assessment performed?: Yes History (anamnesis): Slightly suspicious ECG: Normal Age: 45-65 years Risk factors: 1-2 risk factors Troponin: </= normal limit HEART Score: 2 Critical Care Critical Care Time Critical Care Time: No Medical Decision Making Torres Inquiry Pt receiving controlled substance: No Vital Signs Vital Signs: 05/07/25 19:52 05/07/25 20:13 Temperature 98.5 F Temperature Source Oral Pulse Rate 87 Pulse Rate [Right Radial] 89 Respiratory Rate 16 Blood Pressure [Right Arm] 135/94 H Blood Pressure Mean [Right Arm] 107 Blood Pressure Source [Right Arm] Automatic Cuff Blood Pressure Position [Right Arm] Sitting 02 Sat by Pulse Oximetry 98 Oxygen Delivery Method Room Air Lab Data Labs: Lab Results 05/07/25 20:01: Urine Opiates Screen Negative, Urine Methadone Screen Negative, Ur Barbituates Screen Negative, Ur Phencyclidine Scrn Negative, Ur Amphetamines Screen Negative, U Benzodiazepines Scrn Negative, Urine Cocaine Screen Negative, U Marijuana (THC) Screen Negative 05/07/25 20:09: WBC 7.1, RBC 4.15 L, Hgb 13.1 L, Hct 38.1 L, MCV 91.8, MCH 31.6 H, MCHC 34.4, RDW 12.3, Plt Count 212, MPV 8.8, Neut % (Auto) 64.6, Lymph % (Auto) 25.2, Scurry % (Auto) 5.4, Eos % (Auto) 4.1, Baso % (Auto) 0.6, Neut # (Auto) 4.6, Lymph # (Auto) 1.8, Scurry # (Auto) 0.4, Eos # (Auto) 0.3, Baso # (Auto) 0.0, PT 10.6, INR 0.95, APTT 26.2, VBG pH 7.38, VBG pCO2 42.8, VBG pO2 55.9 H, VBG HCO3 24.8, VBG Total CO2 26.1, VBG O2 Saturation 90.4 H, VBG Base Excess -0.3, VBG Lactic Acid 1.7, Sodium 138, Potassium 3.9, Chloride 101, Carbon Dioxide 26, Anion Gap 14.9, BUN 13, Creatinine 0.90, Estimated Creat Clear 111, Estimated GFR 88, Est GFR ( Amer) 106, Glucose 106 H, Calcium 9.1, Magnesium 1.9, Total Bilirubin 0.4, AST 32, ALT 25, Alkaline Phosphatase 68, Troponin I < 0.01, Total Protein 6.9, Albumin 4.2, Globulin 2.7, Albumin/Globulin Ratio 1.6 05/07/25 20:09 05/07/25 20:09 Response Orders (Tests/Meds): ORDERS Category Date Time Status CXR --portable [XR chest portable] Stat Exams 05/07/25 20:02 Completed CBC w/Auto Diff [Complete Blood Count Auto Diff] Stat Lab 05/07/25 20:09 Completed CMP [Comprehensive Metabolic Panel] Stat Lab 05/07/25 20:09 Completed Magnesium Stat Lab 05/07/25 20:09 Completed PT/PTT Stat Lab 05/07/25 20:09 Completed Trop I [Troponin I] Stat Lab 05/07/25 20:09 Completed Troponin I Q3H Lab 05/07/25 23:15 Ordered Troponin I Q3H Lab 05/08/25 02:15 Ordered UDS [Drug Screen,Urine] Stat Lab 05/07/25 20:01 Completed VBG [Venous Blood Gas] Stat RT 05/07/25 20:09 Completed MDM Narrative Medical Decision Narrative: In summary, patient is a 55-year-old male PMHx COPD, current tobacco use, HTN, HLD who presented to the ED for complaints of chest pain and shortness of breath. Patient states he developed the symptoms prior to arrival, he had 4 red bull energy drinks today which he states is normal for him. He states that he feels overall fatigued. Patient describes his chest pain as centrally located and pressure. He denies having an WI in the past. Upon my initial evaluation patient is alert, oriented and cooperative. He is hemodynamically stable. He appears uncomfortable, no chest wall tenderness. Differential diagnosis includes ACS, dissection, pulmonary embolism, COPD exacerbation, viral illness among others. CBC unremarkable for any leukocytosis, stable H&H. Coags normal. Blood gas pCO2 55.9. Lactic acid 1.7. CMP overall unremarkable. First troponin < 0.01. Negative UDS. Upon reassessment, patient was asleep when I entered the room, he awakens to verbal stimuli. He is not currently having chest pain. Advised him that we are waiting on a second troponin. Voices no complaints at this time. Patient has decided he would like to sign out AMA instead of waiting on his second troponin. I discussed with him the risk of signing out AGAINST MEDICAL ADVICE including which she verbalized understanding. Patient states get this IV out of my arm now .
--- NOTE | 2025-05-07 20:03 | ECG_ITS ---
APPROVED REPORT Exam: Resting ECG HR:91 bpm ECG Measurements Heart Rate 91 AXES [place] 158 P 59 QRSd 104 QRS 84 QT 361 T 25 QTc 410 Conclusion SINUS RHYTHM NONSPECIFIC T-WAVE ABNORMALITY No STEMI Electronically signed by : VSIHNU CAMARENA, 05/10/2025 06:50:55
--- NOTE | 2025-05-07 20:12 | PC.NURSE ---
respiratory notified that VBG was sent to lab at this time.
[2025-05-07 20:13] VITALS: PULSE 87
[2025-05-07 20:17] LABS: Hematocrit 38.1 % (42.0-52.0); Hemoglobin 13.1 g/dL (14.1-18.0); Immature Granulocytes % 0.1 %; Lactate Venous 1.7 mmol/L (0.4-2.0); Mean Corpuscular HGB Conc 34.4 g/dL (31.8-35.4); Mean Corpuscular Hemoglobin 31.6 pg (27.0-31.2); Mean Corpuscular Volume 91.8 fl (80-94); Nucleated Red Blood Cells % 0 %; Platelet Count 212 K/mm3 (142-424); Red Blood Count 4.15 M/mm3 (4.60-6.20); Red Cell Distribution Width-SD 41.6 fL; VBG HCO3 24.8 mmol/L (23-30); VBG PCO2 42.8 mmol/L (35-51); VBG PH 7.38 mmol/L (7.31-7.41); VBG PO2 55.9 mmol/L (28-40); White Blood Count 7.1 K/mm3 (4.8-10.8)
[2025-05-07 20:30] LABS: Alanine Aminotransferase 25 U/L (12-78); Albumin Level 4.2 g/dl (3.5-5.0); Albumin/Globulin Ratio 1.6 (1.1-1.8); Alkaline Phosphatase 68 U/L (38-126); Anion Gap 14.9 mEq/L (5-15); Aspartate Amino Transferase 32 U/L (17-59); Bilirubin,Total 0.4 mg/dl (0.2-1.3); Blood Urea Nitrogen 13 mg/dl (9-20); Calcium 9.1 mg/dl (8.4-10.2); Carbon Dioxide 26 mmol/L (22.0-30.0); Chloride 101 mmol/L (98-107); Creatinine Clearance Estimated 111 mL/min (50-200); Creatinine,Serum 0.90 mg/dl (0.66-1.25); Estimated Glomerular Filt Rate 88 ml/min (>60); GFR (African American) 106 ML/MIN (>60); Globulin 2.7 g/dL (1.3-3.2); Glucose 106 mg/dl (74-100); Magnesium 1.9 mg/dl (1.6-2.3); Potassium 3.9 mmoL/L (3.5-5.1); Sodium 138 mmol/L (136-145); Total Protein,Serum 6.9 g/dl (6.3-8.2)
[2025-05-07 20:47] LABS: Activated Partial Thrombo Time 26.2 seconds (22.8-30.6); INR 0.95 (0.9-1.1); Prothrombin Time 10.6 seconds (10.1-12.5)
[2025-05-07 20:50] LABS: Troponin I < 0.01 ng/ml (0.00-0.034)
[2025-05-07 20:51] LABS: Amphetamine/Metha Screen,Urine Negative ng/ml (<1000); Barbiturates Screen,Urine Negative ng/ml (<200); Benzodiazepines Screen,Urine Negative ng/ml (<200); Methadone Screen,Urine Negative ng/ml (<300); Opiate Screen,Urine Negative ng/ml (<300); Phencyclidine Screen,Urine Negative ng/ml (<25)
[2025-05-07 21:41] VITALS: BP 000/00; PULSE 0; RESP 0; TEMP -17.7; TEMP 0; O2SAT 0
== END 2025-05-07 21:43 | disposition left against medical advice (07) ==
PROVIDERS: Nurse Practitioner; Emergency Provider Student in an Organized Health Care Education/Training Program; PCP Student in an Organized Health Care Education/Training Program
DX: R07.9 Chest pain, unspecified (principal); R06.02 Shortness of breath; F17.210 Nicotine dependence, cigarettes, uncomplicated; J44.9 Chronic obstructive pulmonary disease, unspecified
CPT/HCPCS: 71045; 80053; 80307; 82803; 83735; 84484; 85025; 85610; 85730; 93005; 99285